=== PATIENT | female | born 2000 | race Hispanic/Latino ===

== ENCOUNTER 2022-04-18 08:33 | Emergency (ER) | payer SELFPAY ==
--- OUTSIDE RECORDS SUMMARY | 2022-04-18 08:35 | XMS REPORT | Continuity of Care Document ---
:2000 Author Organization [facility] t Address [address] [place] [address] Care Team Providers Name Role Phone Doctor Unassigned, Name Attending Clinician Unavailable Payers Payer Name Policy Type Policy Number Effective Date Expiration Date S ource Problems Condition Condition Condition Status Onset Resolution Last Treating Co mments Source Name Details Category Date Date Treatment Clinician Date Vaginal Vaginal Disease Active [facility] yeast yeast 2 [place] [facility] Contracept Contracept Disease Active U nivers mi[place] 2[place] [facility] Bradycardi Bradycardi Disease Active U nivers a a 7- ity of 00:00: [address] Depression Depression Disease Active U kerriers , , 06-11 ity [place]specif[place] depression depression Br anch type type Anxiety Anxiety Disease Active Univers 7 ity of 00:00: [place] 00 [facility] Allergies, Adverse Reactions, Alerts This patient has no known allergies or adverse reactions. Social History Social Habit Start Date Stop Date Quantity Comments Source Sex Assigned At [facility] Alcohol intake 2019-09-16 2019-09-16 [facility] 00:00:00 00:00:00 [facility] Alcohol Comment 2018-12-25 2018-12-25 occasional [facility] 00:00:00 00:00:00 [facility] Smoking Status Start Date Stop Date Source Never smoker [facility] Medications Ordered Filled Start Stop Current Ordering Indication Dosage Frequency Signature Comments Components Source Medication Medication Date Date Medication? Clinician (SIG) Name Name L-Norgest&E 2019- Yes [id number] 1{tbl} Take 1 Univers Estradiol-E 2-01 tablet by ity of Estrad 00:00: mouth [place] (SEASONIQUE 00 daily. Medica l ) 0.15 Branch mg-30 mcg (84)/10 mcg (7) per tablet FLUoxetine Yes [id number] 20mg Take 1 U nivers 20 mg 9-11 tablet by ity of tablet 00:00: mouth [place] 00 daily. [facility] Immunizations Ordered Immunization Filled Immunization Date Status Commen ts Source Name Name Tdap 2018-03-25 Completed University of 00:00:00 [facility] Meningococcal 2017-03-11 Completed University of Polysaccharide 00:00:00 [facility] sherin (groups A, C, Y and Branc h W-135) conjugate vaccine (MCV4P) HPV 2015-05-30 Completed University of 00:00:00 [facility] HPV 2013-11-30 Completed University of 00:00:00 [facility] HPV 2013-05-25 Completed University of 00:00:00 [facility] Meningococcal Vaccine 2011-06-10 Completed Uni versity of 00:00:00 [facility] Tdap 2011-06-10 Completed University of 00:00:00 [facility] Varicella 2011-06-10 Completed University of (varivax)(chicken 00:00:00 [place] M edical pox) [place] Meningococcal Vaccine 2010-12-11 Completed Uni versity of 00:00:00 [facility] Tdap 2010-12-11 Completed University of 00:00:00 [facility] Varicella 2010-12-11 Completed University of (varivax)(chicken 00:00:00 [place] M edical pox) [place] HEPATITIS A 2007-03-11 Completed University of 00:00:00 [facility] HEPATITIS A 2005-09-18 Completed University of 00:00:00 [facility] DTAP 2005-03-06 Completed University of 00:00:00 [facility] MMR 2005-03-06 Completed University of 00:00:00 [facility] Polio (IPV/OPV) 2005-03-06 Completed Universit y of 00:00:00 [facility] DTAP 2003-09-20 Completed University of 00:00:00 [facility] MMR 2003-09-20 Completed University of 00:00:00 [facility] Polio (IPV/OPV) 2003-09-20 Completed Universit y of 00:00:00 [facility] Pneumococcal 13 2001-06-11 Completed Universit y of Conjugate, PCV13 00:00:00 [facility] dical (Prevnar 13) Branch Varicella 2001-06-11 Completed University of (varivax)(chicken 00:00:00 [place] M edical pox) Branch DTAP 2001-02-06 Completed University of 00:00:00 [facility] HIB 4 Dose Schedule 2001-02-06 Completed Unive rsity of 00:00:00 [facility] MMR 2001-02-06 Completed University of 00:00:00 [facility] Polio (IPV/OPV) 2001-02-06 Completed Universit y of 00:00:00 [facility] DTAP 2000-07-16 Completed University of 00:00:00 [facility] HIB 4 Dose Schedule 2000-07-16 Completed Unive rsity of 00:00:00 [facility] DTAP 2000-03-18 Completed University of 00:00:00 [facility] Hep B, Adol or Pedi 2000-03-18 Completed Unive rsity of Dosage 00:00:00 [facility] HIB 4 Dose Schedule 2000-03-18 Completed Unive rsity of 00:00:00 [facility] Polio (IPV/OPV) 2000-03-18 Completed Universit y of 00:00:00 [facility] DTAP 1999 Completed University of 00:00:00 [facility] HIB 4 Dose Schedule 1999 Completed Unive rsity of 00:00:00 [facility] Hep B, Adol or Pedi 1999 Completed Unive rsity of Dosage 00:00:00 [facility] Polio (IPV/OPV) 1999 Completed Universit y of 00:00:00 [facility] Hep B, Adol or Pedi 1999 Completed Unive rsity of Dosage 00:00:00 [facility] Procedures Procedure Date / Time Performing Clinician Source Performed VACCINATIONS - 2020-03-23 05:01:00 Doctor Unassigned, No Univer [facility] [place] [place] CONSENTS, ELIGIBILITY, Name Medical [facility] HISTORY Encounters Start End Encounter Admission Attending Care Care Encounter Source Date/Time Date/Time Type Type Clinicians Facility Department ID 2020-03-23 2020-03-23 Orders Doctor WEBER [id number] Univers 00:00:00 00:00:00 Only Unassigned, XIAO [id number] ity of [place] [facility] [id number] [place] as [id number] [facility] 009 Branch Results This patient has no known results.
[2022-04-18] MEDS ORDERED: NA CHLORIDE 0.9% 1,000 ML ONE (09:10)
[2022-04-18] MEDS ORDERED: ONDANSETRON 4 MG/2 ML VIAL ONE (09:10)
[2022-04-18 09:14] LABS: Absolute Lymphocytes (CBC) 0.2 K/uL (0.7-4.9); Hematocrit 40.5 % (36.0-45.0); Lymphocytes % 4.1 % (15.3-44.8); MPV 7.6 fL (7.6-11.3); RBC Red Blood Cell Count 4.43 M/uL (3.86-4.86)
[2022-04-18 09:36] LABS: Albumin 3.8 g/dL (3.4-5.0); Bilirubin Total 0.8 mg/dL (0.2-1.0); Potassium 3.8 mmol/L (3.5-5.1)
[2022-04-18 10:02] LABS: Blood Morphology Comment NOT SEEN (NOT SEEN); Platelet Estimate ADEQ; White Blood Cell Scan OK (OK)
[2022-04-18] MEDS ORDERED: DIPHENHYDRAMINE 50 MG/ML VIAL ONE (10:32)
[2022-04-18] MEDS ORDERED: METOCLOPRAMIDE 10 MG/2mL INJ ONE (10:32)
[2022-04-18] MEDS ORDERED: NA CHLORIDE 0.9% 250 ML ONE (10:33)
--- NOTE | 2022-04-18 11:57 | ER ---
Nurse's Notes [facility] Name: Lanie Wood Age: 21 yrs Sex: Female : 2000 Arrival Date: 04/18/2022 Time: 08:35 Bed 19 Private MD: Diagnosis: Vomiting;Diarrhea, unspecified Presentation: 04/18 08:50 Chief complaint: Patient states: vomiting and diarrhea today, feels like when she had iw covid. Coronavirus screen: Client presents with at least one sign or symptom that may indicate coronavirus-19. Ebola Screen: Patient negative for fever greater than or equal to 101.5 degrees Fahrenheit, and additional compatible Ebola Virus Disease symptoms Patient denies exposure to infectious person. Patient denies travel to an Ebola-affected area in the 21 days before illness onset. No symptoms or risks identified at this time. Initial Sepsis Screen: Does the patient meet any 2 criteria? No. Patient's initial sepsis screen is negative. Does the patient have a suspected source of infection? No. Patient's initial sepsis screen is negative. Risk Assessment: Do you want to hurt yourself or someone else? Patient reports no desire to harm self or others. Onset of symptoms was April 18, 2022. 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 - Social history:: Smoking status: Patient denies any tobacco usage or history of. Screenin:53 Abuse screen: Denies threats or abuse. Nutritional screening: No deficits noted. ll1 Tuberculosis screening: No symptoms or risk factors identified. Fall Risk IV access (20 points). Total Rodriguez Fall Scale indicates No Risk (0-24 pts). Assessment: 08:58 General: Appears uncomfortable, ill, Behavior is calm, cooperative, appropriate for ll1 age. Pain: Complains of pain in abdomen Quality of pain is described as crampy. Neuro: No deficits noted. Cardiovascular: No deficits noted. Respiratory: No deficits noted. GI: Abdomen is flat, Reports cramping, diarrhea, nausea, vomiting. 09:14 Reassessment: No changes from previously documented assessment. Patient and/or family ll1 updated on plan of care and expected duration. Pain level reassessed. Patient is alert, oriented x 3, equal unlabored respirations, skin warm/dry/pink. 10:00 Reassessment: No changes from previously documented assessment. Patient and/or family ll1 updated on plan of care and expected duration. Pain level reassessed. Patient states feeling better. 10:45 Reassessment: No changes from previously documented assessment. Patient and/or family ll1 updated on plan of care and expected duration. Pain level reassessed. Patient is alert, oriented x 3, equal unlabored respirations, skin warm/dry/pink. 11:45 Reassessment: No changes from previously documented assessment. Patient and/or family ll1 updated on plan of care and expected duration. Pain level reassessed. Patient is alert, oriented x 3, equal unlabored respirations, skin warm/dry/pink. 12:03 Reassessment: No changes from previously documented assessment. Patient and/or family ll1 updated on plan of care and expected duration. Pain level reassessed. Patient is alert, oriented x 3, equal unlabored respirations, skin warm/dry/pink. Patient states feeling better. Patient states symptoms have improved. Vital Signs: 08:50 BP 104 / 63; Pulse 77; Resp 16; Temp 99.0; Pulse Ox 100% on R/A; Weight 72.57 kg; iw Height 5 ft. 7 in. (170.18 cm); 10:49 BP 101 / 63; Pulse 70; Resp 15; Pulse Ox 100% ; ll1 11:50 BP 143 / 71; Pulse 72; Resp 15; Pulse Ox 100% ; Pain 0/10; ll1 08:50 Body Mass Index 25.06 (72.57 kg, 170.18 cm) ED Course: 08:35 Patient arrived in ED. mr 08:41 Nithin Marvin PA is PHCP. jmm 08:41 José Miguel Richard MD is Attending Physician. jmm 08:51 Triage completed. iw 08:51 Arm band placed on. iw 08:53 Elie Hurtado, RN is Primary Nurse. ll1 08:53 Patient has correct armband on for positive identification. Bed in low position. Call ll1 light in reach. Side rails up X 1. Pulse ox on. NIBP on. 09:00 Inserted saline lock: 22 gauge in right antecubital area, using aseptic technique. ll1 Blood collected. 11:50 No provider procedures requiring assistance completed. IV discontinued, intact, ll1 bleeding controlled, No redness/swelling at site. Pressure dressing applied. Administered Medications: 09:13 Drug: NS 0.9% 1000 ml Route: IV; Rate: 1 bolus; Site: right antecubital; ll1 10:05 Follow up: Response: No adverse reaction; IV Status: Completed infusion; IV Intake: ll1 1000ml 09:13 Drug: Zofran (Ondansetron) 4 mg Route: IVP; Site: right antecubital; ll1 10:05 Follow up: Response: No adverse reaction; Nausea is decreased ll1 10:41 Drug: NS 0.9% 250 ml Route: IV; Rate: calculated rate; Site: right antecubital; ll1 11:43 Follow up: Response: No adverse reaction; IV Status: Completed infusion; IV Intake: ll1 250ml 10:41 Drug: Reglan (metoCLOPramide) 20 mg Route: IVP; Site: right antecubital; ll1 11:43 Follow up: Response: No adverse reaction ll1 10:42 Drug: diphenhydrAMINE 12.5 mg Route: IVP; Site: right antecubital; ll1 11:43 Follow up: Response: No adverse reaction ll1 Medication: 08:53 VIS not applicable for this client. ll1 Intake: 10:05 IV: 1000ml; Total: 1000ml. ll1 11:43 IV: 250ml; Total: 1250ml. ll1 Outcome: 11:50 Condition: stable ll1 11:57 Discharge ordered by . katia 12:02 Discharged to home ambulatory. ll1 12:02 Discharge instructions given to patient, Instructed on discharge instructions, follow up and referral plans. medication usage, Demonstrated understanding of instructions, follow-up care, medications, Prescriptions given X 2. 12:03 Patient left the ED. ll1 Signatures: Mickail, Nithin, PA PA jmm Chavez, Zamzam mr Hola, Clarisa, RN RN iw Bryant, Lynsay, RN RN ll1
--- NOTE | 2022-04-18 11:58 | EDPHYS ---
Physician Documentation [facility] Name: Lanie Wood Age: 21 yrs Sex: Female : 2000 Arrival Date: 04/18/2022 Time: 08:35 Bed 19 Private MD: ED Physician José Miguel Richard HPI: 04/18 08:46 This 21 yrs old Female presents to ER via Ambulatory with complaints of jmm Vomiting/Diarrhea. 08:46 The patient presents to the emergency department with nausea, vomiting, diarrhea. jmm Onset: The symptoms/episode began/occurred acutely, this morning. Possible causes: unknown. The symptoms are aggravated by food , The symptoms are alleviated by nothing. Associated signs and symptoms: Pertinent positives: abdominal pain. The patient has not experienced similar symptoms in the past. 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 - Social history:: Smoking status: Patient denies any tobacco usage or history of. ROS: 08:46 Cardiovascular: Negative for chest pain, palpitations, and edema, Respiratory: Negative jmm for shortness of breath, cough, wheezing, and pleuritic chest pain, Abdomen/GI: Negative for abdominal pain, nausea, vomiting, diarrhea, and constipation. 08:46 Constitutional: Positive for body aches, chills. 08:46 Abdomen/GI: Positive for abdominal pain, nausea and vomiting, diarrhea. 08:46 All other systems are negative. Exam: 08:46 Constitutional: This is a well developed, well nourished patient who is awake, alert, jmm and in no acute distress. Head/Face: atraumatic. Eyes: EOMI, no conjunctival erythema appreciated ENT: Moist Mucus Membranes Neck: Trachea midline, Supple Chest/axilla: Normal chest wall appearance and motion. Cardiovascular: Regular rate and rhythm. No edema appreciated Respiratory: Normal respirations, no respiratory distress appreciated Abdomen/GI: Non distended, soft Back: Normal ROM Skin: General appearance color normal MS/ Extremity: Moves all extremities, no obvious deformities appreciated, no edema noted to the lower extremities Neuro: Awake and alert Psych: Behavior is normal, Mood is normal, Patient is cooperative and pleasant 08:46 Abdomen/GI: Inspection: abdomen appears normal, Bowel sounds: normal, Palpation: abdomen is soft and non-tender, in all quadrants. Vital Signs: 08:50 BP 104 / 63; Pulse 77; Resp 16; Temp 99.0; Pulse Ox 100% on R/A; Weight 72.57 kg; iw Height 5 ft. 7 in. (170.18 cm); 10:49 BP 101 / 63; Pulse 70; Resp 15; Pulse Ox 100% ; ll1 11:50 BP 143 / 71; Pulse 72; Resp 15; Pulse Ox 100% ; Pain 0/10; ll1 08:50 Body Mass Index 25.06 (72.57 kg, 170.18 cm) iw MDM: 08:46 Patient medically screened. [facility] 11:56 Data reviewed: vital signs, nurses notes. [facility] 11:56 Counseling: I had a detailed discussion with the patient and/or guardian regarding: the [facility] historical points, exam findings, and any diagnostic results supporting the discharge/admit diagnosis, lab results, the need for outpatient follow up, to return to the emergency department if symptoms worsen or persist or if there are any questions or concerns that arise at home. ED course: States she feels much better. Abdomen is nontender to palpation. I do not suspect an acute intra-abdominal process. Most likely gastroenteritis. Patient vies follow with PCP and otherwise given strict return precautions. Patient understood and agrees plan of care.. 04/18 08:52 Order name: CBC with Diff; Complete Time: 10:05 [facility] 04/18 08:52 Order name: CMP; Complete Time: 10: [facility] 04/18 08:52 Order name: Lipase; Complete Time: 10: [facility] 04/18 09:17 Order name: CBC Smear Scan; Complete Time: 10: [facility] 04/18 11:47 Order name: Urine --Ancillary (enter results) dh3 04/18 12:02 Order name: Urine Dipstick-Ancillary; Complete Time: 12:03 [facility] 04/18 08:52 Order name: IV Saline Lock; Complete Time: 08:55 [facility] 04/18 08:52 Order name: Labs collected and sent; Complete Time: 08:55 [facility] 04/18 08:52 Order name: Urine Dipstick-Ancillary (obtain specimen); Complete Time: 11:43 [facility] Administered Medications: 09:13 Drug: NS 0.9% 1000 ml Route: IV; Rate: 1 bolus; Site: right antecubital; ll1 10:05 Follow up: Response: No adverse reaction; IV Status: Completed infusion; IV Intake: ll1 1000ml 09:13 Drug: Zofran (Ondansetron) 4 mg Route: IVP; Site: right antecubital; ll1 10:05 Follow up: Response: No adverse reaction; Nausea is decreased ll1 10:41 Drug: NS 0.9% 250 ml Route: IV; Rate: calculated rate; Site: right antecubital; ll1 11:43 Follow up: Response: No adverse reaction; IV Status: Completed infusion; IV Intake: ll1 250ml 10:41 Drug: Reglan (metoCLOPramide) 20 mg Route: IVP; Site: right antecubital; ll1 11:43 Follow up: Response: No adverse reaction ll1 10:42 Drug: diphenhydrAMINE 12.5 mg Route: IVP; Site: right antecubital; ll1 11:43 Follow up: Response: No adverse reaction ll1 Disposition Summary: 04/18/22 11:57 Discharge Ordered Location: Home [facility] Condition: Stable [facility] Diagnosis - Vomiting m - Diarrhea, unspecified [facility] Followup: [facility] - With: Private Physician - When: 2 - 3 days - Reason: Recheck today's complaints, Continuance of care, Re-evaluation by your physician Discharge Instructions: - Food Choices to Help Relieve Diarrhea, Adult jm - Diarrhea, Adult [facility] - Discharge Summary Sheet ll1 - Vomiting, Adult [facility] Forms: - Work release form ll1 - Medication Reconciliation Form [facility] - Thank You Letter [facility] - Antibiotic Education [facility] - Prescription Opioid Use [facility] Prescriptions: - ondansetron 4 mg Oral tablet,disintegrating - take 1 tablet by ORAL route every 4-6 hours; 30 tablet; Refills: 0, Product [facility] Selection Permitted - dicyclomine 20 mg Oral Tablet - take 1 tablet by ORAL route 4 times per day; 30 tablet; Refills: 0, Product [facility] Selection Permitted Signatures: Dispatcher [employer] EDAL Okil, Nithin, PA PA jmm Hola, Clarisa, RN RN iw Elie Hurtado RN RN ll1
[2022-04-18 12:01] LABS: Urine Blood Negative (Negative); Urine Glucose Negative (Negative); Urine Protein Negative (Negative); Urine pH 7.5 (5.0-7.0)
[2022-04-18 12:11] VITALS: TEMP 99; O2SAT 100
[2022-04-18 12:14] VITALS: BP 143/71
== END 2022-04-18 12:03 | disposition home or self-care (01) ==
LOC: ER 08:33
DX: R11.2 Nausea with vomiting, unspecified (principal); R19.7 Diarrhea, unspecified; F32.A Depression, unspecified
CPT/HCPCS: 36415; 80053; 81003; 81025; 83690; 85025; 96361; 96365; 96375; 99284; J1200; J2405; J2765; J7030; J7050

== ENCOUNTER 2023-05-22 22:58 | Emergency (ER) | payer OTHER ==
--- OUTSIDE RECORDS SUMMARY | 2023-05-22 23:01 | XMS REPORT | Continuity of Care Document ---
:2000 Author Organization [facility] t Address [address] [facility] [address] [place] [id number] Care Team Providers Name Role Phone Geronimo Lozano Primary Care Physician KYM DIAZ Attending Clinician Unavailable KYM DIAZ Attending Clinician Unavailable Ca Hays MD Attending Clinician CA HAYS Attending Clinician Unavailable Doctor Unassigned, [place] Attending Clinician Unavailable GERMAN ORR Attending Clinician Unavailable Payers Payer Name Policy Type Policy Number Effective Date Expiration Date S ource [place]ICAID [place] [id number] 2023 00:00:00 Problems Condition Condition Condition Status Onset Resolution Last Treating Co mments Source Name Details Category Date Date Treatment Clinician Date Vaginal Vaginal Disease Active 2018- Univers yeast yeast 2- [place] [facility] Contracept Contracept Disease Active 2019-0 U nivers miya miya 2- [place] [facility] Bradycardi Bradycardi Disease Active 2018-0 U nivers a a 7- ity of 00:00: [address] Depression Depression Disease Active 2017- U nivers , , 06-11 ity of unspecifie [place] depression Br anch type type Anxiety Anxiety Disease Active 2017- Univers 7- ity of 00:00: [place] 00 [facility] Allergies, Adverse Reactions, Alerts Allergy Allergy Status Severity Reaction(s) Onset Inactive Treating Comm ents Source Name Type Date Date Clinician NO KNOWN Drug Active Univers ALLERGIE Class ity of S [facility] Social History Social Habit Start Date Stop Date Quantity Comments Source ASSERTION 2023-03-18 University of 00:00:00 [facility] Alcohol intake 2023-05-06 2023-05-06 Current drinker Unive rsity of 00:00:00 00:00:00 of alcohol [facility] (finding) [place] Tobacco use and 2023-05-06 2023-05-06 Smokeless tobacco Un iversity of exposure 00:00:00 00:00:00 non-user [facility] Alcohol Comment 2018-12-25 2018-12-25 occasional Universit y of 00:00:00 00:00:00 [facility] Sex Assigned At [birth year] Universit y of 00:00:00 00:00:00 [facility] Smoking Status Start Date Stop Date Source Never smoked tobacco [facility] Medications Ordered Filled Start Stop Current Ordering Indication Dosage Frequency Signature Comments Components Source Medication Medication Date Date Medication? Clinician (SIG) Name Name Yes [id number] Take 1 Uni vers vit/iron 6-13 TAB-CAP/M2 ity o f fum/folic 20:58: by mouth. [place] as ac 06 Medical ( 1 Branch + 1 ORAL) Yes [id number] Take 1 Uni vers vit/iron 6-13 TAB-CAP/M2 ity o f fum/folic 20:58: by mouth. [place] as ac 06 Medical ( 1 Branch + 1 ORAL) escitalopra Yes [id number] 20mg Take 1 Univers m oxalate 6-13 tablet by ity o f 20 mg 20:57: mouth in [place] tablet 34 the Medical morning. Branch escitalopra Yes [id number] 20mg Take 1 Univers m oxalate 6-13 tablet by ity o f 20 mg 20:57: mouth in [place] tablet 34 the Medical morning. Branch proMETHazin Yes [id number] 25mg Take 1 Univers e 25 mg 6-13 tablet by ity of tablet 00:00: mouth [place] 00 every 4 Medical (four) Branch hours as needed for Nausea and Vomiting (N/V). proMETHazin Yes [id number] 25mg Take 1 Univers e 25 mg 6-13 tablet by ity of tablet 00:00: mouth [place] 00 every 4 Medical (four) Branch hours as needed for Nausea and Vomiting (N/V). L-Norgest&E Yes [id number] 1{tbl} Take 1 Univers Estradiol-E 2-01 tablet by ity of Estrad 00:00: mouth [place] (SEASONIQUE 00 daily. Medica l ) 0.15 Branch mg-30 mcg (84)/10 mcg (7) per tablet L-Norgest&E Yes [id number] 1{tbl} Take 1 Univers Estradiol-E 2-01 tablet by ity of Estrad 00:00: mouth [place] (SEASONIQUE 00 daily. Medica l ) 0.15 Branch mg-30 mcg (84)/10 mcg (7) per tablet L-Norgest&E Yes [id number] 1{tbl} Take 1 Univers Estradiol-E 2-01 tablet by ity of Estrad 00:00: mouth [place] (SEASONIQUE 00 daily. Medica l ) 0.15 Branch mg-30 mcg (84)/10 mcg (7) per tablet L-Norgest&E 2022- No [id number] 1{tbl} Take 1 Univers Estradiol-E 2-01 06-13 tablet by it y of Estrad 00:00: 00:00 mouth [place] (SEASONIQUE 00 :00 daily. Medica l ) 0.15 Branch mg-30 mcg (84)/10 mcg (7) per tablet FLUoxetine Yes [id number] 20mg Take 1 U nivers 20 mg 9-11 tablet by ity of tablet 00:00: mouth [place] 00 daily. Medical Branch FLUoxetine Yes [id number] 20mg Take 1 U nivers 20 mg 9-11 tablet by ity of tablet 00:00: mouth [place] 00 daily. Medical Branch FLUoxetine Yes [id number] 20mg Take 1 U nivers 20 mg 9-11 tablet by ity of tablet 00:00: mouth [place] 00 daily. Medical Branch FLUoxetine 2022- No [id number] 20mg Take 1 Univers 20 mg 9-11 06-13 tablet by ity of tablet 00:00: 00:00 mouth [place] 00 :00 daily. Medical Branch Immunizations Ordered Immunization Filled Immunization Date Status Commen ts Source Name Name TDAP 2018-03-25 Completed University of 00:00:00 [facility] Branch TDAP 2018-03-25 Completed University of 00:00:00 [facility] Branch TDAP 2018-03-25 Completed University of 00:00:00 [facility] Branch TDAP 2018-03-25 Completed University of 00:00:00 [facility] Branch Tdap 2018-03-25 Completed University of 00:00:00 [facility] Branch Meningococcal 2017-03-11 Completed University of Polysaccharide 00:00:00 [place] Medi sherin (groups A, C, Y and Branc h W-135) conjugate vaccine (MCV4P) Meningococcal 2017-03-11 Completed University of Polysaccharide 00:00:00 [place] Med[facility] sherin (groups A, C, Y and Branc h W-135) conjugate vaccine (MCV4P) Meningococcal 2017-03-11 Completed University of Polysaccharide 00:00:00 [place] Medi sherin (groups A, C, Y and Branc h W-135) conjugate vaccine (MCV4P) Meningococcal 2017-03-11 Completed University of Polysaccharide 00:00:00 [place] Medi sherin (groups A, C, Y and Branc h W-135) conjugate vaccine (MCV4P) Meningococcal 2017-03-11 Completed University of Polysaccharide 00:00:00 [place] Medi sherin (groups A, C, Y and Branc h W-135) conjugate vaccine (MCV4P) HPV 2015-05-30 Completed University of 00:00:00 [facility] Branch HPV 2015-05-30 Completed University of 00:00:00 [facility] Branch HPV 2015-05-30 Completed University of 00:00:00 [facility] Branch HPV 2015-05-30 Completed University of 00:00:00 [facility] Branch HPV 2015-05-30 Completed University of 00:00:00 [facility] Branch HPV 2013-11-30 Completed University of 00:00:00 [facility] Branch HPV 2013-11-30 Completed University of 00:00:00 [facility] Branch HPV 2013-11-30 Completed University of 00:00:00 [place] [facility] HPV 2013-11-30 Completed University of 00:00:00 [facility] Branch HPV 2013-11-30 Completed University of 00:00:00 [facility] Branch HPV 2013-05-25 Completed University of 00:00:00 [facility] Branch HPV 2013-05-25 Completed University of 00:00:00 [facility] HPV 2013-05-25 Completed University of 00:00:00 [facility] HPV 2013-05-25 Completed University of 00:00:00 [facility] HPV 2013-05-25 Completed University of 00:00:00 [facility] Meningococcal Vaccine 2011-06-10 Completed Uni versity of 00:00:00 [facility] TDAP 2011-06-10 Completed University of 00:00:00 [facility] Varicella 2011-06-10 Completed University of (varivax)(chicken 00:00:00 [place] M edical pox) Branch Meningococcal Vaccine 2011-06-10 Completed Uni versity of 00:00:00 [facility] TDAP 2011-06-10 Completed University of 00:00:00 [facility] Varicella 2011-06-10 Completed University of (varivax)(chicken 00:00:00 [place] M [facility]ical pox) Branch Meningococcal Vaccine 2011-06-10 Completed Uni versity of 00:00:00 [facility] TDAP 2011-06-10 Completed University of 00:00:00 [facility] Varicella 2011-06-10 Completed University of (varivax)(chicken 00:00:00 [place] M [facility]ical pox) Branch Meningococcal Vaccine 2011-06-10 Completed Uni versity of 00:00:00 [facility] Tdap 2011-06-10 Completed University of 00:00:00 [facility] Varicella 2011-06-10 Completed University of (varivax)(chicken 00:00:00 [place] M [facility]ical pox) Branch Meningococcal Vaccine 2011-06-10 Completed Uni versity of 00:00:00 [facility] TDAP 2011-06-10 Completed University of 00:00:00 [facility] Varicella 2011-06-10 Completed University of (varivax)(chicken 00:00:00 [place] M [facility]ical pox) Branch Meningococcal Vaccine 2010-12-11 Completed Uni versity of 00:00:00 [facility] TDAP 2010-12-11 Completed University of 00:00:00 [facility] Varicella 2010-12-11 Completed University of (varivax)(chicken 00:00:00 [place] M [facility]ical pox) Branch Meningococcal Vaccine 2010-12-11 Completed Uni versity of 00:00:00 [facility] TDAP 2010-12-11 Completed University of 00:00:00 [facility] Varicella 2010-12-11 Completed University of (varivax)(chicken 00:00:00 [place] M [facility]ical pox) Branch Meningococcal Vaccine 2010-12-11 Completed Uni versity of 00:00:00 [facility] TDAP 2010-12-11 Completed University of 00:00:00 [facility] Varicella 2010-12-11 Completed University of (varivax)(chicken 00:00:00 [place] M [facility]ical pox) Branch Meningococcal Vaccine 2010-12-11 Completed Uni versity of 00:00:00 [facility] Tdap 2010-12-11 Completed University of 00:00:00 [facility] Varicella 2010-12-11 Completed University of (varivax)(chicken 00:00:00 [facility] edical pox) Branch Meningococcal Vaccine 2010-12-11 Completed Uni versity of 00:00:00 [facility] TDAP 2010-12-11 Completed University of 00:00:00 [facility] Varicella 2010-12-11 Completed University of (varivax)(chicken 00:00:00 [facility] edical pox) [place] HEPATITIS A 2007-03-11 Completed University of 00:00:00 [facility] HEPATITIS A 2007-03-11 Completed University of 00:00:00 [facility] HEPATITIS A 2007-03-11 Completed University of 00:00:00 [facility] HEPATITIS A 2007-03-11 Completed University of 00:00:00 [facility] HEPATITIS A 2007-03-11 Completed University of 00:00:00 [facility] HEPATITIS A 2005-09-18 Completed University of 00:00:00 [facility] HEPATITIS A 2005-09-18 Completed University of 00:00:00 [facility] HEPATITIS A 2005-09-18 Completed University of 00:00:00 [facility] HEPATITIS A 2005-09-18 Completed University of 00:00:00 [facility] HEPATITIS A 2005-09-18 Completed University of 00:00:00 [facility] DTAP 2005-03-06 Completed University of 00:00:00 [facility] MMR 2005-03-06 Completed University of 00:00:00 [facility] Polio (IPV/OPV) 2005-03-06 Completed Universit y of 00:00:00 [facility] DTAP 2005-03-06 Completed University of 00:00:00 [facility] MMR 2005-03-06 Completed University of 00:00:00 [facility] DTAP 2005-03-06 Completed University of 00:00:00 [place] [facility] Polio (IPV/OPV) 2005-03-06 Completed Universit y of 00:00:00 [place] [facility] DTAP 2005-03-06 Completed University of 00:00:00 [place] [facility] MMR 2005-03-06 Completed University of 00:00:00 [place] [facility] Polio (IPV/OPV) 2005-03-06 Completed Universit y of 00:00:00 [facility] Branch MMR 2005-03-06 Completed University of 00:00:00 [place] [facility] Polio (IPV/OPV) 2005-03-06 Completed Universit y of 00:00:00 [facility] Branch DTAP 2005-03-06 Completed University of 00:00:00 [facility] Branch MMR 2005-03-06 Completed University of 00:00:00 [place] [facility] Polio (IPV/OPV) 2005-03-06 Completed Universit y of 00:00:00 [facility] Branch DTAP 2003-09-20 Completed University of 00:00:00 [facility] Branch MMR 2003-09-20 Completed University of 00:00:00 [place] [facility] Polio (IPV/OPV) 2003-09-20 Completed Universit y of 00:00:00 [facility] Branch DTAP 2003-09-20 Completed University of 00:00:00 [facility] Branch DTAP 2003-09-20 Completed University of 00:00:00 [facility] Branch MMR 2003-09-20 Completed University of 00:00:00 [place] [facility] Polio (IPV/OPV) 2003-09-20 Completed Universit y of 00:00:00 [place] [facility] DTAP 2003-09-20 Completed University of 00:00:00 [place] [facility] MMR 2003-09-20 Completed University of 00:00:00 [place] [facility] Polio (IPV/OPV) 2003-09-20 Completed Universit y of 00:00:00 [facility] MMR 2003-09-20 Completed University of 00:00:00 [place] [facility] Polio (IPV/OPV) 2003-09-20 Completed Universit y of 00:00:00 [facility] Branch DTAP 2003-09-20 Completed University of 00:00:00 [facility] MMR 2003-09-20 Completed University of 00:00:00 [place] [facility] Polio (IPV/OPV) 2003-09-20 Completed Universit y of 00:00:00 [facility] Pneumococcal 13 2001-06-11 Completed Universit y of Conjugate, PCV13 00:00:00 [place] [facility]ical (Prevnar 13) Branch Varicella 2001-06-11 Completed University of (varivax)(chicken 00:00:00 [place] [facility] pox) Branch Pneumococcal 13 2001-06-11 Completed Universit y of Conjugate, PCV13 00:00:00 [place] [facility] (Prevnar 13) Branch Varicella 2001-06-11 Completed University of (varivax)(chicken 00:00:00 [place] M [facility]ical pox) Branch Pneumococcal 13 2001-06-11 Completed Universit y of Conjugate, PCV13 00:00:00 [place] Me [facility]ical (Prevnar 13) Branch Varicella 2001-06-11 Completed University of (varivax)(chicken 00:00:00 [place] M [facility]ical pox) Branch Pneumococcal 13 2001-06-11 Completed Universit y of Conjugate, PCV13 00:00:00 [place] Me [facility]ical (Prevnar 13) Branch Varicella 2001-06-11 Completed University of (varivax)(chicken 00:00:00 [place] M [facility]ical pox) Branch Pneumococcal 13 2001-06-11 Completed Universit y of Conjugate, PCV13 00:00:00 [place] Me [facility]ical (Prevnar 13) Branch Varicella 2001-06-11 Completed University of (varivax)(chicken 00:00:00 [place] M [place]ical pox) Branch DTAP 2001-02-06 Completed University of 00:00:00 [facility] HIB 4 Dose Schedule 2001-02-06 Completed Unive rsity of 00:00:00 [facility] MMR 2001-02-06 Completed University of 00:00:00 [facility] Polio (IPV/OPV) 2001-02-06 Completed Universit y of 00:00:00 [facility] DTAP 2001-02-06 Completed University of 00:00:00 [facility] DTAP 2001-02-06 Completed University of 00:00:00 [facility] HIB 4 Dose Schedule 2001-02-06 Completed Unive rsity of 00:00:00 [facility] MMR 2001-02-06 Completed University of 00:00:00 [facility] Polio (IPV/OPV) 2001-02-06 Completed Universit y of 00:00:00 [facility] DTAP 2001-02-06 Completed University of 00:00:00 [facility] HIB 4 Dose Schedule 2001-02-06 Completed Unive rsity of 00:00:00 [facility] MMR 2001-02-06 Completed University of 00:00:00 [facility] Polio (IPV/OPV) 2001-02-06 Completed Universit y of 00:00:00 [facility] HIB 4 Dose Schedule 2001-02-06 Completed Unive rsity of 00:00:00 [facility] Branch MMR 2001-02-06 Completed University of 00:00:00 [facility] Polio (IPV/OPV) 2001-02-06 Completed Universit y of 00:00:00 [facility] Branch DTAP 2001-02-06 Completed University of 00:00:00 [facility] HIB 4 Dose Schedule 2001-02-06 Completed Unive rsity of 00:00:00 [facility] MMR 2001-02-06 Completed University of 00:00:00 [facility] Polio (IPV/OPV) 2001-02-06 Completed Universit y of 00:00:00 [facility] DTAP 2000-07-16 Completed University of 00:00:00 [facility] HIB 4 Dose Schedule 2000-07-16 Completed Unive rsity of 00:00:00 [facility] DTAP 2000-07-16 Completed University of 00:00:00 [facility] DTAP 2000-07-16 Completed University of 00:00:00 [facility] HIB 4 Dose Schedule 2000-07-16 Completed Unive rsity of 00:00:00 [facility] DTAP 2000-07-16 Completed University of 00:00:00 [facility] HIB 4 Dose Schedule 2000-07-16 Completed Unive rsity of 00:00:00 [facility] HIB 4 Dose Schedule 2000-07-16 Completed Unive rsity of 00:00:00 [facility] DTAP 2000-07-16 Completed University of 00:00:00 [facility] HIB 4 Dose Schedule 2000-07-16 Completed Unive rsity of 00:00:00 [facility] DTAP 2000-03-18 Completed University of 00:00:00 [facility] Hep B, Adol or Pedi 2000-03-18 Completed Unive rsity of Dosage 00:00:00 [facility] HIB 4 Dose Schedule 2000-03-18 Completed Unive rsity of 00:00:00 [facility] Polio (IPV/OPV) 2000-03-18 Completed Universit y of 00:00:00 [facility] DTAP 2000-03-18 Completed University of 00:00:00 [facility] DTAP 2000-03-18 Completed University of 00:00:00 [facility] Hep B, Adol or Pedi 2000-03-18 Completed Unive rsity of Dosage 00:00:00 [facility] HIB 4 Dose Schedule 2000-03-18 Completed Unive rsity of 00:00:00 [facility] Polio (IPV/OPV) 2000-03-18 Completed Universit y of 00:00:00 [facility] DTAP 2000-03-18 Completed University of 00:00:00 [facility] Branch Hep B, Adol or Pedi 2000-03-18 Completed Unive rsity of Dosage 00:00:00 [facility] HIB 4 Dose Schedule 2000-03-18 Completed Unive rsity of 00:00:00 [facility] Polio (IPV/OPV) 2000-03-18 Completed Universit y of 00:00:00 [facility] Branch Hep B, Adol or Pedi 2000-03-18 Completed Unive rsity of Dosage 00:00:00 [facility] HIB 4 Dose Schedule 2000-03-18 Completed Unive rsity of 00:00:00 [facility] Polio (IPV/OPV) 2000-03-18 Completed Universit y of 00:00:00 [facility] DTAP 2000-03-18 Completed University of 00:00:00 [facility] Hep B, Adol or Pedi 2000-03-18 Completed Unive rsity of Dosage 00:00:00 [facility] HIB 4 Dose Schedule 2000-03-18 Completed Unive rsity of 00:00:00 [facility] Branch Polio (IPV/OPV) 2000-03-18 Completed Universit y of 00:00:00 [facility] DTAP 1999 Completed University of 00:00:00 [facility] HIB 4 Dose Schedule 1999 Completed Unive rsity of 00:00:00 [facility] Hep B, Adol or Pedi 1999 Completed Unive rsity of Dosage 00:00:00 [facility] Polio (IPV/OPV) 1999 Completed Universit y of 00:00:00 [facility] DTAP 1999 Completed University of 00:00:00 [facility] Branch DTAP 1999 Completed University of 00:00:00 [facility] HIB 4 Dose Schedule 1999 Completed Unive rsity of 00:00:00 [facility] Branch Hep B, Adol or Pedi 1999 Completed Unive rsity of Dosage 00:00:00 [facility] Polio (IPV/OPV) 1999 Completed Universit y of 00:00:00 [facility] HIB 4 Dose Schedule 1999 Completed Unive rsity of 00:00:00 [facility] Branch DTAP 1999 Completed University of 00:00:00 [facility] HIB 4 Dose Schedule 1999 Completed Unive rsity of 00:00:00 [facility] Branch Hep B, Adol or Pedi 1999 Completed Unive rsity of Dosage 00:00:00 [facility] Branch Hep B, Adol or Pedi 1999 Completed Unive rsity of Dosage 00:00:00 [facility] Polio (IPV/OPV) 1999 Completed Universit y of 00:00:00 [facility] Polio (IPV/OPV) 1999 Completed Universit y of 00:00:00 [facility] DTAP 1999 Completed University of 00:00:00 [facility] HIB 4 Dose Schedule 1999 Completed Unive rsity of 00:00:00 [place] [facility] Hep B, Adol or Pedi 1999 Completed Unive rsity of Dosage 00:00:00 [facility] Polio (IPV/OPV) 1999 Completed Universit y of 00:00:00 [place] [facility] Hep B, Adol or Pedi 1999 Completed Unive rsity of Dosage 00:00:00 [place] [facility] Hep B, Adol or Pedi 1999 Completed Unive rsity of Dosage 00:00:00 [place] [facility] Hep B, Adol or Pedi 1999 Completed Unive rsity of Dosage 00:00:00 [place] [facility] Hep B, Adol or Pedi 1999 Completed Unive rsity of Dosage 00:00:00 [place] [facility] Hep B, Adol or Pedi 1999 Completed Unive rsity of Dosage 00:00:00 [facility] Vital Signs Vital Name Observation Time Observation Value Comments Source Systolic blood 2023-05-06 20:25:00 115 mm[Hg] Univer sity of pressure [facility] Diastolic blood 2023-05-06 20:25:00 70 mm[Hg] Unive rsity of [facility] Heart rate 2023-05-06 20:25:00 77 /min Universi ty [facility] Body temperature 2023-05-06 20:25:[address] [facility] [place] [facility] Respiratory rate 2023-05-06 20:25:00 18 /min Univ [facility] [place] [facility] Body height 2023-05-06 20:25:00 170.2 cm Universi ty [facility] Body weight 2023-05-06 20:25:00 [facility] 2023-05-06 20:25:00 25.65 kg/m2 [facility] Oxygen saturation in 2023-05-06 20:25:00 99 /min [facility] Arterial blood by [facility] Pulse oximetry Branch Body weight 2023-04-12 17:03:00 71.668 kg Universi ty [facility] BMI 2023-04-12 17:03:00 24.75 kg/m2 Universi ty [facility] Systolic blood 2023-04-12 17:03:00 122 mm[Hg] Univer sity of [facility] Diastolic blood 2023-04-12 17:03:00 88 mm[Hg] Unive rsity of pressure [facility] Body height 2023-04-12 17:03:00 170.2 [facility] Procedures Procedure Date / Time Performing Clinician Source Performed US OB TRANSVAGINAL 2023-05-07 02:00:02 Ca Hays [facility] URINE DRUG (IMMUNOASSAY) 2023-05-06 21:46:00 Ca Hays versity [facility] SCREEN ASSIGNMENT OF BENEFITS 2023-05-06 19:26:26 Doctor Unassigned, No [facility] POCT TEST 2023-05-06 00:00:00 Adum, Ca Arredondo [facility] POCT URINALYSIS W/O 2023-05-06 00:00:00 Adum, Ca Arredondo [facility] SPECIFIC GRAVITY [facility] CONSENT/REFUSAL FOR 2023-04-12 16:54:47 Doctor Unassigned, No Un [facility] DIAGNOSIS AND TREATMENT Name [facility] VACCINATIONS - CONSENTS, 2020-03-23 05:01:00 Doctor Unassigned, No [facility] ELIGIBILITY, HISTORY Name Medical [facility] Encounters Start End Encounter Admission Attending Care Care Encounter Source Date/Time Date/Time Type Type Clinicians Facility Department ID 2023-06-09 2023-06-09 Outpatient R KYM DIAZ [facility] [id number] Univers 13:15:00 13:15:00 KYM DIAZ ity [facility] 2023-05-09 2023-05-09 Telephone Adum, [facility] [id number] Univers 00:00:00 00:00:00 Ca CHAIREZ [id number] ity of [place] [id number] [place] [id number] [place] [address] [place] [address] 2023-05-06 2023-05-06 Outpatient R ADUM, [facility] [id number] Univers 14:30:00 16:22:09 [place] ity [facility] 2023-05-06 2023-05-06 Initial Adum, [facility] [id number] Univers 14:30:00 16:22:09 [place] CHAIREZ [id number] ity of [id number] [id number] [place] N[place] 134 [facility] 2023-05-06 2023-05-06 Orders Doctor WEBER [id number] Univers 00:00:00 00:00:00 Only Unassigned, XIAO [id number] ity of [place] [facility] [id number] [place] as [id number] [address] 2023-04-12 2023-04-12 Emergency X [facility] ERT [id number] Univers 12:07:00 12:19:00 ity of [facility] 2023-04-12 2023-04-12 Emergency [facility] [id number] Univers 12:07:00 12:19:00 ANGLEALIN [id number] i ty of [place] [id number] [facility] [id number] [address] 2023-01-15 2023-01-15 Outpatient R KIRBY [facility] 116 [id number] Univers 14:00:00 14:00:00 , [place] it y of [facility] 2020-03-23 2020-03-23 Orders Doctor TIA [id number] Univers 00:00:00 00:00:00 Only Unassigned, XIAO [id number] ity of [place] [facility] [id number] [facility] [id number] [address] Results Test Description Test Time Test Comments Results Result Comments Source POCT URINALYSIS W/O SPECIFIC GRAVITY 2023-05-06 20:32:00 Test Item Value Reference Range Interpretation Comme nts POCT PH U (test code = 3254) n/a 5-8 POCT U LEUK EST (test code = 3263) n/a Negative - Negative POCT U NIT (test code = 3262) n/a Negative - Negative POCT U PROT (test code = 3259) negative Negative - Negative POCT U GLU (test code = 3256) negative Negative - Negative POCT U KETONE (test code = 3258) n/a Negative - Negative POCT U BLD (test code = 3257) n/a Negative - Negative [id number]:31[facility] Test Item Value Reference Range Interpretation Comments POCT PREG (test code = 1605) Positive On board controls acceptable with C Yes Line (test code = 3574) POCT PREG LOT # (test code = 3575) POCT PREG TEST DATE (test code = 3576) [facility]
[2023-05-22 23:33] LABS: Absolute Lymphocytes (CBC) 1.6 K/uL (0.7-4.9); Hematocrit 41.9 % (36.0-45.0); Lymphocytes % 24.9 % (15.3-44.8); MCV 91.8 fL (80-100); MPV 7.1 fL (7.6-11.3); RBC Red Blood Cell Count 4.56 M/uL (3.86-4.86)
[2023-05-23 00:06] LABS: Bilirubin Total 0.3 mg/dL (0.2-1.0); Potassium 3.4 mEq/L (3.5-5.1); Protein, Total 7.9 g/dL (6.4-8.2)
[2023-05-23 00:49] LABS: Specific Gravity 1.015 (1.005-1.030); Urine Bacteria None Seen /HPF (<20); Urine Bilirubin NEGATIVE (Negative); Urine Blood 1+ (Negative); Urine Clarity Clear (Clear); Urine Color Light-Yellow (Yellow); Urine Glucose NEGATIVE (Negative); Urine Mucus Slight /HPF (None Seen); Urine Protein NEGATIVE (Negative); Urine RBC <5 /HPF (None Seen); Urine Urobilinogen Normal (Normal); Urine pH 6.5 (5.0-7.0)
--- NOTE | 2023-05-23 01:16 | EDPHYS ---
Physician Documentation [facility] Name: Lanie Wood Age: 22 yrs Sex: Female : 2000 Arrival Date: 05/22/2023 Time: 22:58 Bed 19 Private MD: ED Physician Ceasar Soto HPI: 05/22 23:07 This 22 yrs old Female presents to ER via Unassigned with complaints of sp4 , VAGINAL BLEEDING. 23:34 Very pleasant 22-year-old female -0-0-1 at estimated gestational age of 11 weeks 2 sp4 days by last menstrual period, estimated delivery date 12/09/2023, last menstrual period 03/04/2023., EGA estimated by sonogram, with history of care presents for cute onset of painless vaginal bleeding starting just about 30 minutes prior to arrival associated with passing blood clots. No history of prior miscarriage. . 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 - Social history:: Smoking status: Patient denies any tobacco usage or history of. Patient/guardian denies using alcohol, street drugs. - Family history:: not pertinent. ROS: 23:34 Constitutional: Negative for fever, chills, and weight loss, Eyes: Negative for injury, sp4 pain, redness, and discharge, ENT: Negative for injury, pain, and discharge, Neck: Negative for injury, pain, and swelling, Cardiovascular: Negative for chest pain, palpitations, and edema, Respiratory: Negative for shortness of breath, cough, wheezing, and pleuritic chest pain, Abdomen/GI: Negative for abdominal pain, nausea, vomiting, diarrhea, and constipation, Back: Negative for injury and pain, : Negative for injury, positive for vaginal bleeding , negative uterine cramps MS/Extremity: Negative for injury and deformity, Skin: Negative for injury, rash, and discoloration, Neuro: Negative for headache, weakness, numbness, tingling, and seizure, Psych: Negative for depression, anxiety, Allergy/Immunology: Negative for hives, rash, and allergies Endocrine: Negative for neck swelling, polydipsia, polyuria, polyphagia, and weight changes Hematologic/Lymphatic: Negative for swollen nodes, abnormal bleeding, and unusual bruising Exam: 23:34 Constitutional: This is a well developed, well nourished patient who is awake, alert, sp4 and in no acute distress. Head/Face: Normocephalic, atraumatic. Eyes: Pupils equal round and reactive to light, extra-ocular motions intact. Lids and lashes normal. Conjunctiva and sclera are not injected. Cornea within normal limits. Periorbital areas with no swelling, redness, or edema. ENT: Nares patent. No nasal discharge, no septal abnormalities noted. Tympanic membranes are normal and external auditory canals are clear. Oropharynx with no redness, swelling, or masses, exudates, or evidence of obstruction, uvula midline. Mucous membranes moist. Neck: Trachea midline, no thyromegaly or masses palpated, and no cervical lymphadenopathy. Supple, full range of motion without nuchal rigidity, or vertebral point tenderness. Chest/axilla: Normal chest wall appearance and motion. Nontender with no deformity. No lesions are appreciated. Cardiovascular: Regular rate and rhythm with a normal S1 and S2. No gallops, murmurs, or rubs. Normal PMI, no JVD. No pulse deficits. Respiratory: Lungs have equal breath sounds bilaterally, clear to auscultation and percussion. No rales, rhonchi or wheezes noted. No increased work of breathing, no retractions or nasal flaring. Abdomen/GI: Soft, non-tender, with normal bowel sounds. No distension or tympany. No guarding or rebound. No evidence of tenderness throughout. Back: No spinal tenderness. No costovertebral tenderness. Skin: Warm, dry with normal turgor. Normal color with no rashes, no lesions, and no evidence of cellulitis. MS/ Extremity: Pulses equal, no cyanosis. Neurovascular intact. Full, normal range of motion. Neuro: Awake and alert, GCS 15, oriented to person, place, time, and situation. Cranial nerves II-XII grossly intact. Motor strength 5/5 in all extremities. Sensory grossly intact. Psych: Awake, alert, with orientation to person, place and time. Behavior, mood, and affect are within normal limits Vital Signs: 23:13 BP 105 / 80; Pulse 88; Resp 17 S; Temp 98.7(O); Pulse Ox 100% on R/A; Weight 74.84 kg lg3 (R); Height 5 ft. 7 in. (R); 05/23 00:42 BP 112 / 90; Pulse 90; Resp 16 S; Pulse Ox 98% on R/A; lg3 05/22 23:13 Body Mass Index 25.84 (74.84 kg, 170.18 cm) lg3 MDM: 05/22 23:28 Patient medically screened. sp4 05/23 01:03 Differential Diagnosis Threatened miscarriage. Data reviewed: vital signs, nurses sp4 notes, lab test result(s), radiologic studies, ultrasound. 01:06 ED course: EXAM DESCRIPTION: OB Limited CLINICAL HISTORY: 22 years Female, vag bleed sp4 COMPARISON: None. TECHNIQUE: Transabdominal and transvaginal images of the pelvis obtained. FINDINGS: Uterus: Anteverted. No myometrial mass. Gestational sac/Yolk sac/ pole: Single live intrauterine with gestational sac containing a pole. [place]-rump length of 4.7 cm, compatible with estimated gestational age of 11 weeks and 2 days. There is a small subchorionic hemorrhage measuring 1.1 x 0.7 x 0.8 cm heart motion: 160 bpm Right ovary: Not visualized. Left ovary: Not visualized. Adnexa: No additional abnormality. Free fluid: None identified. IMPRESSION: Single live intrauterine with estimated gestational age of 11 weeks and 2 days. Small subchorionic hemorrhage. . 01:12 Consideration of Admission/Observation Escalation of care including sp4 admission/observation considered. ED course: hormone level is almost 47,000. Ultrasound revealed normal-appearing single intrauterine location and heart tones 160. Patient advised to see her OB doctor in 2 days for hormone level. Patient will be discharged home with recommendations of bedrest for 2 days and pelvic rest for the next 2-weeks . 05/22 23:07 Order name: CBC with Diff; Complete Time: 01:04 sp4 05/22 23:07 Order name: CMP; Complete Time: 01:04 sp4 05/22 23:07 Order name: HCG-Quantitative; Complete Time: 01:04 sp4 05/22 23:07 Order name: Urinalysis W/Microscopic; Complete Time: 01:04 sp4 05/22 23:20 Order name: US OB Limited sp4 05/22 23:07 Order name: IV Saline Lock; Complete Time: 23:38 sp4 05/22 23:07 Order name: Labs collected and sent; Complete Time: 23:38 sp4 Administered Medications: No medications were administered Disposition Summary: 05/23/23 01:15 Discharge Ordered Location: Home sp4 Problem: new sp4 Symptoms: have improved sp4 Condition: Stable sp4 Diagnosis - Threatened sp4 - Vaginal bleeding in , first trimester sp4 Followup: sp4 - With: Private Physician - When: 2 - 3 days - Reason: Recheck today's complaints Discharge Instructions: - Discharge Summary Sheet sp4 - Threatened Miscarriage sp4 Forms: - [email or web address] sp4 Signatures: Dispatcher [employer] Gloria Jules, RN RN lg3 Ceasar Soto MD MD sp4
--- NOTE | 2023-05-23 01:16 | ER ---
Nurse's Notes [facility] Name: Lanie Wood Age: 22 yrs Sex: Female : 2000 Arrival Date: 05/22/2023 Time: 22:58 Bed 19 Private MD: Diagnosis: Threatened ;Vaginal bleeding in , first trimester Presentation: 05/22 23:13 Chief complaint: Patient states: almost 12 weeks in a few day. LMP 03/04/23. lg3 due date 12/09/23. woke up this morning with pelvic heaviness and pressure. used restroom around 2230 and im bleeding heavily with clots. Coronavirus screen: Client denies travel out of the [place] in the last 14 days. At this time, the client does not indicate any symptoms associated with coronavirus-19. Ebola Screen: No symptoms or risks identified at this time. Initial Sepsis Screen: Does the patient meet any 2 criteria? No. Patient's initial sepsis screen is negative. Does the patient have a suspected source of infection? No. Patient's initial sepsis screen is negative. Risk Assessment: Do you want to hurt yourself or someone else? Patient reports no desire to harm self or others. Onset of symptoms was May 22, 2023. 23:13 Method Of Arrival: Ambulatory lg3 23:13 Acuity: KATIE 3 lg3 Triage Assessment: 23:16 General: Appears in no apparent distress. comfortable, Behavior is calm, cooperative. lg3 Pain: Complains of pain in pelvis Quality of pain is described as heavy, pressure. EENT: No deficits noted. No signs and/or symptoms were reported regarding the EENT system. Neuro: No deficits noted. [place] Agitation-Sedation Scale (RASS): 0 - Alert and Calm Level of Consciousness is awake, alert, obeys commands, Oriented to person, place, time, situation. Cardiovascular: No deficits noted. Respiratory: No deficits noted. Airway is patent Respiratory effort is even, unlabored, Respiratory pattern is regular, symmetrical. GI: No deficits noted. Abdomen is flat, non-distended, Reports lower abdominal pain, cramping. : Reports vaginal bleeding that is bright red, with clots, heavy flow. Derm: No deficits noted. No signs and/or symptoms reported regarding the dermatologic system. Musculoskeletal: No deficits noted. No signs and/or symptoms reported regarding the musculoskeletal system. 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 - Social history:: Smoking status: Patient denies any tobacco usage or history of. Patient/guardian denies using alcohol, street drugs. - Family history:: not pertinent. Screenin:39 [facility] ED Fall Risk Assessment (Adult) History of falling in the last 3 months, mb9 including since admission No falls in past 3 months (0 pts) Confusion or Disorientation No (0 pts) Intoxicated or Sedated No (0 pts) Impaired Gait No (0 pts) Mobility Assist Device Used No (0 pt) Altered Elimination No (0 pt) Score/Fall Risk Level 0 - 2 = Low Risk Oriented to surroundings, Maintained a safe environment, Educated pt \T\ family on fall prevention, incl call for assistance when getting out of bed. Abuse screen: Denies threats or abuse. Nutritional screening: No deficits noted. Tuberculosis screening: No symptoms or risk factors identified. Assessment: 23:38 Reassessment: No changes from previously documented assessment. Patient and/or family mb9 updated on plan of care and expected duration. Pain level reassessed. Patient is alert, oriented x 3, equal unlabored respirations, skin warm/dry/pink. 05/23 00:42 Reassessment: Patient appears in no apparent distress at this time. No changes from lg3 previously documented assessment. Patient and/or family updated on plan of care and expected duration. Pain level reassessed. Patient is alert, oriented x 3, equal unlabored respirations, skin warm/dry/pink. Vital Signs: 05/22 23:13 BP 105 / 80; Pulse 88; Resp 17 S; Temp 98.7(O); Pulse Ox 100% on R/A; Weight 74.84 kg lg3 (R); Height 5 ft. 7 in. (R); 05/23 00:42 BP 112 / 90; Pulse 90; Resp 16 S; Pulse Ox 98% on R/A; lg3 05/22 23:13 Body Mass Index 25.84 (74.84 kg, 170.18 cm) lg3 ED Course: 05/22 23:01 Patient arrived in ED. ag3 23:07 Ceasar Soto MD is Attending Physician. sp4 23:10 Zamzam Waller RN is Primary Nurse. mb9 23:10 Arm band placed on. mb9 23:15 Inserted saline lock: 20 gauge in right antecubital area, using aseptic technique. mb9 23:16 Triage completed. lg3 23:38 Placed in gown. Bed in low position. Call light in reach. Side rails up X 1. Client mb9 placed on continuous cardiac and pulse oximetry monitoring. NIBP monitoring applied. 23:38 CMP Sent. mb9 23:39 No provider procedures requiring assistance completed. mb9 05/23 00:00 US OB Limited In Process Unspecified. EDMS 00:42 Urinalysis W/Microscopic Sent. lg3 01:49 IV discontinued, intact, bleeding controlled, No redness/swelling at site. Pressure lg3 dressing applied. Administered Medications: No medications were administered Medication: 01:49 VIS not applicable for this client. lg3 Outcome: 01:15 Discharge ordered by . sp4 01:49 Discharged to home ambulatory. lg3 01:49 Condition: stable 01:49 Discharge instructions given to patient, Instructed on discharge instructions, follow up and referral plans. Demonstrated understanding of instructions, follow-up care. 01:49 Patient left the ED. lg3 Signatures: Dispatcher [employer] EDCO China Molina 3 Gloria Calles RN RN lg3 Zamzam Waller, RN RN Ceasar Alexandra MD MD sp4
[2023-05-23 02:10] VITALS: TEMP 98.7
[2023-05-23 02:12] VITALS: BP 112/90; O2SAT 98
--- NOTE | 2023-05-23 12:19 | RAD REPORT ---
EXAM DESCRIPTION: US - OB Limited - 05/22/2023 11:58 pm CLINICAL HISTORY: 22 years Female, vag bleed COMPARISON: None. TECHNIQUE: Transabdominal and transvaginal images of the pelvis obtained. FINDINGS: Uterus: Anteverted. No myometrial mass. Gestational sac/Yolk sac/ pole: Single live intrauterine with gestational sac containi ng a pole. [place]-rump length of 4.7 cm, compatible with estimated gestational age of 11 weeks a nd 2 days. There is a small subchorionic hemorrhage measuring 1.1 x 0.7 x 0.8 cm heart motion: 160 bpm Right ovary: Not visualized. Left ovary: Not visualized. Adnexa: No additional abnormality. Free fluid: None identified. IMPRESSION: Single live intrauterine with estimated gestational age of 11 weeks and 2 days . Small subchorionic hemorrhage. Electronically signed by: Serena Malone MD 05/23/2023 12:20 AM CDT Due to temporary technical issues with the PACS/Fluency reporting system, reports are being signed by the in house radiologist without review as a courtesy to ensure prompt reporting. The interpreting r adiologist is fully responsible for the content of the report.
== END 2023-05-23 01:49 | disposition home or self-care (01) ==
LOC: ER 22:58
DX: O20.0 Threatened abortion (principal); O99.341 Other mental disorders complicating pregnancy, first trimester; F32.A Depression, unspecified; Z3A.11 11 weeks gestation of pregnancy
CPT/HCPCS: 36415; 76815; 80053; 81001; 84702; 85025; 99284

== ENCOUNTER 2024-03-29 22:56 | Emergency (ER) | payer OTHER ==
--- OUTSIDE RECORDS SUMMARY | 2024-03-29 23:10 | XMS REPORT | Continuity of Care Document ---
Author Name Unknown Address [address] [facility] [place] [address] [facility] Address [address] [facility] [address] [place] [address] Care Team Providers Care Box Toe Flanger Stitchdowns Name Role Phone DAVIDE MAYFIELD Primary Care Physician Allison vailable YORDAN HERNANDEZ Attending Clinician Unavailable Yordan Hernandez MD Attending Clinician [phone] PobNida Main Attending Clinician Unavailabl e Doctor Unassigned, [place] Attending Clinician U Odessa Milton MD Attending Clinician [phone] ODESSA HAYS Attending Clinician Unavailable Julio HENSON, Nat Price Attending Clinician [phone] [email or web address] Attending Clinician UnavailKym Reid MD Attending Clinician [phone] Nayan Terry NP Attending Clinician [phone] VALERIE HEREDIA Attending Clinician Unavailable VALERIE HEREDIA Attending Clinician Unavailable Ultrasound, Ang-[facility] Attending Clinician UnavailValerie Daigle MD Attending Clinician [phone] NAYAN TERRY Attending Clinician UnavailKYM Reid Attending Clinician UnaGERMAN Pereyra Attending Clinician Allison vailable ODESSA HAYS Admitting Clinician Unavailable YORDAN HERNANDEZ Admitting Clinician Unavailable Yordan Hernandez MD Admitting Clinician [phone] Lis HENSON, [place] Maria Elena Admitting Clinician [phone] [email or web address] Admitting Clinician Unavaila ble Payers Payer Name Policy Type Policy Number Effective Date Expirati on Date Source [facility] BILL [id number] 2023 00:00:00 [employer] [place] - OUT [place] [id number] 2023 00:00:00 MANAGED MEDICAID GENERIC NON-CONTRACT [id number] 2022 00:00:00 2023 00:00:00 Problems Condition Name Condition Details Condition Category Status Onset Date Resolution Date Last Treatment Date Treating Clinician Comments Source Status post bilateral salpingect martin Status post bilateral salpingect martin Disease Active 02-09 00:00: 00 [facility] Liveborn infant, of goff , born in hospital by vaginal delivery Liveborn infant, of goff , born in hospital by vaginal delivery Disease Active 11-30 00:00: 00 [facility] Uterine contractio ns Uterine contractio ns Disease Active 11-30 00:00: 00 [facility] 38 weeks gestation of 38 weeks gestation of Disease Active 11-30 00:00: 00 [facility] Mental disorder affecting in third trimester Mental disorder affecting in third trimester Disease Active 11-30 00:00: 00 [facility] Morbid obesity with body mass index of 40.0-49.9 Morbid obesity with body mass index of 40.0-49.9 Disease Active 11-30 00:00: 00 [facility] High-risk in third trimester High-risk in third trimester Disease Active 05 00:00: 00 [facility] ANGELLA (generaliz ed anxiety disorder) ANGELLA (generaliz ed anxiety disorder) Disease Active -16 00:00: 00 Overview: Formattin g of this note might be different from the original. Last Assessmen t & Plan: Formattin g of this note might be different from the original. Chronic and improving . Patient would like to see psycholog ist. She has Medicaid. Referral to [facility] help with resources for Psycholog y, and to check on how she is doing off of all medicatio ns.. [facility] Moderate episode of recurrent major depressive disorder Moderate episode of recurrent major depressive disorder Disease Active 8-16 00:00: 00 Overview: Formattin g of this note might be different from the original. Last Assessmen t & Plan: Formattin g of this note might be different from the original. Chronic and improving . Patient would like to see psycholog ist. She has Medicaid. She does not know how to find a therapist and would like some help. Referral to [facility]. [facility] Vaginal yeast infection Vaginal yeast infection Disease Active 12-25 00:00: 00 [facility] Encounter for tubal ligation Encounter for tubal ligation Disease Active 12-25 00:00: 00 [facility] Bradycardi a Bradycardi a Disease Active 06-18 00:00: 00 [facility] Depression , unspecifie d depression type Depression , unspecifie d depression type Disease Active 06-11 00:00: 00 [facility] Anxiety Anxiety Disease Active 06-11 00:00: 00 [facility] Allergies, Adverse Reactions, Alerts Allergy Name Allergy Type Status Severity Reaction(s) Onset Date Inactive Date Treating Clinician Comments Source NO KNOWN ALLERGIE S Drug Class Active [facility] Social History Social Habit Start Date Stop Date Quantity Comments Source ASSERTION 2023-03-18 00:00:00 [facility] Gender identity [facility] Sexual orientation [facility] Alcohol intake 2024-03-05 00:00:00 2024-03-05 00:00:00 Current drinker of alcohol (finding) [facility] History of Social function 2024-02-10 00:00:00 2024-02-10 00:00:00 [facility] Tobacco use and exposure 2023-05-06 00:00:00 2023-05-06 00:00:00 Smokeless tobacco non-user [facility] Alcohol Comment 2018-12-25 00:00:00 2018-12-25 00:00:00 occasional [facility] Sex Assigned At 2000 00:00:00 2000 00:00:00 [facility] Smoking Status Start Date Stop Date Source Never smoked tobacco [facility] Medications Ordered Medication Name Filled Medication Name Start Date Stop Date Current Medication? Ordering Clinician Indication Dosage Frequency Signature (SIG) Comments Components Source multivit-mi nerals/foli c acid (MULTIVITAM IN GUMMIES ORAL) 03-05 11:04: 01 03-05 00:00 :00 No 1{dose} Take 1 Dose by mouth in the morning. [facility] escitalopra m oxalate 20 mg tablet 03-05 00:00: 00 Yes [id number] 20mg Take 1 tablet by mouth in the morning. [facility] bupivacaine (preserv free) (SENSORCAIN E MPF) 0.25 % (2.5 mg/mL) injection 02-09 14:58: 00 02-09 15:32 :01 No PRN, Starting on Fri02/10/24 at 0958, Until Fri02/10/24 at 1032, Routine, Intra-op [facility] water for irrigation irrigation solution 02-09 14:58: 00 02-09 15:32 :01 No PRN, Starting on Fri02/10/24 at 0958, Until Fri02/10/24 at 1032, Routine, Intra-op [facility] multivit-mi nerals/foli c acid (MULTIVITAM IN GUMMIES ORAL) 02-09 14:09: 48 Yes 1{dose} Take 1 Dose by mouth in the morning. [facility] lactated ringers IV infusion 1,000 mL 02-09 13:15: 00 02-09 13:21 :00 No 1000mL at 42 mL/hr, 1,000 mL, IV Infusion, ONCE, 1 dose, On Fri02/10/24 at 0815, Routine, DSU Pre-op [facility] simethicone 80 mg chewable tablet 02-09 00:00: 00 03-05 00:00 :00 No [id number] 80mg Take 1 tablet by mouth after meals and at bedtime. [facility] acetaminoph en (TYLENOL) 325 mg tablet 02-09 00:00: 00 03-05 00:00 :00 No [id number] 650mg Take 2 tablets by mouth every 6 (six) hours as needed for Pain (scale 1-3) or Pain (scale 4-6). [facility] ibuprofen 600 mg tablet 02-09 00:00: 00 03-05 00:00 :00 No [id number] 600mg Take 1 tablet by mouth every 6 (six) hours as needed for Pain (scale 1-3) or Pain (scale 4-6). [facility] HYDROcodone -acetaminop hen 5-325 mg tablet 02-09 00:00: 00 02-12 04:59 :00 Yes [id number] 1{tbl} Take 1 tablet by mouth every 6 (six) hours as needed for Pain (scale 7-10) for up to 2 days. Indication s: acute pain [facility] multivit-mi nerals/foli c acid (MULTIVITAM IN GUMMIES ORAL) 02-02 14:49: 21 Yes 1{dose} Take 1 Dose by mouth in the morning. [facility] escitalopra m oxalate 20 mg tablet 01-22 00:00: 00 03-05 00:00 :00 No [id number] 20mg Take 1 tablet by mouth in the morning. [facility] escitalopra m oxalate 20 mg tablet 12-31 00:00: 00 Yes [id number] 20mg Take 1 tablet by mouth in the morning. [facility] escitalopra m oxalate 20 mg tablet -09 07:56: 03 12-02 00:00 :00 No [id number] 20mg Take 1 tablet by mouth in the morning. [facility] escitalopra m oxalate 20 mg tablet 12-02 00:00: 00 12-31 00:00 :00 No [id number] 20mg Take 1 tablet by mouth in the morning. [facility] escitalopra m oxalate 20 mg tablet 12-01 11:57: 52 Yes [id number] 20mg Take 1 tablet by mouth in the morning. [facility] vit/iron fum/folic ac ( 1 + 1 ORAL) 12-01 06:39: 02 12-01 00:00 :00 No [id number] Take 1 TAB-CAP/M2 by mouth. [facility] vitamin w/FA tablet 12-01 00:00: 00 02-09 00:00 :00 No [id number] 102 1{tbl} Take 1 tablet by mouth in the morning. [facility] ferrous sulfate 325 mg (65 mg iron) tablet 12-01 00:00: 00 02-09 00:00 :00 No [id number] 102 325mg Take 1 tablet by mouth in the morning and 1 tablet in the evening. [facility] docusate 100 mg capsule 12-01 00:00: 00 02-05 00:00 :00 No [id number] 102 200mg Take 2 capsules by mouth once daily as needed for Constipati on. [facility] ibuprofen 600 mg tablet 12-01 00:00: 00 02-05 00:00 :00 No [id number] 102 600mg Take 1 tablet by mouth every 6 (six) hours as needed (Pain). Take with food or milk. [facility] HYDROcodone -acetaminop hen (NORCO 5) 5-325 mg tablet 1 tablet 11-30 11:38: 46 Yes 1{tbl} 1 tablet, Oral, Q6HPRN, Starting on 11/30/23 at 0538, Until Discontinu ed, Routine, Pain (scale 7-10) [facility] ibuprofen (IBU) tablet 600 mg 11-30 11:38: 46 Yes 600mg 600 mg, Oral, Q6HPRN, Starting on 11/30/23 at 0538, Until Discontinu ed, Routine, Pain (scale 4-6) [facility] acetaminoph en (TYLENOL) tablet 650 mg 11-30 11:38: 46 Yes 650mg 650 mg, Oral, Q6HPRN, Starting on 11/30/23 at 0538, Until Discontinu ed, Routine, Pain (scale 1-3) [facility] diphenhydrA MINE (BENADRYL) tablet 25 mg 11-30 11:38: 46 Yes 25mg 25 mg, Oral, Q6HPRN, Starting on 11/30/23 at 0538, Until Discontinu ed, Routine, Sleep, Itching [facility] ondansetron (ZOFRAN (PF)) injection 4 mg 11-30 11:38: 46 Yes 4mg 4 mg, Slow IV Push, Q8HPRN, Starting on 11/30/23 at 0538, Until Discontinu ed, Routine, Nausea and Vomiting (N/V) [facility] simethicone (GAS RELIEF (SIMETHICON E)) chewable tablet 160 mg 11-30 11:38: 46 Yes 160mg 160 mg, Oral, PC+HSPRN, Starting on 11/30/23 at 0538, Until Discontinu ed, Routine, Gas [facility] docusate (COLACE) capsule 200 mg 11-30 11:38: 46 Yes 200mg 200 mg, Oral, QDAILYPRN, Starting on 11/30/23 at 0538, Until Discontinu ed, Routine, Constipati on [facility] magnesium hydroxide (MILK OF MAGNESIA) 400 mg/5 mL suspension 30 mL 11-30 11:38: 46 Yes 30mL 30 mL, Oral, QDAILYPRN, Starting on 11/30/23 at 0538, Until Discontinu ed, Routine, Constipati on [facility] benzocaine- menthol (DERMOPLAST ) 20-0.5 % topical spray 11-30 11:38: 46 Yes Topical, PRN, Starting on 11/30/23 at 0538, Until Discontinu ed, Routine, Perineum discomfort [facility] FENTanyl PF (SUBLIMAZE (PF)) injection 100 mcg 11-30 08:23: 50 11-30 11:39 :32 No 100ug 100 mcg, Slow IV Push, Q1HPRN, Starting on 11/30/23 at 0223, Until 11/30/23 at 0539, Routine, Pain (scale 4-6), Pain (scale 7-10) [facility] D5W-LR IV infusion 1,000 mL 11-30 08:12: 09 11-30 11:39 :32 No 1000mL at 1-125 mL/hr, IV Infusion, TITRATE, Starting on 11/30/23 at 0212, Until 11/30/23 at 0539, Routine [facility] BABY ASPIRIN ORAL 11-30 03:12: 17 11-30 00:00 :00 No Take by mouth. [facility] escitalopra m oxalate 20 mg tablet 11-30 00:45: 19 Yes [id number] 20mg Take 1 tablet by mouth in the morning. [facility] vit/iron fum/folic ac ( 1 + 1 ORAL) 11-30 00:45: 19 Yes [id number] Take 1 TAB-CAP/M2 by mouth. [facility] escitalopra m oxalate 20 mg tablet 11-28 08:42: 04 Yes [id number] 20mg Take 1 tablet by mouth in the morning. [facility] vit/iron fum/folic ac ( 1 + 1 ORAL) 11-28 08:42: 04 Yes [id number] Take 1 TAB-CAP/M2 by mouth. [facility] escitalopra m oxalate 20 mg tablet 2022-11 18:49: 02 Yes [id number] 20mg Take 1 tablet by mouth in the morning. [facility] vit/iron fum/folic ac ( 1 + 1 ORAL) 2022-11 18:49: 02 Yes [id number] Take 1 TAB-CAP/M2 by mouth. [facility] escitalopra m oxalate 20 mg tablet 2022-11 10:16: 22 Yes [id number] 20mg Take 1 tablet by mouth in the morning. [facility] vit/iron fum/folic ac ( 1 + 1 ORAL) 2022-11 10:16: 22 Yes [id number] Take 1 TAB-CAP/M2 by mouth. [facility] metroNIDAZO LE (FLAGYL) tablet 500 mg 2022-11 18:00: 00 11-03 18:01 :00 No 500mg 500 mg, Oral, ONCE NOW, 1 dose, On Fri11/03/23 at 1200, Routine
Reason for Anti-Infec tive: Documented Infection< br>Documen nacho Infection Site: Skin / Soft Tissue
Duration of Therapy: Other (see Comments) [facility] escitalopra m oxalate 20 mg tablet 2022-11 12:54: 03 Yes [id number] 20mg Take 1 tablet by mouth in the morning. [facility] vit/iron fum/folic ac ( 1 + 1 ORAL) 2022-11 12:54: 03 Yes [id number] Take 1 TAB-CAP/M2 by mouth. [facility] metroNIDAZO LE (FLAGYL) 500 mg tablet 2022-11 00:00: 00 11-30 00:00 :00 No [id number] 500mg Take 1 tablet by mouth every 12 (twelve) hours. [facility] vit/iron fum/folic ac ( 1 + 1 ORAL) 2022-11 14:45: 54 Yes [id number] Take 1 TAB-CAP/M2 by mouth. [facility] escitalopra m oxalate 20 mg tablet 2022-11 14:45: 51 Yes [id number] 20mg Take 1 tablet by mouth in the morning. [facility] BABY ASPIRIN ORAL 2022-11 14:45: 50 Yes Take by mouth. [facility] hydrOXYzine 25 mg tablet 2022-11 00:00: 00 12-02 00:00 :00 No 25mg 1 tablet every 8 (eight) hours as needed for Anxiety. [facility] escitalopra m oxalate 20 mg tablet 2022-11 11:25: 55 Yes [id number] 20mg Take 1 tablet by mouth in the morning. [facility] BABY ASPIRIN ORAL 2022-11 024 08:32: 03 Yes Take by mouth. [facility] escitalopra m oxalate 20 mg tablet 07-08 11:17: 44 Yes [id number] 20mg Take 1 tablet by mouth in the morning. [facility] vit/iron fum/folic ac ( 1 + 1 ORAL) 07-08 11:17: 44 Yes [id number] Take 1 TAB-CAP/M2 by mouth. [facility] vit/iron fum/folic ac ( 1 + 1 ORAL) 05-06 20:58: 06 Yes [id number] Take 1 TAB-CAP/M2 by mouth. [facility] escitalopra m oxalate 20 mg tablet 05-06 20:57: 34 Yes [id number] 20mg Take 1 tablet by mouth in the morning. [facility] proMETHazin e 25 mg tablet 05-06 00:00: 00 11-30 00:00 :00 No [id number] 25mg Take 1 tablet by mouth every 4 (four) hours as needed for Nausea and Vomiting (N/V). [facility] L-Norgest&E Estradiol-E Estrad (SEASONIQUE ) 0.15 mg-30 mcg (84)/10 mcg (7) per tablet 12-25 00:00: 00 05-06 00:00 :00 No [id number] 1{tbl} Take 1 tablet by mouth daily. [facility] FLUoxetine 20 mg tablet 08-04 00:00: 00 Yes [id number] 20mg Take 1 tablet by mouth daily. [facility] FLUoxetine 20 mg tablet 08-04 00:00: 00 Yes [id number] 20mg Take 1 tablet by mouth daily. [facility] Immunizations Ordered Immunization Name Filled Immunization Name Date Status Comments Source TDAP 2018-03-25 00:00:00 Completed [facility] TDAP 2018-03-25 00:00:00 Completed [facility] TDAP 2018-03-25 00:00:00 Completed [facility] TDAP 2018-03-25 00:00:00 Completed [facility] TDAP 2018-03-25 00:00:00 Completed [facility] TDAP 2018-03-25 00:00:00 Completed [facility] TDAP 2018-03-25 00:00:00 Completed [facility] TDAP 2018-03-25 00:00:00 Completed [facility] Tdap 2018-03-25 00:00:00 Completed [facility] TDAP 2018-03-25 00:00:00 Completed [facility] TDAP 2018-03-25 00:00:00 Completed [facility] TDAP 2018-03-25 00:00:00 Completed [facility] TDAP 2018-03-25 00:00:00 Completed [facility] TDAP 2018-03-25 00:00:00 Completed [facility] TDAP 2018-03-25 00:00:00 Completed [facility] TDAP 2018-03-25 00:00:00 Completed [facility] TDAP 2018-03-25 00:00:00 Completed [facility] TDAP 2018-03-25 00:00:00 Completed [facility] TDAP 2018-03-25 00:00:00 Completed [facility] Meningococcal Polysaccharide (groups A, C, Y and W-135) conjugate vaccine (MCV4P) 2017-03-11 00:00:00 Completed [facility] Meningococcal Polysaccharide (groups A, C, Y and W-135) conjugate vaccine (MCV4P) 2017-03-11 00:00:00 Completed [facility] Meningococcal Polysaccharide (groups A, C, Y and W-135) conjugate vaccine (MCV4P) 2017-03-11 00:00:00 Completed [facility] Meningococcal Polysaccharide (groups A, C, Y and W-135) conjugate vaccine (MCV4P) 2017-03-11 00:00:00 Completed [facility] Meningococcal Polysaccharide (groups A, C, Y and W-135) conjugate vaccine (MCV4P) 2017-03-11 00:00:00 Completed [facility] Meningococcal Polysaccharide (groups A, C, Y and W-135) conjugate vaccine (MCV4P) 2017-03-11 00:00:00 Completed [facility] Meningococcal Polysaccharide (groups A, C, Y and W-135) conjugate vaccine (MCV4P) 2017-03-11 00:00:00 Completed [facility] Meningococcal Polysaccharide (groups A, C, Y and W-135) conjugate vaccine (MCV4P) 2017-03-11 00:00:00 Completed [facility] Meningococcal Polysaccharide (groups A, C, Y and W-135) conjugate vaccine (MCV4P) 2017-03-11 00:00:00 Completed [facility] Meningococcal Polysaccharide (groups A, C, Y and W-135) conjugate vaccine (MCV4P) 2017-03-11 00:00:00 Completed [facility] Meningococcal Polysaccharide (groups A, C, Y and W-135) conjugate vaccine (MCV4P) 2017-03-11 00:00:00 Completed [facility] Meningococcal Polysaccharide (groups A, C, Y and W-135) conjugate vaccine (MCV4P) 2017-03-11 00:00:00 Completed [facility] Meningococcal Polysaccharide (groups A, C, Y and W-135) conjugate vaccine (MCV4P) 2017-03-11 00:00:00 Completed [facility] Meningococcal Polysaccharide (groups A, C, Y and W-135) conjugate vaccine (MCV4P) 2017-03-11 00:00:00 Completed [facility] Meningococcal Polysaccharide (groups A, C, Y and W-135) conjugate vaccine (MCV4P) 2017-03-11 00:00:00 Completed [facility] Meningococcal Polysaccharide (groups A, C, Y and W-135) conjugate vaccine (MCV4P) 2017-03-11 00:00:00 Completed [facility] Meningococcal Polysaccharide (groups A, C, Y and W-135) conjugate vaccine (MCV4P) 2017-03-11 00:00:00 Completed [facility] Meningococcal Polysaccharide (groups A, C, Y and W-135) conjugate vaccine (MCV4P) 2017-03-11 00:00:00 Completed [facility] Meningococcal Polysaccharide (groups A, C, Y and W-135) conjugate vaccine (MCV4P) 2017-03-11 00:00:00 Completed [facility] HPV 2015-05-30 00:00:00 Completed [facility] HPV 2015-05-30 00:00:00 Completed [facility] HPV 2015-05-30 00:00:00 Completed [facility] HPV 2015-05-30 00:00:00 Completed [facility] HPV 2015-05-30 00:00:00 Completed [facility] HPV 2015-05-30 00:00:00 Completed [facility] HPV 2015-05-30 00:00:00 Completed [facility] HPV 2015-05-30 00:00:00 Completed [facility] HPV 2015-05-30 00:00:00 Completed [facility] HPV 2015-05-30 00:00:00 Completed [facility] HPV 2015-05-30 00:00:00 Completed [facility] HPV 2015-05-30 00:00:00 Completed [facility] HPV 2015-05-30 00:00:00 Completed [facility] HPV 2015-05-30 00:00:00 Completed [facility] HPV 2015-05-30 00:00:00 Completed [facility] HPV 2015-05-30 00:00:00 Completed [facility] HPV 2015-05-30 00:00:00 Completed [facility] HPV 2015-05-30 00:00:00 Completed [facility] HPV 2015-05-30 00:00:00 Completed [facility] HPV 2013-11-30 00:00:00 Completed [facility] HPV 2013-11-30 00:00:00 Completed [facility] HPV 2013-11-30 00:00:00 Completed [facility] HPV 2013-11-30 00:00:00 Completed [facility] HPV 2013-11-30 00:00:00 Completed [facility] HPV 2013-11-30 00:00:00 Completed [facility] HPV 2013-11-30 00:00:00 Completed [facility] HPV 2013-11-30 00:00:00 Completed [facility] HPV 2013-11-30 00:00:00 Completed [facility] HPV 2013-11-30 00:00:00 Completed [facility] HPV 2013-11-30 00:00:00 Completed [facility] HPV 2013-11-30 00:00:00 Completed [facility] HPV 2013-11-30 00:00:00 Completed [facility] HPV 2013-11-30 00:00:00 Completed [facility] HPV 2013-11-30 00:00:00 Completed [facility] HPV 2013-11-30 00:00:00 Completed [facility] HPV 2013-11-30 00:00:00 Completed [facility] HPV 2013-11-30 00:00:00 Completed [facility] HPV 2013-11-30 00:00:00 Completed [facility] HPV 2013-05-25 00:00:00 Completed [facility] HPV 2013-05-25 00:00:00 Completed [facility] HPV 2013-05-25 00:00:00 Completed [facility] HPV 2013-05-25 00:00:00 Completed [facility] HPV 2013-05-25 00:00:00 Completed [facility] HPV 2013-05-25 00:00:00 Completed [facility] HPV 2013-05-25 00:00:00 Completed [facility] HPV 2013-05-25 00:00:00 Completed [facility] HPV 2013-05-25 00:00:00 Completed [facility] HPV 2013-05-25 00:00:00 Completed [facility] HPV 2013-05-25 00:00:00 Completed [facility] HPV 2013-05-25 00:00:00 Completed [facility] HPV 2013-05-25 00:00:00 Completed [facility] HPV 2013-05-25 00:00:00 Completed [facility] HPV 2013-05-25 00:00:00 Completed [facility] HPV 2013-05-25 00:00:00 Completed [facility] HPV 2013-05-25 00:00:00 Completed [facility] HPV 2013-05-25 00:00:00 Completed [facility] HPV 2013-05-25 00:00:00 Completed [facility] Meningococcal Vaccine 2011-06-10 00:00:00 Completed [facility] TDAP 2011-06-10 00:00:00 Completed [facility] Varicella (varivax)(chicken pox) 2011-06-10 00:00:00 Completed [facility] Meningococcal Vaccine 2011-06-10 00:00:00 Completed [facility] TDAP 2011-06-10 00:00:00 Completed [facility] Varicella (varivax)(chicken pox) 2011-06-10 00:00:00 Completed [facility] Meningococcal Vaccine 2011-06-10 00:00:00 Completed [facility] TDAP 2011-06-10 00:00:00 Completed [facility] Varicella (varivax)(chicken pox) 2011-06-10 00:00:00 Completed [facility] Meningococcal Vaccine 2011-06-10 00:00:00 Completed [facility] TDAP 2011-06-10 00:00:00 Completed [facility] Varicella (varivax)(chicken pox) 2011-06-10 00:00:00 Completed [facility] Meningococcal Vaccine 2011-06-10 00:00:00 Completed [facility] Meningococcal Vaccine 2011-06-10 00:00:00 Completed [facility] TDAP 2011-06-10 00:00:00 Completed [facility] Varicella (varivax)(chicken pox) 2011-06-10 00:00:00 Completed [facility] Meningococcal Vaccine 2011-06-10 00:00:00 Completed [facility] TDAP 2011-06-10 00:00:00 Completed [facility] Varicella (varivax)(chicken pox) 2011-06-10 00:00:00 Completed [facility] Meningococcal Vaccine 2011-06-10 00:00:00 Completed [facility] Tdap 2011-06-10 00:00:00 Completed [facility] TDAP 2011-06-10 00:00:00 Completed [facility] Varicella (varivax)(chicken pox) 2011-06-10 00:00:00 Completed [facility] Varicella (varivax)(chicken pox) 2011-06-10 00:00:00 Completed [facility] Meningococcal Vaccine 2011-06-10 00:00:00 Completed [facility] TDAP 2011-06-10 00:00:00 Completed [facility] Varicella (varivax)(chicken pox) 2011-06-10 00:00:00 Completed [facility] Meningococcal Vaccine 2011-06-10 00:00:00 Completed [facility] TDAP 2011-06-10 00:00:00 Completed [facility] Varicella (varivax)(chicken pox) 2011-06-10 00:00:00 Completed [facility] Meningococcal Vaccine 2011-06-10 00:00:00 Completed [facility] TDAP 2011-06-10 00:00:00 Completed [facility] Varicella (varivax)(chicken pox) 2011-06-10 00:00:00 Completed [facility] Meningococcal Vaccine 2011-06-10 00:00:00 Completed [facility] TDAP 2011-06-10 00:00:00 Completed [facility] Varicella (varivax)(chicken pox) 2011-06-10 00:00:00 Completed [facility] Meningococcal Vaccine 2011-06-10 00:00:00 Completed [facility] TDAP 2011-06-10 00:00:00 Completed [facility] Varicella (varivax)(chicken pox) 2011-06-10 00:00:00 Completed [facility] Meningococcal Vaccine 2011-06-10 00:00:00 Completed [facility] TDAP 2011-06-10 00:00:00 Completed [facility] Varicella (varivax)(chicken pox) 2011-06-10 00:00:00 Completed [facility] Meningococcal Vaccine 2011-06-10 00:00:00 Completed [facility] TDAP 2011-06-10 00:00:00 Completed [facility] Varicella (varivax)(chicken pox) 2011-06-10 00:00:00 Completed [facility] Meningococcal Vaccine 2011-06-10 00:00:00 Completed [facility] TDAP 2011-06-10 00:00:00 Completed [facility] Varicella (varivax)(chicken pox) 2011-06-10 00:00:00 Completed [facility] Meningococcal Vaccine 2011-06-10 00:00:00 Completed [facility] Meningococcal Vaccine 2011-06-10 00:00:00 Completed [facility] TDAP 2011-06-10 00:00:00 Completed [facility] Varicella (varivax)(chicken pox) 2011-06-10 00:00:00 Completed [facility] Meningococcal Vaccine 2011-06-10 00:00:00 Completed [facility] TDAP 2011-06-10 00:00:00 Completed [facility] Varicella (varivax)(chicken pox) 2011-06-10 00:00:00 Completed [facility] TDAP 2011-06-10 00:00:00 Completed [facility] Varicella (varivax)(chicken pox) 2011-06-10 00:00:00 Completed [facility] Meningococcal Vaccine 2010-12-11 00:00:00 Completed [facility] TDAP 2010-12-11 00:00:00 Completed [facility] Varicella (varivax)(chicken pox) 2010-12-11 00:00:00 Completed [facility] Meningococcal Vaccine 2010-12-11 00:00:00 Completed [facility] TDAP 2010-12-11 00:00:00 Completed [facility] Varicella (varivax)(chicken pox) 2010-12-11 00:00:00 Completed [facility] Meningococcal Vaccine 2010-12-11 00:00:00 Completed [facility] TDAP 2010-12-11 00:00:00 Completed [facility] Varicella (varivax)(chicken pox) 2010-12-11 00:00:00 Completed [facility] Meningococcal Vaccine 2010-12-11 00:00:00 Completed [facility] TDAP 2010-12-11 00:00:00 Completed [facility] Varicella (varivax)(chicken pox) 2010-12-11 00:00:00 Completed [facility] Meningococcal Vaccine 2010-12-11 00:00:00 Completed [facility] Meningococcal Vaccine 2010-12-11 00:00:00 Completed [facility] TDAP 2010-12-11 00:00:00 Completed [facility] Varicella (varivax)(chicken pox) 2010-12-11 00:00:00 Completed [facility] Meningococcal Vaccine 2010-12-11 00:00:00 Completed [facility] TDAP 2010-12-11 00:00:00 Completed [facility] Varicella (varivax)(chicken pox) 2010-12-11 00:00:00 Completed [facility] Tdap 2010-12-11 00:00:00 Completed [facility] Meningococcal Vaccine 2010-12-11 00:00:00 Completed [facility] TDAP 2010-12-11 00:00:00 Completed [facility] Varicella (varivax)(chicken pox) 2010-12-11 00:00:00 Completed [facility] Varicella (varivax)(chicken pox) 2010-12-11 00:00:00 Completed [facility] Meningococcal Vaccine 2010-12-11 00:00:00 Completed [facility] TDAP 2010-12-11 00:00:00 Completed [facility] Varicella (varivax)(chicken pox) 2010-12-11 00:00:00 Completed [facility] Meningococcal Vaccine 2010-12-11 00:00:00 Completed [facility] TDAP 2010-12-11 00:00:00 Completed [facility] Varicella (varivax)(chicken pox) 2010-12-11 00:00:00 Completed [facility] Meningococcal Vaccine 2010-12-11 00:00:00 Completed [facility] TDAP 2010-12-11 00:00:00 Completed [facility] Varicella (varivax)(chicken pox) 2010-12-11 00:00:00 Completed [facility] Meningococcal Vaccine 2010-12-11 00:00:00 Completed [facility] TDAP 2010-12-11 00:00:00 Completed [facility] Varicella (varivax)(chicken pox) 2010-12-11 00:00:00 Completed [facility] Meningococcal Vaccine 2010-12-11 00:00:00 Completed [facility] TDAP 2010-12-11 00:00:00 Completed [facility] Varicella (varivax)(chicken pox) 2010-12-11 00:00:00 Completed [facility] Meningococcal Vaccine 2010-12-11 00:00:00 Completed [facility] TDAP 2010-12-11 00:00:00 Completed [facility] Varicella (varivax)(chicken pox) 2010-12-11 00:00:00 Completed [facility] Meningococcal Vaccine 2010-12-11 00:00:00 Completed [facility] TDAP 2010-12-11 00:00:00 Completed [facility] Varicella (varivax)(chicken pox) 2010-12-11 00:00:00 Completed [facility] Meningococcal Vaccine 2010-12-11 00:00:00 Completed [facility] TDAP 2010-12-11 00:00:00 Completed [facility] Meningococcal Vaccine 2010-12-11 00:00:00 Completed [facility] Varicella (varivax)(chicken pox) 2010-12-11 00:00:00 Completed [facility] Meningococcal Vaccine 2010-12-11 00:00:00 Completed [facility] TDAP 2010-12-11 00:00:00 Completed [facility] Varicella (varivax)(chicken pox) 2010-12-11 00:00:00 Completed [facility] Meningococcal Vaccine 2010-12-11 00:00:00 Completed [facility] TDAP 2010-12-11 00:00:00 Completed [facility] TDAP 2010-12-11 00:00:00 Completed [facility] Varicella (varivax)(chicken pox) 2010-12-11 00:00:00 Completed [facility] Varicella (varivax)(chicken pox) 2010-12-11 00:00:00 Completed [facility] HEPATITIS A 2007-03-11 00:00:00 Completed [facility] HEPATITIS A 2007-03-11 00:00:00 Completed [facility] HEPATITIS A 2007-03-11 00:00:00 Completed [facility] HEPATITIS A 2007-03-11 00:00:00 Completed [facility] HEPATITIS A 2007-03-11 00:00:00 Completed [facility] HEPATITIS A 2007-03-11 00:00:00 Completed [facility] HEPATITIS A 2007-03-11 00:00:00 Completed [facility] HEPATITIS A 2007-03-11 00:00:00 Completed [facility] HEPATITIS A 2007-03-11 00:00:00 Completed [facility] HEPATITIS A 2007-03-11 00:00:00 Completed [facility] HEPATITIS A 2007-03-11 00:00:00 Completed [facility] HEPATITIS A 2007-03-11 00:00:00 Completed [facility] HEPATITIS A 2007-03-11 00:00:00 Completed [facility] HEPATITIS A 2007-03-11 00:00:00 Completed [facility] HEPATITIS A 2007-03-11 00:00:00 Completed [facility] HEPATITIS A 2007-03-11 00:00:00 Completed [facility] HEPATITIS A 2007-03-11 00:00:00 Completed [facility] HEPATITIS A 2007-03-11 00:00:00 Completed [facility] HEPATITIS A 2007-03-11 00:00:00 Completed [facility] HEPATITIS A 2005-09-18 00:00:00 Completed [facility] HEPATITIS A 2005-09-18 00:00:00 Completed [facility] HEPATITIS A 2005-09-18 00:00:00 Completed [facility] HEPATITIS A 2005-09-18 00:00:00 Completed [facility] HEPATITIS A 2005-09-18 00:00:00 Completed [facility] HEPATITIS A 2005-09-18 00:00:00 Completed [facility] HEPATITIS A 2005-09-18 00:00:00 Completed [facility] HEPATITIS A 2005-09-18 00:00:00 Completed [facility] HEPATITIS A 2005-09-18 00:00:00 Completed [facility] HEPATITIS A 2005-09-18 00:00:00 Completed [facility] HEPATITIS A 2005-09-18 00:00:00 Completed [facility] HEPATITIS A 2005-09-18 00:00:00 Completed [facility] HEPATITIS A 2005-09-18 00:00:00 Completed [facility] HEPATITIS A 2005-09-18 00:00:00 Completed [facility] HEPATITIS A 2005-09-18 00:00:00 Completed [facility] HEPATITIS A 2005-09-18 00:00:00 Completed [facility] HEPATITIS A 2005-09-18 00:00:00 Completed [facility] HEPATITIS A 2005-09-18 00:00:00 Completed [facility] HEPATITIS A 2005-09-18 00:00:00 Completed [facility] DTAP 2005-03-06 00:00:00 Completed [facility] MMR 2005-03-06 00:00:00 Completed [facility] Polio (IPV/OPV) 2005-03-06 00:00:00 Completed [facility] DTAP 2005-03-06 00:00:00 Completed [facility] MMR 2005-03-06 00:00:00 Completed [facility] DTAP 2005-03-06 00:00:00 Completed [facility] Polio (IPV/OPV) 2005-03-06 00:00:00 Completed [facility] DTAP 2005-03-06 00:00:00 Completed [facility] MMR 2005-03-06 00:00:00 Completed [facility] Polio (IPV/OPV) 2005-03-06 00:00:00 Completed [facility] DTAP 2005-03-06 00:00:00 Completed [facility] MMR 2005-03-06 00:00:00 Completed [facility] Polio (IPV/OPV) 2005-03-06 00:00:00 Completed [facility] DTAP 2005-03-06 00:00:00 Completed [facility] MMR 2005-03-06 00:00:00 Completed [facility] Polio (IPV/OPV) 2005-03-06 00:00:00 Completed [facility] MMR 2005-03-06 00:00:00 Completed [facility] DTAP 2005-03-06 00:00:00 Completed [facility] MMR 2005-03-06 00:00:00 Completed [facility] Polio (IPV/OPV) 2005-03-06 00:00:00 Completed [facility] Polio (IPV/OPV) 2005-03-06 00:00:00 Completed [facility] DTAP 2005-03-06 00:00:00 Completed [facility] MMR 2005-03-06 00:00:00 Completed [facility] Polio (IPV/OPV) 2005-03-06 00:00:00 Completed [facility] DTAP 2005-03-06 00:00:00 Completed [facility] MMR 2005-03-06 00:00:00 Completed [facility] Polio (IPV/OPV) 2005-03-06 00:00:00 Completed [facility] DTAP 2005-03-06 00:00:00 Completed [facility] MMR 2005-03-06 00:00:00 Completed [facility] Polio (IPV/OPV) 2005-03-06 00:00:00 Completed [facility] DTAP 2005-03-06 00:00:00 Completed [facility] MMR 2005-03-06 00:00:00 Completed [facility] Polio (IPV/OPV) 2005-03-06 00:00:00 Completed [facility] DTAP 2005-03-06 00:00:00 Completed [facility] MMR 2005-03-06 00:00:00 Completed [facility] Polio (IPV/OPV) 2005-03-06 00:00:00 Completed [facility] DTAP 2005-03-06 00:00:00 Completed [facility] MMR 2005-03-06 00:00:00 Completed [facility] Polio (IPV/OPV) 2005-03-06 00:00:00 Completed [facility] DTAP 2005-03-06 00:00:00 Completed [facility] DTAP 2005-03-06 00:00:00 Completed [facility] MMR 2005-03-06 00:00:00 Completed [facility] Polio (IPV/OPV) 2005-03-06 00:00:00 Completed [facility] DTAP 2005-03-06 00:00:00 Completed [facility] MMR 2005-03-06 00:00:00 Completed [facility] Polio (IPV/OPV) 2005-03-06 00:00:00 Completed [facility] DTAP 2005-03-06 00:00:00 Completed [facility] MMR 2005-03-06 00:00:00 Completed [facility] Polio (IPV/OPV) 2005-03-06 00:00:00 Completed [facility] DTAP 2005-03-06 00:00:00 Completed [facility] MMR 2005-03-06 00:00:00 Completed [facility] MMR 2005-03-06 00:00:00 Completed [facility] Polio (IPV/OPV) 2005-03-06 00:00:00 Completed [facility] DTAP 2005-03-06 00:00:00 Completed [facility] Polio (IPV/OPV) 2005-03-06 00:00:00 Completed [facility] MMR 2005-03-06 00:00:00 Completed [facility] Polio (IPV/OPV) 2005-03-06 00:00:00 Completed [facility] DTAP 2003-09-20 00:00:00 Completed [facility] MMR 2003-09-20 00:00:00 Completed [facility] Polio (IPV/OPV) 2003-09-20 00:00:00 Completed [facility] DTAP 2003-09-20 00:00:00 Completed [facility] DTAP 2003-09-20 00:00:00 Completed [facility] MMR 2003-09-20 00:00:00 Completed [facility] Polio (IPV/OPV) 2003-09-20 00:00:00 Completed [facility] DTAP 2003-09-20 00:00:00 Completed [facility] MMR 2003-09-20 00:00:00 Completed [facility] Polio (IPV/OPV) 2003-09-20 00:00:00 Completed [facility] DTAP 2003-09-20 00:00:00 Completed [facility] MMR 2003-09-20 00:00:00 Completed [facility] Polio (IPV/OPV) 2003-09-20 00:00:00 Completed [facility] DTAP 2003-09-20 00:00:00 Completed [facility] MMR 2003-09-20 00:00:00 Completed [facility] Polio (IPV/OPV) 2003-09-20 00:00:00 Completed [facility] MMR 2003-09-20 00:00:00 Completed [facility] DTAP 2003-09-20 00:00:00 Completed [facility] MMR 2003-09-20 00:00:00 Completed [facility] Polio (IPV/OPV) 2003-09-20 00:00:00 Completed [facility] Polio (IPV/OPV) 2003-09-20 00:00:00 Completed [facility] DTAP 2003-09-20 00:00:00 Completed [facility] MMR 2003-09-20 00:00:00 Completed [facility] Polio (IPV/OPV) 2003-09-20 00:00:00 Completed [facility] DTAP 2003-09-20 00:00:00 Completed [facility] MMR 2003-09-20 00:00:00 Completed [facility] Polio (IPV/OPV) 2003-09-20 00:00:00 Completed [facility] DTAP 2003-09-20 00:00:00 Completed [facility] MMR 2003-09-20 00:00:00 Completed [facility] Polio (IPV/OPV) 2003-09-20 00:00:00 Completed [facility] DTAP 2003-09-20 00:00:00 Completed [facility] MMR 2003-09-20 00:00:00 Completed [facility] Polio (IPV/OPV) 2003-09-20 00:00:00 Completed [facility] DTAP 2003-09-20 00:00:00 Completed [facility] MMR 2003-09-20 00:00:00 Completed [facility] Polio (IPV/OPV) 2003-09-20 00:00:00 Completed [facility] DTAP 2003-09-20 00:00:00 Completed [facility] MMR 2003-09-20 00:00:00 Completed [facility] Polio (IPV/OPV) 2003-09-20 00:00:00 Completed [facility] DTAP 2003-09-20 00:00:00 Completed [facility] DTAP 2003-09-20 00:00:00 Completed [facility] MMR 2003-09-20 00:00:00 Completed [facility] Polio (IPV/OPV) 2003-09-20 00:00:00 Completed [facility] DTAP 2003-09-20 00:00:00 Completed [facility] MMR 2003-09-20 00:00:00 Completed [facility] Polio (IPV/OPV) 2003-09-20 00:00:00 Completed [facility] DTAP 2003-09-20 00:00:00 Completed [facility] MMR 2003-09-20 00:00:00 Completed [facility] Polio (IPV/OPV) 2003-09-20 00:00:00 Completed [facility] MMR 2003-09-20 00:00:00 Completed [facility] DTAP 2003-09-20 00:00:00 Completed [facility] MMR 2003-09-20 00:00:00 Completed [facility] Polio (IPV/OPV) 2003-09-20 00:00:00 Completed [facility] DTAP 2003-09-20 00:00:00 Completed [facility] Polio (IPV/OPV) 2003-09-20 00:00:00 Completed [facility] MMR 2003-09-20 00:00:00 Completed [facility] Polio (IPV/OPV) 2003-09-20 00:00:00 Completed [facility] Pneumococcal 13 Conjugate, PCV13 (Prevnar 13) 2001-06-11 00:00:00 Completed [facility] Varicella (varivax)(chicken pox) 2001-06-11 00:00:00 Completed [facility] Pneumococcal 13 Conjugate, PCV13 (Prevnar 13) 2001-06-11 00:00:00 Completed [facility] Varicella (varivax)(chicken pox) 2001-06-11 00:00:00 Completed [facility] Pneumococcal 13 Conjugate, PCV13 (Prevnar 13) 2001-06-11 00:00:00 Completed [facility] Varicella (varivax)(chicken pox) 2001-06-11 00:00:00 Completed [facility] Pneumococcal 13 Conjugate, PCV13 (Prevnar 13) 2001-06-11 00:00:00 Completed [facility] Varicella (varivax)(chicken pox) 2001-06-11 00:00:00 Completed [facility] Pneumococcal 13 Conjugate, PCV13 (Prevnar 13) 2001-06-11 00:00:00 Completed [facility] Varicella (varivax)(chicken pox) 2001-06-11 00:00:00 Completed [facility] Pneumococcal 13 Conjugate, PCV13 (Prevnar 13) 2001-06-11 00:00:00 Completed [facility] Pneumococcal 13 Conjugate, PCV13 (Prevnar 13) 2001-06-11 00:00:00 Completed [facility] Varicella (varivax)(chicken pox) 2001-06-11 00:00:00 Completed [facility] Pneumococcal 13 Conjugate, PCV13 (Prevnar 13) 2001-06-11 00:00:00 Completed [facility] Varicella (varivax)(chicken pox) 2001-06-11 00:00:00 Completed [facility] Varicella (varivax)(chicken pox) 2001-06-11 00:00:00 Completed [facility] Pneumococcal 13 Conjugate, PCV13 (Prevnar 13) 2001-06-11 00:00:00 Completed [facility] Varicella (varivax)(chicken pox) 2001-06-11 00:00:00 Completed [facility] Pneumococcal 13 Conjugate, PCV13 (Prevnar 13) 2001-06-11 00:00:00 Completed [facility] Varicella (varivax)(chicken pox) 2001-06-11 00:00:00 Completed [facility] Pneumococcal 13 Conjugate, PCV13 (Prevnar 13) 2001-06-11 00:00:00 Completed [facility] Varicella (varivax)(chicken pox) 2001-06-11 00:00:00 Completed [facility] Pneumococcal 13 Conjugate, PCV13 (Prevnar 13) 2001-06-11 00:00:00 Completed [facility] Varicella (varivax)(chicken pox) 2001-06-11 00:00:00 Completed [facility] Pneumococcal 13 Conjugate, PCV13 (Prevnar 13) 2001-06-11 00:00:00 Completed [facility] Varicella (varivax)(chicken pox) 2001-06-11 00:00:00 Completed [facility] Pneumococcal 13 Conjugate, PCV13 (Prevnar 13) 2001-06-11 00:00:00 Completed [facility] Varicella (varivax)(chicken pox) 2001-06-11 00:00:00 Completed [facility] Pneumococcal 13 Conjugate, PCV13 (Prevnar 13) 2001-06-11 00:00:00 Completed [facility] Varicella (varivax)(chicken pox) 2001-06-11 00:00:00 Completed [facility] Pneumococcal 13 Conjugate, PCV13 (Prevnar 13) 2001-06-11 00:00:00 Completed [facility] Varicella (varivax)(chicken pox) 2001-06-11 00:00:00 Completed [facility] Pneumococcal 13 Conjugate, PCV13 (Prevnar 13) 2001-06-11 00:00:00 Completed [facility] Pneumococcal 13 Conjugate, PCV13 (Prevnar 13) 2001-06-11 00:00:00 Completed [facility] Varicella (varivax)(chicken pox) 2001-06-11 00:00:00 Completed [facility] Pneumococcal 13 Conjugate, PCV13 (Prevnar 13) 2001-06-11 00:00:00 Completed [facility] Varicella (varivax)(chicken pox) 2001-06-11 00:00:00 Completed [facility] Varicella (varivax)(chicken pox) 2001-06-11 00:00:00 Completed [facility] DTAP 2001-02-06 00:00:00 Completed [facility] HIB 4 Dose Schedule 2001-02-06 00:00:00 Completed [facility] MMR 2001-02-06 00:00:00 Completed [facility] Polio (IPV/OPV) 2001-02-06 00:00:00 Completed [facility] DTAP 2001-02-06 00:00:00 Completed [facility] DTAP 2001-02-06 00:00:00 Completed [facility] HIB 4 Dose Schedule 2001-02-06 00:00:00 Completed [facility] MMR 2001-02-06 00:00:00 Completed [facility] Polio (IPV/OPV) 2001-02-06 00:00:00 Completed [facility] DTAP 2001-02-06 00:00:00 Completed [facility] HIB 4 Dose Schedule 2001-02-06 00:00:00 Completed [facility] MMR 2001-02-06 00:00:00 Completed [facility] Polio (IPV/OPV) 2001-02-06 00:00:00 Completed [facility] DTAP 2001-02-06 00:00:00 Completed [facility] HIB 4 Dose Schedule 2001-02-06 00:00:00 Completed [facility] HIB 4 Dose Schedule 2001-02-06 00:00:00 Completed [facility] MMR 2001-02-06 00:00:00 Completed [facility] Polio (IPV/OPV) 2001-02-06 00:00:00 Completed [facility] DTAP 2001-02-06 00:00:00 Completed [facility] HIB 4 Dose Schedule 2001-02-06 00:00:00 Completed [facility] MMR 2001-02-06 00:00:00 Completed [facility] MMR 2001-02-06 00:00:00 Completed [facility] Polio (IPV/OPV) 2001-02-06 00:00:00 Completed [facility] DTAP 2001-02-06 00:00:00 Completed [facility] HIB 4 Dose Schedule 2001-02-06 00:00:00 Completed [facility] MMR 2001-02-06 00:00:00 Completed [facility] Polio (IPV/OPV) 2001-02-06 00:00:00 Completed [facility] Polio (IPV/OPV) 2001-02-06 00:00:00 Completed [facility] DTAP 2001-02-06 00:00:00 Completed [facility] HIB 4 Dose Schedule 2001-02-06 00:00:00 Completed [facility] MMR 2001-02-06 00:00:00 Completed [facility] Polio (IPV/OPV) 2001-02-06 00:00:00 Completed [facility] DTAP 2001-02-06 00:00:00 Completed [facility] HIB 4 Dose Schedule 2001-02-06 00:00:00 Completed [facility] MMR 2001-02-06 00:00:00 Completed [facility] Polio (IPV/OPV) 2001-02-06 00:00:00 Completed [facility] DTAP 2001-02-06 00:00:00 Completed [facility] HIB 4 Dose Schedule 2001-02-06 00:00:00 Completed [facility] MMR 2001-02-06 00:00:00 Completed [facility] Polio (IPV/OPV) 2001-02-06 00:00:00 Completed [facility] DTAP 2001-02-06 00:00:00 Completed [facility] HIB 4 Dose Schedule 2001-02-06 00:00:00 Completed [facility] MMR 2001-02-06 00:00:00 Completed [facility] Polio (IPV/OPV) 2001-02-06 00:00:00 Completed [facility] DTAP 2001-02-06 00:00:00 Completed [facility] HIB 4 Dose Schedule 2001-02-06 00:00:00 Completed [facility] MMR 2001-02-06 00:00:00 Completed [facility] Polio (IPV/OPV) 2001-02-06 00:00:00 Completed [facility] DTAP 2001-02-06 00:00:00 Completed [facility] HIB 4 Dose Schedule 2001-02-06 00:00:00 Completed [facility] MMR 2001-02-06 00:00:00 Completed [facility] Polio (IPV/OPV) 2001-02-06 00:00:00 Completed [facility] DTAP 2001-02-06 00:00:00 Completed [facility] DTAP 2001-02-06 00:00:00 Completed [facility] HIB 4 Dose Schedule 2001-02-06 00:00:00 Completed [facility] MMR 2001-02-06 00:00:00 Completed [facility] Polio (IPV/OPV) 2001-02-06 00:00:00 Completed [facility] DTAP 2001-02-06 00:00:00 Completed [facility] HIB 4 Dose Schedule 2001-02-06 00:00:00 Completed [facility] MMR 2001-02-06 00:00:00 Completed [facility] Polio (IPV/OPV) 2001-02-06 00:00:00 Completed [facility] HIB 4 Dose Schedule 2001-02-06 00:00:00 Completed [facility] DTAP 2001-02-06 00:00:00 Completed [facility] HIB 4 Dose Schedule 2001-02-06 00:00:00 Completed [facility] MMR 2001-02-06 00:00:00 Completed [facility] Polio (IPV/OPV) 2001-02-06 00:00:00 Completed [facility] MMR 2001-02-06 00:00:00 Completed [facility] DTAP 2001-02-06 00:00:00 Completed [facility] HIB 4 Dose Schedule 2001-02-06 00:00:00 Completed [facility] MMR 2001-02-06 00:00:00 Completed [facility] Polio (IPV/OPV) 2001-02-06 00:00:00 Completed [facility] Polio (IPV/OPV) 2001-02-06 00:00:00 Completed [facility] DTAP 2001-02-06 00:00:00 Completed [facility] HIB 4 Dose Schedule 2001-02-06 00:00:00 Completed [facility] MMR 2001-02-06 00:00:00 Completed [facility] Polio (IPV/OPV) 2001-02-06 00:00:00 Completed [facility] DTAP 2000-07-16 00:00:00 Completed [facility] HIB 4 Dose Schedule 2000-07-16 00:00:00 Completed [facility] DTAP 2000-07-16 00:00:00 Completed [facility] DTAP 2000-07-16 00:00:00 Completed [facility] HIB 4 Dose Schedule 2000-07-16 00:00:00 Completed [facility] DTAP 2000-07-16 00:00:00 Completed [facility] HIB 4 Dose Schedule 2000-07-16 00:00:00 Completed [facility] DTAP 2000-07-16 00:00:00 Completed [facility] HIB 4 Dose Schedule 2000-07-16 00:00:00 Completed [facility] HIB 4 Dose Schedule 2000-07-16 00:00:00 Completed [facility] DTAP 2000-07-16 00:00:00 Completed [facility] HIB 4 Dose Schedule 2000-07-16 00:00:00 Completed [facility] DTAP 2000-07-16 00:00:00 Completed [facility] HIB 4 Dose Schedule 2000-07-16 00:00:00 Completed [facility] DTAP 2000-07-16 00:00:00 Completed [facility] HIB 4 Dose Schedule 2000-07-16 00:00:00 Completed [facility] DTAP 2000-07-16 00:00:00 Completed [facility] HIB 4 Dose Schedule 2000-07-16 00:00:00 Completed [facility] DTAP 2000-07-16 00:00:00 Completed [facility] HIB 4 Dose Schedule 2000-07-16 00:00:00 Completed [facility] DTAP 2000-07-16 00:00:00 Completed [facility] HIB 4 Dose Schedule 2000-07-16 00:00:00 Completed [facility] DTAP 2000-07-16 00:00:00 Completed [facility] HIB 4 Dose Schedule 2000-07-16 00:00:00 Completed [facility] DTAP 2000-07-16 00:00:00 Completed [facility] HIB 4 Dose Schedule 2000-07-16 00:00:00 Completed [facility] DTAP 2000-07-16 00:00:00 Completed [facility] DTAP 2000-07-16 00:00:00 Completed [facility] HIB 4 Dose Schedule 2000-07-16 00:00:00 Completed [facility] DTAP 2000-07-16 00:00:00 Completed [facility] HIB 4 Dose Schedule 2000-07-16 00:00:00 Completed [facility] HIB 4 Dose Schedule 2000-07-16 00:00:00 Completed [facility] DTAP 2000-07-16 00:00:00 Completed [facility] HIB 4 Dose Schedule 2000-07-16 00:00:00 Completed [facility] DTAP 2000-07-16 00:00:00 Completed [facility] HIB 4 Dose Schedule 2000-07-16 00:00:00 Completed [facility] DTAP 2000-07-16 00:00:00 Completed [facility] HIB 4 Dose Schedule 2000-07-16 00:00:00 Completed [facility] DTAP 2000-03-18 00:00:00 Completed [facility] Hep B, Adol or Pedi Dosage 2000-03-18 00:00:00 Completed [facility] HIB 4 Dose Schedule 2000-03-18 00:00:00 Completed [facility] Polio (IPV/OPV) 2000-03-18 00:00:00 Completed [facility] DTAP 2000-03-18 00:00:00 Completed [facility] DTAP 2000-03-18 00:00:00 Completed [facility] Hep B, Adol or Pedi Dosage 2000-03-18 00:00:00 Completed [facility] HIB 4 Dose Schedule 2000-03-18 00:00:00 Completed [facility] Polio (IPV/OPV) 2000-03-18 00:00:00 Completed [facility] DTAP 2000-03-18 00:00:00 Completed [facility] Hep B, Adol or Pedi Dosage 2000-03-18 00:00:00 Completed [facility] HIB 4 Dose Schedule 2000-03-18 00:00:00 Completed [facility] Polio (IPV/OPV) 2000-03-18 00:00:00 Completed [facility] Hep B, Adol or Pedi Dosage 2000-03-18 00:00:00 Completed [facility] HIB 4 Dose Schedule 2000-03-18 00:00:00 Completed [facility] DTAP 2000-03-18 00:00:00 Completed [facility] Hep B, Adol or Pedi Dosage 2000-03-18 00:00:00 Completed [facility] HIB 4 Dose Schedule 2000-03-18 00:00:00 Completed [facility] Polio (IPV/OPV) 2000-03-18 00:00:00 Completed [facility] DTAP 2000-03-18 00:00:00 Completed [facility] Hep B, Adol or Pedi Dosage 2000-03-18 00:00:00 Completed [facility] HIB 4 Dose Schedule 2000-03-18 00:00:00 Completed [facility] Polio (IPV/OPV) 2000-03-18 00:00:00 Completed [facility] DTAP 2000-03-18 00:00:00 Completed [facility] Hep B, Adol or Pedi Dosage 2000-03-18 00:00:00 Completed [facility] HIB 4 Dose Schedule 2000-03-18 00:00:00 Completed [facility] Polio (IPV/OPV) 2000-03-18 00:00:00 Completed [facility] Polio (IPV/OPV) 2000-03-18 00:00:00 Completed [facility] DTAP 2000-03-18 00:00:00 Completed [facility] Hep B, Adol or Pedi Dosage 2000-03-18 00:00:00 Completed [facility] HIB 4 Dose Schedule 2000-03-18 00:00:00 Completed [facility] Polio (IPV/OPV) 2000-03-18 00:00:00 Completed [facility] DTAP 2000-03-18 00:00:00 Completed [facility] Hep B, Adol or Pedi Dosage 2000-03-18 00:00:00 Completed [facility] HIB 4 Dose Schedule 2000-03-18 00:00:00 Completed [facility] Polio (IPV/OPV) 2000-03-18 00:00:00 Completed [facility] DTAP 2000-03-18 00:00:00 Completed [facility] Hep B, Adol or Pedi Dosage 2000-03-18 00:00:00 Completed [facility] HIB 4 Dose Schedule 2000-03-18 00:00:00 Completed [facility] Polio (IPV/OPV) 2000-03-18 00:00:00 Completed [facility] DTAP 2000-03-18 00:00:00 Completed [facility] Hep B, Adol or Pedi Dosage 2000-03-18 00:00:00 Completed [facility] HIB 4 Dose Schedule 2000-03-18 00:00:00 Completed [facility] Polio (IPV/OPV) 2000-03-18 00:00:00 Completed [facility] DTAP 2000-03-18 00:00:00 Completed [facility] Hep B, Adol or Pedi Dosage 2000-03-18 00:00:00 Completed [facility] HIB 4 Dose Schedule 2000-03-18 00:00:00 Completed [facility] Polio (IPV/OPV) 2000-03-18 00:00:00 Completed [facility] DTAP 2000-03-18 00:00:00 Completed [facility] Hep B, Adol or Pedi Dosage 2000-03-18 00:00:00 Completed [facility] HIB 4 Dose Schedule 2000-03-18 00:00:00 Completed [facility] Polio (IPV/OPV) 2000-03-18 00:00:00 Completed [facility] DTAP 2000-03-18 00:00:00 Completed [facility] DTAP 2000-03-18 00:00:00 Completed [facility] Hep B, Adol or Pedi Dosage 2000-03-18 00:00:00 Completed [facility] HIB 4 Dose Schedule 2000-03-18 00:00:00 Completed [facility] Polio (IPV/OPV) 2000-03-18 00:00:00 Completed [facility] DTAP 2000-03-18 00:00:00 Completed [facility] Hep B, Adol or Pedi Dosage 2000-03-18 00:00:00 Completed [facility] Hep B, Adol or Pedi Dosage 2000-03-18 00:00:00 Completed [facility] HIB 4 Dose Schedule 2000-03-18 00:00:00 Completed [facility] HIB 4 Dose Schedule 2000-03-18 00:00:00 Completed [facility] Polio (IPV/OPV) 2000-03-18 00:00:00 Completed [facility] DTAP 2000-03-18 00:00:00 Completed [facility] Hep B, Adol or Pedi Dosage 2000-03-18 00:00:00 Completed [facility] HIB 4 Dose Schedule 2000-03-18 00:00:00 Completed [facility] Polio (IPV/OPV) 2000-03-18 00:00:00 Completed [facility] DTAP 2000-03-18 00:00:00 Completed [facility] Hep B, Adol or Pedi Dosage 2000-03-18 00:00:00 Completed [facility] HIB 4 Dose Schedule 2000-03-18 00:00:00 Completed [facility] Polio (IPV/OPV) 2000-03-18 00:00:00 Completed [facility] Polio (IPV/OPV) 2000-03-18 00:00:00 Completed [facility] DTAP 2000-03-18 00:00:00 Completed [facility] Hep B, Adol or Pedi Dosage 2000-03-18 00:00:00 Completed [facility] HIB 4 Dose Schedule 2000-03-18 00:00:00 Completed [facility] Polio (IPV/OPV) 2000-03-18 00:00:00 Completed [facility] DTAP 1999 00:00:00 Completed [facility] HIB 4 Dose Schedule 1999 00:00:00 Completed [facility] Hep B, Adol or Pedi Dosage 1999 00:00:00 Completed [facility] Polio (IPV/OPV) 1999 00:00:00 Completed [facility] DTAP 1999 00:00:00 Completed [facility] DTAP 1999 00:00:00 Completed [facility] HIB 4 Dose Schedule 1999 00:00:00 Completed [facility] Hep B, Adol or Pedi Dosage 1999 00:00:00 Completed [facility] Polio (IPV/OPV) 1999 00:00:00 Completed [facility] HIB 4 Dose Schedule 1999 00:00:00 Completed [facility] DTAP 1999 00:00:00 Completed [facility] HIB 4 Dose Schedule 1999 00:00:00 Completed [facility] Hep B, Adol or Pedi Dosage 1999 00:00:00 Completed [facility] Hep B, Adol or Pedi Dosage 1999 00:00:00 Completed [facility] Polio (IPV/OPV) 1999 00:00:00 Completed [facility] DTAP 1999 00:00:00 Completed [facility] HIB 4 Dose Schedule 1999 00:00:00 Completed [facility] Hep B, Adol or Pedi Dosage 1999 00:00:00 Completed [facility] Polio (IPV/OPV) 1999 00:00:00 Completed [facility] DTAP 1999 00:00:00 Completed [facility] HIB 4 Dose Schedule 1999 00:00:00 Completed [facility] Hep B, Adol or Pedi Dosage 1999 00:00:00 Completed [facility] Polio (IPV/OPV) 1999 00:00:00 Completed [facility] DTAP 1999 00:00:00 Completed [facility] HIB 4 Dose Schedule 1999 00:00:00 Completed [facility] Hep B, Adol or Pedi Dosage 1999 00:00:00 Completed [facility] Polio (IPV/OPV) 1999 00:00:00 Completed [facility] Polio (IPV/OPV) 1999 00:00:00 Completed [facility] DTAP 1999 00:00:00 Completed [facility] HIB 4 Dose Schedule 1999 00:00:00 Completed [facility] Hep B, Adol or Pedi Dosage 1999 00:00:00 Completed [facility] Polio (IPV/OPV) 1999 00:00:00 Completed [facility] DTAP 1999 00:00:00 Completed [facility] HIB 4 Dose Schedule 1999 00:00:00 Completed [facility] Hep B, Adol or Pedi Dosage 1999 00:00:00 Completed [facility] Polio (IPV/OPV) 1999 00:00:00 Completed [facility] DTAP 1999 00:00:00 Completed [facility] HIB 4 Dose Schedule 1999 00:00:00 Completed [facility] Hep B, Adol or Pedi Dosage 1999 00:00:00 Completed [facility] Polio (IPV/OPV) 1999 00:00:00 Completed [facility] DTAP 1999 00:00:00 Completed [facility] HIB 4 Dose Schedule 1999 00:00:00 Completed [facility] Hep B, Adol or Pedi Dosage 1999 00:00:00 Completed [facility] Polio (IPV/OPV) 1999 00:00:00 Completed [facility] DTAP 1999 00:00:00 Completed [facility] HIB 4 Dose Schedule 1999 00:00:00 Completed [facility] Hep B, Adol or Pedi Dosage 1999 00:00:00 Completed [facility] Polio (IPV/OPV) 1999 00:00:00 Completed [facility] DTAP 1999 00:00:00 Completed [facility] HIB 4 Dose Schedule 1999 00:00:00 Completed [facility] Hep B, Adol or Pedi Dosage 1999 00:00:00 Completed [facility] DTAP 1999 00:00:00 Completed [facility] Polio (IPV/OPV) 1999 00:00:00 Completed [facility] DTAP 1999 00:00:00 Completed [facility] HIB 4 Dose Schedule 1999 00:00:00 Completed [facility] Hep B, Adol or Pedi Dosage 1999 00:00:00 Completed [facility] HIB 4 Dose Schedule 1999 00:00:00 Completed [facility] Polio (IPV/OPV) 1999 00:00:00 Completed [facility] DTAP 1999 00:00:00 Completed [facility] Hep B, Adol or Pedi Dosage 1999 00:00:00 Completed [facility] HIB 4 Dose Schedule 1999 00:00:00 Completed [facility] Hep B, Adol or Pedi Dosage 1999 00:00:00 Completed [facility] Polio (IPV/OPV) 1999 00:00:00 Completed [facility] DTAP 1999 00:00:00 Completed [facility] HIB 4 Dose Schedule 1999 00:00:00 Completed [facility] Hep B, Adol or Pedi Dosage 1999 00:00:00 Completed [facility] Polio (IPV/OPV) 1999 00:00:00 Completed [facility] DTAP 1999 00:00:00 Completed [facility] HIB 4 Dose Schedule 1999 00:00:00 Completed [facility] Hep B, Adol or Pedi Dosage 1999 00:00:00 Completed [facility] Polio (IPV/OPV) 1999 00:00:00 Completed [facility] Polio (IPV/OPV) 1999 00:00:00 Completed [facility] DTAP 1999 00:00:00 Completed [facility] HIB 4 Dose Schedule 1999 00:00:00 Completed [facility] Hep B, Adol or Pedi Dosage 1999 00:00:00 Completed [facility] Polio (IPV/OPV) 1999 00:00:00 Completed [facility] Hep B, Adol or Pedi Dosage 1999 00:00:00 Completed [facility] Hep B, Adol or Pedi Dosage 1999 00:00:00 Completed [facility] Hep B, Adol or Pedi Dosage 1999 00:00:00 Completed [facility] Hep B, Adol or Pedi Dosage 1999 00:00:00 Completed [facility] Hep B, Adol or Pedi Dosage 1999 00:00:00 Completed [facility] Hep B, Adol or Pedi Dosage 1999 00:00:00 Completed [facility] Hep B, Adol or Pedi Dosage 1999 00:00:00 Completed [facility] Hep B, Adol or Pedi Dosage 1999 00:00:00 Completed [facility] Hep B, Adol or Pedi Dosage 1999 00:00:00 Completed [facility] Hep B, Adol or Pedi Dosage 1999 00:00:00 Completed [facility] Hep B, Adol or Pedi Dosage 1999 00:00:00 Completed [facility] Hep B, Adol or Pedi Dosage 1999 00:00:00 Completed [facility] Hep B, Adol or Pedi Dosage 1999 00:00:00 Completed [facility] Hep B, Adol or Pedi Dosage 1999 00:00:00 Completed [facility] Hep B, Adol or Pedi Dosage 1999 00:00:00 Completed [facility] Hep B, Adol or Pedi Dosage 1999 00:00:00 Completed [facility] Hep B, Adol or Pedi Dosage 1999 00:00:00 Completed [facility] Hep B, Adol or Pedi Dosage 1999 00:00:00 Completed [facility] Hep B, Adol or Pedi Dosage 1999 00:00:00 Completed [facility] HPV Unknown Completed [facility] Meningococcal Polysaccharide (groups A, C, Y and W-135) conjugate vaccine (MCV4P) Unknown Completed [facility] DTAP Unknown Completed [facility] DTAP Unknown Completed [facility] DTAP Unknown Completed [facility] DTAP Unknown Completed [facility] DTAP Unknown Completed [facility] DTAP Unknown Completed [facility] HIB 4 Dose Schedule Unknown Completed [facility] HEPATITIS A Unknown [facility]pleted [facility]ITIS A [facility] Hep B, Adol or Pedi Dosage Unknown Completed [facility] Hep B, Adol or Pedi Dosage Unknown Completed [facility] Hep B, Adol or Pedi Dosage Unknown Completed [facility] HIB 4 Dose Schedule Unknown Completed [facility] HIB 4 Dose Schedule Unknown Completed [facility] HIB 4 Dose Schedule Unknown Completed [facility] HPV Unknown Completed [facility] HPV Unknown Completed [facility] Meningococcal Vaccine Unknown Completed [facility] Meningococcal Vaccine Unknown Completed [facility] MMR Unknown Completed [facility] MMR Unknown Completed [facility] MMR Unknown Completed [facility] Pneumococcal 13 Conjugate, PCV13 (Prevnar 13) Unknown Completed [facility] Polio (IPV/OPV) Unknown Completed [facility] Polio (IPV/OPV) Unknown Completed [facility] Polio (IPV/OPV) Unknown Completed [facility] Polio (IPV/OPV) Unknown Completed [facility] Polio (IPV/OPV) Unknown Completed [facility] TDAP Unknown Completed [facility] TDAP Unknown Completed [facility] Varicella (varivax)(chicken pox) Unknown Completed [facility] Varicella (varivax)(chicken pox) Unknown Completed [facility] Varicella (varivax)(chicken pox) Unknown Completed [facility] TDAP Unknown Completed [facility] HPV Unknown Completed [facility] Meningococcal Polysaccharide (groups A, C, Y and W-135) conjugate vaccine (MCV4P) Unknown Completed [facility] DTAP Unknown Completed [facility] DTAP Unknown Completed [facility] DTAP Unknown Completed [facility] DTAP Unknown Completed [facility] DTAP Unknown Completed [facility] DTAP Unknown Completed [facility] HIB 4 Dose Schedule Unknown Completed [facility] HEPATITIS A Unknown Completed [facility] HEPATITIS A Unknown Com[facility] Hep B, Adol or Pedi Dosage Unknown Completed [facility] Hep B, Adol or Pedi Dosage Unknown Completed [facility] Hep B, Adol or Pedi Dosage Unknown Completed [facility] HIB 4 Dose Schedule Unknown Completed [facility] HIB 4 Dose Schedule Unknown Completed [facility] HIB 4 Dose Schedule Unknown Completed [facility] HPV Unknown Completed [facility] HPV Unknown Completed [facility] Meningococcal Vaccine Unknown Completed [facility] Meningococcal Vaccine Unknown Completed [facility] MMR Unknown Completed [facility] MMR Unknown Completed [facility] MMR Unknown Completed [facility] Pneumococcal 13 Conjugate, PCV13 (Prevnar 13) Unknown Completed [facility] Polio (IPV/OPV) Unknown Completed [facility] Polio (IPV/OPV) Unknown Completed [facility] Polio (IPV/OPV) Unknown Completed [facility] Polio (IPV/OPV) Unknown Completed [facility] Polio (IPV/OPV) Unknown Completed [facility] TDAP Unknown Completed [facility] TDAP Unknown Completed [facility] Varicella (varivax)(chicken pox) Unknown Completed [facility] Varicella (varivax)(chicken pox) Unknown Completed [facility] Varicella (varivax)(chicken pox) Unknown Completed [facility] TDAP Unknown Completed [facility] HPV Unknown Completed [facility] Meningococcal Polysaccharide (groups A, C, Y and W-135) conjugate vaccine (MCV4P) Unknown Completed [facility] DTAP Unknown Completed [facility] DTAP Unknown Completed [facility] DTAP Unknown Completed [facility] DTAP Unknown Completed [facility] DTAP Unknown Completed [facility] DTAP Unknown Completed [facility] HIB 4 Dose Schedule Unknown Completed [facility] HEPATITIS A Unknown [facility] HEPATITIS A Unknown [facility] Hep B, Adol or Pedi Dosage Unknown Completed [facility] Hep B, Adol or Pedi Dosage Unknown Completed [facility] Hep B, Adol or Pedi Dosage Unknown Completed [facility] HIB 4 Dose Schedule Unknown Completed [facility] HIB 4 Dose Schedule Unknown Completed [facility] HIB 4 Dose Schedule Unknown Completed [facility] HPV Unknown Completed [facility] HPV Unknown Completed [facility] Meningococcal Vaccine Unknown Completed [facility] Meningococcal Vaccine Unknown Completed [facility] MMR Unknown Completed [facility] MMR Unknown Completed [facility] MMR Unknown Completed [facility] Pneumococcal 13 Conjugate, PCV13 (Prevnar 13) Unknown Completed [facility] Polio (IPV/OPV) Unknown Completed [facility] Polio (IPV/OPV) Unknown Completed [facility] Polio (IPV/OPV) Unknown Completed [facility] Polio (IPV/OPV) Unknown Completed [facility] Polio (IPV/OPV) Unknown Completed [facility] TDAP Unknown Completed [facility] TDAP Unknown Completed [facility] Varicella (varivax)(chicken pox) Unknown Completed [facility] Varicella (varivax)(chicken pox) Unknown Completed [facility] Varicella (varivax)(chicken pox) Unknown Completed [facility] TDAP Unknown Completed [facility] HPV Unknown Completed [facility] Meningococcal Polysaccharide (groups A, C, Y and W-135) conjugate vaccine (MCV4P) Unknown Completed [facility] DTAP Unknown Completed [facility] DTAP Unknown Completed [facility] DTAP Unknown Completed [facility] DTAP Unknown Completed [facility] DTAP Unknown Completed [facility] DTAP Unknown Completed [facility] HIB 4 Dose Schedule Unknown Completed [facility] HEPATITIS A [facility] Hep B, Adol or Pedi Dosage Unknown Completed [facility] Hep B, Adol or Pedi Dosage Unknown Completed [facility] Hep B, Adol or Pedi Dosage Unknown Completed [facility] HIB 4 Dose Schedule Unknown Completed [facility] HIB 4 Dose Schedule Unknown Completed [facility] HIB 4 Dose Schedule Unknown Completed [facility] HPV Unknown Completed [facility] HPV Unknown Completed [facility] Meningococcal Vaccine Unknown Completed [facility] Meningococcal Vaccine Unknown Completed [facility] MMR Unknown Completed [facility] MMR Unknown Completed [facility] MMR Unknown Completed [facility] Pneumococcal 13 Conjugate, PCV13 (Prevnar 13) Unknown Completed [facility] Polio (IPV/OPV) Unknown Completed [facility] Polio (IPV/OPV) Unknown Completed [facility] Polio (IPV/OPV) Unknown Completed [facility] Polio (IPV/OPV) Unknown Completed [facility] Polio (IPV/OPV) Unknown Completed [facility] TDAP Unknown Completed [facility] TDAP Unknown Completed [facility] Varicella (varivax)(chicken pox) Unknown Completed [facility] Varicella (varivax)(chicken pox) Unknown Completed [facility] Varicella (varivax)(chicken pox) Unknown Completed [facility] TDAP Unknown Completed [facility] HPV Unknown Completed [facility] Meningococcal Polysaccharide (groups A, C, Y and W-135) conjugate vaccine (MCV4P) Unknown Completed [facility] DTAP Unknown Completed [facility] DTAP Unknown Completed [facility] DTAP Unknown Completed [facility] DTAP Unknown Completed [facility] DTAP Unknown Completed [facility] DTAP Unknown Completed [facility] HIB 4 Dose Schedule Unknown Completed [facility] HEPATITIS A Unknown [facility] HE[facility]ITIS A [facility] Hep B, Adol or Pedi Dosage Unknown Completed [facility] Hep B, Adol or Pedi Dosage Unknown Completed [facility] Hep B, Adol or Pedi Dosage Unknown Completed [facility] HIB 4 Dose Schedule Unknown Completed [facility] HIB 4 Dose Schedule Unknown Completed [facility] HIB 4 Dose Schedule Unknown Completed [facility] HPV Unknown Completed [facility] HPV Unknown Completed [facility] Meningococcal Vaccine Unknown Completed [facility] Meningococcal Vaccine Unknown Completed [facility] MMR Unknown Completed [facility] MMR Unknown Completed [facility] MMR Unknown Completed [facility] Pneumococcal 13 Conjugate, PCV13 (Prevnar 13) Unknown Completed [facility] Polio (IPV/OPV) Unknown Completed [facility] Polio (IPV/OPV) Unknown Completed [facility] Polio (IPV/OPV) Unknown Completed [facility] Polio (IPV/OPV) Unknown Completed [facility] Polio (IPV/OPV) Unknown Completed [facility] TDAP Unknown Completed [facility] TDAP Unknown Completed [facility] Varicella (varivax)(chicken pox) Unknown Completed [facility] Varicella (varivax)(chicken pox) Unknown Completed [facility] Varicella (varivax)(chicken pox) Unknown Completed [facility] TDAP Unknown Completed [facility] HPV Unknown Completed [facility] Meningococcal Polysaccharide (groups A, C, Y and W-135) conjugate vaccine (MCV4P) Unknown Completed [facility] DTAP Unknown Completed [facility] DTAP Unknown Completed [facility] DTAP Unknown Completed [facility] DTAP Unknown Completed [facility] DTAP Unknown Completed [facility] DTAP Unknown Completed [facility] HIB 4 Dose Schedule Unknown Completed [facility] HEPATITIS A Unknown [facility] HE[facility]ITIS [facility] Hep B, Adol or Pedi Dosage Unknown Completed [facility] Hep B, Adol or Pedi Dosage Unknown Completed [facility] Hep B, Adol or Pedi Dosage Unknown Completed [facility] HIB 4 Dose Schedule Unknown Completed [facility] HIB 4 Dose Schedule Unknown Completed [facility] HIB 4 Dose Schedule Unknown Completed [facility] HPV Unknown Completed [facility] HPV Unknown Completed [facility] Meningococcal Vaccine Unknown Completed [facility] Meningococcal Vaccine Unknown Completed [facility] MMR Unknown Completed [facility] MMR Unknown Completed [facility] MMR Unknown Completed [facility] Pneumococcal 13 Conjugate, PCV13 (Prevnar 13) Unknown Completed [facility] Polio (IPV/OPV) Unknown Completed [facility] Polio (IPV/OPV) Unknown Completed [facility] Polio (IPV/OPV) Unknown Completed [facility] Polio (IPV/OPV) Unknown Completed [facility] Polio (IPV/OPV) Unknown Completed [facility] TDAP Unknown Completed [facility] TDAP Unknown Completed [facility] Varicella (varivax)(chicken pox) Unknown Completed [facility] Varicella (varivax)(chicken pox) Unknown Completed [facility] Varicella (varivax)(chicken pox) Unknown Completed [facility] TDAP Unknown Completed [facility] HPV Unknown Completed [facility] Meningococcal Polysaccharide (groups A, C, Y and W-135) conjugate vaccine (MCV4P) Unknown Completed [facility] DTAP Unknown Completed [facility] DTAP Unknown Completed [facility] DTAP Unknown Completed [facility] DTAP Unknown Completed [facility] DTAP Unknown Completed [facility] DTAP Unknown Completed [facility] HIB 4 Dose Schedule Unknown Completed [facility] HEPATITIS A Unknown Completed [facility] HEPATITIS A Unknown Com[facility] Hep B, Adol or Pedi Dosage Unknown Completed [facility] Hep B, Adol or Pedi Dosage Unknown Completed [facility] Hep B, Adol or Pedi Dosage Unknown Completed [facility] HIB 4 Dose Schedule Unknown Completed [facility] HIB 4 Dose Schedule Unknown Completed [facility] HIB 4 Dose Schedule Unknown Completed [facility] HPV Unknown Completed [facility] HPV Unknown Completed [facility] Meningococcal Vaccine Unknown Completed [facility] Meningococcal Vaccine Unknown Completed [facility] MMR Unknown Completed [facility] MMR Unknown Completed [facility] MMR Unknown Completed [facility] Pneumococcal 13 Conjugate, PCV13 (Prevnar 13) Unknown Completed [facility] Polio (IPV/OPV) Unknown Completed [facility] Polio (IPV/OPV) Unknown Completed [facility] Polio (IPV/OPV) Unknown Completed [facility] Polio (IPV/OPV) Unknown Completed [facility] Polio (IPV/OPV) Unknown Completed [facility] TDAP Unknown Completed [facility] TDAP Unknown Completed [facility] Varicella (varivax)(chicken pox) Unknown Completed [facility] Varicella (varivax)(chicken pox) Unknown Completed [facility] Varicella (varivax)(chicken pox) Unknown Completed [facility] TDAP Unknown Completed [facility] HPV Unknown Completed [facility] Meningococcal Polysaccharide (groups A, C, Y and W-135) conjugate vaccine (MCV4P) Unknown Completed [facility] DTAP Unknown Completed [facility] DTAP Unknown Completed [facility] DTAP Unknown Completed [facility] DTAP Unknown Completed [facility] DTAP Unknown Completed [facility] DTAP Unknown Completed [facility] HIB 4 Dose Schedule Unknown Completed [facility] HEPATITIS A Unknown Completed [facility] HEPATITIS A Unknown Com[facility] Hep B, Adol or Pedi Dosage Unknown Completed [facility] Hep B, Adol or Pedi Dosage Unknown Completed [facility] Hep B, Adol or Pedi Dosage Unknown Completed [facility] HIB 4 Dose Schedule Unknown Completed [facility] HIB 4 Dose Schedule Unknown Completed [facility] HIB 4 Dose Schedule Unknown Completed [facility] HPV Unknown Completed [facility] HPV Unknown Completed [facility] Meningococcal Vaccine Unknown Completed [facility] Meningococcal Vaccine Unknown Completed [facility] MMR Unknown Completed [facility] MMR Unknown Completed [facility] MMR Unknown Completed [facility] Pneumococcal 13 Conjugate, PCV13 (Prevnar 13) Unknown Completed [facility] Polio (IPV/OPV) Unknown Completed [facility] Polio (IPV/OPV) Unknown Completed [facility] Polio (IPV/OPV) Unknown Completed [facility] Polio (IPV/OPV) Unknown Completed [facility] Polio (IPV/OPV) Unknown Completed [facility] TDAP Unknown Completed [facility] TDAP Unknown Completed [facility] Varicella (varivax)(chicken pox) Unknown Completed [facility] Varicella (varivax)(chicken pox) Unknown Completed [facility] Varicella (varivax)(chicken pox) Unknown Completed [facility] TDAP Unknown Completed [facility] HPV Unknown Completed [facility] Meningococcal Polysaccharide (groups A, C, Y and W-135) conjugate vaccine (MCV4P) Unknown Completed [facility] DTAP Unknown Completed [facility] DTAP Unknown Completed [facility] DTAP Unknown Completed [facility] DTAP Unknown Completed [facility] DTAP Unknown Completed [facility] DTAP Unknown Completed [facility] HIB 4 Dose Schedule Unknown Completed [facility] HEPATITIS A Unknown Completed [facility]PATITIS A [facility] Hep B, Adol or Pedi Dosage Unknown Completed [facility] Hep B, Adol or Pedi Dosage Unknown Completed [facility] Hep B, Adol or Pedi Dosage Unknown Completed [facility] HIB 4 Dose Schedule Unknown Completed [facility] HIB 4 Dose Schedule Unknown Completed [facility] HIB 4 Dose Schedule Unknown Completed [facility] HPV Unknown Completed [facility] HPV Unknown Completed [facility] Meningococcal Vaccine Unknown Completed [facility] Meningococcal Vaccine Unknown Completed [facility] MMR Unknown Completed [facility] MMR Unknown Completed [facility] MMR Unknown Completed [facility] Pneumococcal 13 Conjugate, PCV13 (Prevnar 13) Unknown Completed [facility] Polio (IPV/OPV) Unknown Completed [facility] Polio (IPV/OPV) Unknown Completed [facility] Polio (IPV/OPV) Unknown Completed [facility] Polio (IPV/OPV) Unknown Completed [facility] Polio (IPV/OPV) Unknown Completed [facility] TDAP Unknown Completed [facility] TDAP Unknown Completed [facility] Varicella (varivax)(chicken pox) Unknown Completed [facility] Varicella (varivax)(chicken pox) Unknown Completed [facility] Varicella (varivax)(chicken pox) Unknown Completed [facility] TDAP Unknown Completed [facility] HPV Unknown Completed [facility] Meningococcal Polysaccharide (groups A, C, Y and W-135) conjugate vaccine (MCV4P) Unknown Completed [facility] DTAP Unknown Completed [facility] DTAP Unknown Completed [facility] DTAP Unknown Completed [facility] DTAP Unknown Completed [facility] DTAP Unknown Completed [facility] DTAP Unknown Completed [facility] HIB 4 Dose Schedule Unknown Completed [facility] HEPATITIS A Unknown Completed [facility] HEPATITIS A Unknown [facility] Hep B, Adol or Pedi Dosage Unknown Completed [facility] Hep B, Adol or Pedi Dosage Unknown Completed [facility] Hep B, Adol or Pedi Dosage Unknown Completed [facility] HIB 4 Dose Schedule Unknown Completed [facility] HIB 4 Dose Schedule Unknown Completed [facility] HIB 4 Dose Schedule Unknown Completed [facility] HPV Unknown Completed [facility] HPV Unknown Completed [facility] Meningococcal Vaccine Unknown Completed [facility] Meningococcal Vaccine Unknown Completed [facility] MMR Unknown Completed [facility] MMR Unknown Completed [facility] MMR Unknown Completed [facility] Pneumococcal 13 Conjugate, PCV13 (Prevnar 13) Unknown Completed [facility] Polio (IPV/OPV) Unknown Completed [facility] Polio (IPV/OPV) Unknown Completed [facility] Polio (IPV/OPV) Unknown Completed [facility] Polio (IPV/OPV) Unknown Completed [facility] Polio (IPV/OPV) Unknown Completed [facility] TDAP Unknown Completed [facility] TDAP Unknown Completed [facility] Varicella (varivax)(chicken pox) Unknown Completed [facility] Varicella (varivax)(chicken pox) Unknown Completed [facility] Varicella (varivax)(chicken pox) Unknown Completed [facility] TDAP Unknown Completed [facility] HPV Unknown Completed [facility] Meningococcal Polysaccharide (groups A, C, Y and W-135) conjugate vaccine (MCV4P) Unknown Completed [facility] DTAP Unknown Completed [facility] DTAP Unknown Completed [facility] DTAP Unknown Completed [facility] DTAP Unknown Completed [facility] DTAP Unknown Completed [facility] DTAP Unknown Completed [facility] HIB 4 Dose Schedule Unknown Completed [facility] HEPATITIS A Unknown Completed [facility] HEPATITIS A Unknown Com[facility] Hep B, Adol or Pedi Dosage Unknown Completed [facility] Hep B, Adol or Pedi Dosage Unknown Completed [facility] Hep B, Adol or Pedi Dosage Unknown Completed [facility] HIB 4 Dose Schedule Unknown Completed [facility] HIB 4 Dose Schedule Unknown Completed [facility] HIB 4 Dose Schedule Unknown Completed [facility] HPV Unknown Completed [facility] HPV Unknown Completed [facility] Meningococcal Vaccine Unknown Completed [facility] Meningococcal Vaccine Unknown Completed [facility] MMR Unknown Completed [facility] MMR Unknown Completed [facility] MMR Unknown Completed [facility] Pneumococcal 13 Conjugate, PCV13 (Prevnar 13) Unknown Completed [facility] Polio (IPV/OPV) Unknown Completed [facility] Polio (IPV/OPV) Unknown Completed [facility] Polio (IPV/OPV) Unknown Completed [facility] Polio (IPV/OPV) Unknown Completed [facility] Polio (IPV/OPV) Unknown Completed [facility] TDAP Unknown Completed [facility] TDAP Unknown Completed [facility] Varicella (varivax)(chicken pox) Unknown Completed [facility] Varicella (varivax)(chicken pox) Unknown Completed [facility] Varicella (varivax)(chicken pox) Unknown Completed [facility] TDAP Unknown Completed [facility] HPV Unknown Completed [facility] Meningococcal Polysaccharide (groups A, C, Y and W-135) conjugate vaccine (MCV4P) Unknown Completed [facility] DTAP Unknown Completed [facility] DTAP Unknown Completed [facility] DTAP Unknown Completed [facility] DTAP Unknown Completed [facility] DTAP Unknown Completed [facility] DTAP Unknown [facility]pleted [facility] HIB 4 Dose Schedule Unknown Completed [facility] HEPATITIS A Unknown Completed [facility] HEPATITIS A Unknown [facility] Hep B, Adol or Pedi Dosage Unknown Completed [facility] Hep B, Adol or Pedi Dosage Unknown Completed [facility] Hep B, Adol or Pedi Dosage Unknown Completed [facility] HIB 4 Dose Schedule Unknown Completed [facility] HIB 4 Dose Schedule Unknown Completed [facility] HIB 4 Dose Schedule Unknown Completed [facility] HPV Unknown Completed [facility] HPV Unknown Completed [facility] Meningococcal Vaccine Unknown Completed [facility] Meningococcal Vaccine Unknown Completed [facility] MMR Unknown Completed [facility] MMR Unknown Completed [facility] MMR Unknown Completed [facility] Pneumococcal 13 Conjugate, PCV13 (Prevnar 13) Unknown Completed [facility] Polio (IPV/OPV) Unknown Completed [facility] Polio (IPV/OPV) Unknown Completed [facility] Polio (IPV/OPV) Unknown Completed [facility] Polio (IPV/OPV) Unknown Completed [facility] Polio (IPV/OPV) Unknown Completed [facility] TDAP Unknown Completed [facility] TDAP Unknown Completed [facility] Varicella (varivax)(chicken pox) Unknown Completed [facility] Varicella (varivax)(chicken pox) Unknown Completed [facility] Varicella (varivax)(chicken pox) Unknown Completed [facility] TDAP Unknown Completed [facility] HPV Unknown Completed [facility] Meningococcal Polysaccharide (groups A, C, Y and W-135) conjugate vaccine (MCV4P) Unknown Completed [facility] DTAP Unknown Completed [facility] DTAP Unknown Completed [facility] DTAP Unknown Completed [facility] DTAP Unknown Completed [facility] DTAP Unknown Completed [facility] DTAP Unknown Completed [facility] HIB 4 Dose Schedule Unknown Completed [facility] HEPATITIS A Unknown Completed [facility] HEPATITIS A Unknown Com[facility] Hep B, Adol or Pedi Dosage Unknown Completed [facility] Hep B, Adol or Pedi Dosage Unknown Completed [facility] Hep B, Adol or Pedi Dosage Unknown Completed [facility] HIB 4 Dose Schedule Unknown Completed [facility] HIB 4 Dose Schedule Unknown Completed [facility] HIB 4 Dose Schedule Unknown Completed [facility] HPV Unknown Completed [facility] HPV Unknown Completed [facility] Meningococcal Vaccine Unknown Completed [facility] Meningococcal Vaccine Unknown Completed [facility] MMR Unknown Completed [facility] MMR Unknown Completed [facility] MMR Unknown Completed [facility] Pneumococcal 13 Conjugate, PCV13 (Prevnar 13) Unknown Completed [facility] Polio (IPV/OPV) Unknown Completed [facility] Polio (IPV/OPV) Unknown Completed [facility] Polio (IPV/OPV) Unknown Completed [facility] Polio (IPV/OPV) Unknown Completed [facility] Polio (IPV/OPV) Unknown Completed [facility] TDAP Unknown Completed [facility] TDAP Unknown Completed [facility] Varicella (varivax)(chicken pox) Unknown Completed [facility] Varicella (varivax)(chicken pox) Unknown Completed [facility] Varicella (varivax)(chicken pox) Unknown Completed [facility] TDAP Unknown Completed [facility] HPV Unknown Completed [facility] Meningococcal Polysaccharide (groups A, C, Y and W-135) conjugate vaccine (MCV4P) Unknown Completed [facility] DTAP Unknown Completed [facility] DTAP Unknown Completed [facility] DTAP Unknown Completed [facility] DTAP Unknown Completed [facility] DTAP Unknown Completed [facility] DTAP Unknown Completed [facility] HIB 4 Dose Schedule Unknown Completed [facility] HEPATITIS A Unknown Completed [facility] HEPATITIS A Unknown Com[facility] Hep B, Adol or Pedi Dosage Unknown Completed [facility] Hep B, Adol or Pedi Dosage Unknown Completed [facility] Hep B, Adol or Pedi Dosage Unknown Completed [facility] HIB 4 Dose Schedule Unknown Completed [facility] HIB 4 Dose Schedule Unknown Completed [facility] HIB 4 Dose Schedule Unknown Completed [facility] HPV Unknown Completed [facility] HPV Unknown Completed [facility] Meningococcal Vaccine Unknown Completed [facility] Meningococcal Vaccine Unknown Completed [facility] MMR Unknown Completed [facility] MMR Unknown Completed [facility] MMR Unknown Completed [facility] Pneumococcal 13 Conjugate, PCV13 (Prevnar 13) Unknown Completed [facility] Polio (IPV/OPV) Unknown Completed [facility] Polio (IPV/OPV) Unknown Completed [facility] Polio (IPV/OPV) Unknown Completed [facility] Polio (IPV/OPV) Unknown [facility]pleted [facility] Pol[facility] (IPV/OPV[facility] Unknown Completed [facility] TDAP Unknown Completed [facility] TDAP Unknown Completed [facility] Varicella (varivax)(chicken pox) Unknown Completed [facility] Varicella (varivax)(chicken pox) Unknown Completed [facility] Varicella (varivax)(chicken pox) Unknown Completed [facility] TDAP Unknown Completed [facility] HPV Unknown Completed [facility] Meningococcal Polysaccharide (groups A, C, Y and W-135) conjugate vaccine (MCV4P) Unknown Completed [facility] DTAP Unknown Completed [facility] DTAP Unknown Completed [facility] DTAP Unknown Completed [facility] DTAP Unknown Completed [facility] DTAP Unknown Completed [facility] DTAP Unknown [facility]pleted [facility] HIB 4 Dose Schedule Unknown Completed [facility] HEPATITIS A [facility] Hep B, Adol or Pedi Dosage Unknown Completed [facility] Hep B, Adol or Pedi Dosage Unknown Completed [facility] Hep B, Adol or Pedi Dosage Unknown Completed [facility] HIB 4 Dose Schedule Unknown Completed [facility] HIB 4 Dose Schedule Unknown Completed [facility] HIB 4 Dose Schedule Unknown Completed [facility] HPV Unknown Completed [facility] HPV Unknown Completed [facility] Meningococcal Vaccine Unknown Completed [facility] Meningococcal Vaccine Unknown Completed [facility] MMR Unknown Completed [facility] MMR Unknown Completed [facility] MMR Unknown Completed [facility] Pneumococcal 13 Conjugate, PCV13 (Prevnar 13) Unknown Completed [facility] Polio (IPV/OPV) Unknown [facility] Polio (IPV/OPV[facility] Unknown Completed [facility] Polio (IPV/OPV) Unknown Completed [facility] Polio (IPV/OPV) Unknown Completed [facility] Polio (IPV/OPV) Unknown Completed [facility] TDAP Unknown Completed [facility] TDAP Unknown Completed [facility] Varicella (varivax)(chicken pox) Unknown Completed [facility] Varicella (varivax)(chicken pox) Unknown Completed [facility] Varicella (varivax)(chicken pox) Unknown Completed [facility] TDAP Unknown Completed [facility] HPV Unknown Completed [facility] Meningococcal Polysaccharide (groups A, C, Y and W-135) conjugate vaccine (MCV4P) Unknown Completed [facility] DTAP Unknown Completed [facility] DTAP Unknown Completed [facility] DTAP Unknown Completed [facility] DTAP Unknown Completed [facility] DTAP Unknown Completed [facility] DTAP Unknown Completed [facility] HIB 4 Dose Schedule Unknown Completed [facility] HEPATITIS A Unknown [facility] Hep B, Adol or Pedi Dosage Unknown Completed [facility] Hep B, Adol or Pedi Dosage Unknown Completed [facility] Hep B, Adol or Pedi Dosage Unknown Completed [facility] HIB 4 Dose Schedule Unknown Completed [facility] HIB 4 Dose Schedule Unknown Completed [facility] HIB 4 Dose Schedule Unknown Completed [facility] HPV Unknown Completed [facility] HPV Unknown Completed [facility] Meningococcal Vaccine Unknown Completed [facility] Meningococcal Vaccine Unknown Completed [facility] MMR Unknown Completed [facility] MMR Unknown Completed [facility] MMR Unknown Completed [facility] Pneumococcal 13 Conjugate, PCV13 (Prevnar 13) Unknown Completed [facility] Polio (IPV/OPV) Unknown Completed [facility] Polio (IPV/OPV) Unknown Completed [facility] Polio (IPV/OPV) Unknown Completed [facility] Polio (IPV/OPV) Unknown Completed [facility] Polio (IPV/OPV) Unknown Completed [facility] TDAP Unknown Completed [facility] TDAP Unknown Completed [facility] Varicella (varivax)(chicken pox) Unknown Completed [facility] Varicella (varivax)(chicken pox) Unknown Completed [facility] Varicella (varivax)(chicken pox) Unknown Completed [facility] TDAP Unknown Completed [facility] HPV Unknown Completed [facility] Meningococcal Polysaccharide (groups A, C, Y and W-135) conjugate vaccine (MCV4P) Unknown Completed [facility] DTAP Unknown Completed [facility] DTAP Unknown Completed [facility] DTAP Unknown Completed [facility] DTAP Unknown Completed [facility] DTAP Unknown Completed [facility] DTAP Unknown Completed [facility] HIB 4 Dose Schedule Unknown Completed [facility] HEPATITIS A Unknown [facility]IS [facility] Hep B, Adol or Pedi Dosage Unknown Completed [facility] Hep B, Adol or Pedi Dosage Unknown Completed [facility] Hep B, Adol or Pedi Dosage Unknown Completed [facility] HIB 4 Dose Schedule Unknown Completed [facility] HIB 4 Dose Schedule Unknown Completed [facility] HIB 4 Dose Schedule Unknown Completed [facility] HPV Unknown Completed [facility] HPV Unknown Completed [facility] Meningococcal Vaccine Unknown Completed [facility] Meningococcal Vaccine Unknown Completed [facility] MMR Unknown Completed [facility] MMR Unknown Completed [facility] MMR Unknown Completed [facility] Pneumococcal 13 Conjugate, PCV13 (Prevnar 13) Unknown Completed [facility] Polio (IPV/OPV) Unknown Completed [facility] Polio (IPV/OPV) Unknown Completed [facility] Polio (IPV/OPV) Unknown Completed [facility] Polio (IPV/OPV) Unknown Completed [facility] Polio (IPV/OPV) Unknown Completed [facility] TDAP Unknown Completed [facility] TDAP Unknown Completed [facility] Varicella (varivax)(chicken pox) Unknown Completed [facility] Varicella (varivax)(chicken pox) Unknown Completed [facility] Varicella (varivax)(chicken pox) Unknown Completed [facility] TDAP Unknown Completed [facility] HPV Unknown Completed [facility] Meningococcal Polysaccharide (groups A, C, Y and W-135) conjugate vaccine (MCV4P) Unknown Completed [facility] DTAP Unknown Completed [facility] DTAP Unknown Completed [facility] DTAP Unknown Completed [facility] DTAP Unknown Completed [facility] DTAP Unknown Completed [facility] DTAP Unknown Completed [facility] HIB 4 Dose Schedule Unknown Completed [facility] HEPATITIS A Unknown Com[facility] HEPATITIS A Unknown Completed [facility] Hep B, Adol or Pedi Dosage Unknown Completed [facility] Hep B, Adol or Pedi Dosage Unknown Completed [facility] Hep B, Adol or Pedi Dosage Unknown Completed [facility] HIB 4 Dose Schedule Unknown Completed [facility] HIB 4 Dose Schedule Unknown Completed [facility] HIB 4 Dose Schedule Unknown Completed [facility] HPV Unknown Completed [facility] HPV Unknown Completed [facility] Meningococcal Vaccine Unknown Completed [facility] Meningococcal Vaccine Unknown Completed [facility] MMR Unknown Completed [facility] MMR Unknown Completed [facility] MMR Unknown Completed [facility] Pneumococcal 13 Conjugate, PCV13 (Prevnar 13) Unknown Completed [facility] Polio (IPV/OPV) Unknown Completed [facility] Polio (IPV/OPV) Unknown Completed [facility] Polio (IPV/OPV) Unknown Completed [facility] Polio (IPV/OPV) Unknown Completed [facility] Polio (IPV/OPV) Unknown Completed [facility] TDAP Unknown Completed [facility] TDAP Unknown Completed [facility] Varicella (varivax)(chicken pox) Unknown Completed [facility] Varicella (varivax)(chicken pox) Unknown Completed [facility] Varicella (varivax)(chicken pox) Unknown Completed [facility] TDAP Unknown Completed [facility] HPV Unknown Completed [facility] Meningococcal Polysaccharide (groups A, C, Y and W-135) conjugate vaccine (MCV4P) Unknown Completed [facility] DTAP Unknown Completed [facility] DTAP Unknown Completed [facility] DTAP Unknown Completed [facility] DTAP Unknown Completed [facility] DTAP Unknown Completed [facility] DTAP Unknown Completed [facility] HIB 4 Dose Schedule Unknown Completed [facility] HEPATITIS A Unknown Completed [facility] HEPATITIS A [facility] Hep B, Adol or Pedi Dosage Unknown Completed [facility] Hep B, Adol or Pedi Dosage Unknown Completed [facility] Hep B, Adol or Pedi Dosage Unknown Completed [facility] HIB 4 Dose Schedule Unknown Completed [facility] HIB 4 Dose Schedule Unknown Completed [facility] HIB 4 Dose Schedule Unknown Completed [facility] HPV Unknown Completed [facility] HPV Unknown Completed [facility] Meningococcal Vaccine Unknown Completed [facility] Meningococcal Vaccine Unknown Completed [facility] MMR Unknown Completed [facility] MMR Unknown Completed [facility] MMR Unknown Completed [facility] Pneumococcal 13 Conjugate, PCV13 (Prevnar 13) Unknown Completed [facility] Polio (IPV/OPV) Unknown Completed [facility] Polio (IPV/OPV) Unknown Completed [facility] Polio (IPV/OPV) Unknown Completed [facility] Polio (IPV/OPV) Unknown Completed [facility] Polio (IPV/OPV) Unknown Completed [facility] TDAP Unknown Completed [facility] TDAP Unknown Completed [facility] Varicella (varivax)(chicken pox) Unknown Completed [facility] Varicella (varivax)(chicken pox) Unknown Completed [facility] Varicella (varivax)(chicken pox) Unknown Completed [facility] TDAP Unknown Completed [facility] HPV Unknown Completed [facility] Meningococcal Polysaccharide (groups A, C, Y and W-135) conjugate vaccine (MCV4P) Unknown Completed [facility] DTAP Unknown Completed [facility] DTAP Unknown Completed [facility] DTAP Unknown Completed [facility] DTAP Unknown Completed [facility] DTAP Unknown Completed [facility] DTAP Unknown Completed [facility] HIB 4 Dose Schedule Unknown Completed [facility] HEPATITIS A Unknown Completed [facility] HEPATITIS A Unknown Completed [facility] Hep B, Adol or Pedi Dosage Unknown Completed [facility] Hep B, Adol or Pedi Dosage Unknown Completed [facility] Hep B, Adol or Pedi Dosage Unknown Completed [facility] HIB 4 Dose Schedule Unknown Completed [facility] HIB 4 Dose Schedule Unknown Completed [facility] HIB 4 Dose Schedule Unknown Completed [facility] HPV Unknown Completed [facility] HPV Unknown Completed [facility] Meningococcal Vaccine Unknown Completed [facility] Meningococcal Vaccine Unknown Completed [facility] MMR Unknown Completed [facility] MMR Unknown Completed [facility] MMR Unknown Completed [facility] Pneumococcal 13 Conjugate, PCV13 (Prevnar 13) Unknown Completed [facility] Polio (IPV/OPV) Unknown Completed [facility] Polio (IPV/OPV) Unknown Completed [facility] Polio (IPV/OPV) Unknown Completed [facility] Polio (IPV/OPV) Unknown Completed [facility] Polio (IPV/OPV) Unknown Completed [facility] TDAP Unknown Completed [facility] TDAP Unknown Completed [facility] Varicella (varivax)(chicken pox) Unknown Completed [facility] Varicella (varivax)(chicken pox) Unknown Completed [facility] Varicella (varivax)(chicken pox) Unknown Completed [facility] TDAP Unknown Completed [facility] HPV Unknown Completed [facility] Meningococcal Polysaccharide (groups A, C, Y and W-135) conjugate vaccine (MCV4P) Unknown Completed [facility] DTAP Unknown Completed [facility] DTAP Unknown Completed [facility] DTAP Unknown Completed [facility] DTAP Unknown Completed [facility] DTAP Unknown Completed [facility] DTAP Unknown Completed [facility] HIB 4 Dose Schedule Unknown Completed [facility] HEPATITIS A Unknown [facility]ITIS [facility] Hep B, Adol or Pedi Dosage Unknown Completed [facility] Hep B, Adol or Pedi Dosage Unknown Completed [facility] Hep B, Adol or Pedi Dosage Unknown Completed [facility] HIB 4 Dose Schedule Unknown Completed [facility] HIB 4 Dose Schedule Unknown Completed [facility] HIB 4 Dose Schedule Unknown Completed [facility] HPV Unknown Completed [facility] HPV Unknown Completed [facility] Meningococcal Vaccine Unknown Completed [facility] Meningococcal Vaccine Unknown Completed [facility] MMR Unknown Completed [facility] MMR Unknown Completed [facility] MMR Unknown Completed [facility] Pneumococcal 13 Conjugate, PCV13 (Prevnar 13) Unknown Completed [facility] Polio (IPV/OPV) Unknown Completed [facility] Polio (IPV/OPV) Unknown Completed [facility] Polio (IPV/OPV) Unknown Completed [facility] Polio (IPV/OPV) Unknown Completed [facility] Polio (IPV/OPV) Unknown Completed [facility] TDAP Unknown Completed [facility] TDAP Unknown Completed [facility] Varicella (varivax)(chicken pox) Unknown Completed [facility] Varicella (varivax)(chicken pox) Unknown Completed [facility] Varicella (varivax)(chicken pox) Unknown Completed [facility] TDAP Unknown Completed [facility] HPV Unknown Completed [facility] Meningococcal Polysaccharide (groups A, C, Y and W-135) conjugate vaccine (MCV4P) Unknown Completed [facility] DTAP Unknown Completed [facility] DTAP Unknown Completed [facility] DTAP Unknown Completed [facility] DTAP Unknown Completed [facility] DTAP Unknown Completed [facility] DTAP Unknown Completed [facility] HIB 4 Dose Schedule Unknown Completed [facility] HEPATITIS A Unknown Completed [facility] HEPATITIS A Unknown [facility] Hep B, Adol or Pedi Dosage Unknown Completed [facility] Hep B, Adol or Pedi Dosage Unknown Completed [facility] Hep B, Adol or Pedi Dosage Unknown Completed [facility] HIB 4 Dose Schedule Unknown Completed [facility] HIB 4 Dose Schedule Unknown Completed [facility] HIB 4 Dose Schedule Unknown Completed [facility] HPV Unknown Completed [facility] HPV Unknown Completed [facility] Meningococcal Vaccine Unknown Completed [facility] Meningococcal Vacc[facility] Unknown Completed [facility] MMR Unknown Completed [facility] MMR Unknown Completed [facility] MMR Unknown Completed [facility] Pneumococcal 13 Conjugate, PCV13 (Prevnar 13) Unknown Completed [facility] Polio (IPV/OPV) Unknown Completed [facility] Polio (IPV/OPV) Unknown Completed [facility] Polio (IPV/OPV) Unknown Completed [facility] Polio (IPV/OPV) Unknown Completed [facility] Polio (IPV/OPV) Unknown Completed [facility] TDAP Unknown Completed [facility] TDAP Unknown Completed [facility] Varicella (varivax)(chicken pox) Unknown Completed [facility] Varicella (varivax)(chicken pox) Unknown Completed [facility] Varicella (varivax)(chicken pox) Unknown Completed [facility] TDAP Unknown Completed [facility] HPV Unknown Completed [facility] Meningococcal Polysaccharide (groups A, C, Y and W-135) conjugate vaccine (MCV4P) Unknown Completed [facility] DTAP Unknown Completed [facility] DTAP Unknown Completed [facility] DTAP Unknown Completed [facility] DTAP Unknown Completed [facility] DTAP Unknown Completed [facility] DTAP Unknown Completed [facility] HIB 4 Dose Schedule Unknown Completed [facility] HEPATITIS A Unknown Com[facility] HEPATITIS A Unknown [facility] Hep B, Adol or Pedi Dosage Unknown Completed [facility] Hep B, Adol or Pedi Dosage Unknown Completed [facility] Hep B, Adol or Pedi Dosage Unknown Completed [facility] HIB 4 Dose Schedule Unknown Completed [facility] HIB 4 Dose Schedule Unknown Completed [facility] HIB 4 Dose Schedule Unknown Completed [facility] HPV Unknown Completed [facility] HPV Unknown Completed [facility] Meningococcal Vaccine Unknown Completed [facility] Meningococcal Vaccine Unknown Completed [facility] MMR Unknown Completed [facility] MMR Unknown Completed [facility] MMR Unknown Completed [facility] Pneumococcal 13 Conjugate, PCV13 (Prevnar 13) Unknown Completed [facility] Polio (IPV/OPV) Unknown Completed [facility] Polio (IPV/OPV) Unknown Completed [facility] Polio (IPV/OPV) Unknown Completed [facility] Polio (IPV/OPV) Unknown Completed [facility] Polio (IPV/OPV) Unknown Completed [facility] TDAP Unknown Completed [facility] TDAP Unknown Completed [facility] Varicella (varivax)(chicken pox) Unknown Completed [facility] Varicella (varivax)(chicken pox) Unknown Completed [facility] Varicella (varivax)(chicken pox) Unknown Completed [facility] TDAP Unknown Completed [facility] HPV Unknown Completed [facility] Meningococcal Polysaccharide (groups A, C, Y and W-135) conjugate vaccine (MCV4P) Unknown Completed [facility] DTAP Unknown Completed [facility] DTAP Unknown Completed [facility] DTAP Unknown Completed [facility] DTAP Unknown Completed [facility] DTAP Unknown Completed [facility] DTAP Unknown Completed [facility] HIB 4 Dose Schedule Unknown Completed [facility] HEPATITIS A Unknown Completed [facility] HEPATITIS A Unknown Com[facility] Hep B, Adol or Pedi Dosage Unknown Completed [facility] Hep B, Adol or Pedi Dosage Unknown Completed [facility] Hep B, Adol or Pedi Dosage Unknown Completed [facility] HIB 4 Dose Schedule Unknown Completed [facility] HIB 4 Dose Schedule Unknown Completed [facility] HIB 4 Dose Schedule Unknown Completed [facility] HPV Unknown Completed [facility] HPV Unknown Completed [facility] Meningococcal Vaccine Unknown Completed [facility] Meningococcal Vaccine Unknown Completed [facility] MMR Unknown Completed [facility] MMR Unknown Completed [facility] MMR Unknown Completed [facility] Pneumococcal 13 Conjugate, PCV13 (Prevnar 13) Unknown Completed [facility] Polio (IPV/OPV) Unknown Completed [facility] Polio (IPV/OPV) Unknown Completed [facility] Polio (IPV/OPV) Unknown Completed [facility] Polio (IPV/OPV) Unknown Completed [facility] Polio (IPV/OPV) Unknown Completed [facility] TDAP Unknown Completed [facility] TDAP Unknown Completed [facility] Varicella (varivax)(chicken pox) Unknown Completed [facility] Varicella (varivax)(chicken pox) Unknown Completed [facility] Varicella (varivax)(chicken pox) Unknown Completed [facility] TDAP Unknown Completed [facility] HPV Unknown Completed [facility] Meningococcal Polysaccharide (groups A, C, Y and W-135) conjugate vaccine (MCV4P) Unknown Completed [facility] DTAP Unknown Completed [facility] DTAP Unknown Completed [facility] DTAP Unknown Completed [facility] DTAP Unknown Completed [facility] DTAP Unknown Completed [facility] DTAP Unknown Completed [facility] HIB 4 Dose Schedule Unknown Completed [facility] HEPATITIS A Unknown Completed [facility] HEPATITIS A Unknown [facility] Hep B, Adol or Pedi Dosage Unknown Completed [facility] Hep B, Adol or Pedi Dosage Unknown Completed [facility] Hep B, Adol or Pedi Dosage Unknown Completed [facility] HIB 4 Dose Schedule Unknown Completed [facility] HIB 4 Dose Schedule Unknown Completed [facility] HIB 4 Dose Schedule Unknown Completed [facility] HPV Unknown Completed [facility] HPV Unknown Completed [facility] Meningococcal Vaccine Unknown Completed [facility] Meningococcal Vaccine Unknown Completed [facility] MMR Unknown Completed [facility] MMR Unknown Completed [facility] MMR Unknown Completed [facility] Pneumococcal 13 Conjugate, PCV13 (Prevnar 13) Unknown Completed [facility] Polio (IPV/OPV) Unknown Completed [facility] Polio (IPV/OPV) Unknown Completed [facility] Polio (IPV/OPV) Unknown Completed [facility] Polio (IPV/OPV) Unknown Completed [facility] Polio (IPV/OPV) Unknown Completed [facility] TDAP Unknown Completed [facility] TDAP Unknown Completed [facility] Varicella (varivax)(chicken pox) Unknown Completed [facility] Varicella (varivax)(chicken pox) Unknown Completed [facility] Varicella (varivax)(chicken pox) Unknown Completed [facility] TDAP Unknown Completed [facility] HPV Unknown Completed [facility] Meningococcal Polysaccharide (groups A, C, Y and W-135) conjugate vaccine (MCV4P) Unknown Completed [facility] DTAP Unknown Completed [facility] DTAP Unknown Completed [facility] DTAP Unknown Completed [facility] DTAP Unknown Completed [facility] DTAP Unknown Completed [facility] DTAP Unknown [facility]pleted [facility] HIB 4 Dose Schedule Unknown Completed [facility] HEPATITIS A [facility] Hep B, Adol or Pedi Dosage Unknown Completed [facility] Hep B, Adol or Pedi Dosage Unknown Completed [facility] Hep B, Adol or Pedi Dosage Unknown Completed [facility] HIB 4 Dose Schedule Unknown Completed [facility] HIB 4 Dose Schedule Unknown Completed [facility] HIB 4 Dose Schedule Unknown Completed [facility] HPV Unknown Completed [facility] HPV Unknown Completed [facility] Meningococcal Vaccine Unknown Completed [facility] Meningococcal Vaccine Unknown Completed [facility] MMR Unknown Completed [facility] MMR Unknown Completed [facility] MMR Unknown Completed [facility] Pneumococcal 13 Conjugate, PCV13 (Prevnar 13) Unknown Completed [facility] Polio (IPV/OPV) Unknown Completed [facility] Polio (IPV/OPV) Unknown Completed [facility] Polio (IPV/OPV) Unknown Completed [facility] Polio (IPV/OPV) Unknown Completed [facility] Polio (IPV/OPV) Unknown Completed [facility] TDAP Unknown Completed [facility] TDAP Unknown Completed [facility] Varicella (varivax)(chicken pox) Unknown Completed [facility] Varicella (varivax)(chicken pox) Unknown Completed [facility] Varicella (varivax)(chicken pox) Unknown Completed [facility] TDAP Unknown Completed [facility] HPV Unknown Completed [facility] Meningococcal Polysaccharide (groups A, C, Y and W-135) conjugate vaccine (MCV4P) Unknown Completed [facility] DTAP Unknown Completed [facility] DTAP Unknown Completed [facility] DTAP Unknown Completed [facility] DTAP Unknown Completed [facility] DTAP Unknown Completed [facility] DTAP Unknown Completed [facility] HIB 4 Dose Schedule Unknown Completed [facility] HEPATITIS A Unknown [facility] HE[facility]ITIS [facility] Hep B, Adol or Pedi Dosage Unknown Completed [facility] Hep B, Adol or Pedi Dosage Unknown Completed [facility] Hep B, Adol or Pedi Dosage Unknown Completed [facility] HIB 4 Dose Schedule Unknown Completed [facility] HIB 4 Dose Schedule Unknown Completed [facility] HIB 4 Dose Schedule Unknown Completed [facility] HPV Unknown Completed [facility] HPV Unknown Completed [facility] Meningococcal Vaccine Unknown Completed [facility] Meningococcal Vaccine Unknown Completed [facility] MMR Unknown Completed [facility] MMR Unknown Completed [facility] MMR Unknown Completed [facility] Pneumococcal 13 Conjugate, PCV13 (Prevnar 13) Unknown Completed [facility] Polio (IPV/OPV) Unknown Completed [facility] Polio (IPV/OPV) Unknown Completed [facility] Polio (IPV/OPV) Unknown Completed [facility] Polio (IPV/OPV) Unknown Completed [facility] Polio (IPV/OPV) Unknown Completed [facility] TDAP Unknown Completed [facility] TDAP Unknown Completed [facility] Varicella (varivax)(chicken pox) Unknown Completed [facility] Varicella (varivax)(chicken pox) Unknown Completed [facility] Varicella (varivax)(chicken pox) Unknown Completed [facility] TDAP Unknown Completed [facility] HPV Unknown Completed [facility] Meningococcal Polysaccharide (groups A, C, Y and W-135) conjugate vaccine (MCV4P) Unknown Completed [facility] DTAP Unknown Completed [facility] DTAP Unknown Completed [facility] DTAP Unknown Completed [facility] DTAP Unknown Completed [facility] DTAP Unknown Completed [facility] DTAP Unknown Completed [facility] HIB 4 Dose Schedule Unknown Completed [facility] HEPATITIS A Unknown [facility]pleted [facility] HEPATITIS A Unknown Completed [facility] Hep B, Adol or Pedi Dosage Unknown Completed [facility] Hep B, Adol or Pedi Dosage Unknown Completed [facility] Hep B, Adol or Pedi Dosage Unknown Completed [facility] HIB 4 Dose Schedule Unknown Completed [facility] HIB 4 Dose Schedule Unknown Completed [facility] HIB 4 Dose Schedule Unknown Completed [facility] HPV Unknown Completed [facility] HPV Unknown Completed [facility] Meningococcal Vaccine Unknown Completed [facility] Meningococcal Vaccine Unknown Completed [facility] MMR Unknown Completed [facility] MMR Unknown Completed [facility] MMR Unknown Completed [facility] Pneumococcal 13 Conjugate, PCV13 (Prevnar 13) Unknown Completed [facility] Polio (IPV/OPV) Unknown Completed [facility] Polio (IPV/OPV) Unknown Completed [facility] Polio (IPV/OPV) Unknown Completed [facility] Polio (IPV/OPV) Unknown Completed [facility] Polio (IPV/OPV) Unknown Completed [facility] TDAP Unknown Completed [facility] TDAP Unknown Completed [facility] Varicella (varivax)(chicken pox) Unknown Completed [facility] Varicella (varivax)(chicken pox) Unknown Completed [facility] Varicella (varivax)(chicken pox) Unknown Completed [facility] TDAP Unknown Completed [facility] HPV Unknown Completed [facility] Meningococcal Polysaccharide (groups A, C, Y and W-135) conjugate vaccine (MCV4P) Unknown Completed [facility] DTAP Unknown Completed [facility] DTAP Unknown Completed [facility] DTAP Unknown Completed [facility] DTAP Unknown Completed [facility] DTAP Unknown Completed [facility] DTAP Unknown Completed [facility] HIB 4 Dose Schedule Unknown Completed [facility] HEPATITIS A Unknown Completed [facility] HEPATITIS A Unknown Completed [facility] Hep B, Adol or Pedi Dosage Unknown Completed [facility] Hep B, Adol or Pedi Dosage Unknown Completed [facility] Hep B, Adol or Pedi Dosage Unknown Completed [facility] HIB 4 Dose Schedule Unknown Completed [facility] HIB 4 Dose Schedule Unknown Completed [facility] HIB 4 Dose Schedule Unknown Completed [facility] HPV Unknown Completed [facility] HPV Unknown Completed [facility] Meningococcal Vaccine Unknown Completed [facility] Meningococcal Vaccine Unknown Completed [facility] MMR Unknown Completed [facility] MMR Unknown Completed [facility] MMR Unknown Completed [facility] Pneumococcal 13 Conjugate, PCV13 (Prevnar 13) Unknown Completed [facility] Polio (IPV/OPV) Unknown Completed [facility] Polio (IPV/OPV) Unknown Completed [facility] Polio (IPV/OPV) Unknown Completed [facility] Polio (IPV/OPV) Unknown Completed [facility] Polio (IPV/OPV) Unknown Completed [facility] TDAP Unknown Completed [facility] TDAP Unknown Completed [facility] Varicella (varivax)(chicken pox) Unknown Completed [facility] Varicella (varivax)(chicken pox) Unknown Completed [facility] Varicella (varivax)(chicken pox) Unknown Completed [facility] TDAP Unknown Completed [facility] HPV Unknown Completed [facility] Meningococcal Polysaccharide (groups A, C, Y and W-135) conjugate vaccine (MCV4P) Unknown Completed [facility] DTAP Unknown Completed [facility] DTAP Unknown Completed [facility] DTAP Unknown Completed [facility] DTAP Unknown [facility]pleted [facility] DTAP Unknown Completed [facility] DTAP Unknown Completed [facility] HIB 4 Dose Schedule Unknown Completed [facility] HEPATITIS A [facility] Hep B, Adol or Pedi Dosage Unknown Completed [facility] Hep B, Adol or Pedi Dosage Unknown Completed [facility] Hep B, Adol or Pedi Dosage Unknown Completed [facility] HIB 4 Dose Schedule Unknown Completed [facility] HIB 4 Dose Schedule Unknown Completed [facility] HIB 4 Dose Schedule Unknown Completed [facility] HPV Unknown Completed [facility] HPV Unknown Completed [facility] Meningococcal Vaccine Unknown Completed [facility] Meningococcal Vaccine Unknown Completed [facility] MMR Unknown Completed [facility] MMR Unknown Completed [facility] MMR Unknown Completed [facility] Pneumococcal 13 Conjugate, PCV13 (Prevnar 13) Unknown Completed [facility] Polio (IPV/OPV) Unknown Completed [facility] Polio (IPV/OPV) Unknown Completed [facility] Polio (IPV/OPV) Unknown Completed [facility] Polio (IPV/OPV) Unknown Completed [facility] Polio (IPV/OPV) Unknown Completed [facility] TDAP Unknown Completed [facility] TDAP Unknown Completed [facility] Varicella (varivax)(chicken pox) Unknown Completed [facility] Varicella (varivax)(chicken pox) Unknown Completed [facility] Varicella (varivax)(chicken pox) Unknown Completed [facility] TDAP Unknown Completed [facility] HPV Unknown Completed [facility] Meningococcal Polysaccharide (groups A, C, Y and W-135) conjugate vaccine (MCV4P) Unknown Completed [facility] DTAP Unknown Completed [facility] DTAP Unknown Completed [facility] DTAP Unknown Completed [facility] DTAP Unknown Completed [facility] DTAP Unknown Completed [facility] DTAP Unknown Completed [facility] HIB 4 Dose Schedule Unknown Completed [facility] HEPATITIS A Unknown [facility]pleted [facility] Hep B, Adol or Pedi Dosage Unknown Completed [facility] Hep B, Adol or Pedi Dosage Unknown Completed [facility] Hep B, Adol or Pedi Dosage Unknown Completed [facility] HIB 4 Dose Schedule Unknown Completed [facility] HIB 4 Dose Schedule Unknown Completed [facility] HIB 4 Dose Schedule Unknown Completed [facility] HPV Unknown Completed [facility] HPV Unknown Completed [facility] Meningococcal Vaccine Unknown Completed [facility] Meningococcal Vaccine Unknown Completed [facility] MMR Unknown Completed [facility] MMR Unknown Completed [facility] MMR Unknown Completed [facility] Pneumococcal 13 Conjugate, PCV13 (Prevnar 13) Unknown Completed [facility] Polio (IPV/OPV) Unknown Completed [facility] Polio (IPV/OPV) Unknown Completed [facility] Polio (IPV/OPV) Unknown Completed [facility] Polio (IPV/OPV) Unknown Completed [facility] Polio (IPV/OPV) Unknown Completed [facility] TDAP Unknown Completed [facility] TDAP Unknown Completed [facility] Varicella (varivax)(chicken pox) Unknown Completed [facility] Varicella (varivax)(chicken pox) Unknown Completed [facility] Varicella (varivax)(chicken pox) Unknown Completed [facility] TDAP Unknown Completed [facility] HPV Unknown Completed [facility] Meningococcal Polysaccharide (groups A, C, Y and W-135) conjugate vaccine (MCV4P) Unknown Completed [facility] DTAP Unknown Completed [facility] DTAP Unknown Completed [facility] DTAP Unknown Completed [facility] DTAP Unknown Completed [facility] DTAP Unknown Completed [facility] DTAP Unknown Completed [facility] HIB 4 Dose Schedule Unknown Completed [facility] HEPATITIS A Unknown [facility] HE[facility]ITIS A [facility] Hep B, Adol or Pedi Dosage Unknown Completed [facility] Hep B, Adol or Pedi Dosage Unknown Completed [facility] Hep B, Adol or Pedi Dosage Unknown Completed [facility] HIB 4 Dose Schedule Unknown Completed [facility] HIB 4 Dose Schedule Unknown Completed [facility] HIB 4 Dose Schedule Unknown Completed [facility] HPV Unknown Completed [facility] HPV Unknown Completed [facility] Meningococcal Vaccine Unknown Completed [facility] Meningococcal Vaccine Unknown Completed [facility] MMR Unknown Completed [facility] MMR Unknown Completed [facility] MMR Unknown Completed [facility] Pneumococcal 13 Conjugate, PCV13 (Prevnar 13) Unknown Completed [facility] Polio (IPV/OPV) Unknown Completed [facility] Polio (IPV/OPV) Unknown Completed [facility] Polio (IPV/OPV) Unknown Completed [facility] Polio (IPV/OPV) Unknown Completed [facility] Polio (IPV/OPV) Unknown Completed [facility] TDAP Unknown Completed [facility] TDAP Unknown Completed [facility] Varicella (varivax)(chicken pox) Unknown Completed [facility] Varicella (varivax)(chicken pox) Unknown Completed [facility] Varicella (varivax)(chicken pox) Unknown Completed [facility] TDAP Unknown Completed [facility] HPV Unknown Completed [facility] Meningococcal Polysaccharide (groups A, C, Y and W-135) conjugate vaccine (MCV4P) Unknown Completed [facility] DTAP Unknown Completed [facility] DTAP Unknown Completed [facility] DTAP Unknown Completed [facility] DTAP Unknown Completed [facility] DTAP Unknown Completed [facility] DTAP Unknown Completed [facility] HIB 4 Dose Schedule Unknown Completed [facility] HEPATITIS A Unknown Completed [facility] HEPATITIS A Unknown Com[facility] Hep B, Adol or Pedi Dosage Unknown Completed [facility] Hep B, Adol or Pedi Dosage Unknown Completed [facility] Hep B, Adol or Pedi Dosage Unknown Completed [facility] HIB 4 Dose Schedule Unknown Completed [facility] HIB 4 Dose Schedule Unknown Completed [facility] HIB 4 Dose Schedule Unknown Completed [facility] HPV Unknown Completed [facility] HPV Unknown Completed [facility] Meningococcal Vaccine Unknown Completed [facility] Meningococcal Vaccine Unknown Completed [facility] MMR Unknown Completed [facility] MMR Unknown Completed [facility] MMR Unknown Completed [facility] Pneumococcal 13 Conjugate, PCV13 (Prevnar 13) Unknown Completed [facility] Polio (IPV/OPV) Unknown Completed [facility] Polio (IPV/OPV) Unknown Completed [facility] Polio (IPV/OPV) Unknown Completed [facility] Polio (IPV/OPV) Unknown Completed [facility] Polio (IPV/OPV) Unknown Completed [facility] TDAP Unknown Completed [facility] TDAP Unknown Completed [facility] Varicella (varivax)(chicken pox) Unknown Completed [facility] Varicella (varivax)(chicken pox) Unknown Completed [facility] Varicella (varivax)(chicken pox) Unknown Completed [facility] TDAP Unknown Completed [facility] HPV Unknown Completed [facility] Meningococcal Polysaccharide (groups A, C, Y and W-135) conjugate vaccine (MCV4P) Unknown Completed [facility] DTAP Unknown Completed [facility] DTAP Unknown Completed [facility] DTAP Unknown Completed [facility] DTAP Unknown Completed [facility] DTAP Unknown Completed [facility] DTAP Unknown Completed [facility] HIB 4 Dose Schedule Unknown Completed [facility] HEPATITIS A Unknown Completed [facility] HEPATITIS A Unknown Com[facility] Hep B, Adol or Pedi Dosage Unknown Completed [facility] Hep B, Adol or Pedi Dosage Unknown Completed [facility] Hep B, Adol or Pedi Dosage Unknown Completed [facility] HIB 4 Dose Schedule Unknown Completed [facility] HIB 4 Dose Schedule Unknown Completed [facility] HIB 4 Dose Schedule Unknown Completed [facility] HPV Unknown Completed [facility] HPV Unknown Completed [facility] Meningococcal Vaccine Unknown Completed [facility] Meningococcal Vaccine Unknown Completed [facility] MMR Unknown Completed [facility] MMR Unknown Completed [facility] MMR Unknown Completed [facility] Pneumococcal 13 Conjugate, PCV13 (Prevnar 13) Unknown Completed [facility] Polio (IPV/OPV) Unknown Completed [facility] Polio (IPV/OPV) Unknown [facility] Polio (IPV/OPV[facility] Unknown Completed [facility] Polio (IPV/OPV) Unknown Com[facility] Polio (IPV/OPV) Unknown Completed [facility] TDAP Unknown Completed [facility] TDAP Unknown Completed [facility] Varicella (varivax)(chicken pox) Unknown Completed [facility] Varicella (varivax)(chicken pox) Unknown Completed [facility] Varicella (varivax)(chicken pox) Unknown Completed [facility] TDAP Unknown Completed [facility] HPV Unknown Completed [facility] Meningococcal Polysaccharide (groups A, C, Y and W-135) conjugate vaccine (MCV4P) Unknown Completed [facility] DTAP Unknown Completed [facility] DTAP Unknown Completed [facility] DTAP Unknown Completed [facility] DTAP Unknown Completed [facility] DTAP Unknown Completed [facility] DTAP Unknown Completed [facility] HIB 4 Dose Schedule Unknown Completed [facility] HEPATITIS A Unknown Completed [facility] HEPATITIS A Unknown [facility] Hep B, Adol or Pedi Dosage Unknown Completed [facility] Hep B, Adol or Pedi Dosage Unknown Completed [facility] Hep B, Adol or Pedi Dosage Unknown Completed [facility] HIB 4 Dose Schedule Unknown Completed [facility] HIB 4 Dose Schedule Unknown Completed [facility] HIB 4 Dose Schedule Unknown Completed [facility] HPV Unknown Completed [facility] HPV Unknown Completed [facility] Meningococcal Vaccine Unknown Completed [facility] Meningococcal Vaccine Unknown Completed [facility] MMR Unknown Completed [facility] MMR Unknown Completed [facility] MMR Unknown Completed [facility] Pneumococcal 13 Conjugate, PCV13 (Prevnar 13) Unknown Completed [facility] Polio (IPV/OPV) Unknown Completed [facility] Polio (IPV/OPV) Unknown Completed [facility] Polio (IPV/OPV) Unknown Completed [facility] Polio (IPV/OPV) Unknown Completed [facility] Polio (IPV/OPV) Unknown Completed [facility] TDAP Unknown Completed [facility] TDAP Unknown Completed [facility] Varicella (varivax)(chicken pox) Unknown Completed [facility] Varicella (varivax)(chicken pox) Unknown Completed [facility] Varicella (varivax)(chicken pox) Unknown Completed [facility] TDAP Unknown Completed [facility] HPV Unknown Completed [facility] Meningococcal Polysaccharide (groups A, C, Y and W-135) conjugate vaccine (MCV4P) Unknown Completed [facility] DTAP Unknown Completed [facility] DTAP Unknown Completed [facility] DTAP Unknown Completed [facility] DTAP Unknown Completed [facility] DTAP Unknown Completed [facility] DTAP Unknown Completed [facility] HIB 4 Dose Schedule Unknown Completed [facility] HEPATITIS A Unknown [facility] Hep B, Adol or Pedi Dosage Unknown Completed [facility] Hep B, Adol or Pedi Dosage Unknown Completed [facility] Hep B, Adol or Pedi Dosage Unknown Completed [facility] HIB 4 Dose Schedule Unknown Completed [facility] HIB 4 Dose Schedule Unknown Completed [facility] HIB 4 Dose Schedule Unknown Completed [facility] HPV Unknown Completed [facility] HPV Unknown Completed [facility] Meningococcal Vaccine Unknown Completed [facility] Meningococcal Vaccine Unknown Completed [facility] MMR Unknown Completed [facility] MMR Unknown Completed [facility] MMR Unknown Completed [facility] Pneumococcal 13 Conjugate, PCV13 (Prevnar 13) Unknown Completed [facility] Polio (IPV/OPV) Unknown Completed [facility] Polio (IPV/OPV) Unknown Completed [facility] Polio (IPV/OPV) Unknown Completed [facility] Polio (IPV/OPV) Unknown Completed [facility] Polio (IPV/OPV) Unknown Completed [facility] TDAP Unknown Completed [facility] TDAP Unknown Completed [facility] Varicella (varivax)(chicken pox) Unknown Completed [facility] Varicella (varivax)(chicken pox) Unknown Completed [facility] Varicella (varivax)(chicken pox) Unknown Completed [facility] TDAP Unknown Completed [facility] HPV Unknown Completed [facility] Meningococcal Polysaccharide (groups A, C, Y and W-135) conjugate vaccine (MCV4P) Unknown Completed [facility] DTAP Unknown Completed [facility] DTAP Unknown Completed [facility] DTAP Unknown Completed [facility] DTAP Unknown Completed [facility] DTAP Unknown Completed [facility] DTAP Unknown Completed [facility] HIB 4 Dose Schedule Unknown Completed [facility] HEPATITIS A Unknown [facility]pleted [facility]PATIT[facility] A Unknown Completed [facility] Hep B, Adol or Pedi Dosage Unknown Completed [facility] Hep B, Adol or Pedi Dosage Unknown Completed [facility] Hep B, Adol or Pedi Dosage Unknown Completed [facility] HIB 4 Dose Schedule Unknown Completed [facility] HIB 4 Dose Schedule Unknown Completed [facility] HIB 4 Dose Schedule Unknown Completed [facility] HPV Unknown Completed [facility] HPV Unknown Completed [facility] Meningococcal Vaccine Unknown Completed [facility] Meningococcal Vaccine Unknown Completed [facility] MMR Unknown Completed [facility] MMR Unknown Completed [facility] MMR Unknown Completed [facility] Pneumococcal 13 Conjugate, PCV13 (Prevnar 13) Unknown Completed [facility] Polio (IPV/OPV) Unknown Completed [facility] Polio (IPV/OPV) Unknown Completed [facility] Polio (IPV/OPV) Unknown Completed [facility] Polio (IPV/OPV) Unknown Completed [facility] Polio (IPV/OPV) Unknown Completed [facility] TDAP Unknown Completed [facility] TDAP Unknown Completed [facility] Varicella (varivax)(chicken pox) Unknown Completed [facility] Varicella (varivax)(chicken pox) Unknown Completed [facility] Varicella (varivax)(chicken pox) Unknown Completed [facility] TDAP Unknown Completed [facility] HPV Unknown Completed [facility] Meningococcal Polysaccharide (groups A, C, Y and W-135) conjugate vaccine (MCV4P) Unknown Completed [facility] DTAP Unknown Completed [facility] DTAP Unknown Completed [facility] DTAP Unknown Completed [facility] DTAP Unknown Completed [facility] DTAP Unknown Completed [facility] DTAP Unknown Completed [facility] HIB 4 Dose Schedule Unknown Completed [facility] HEPATITIS A Unknown Completed [facility] HEPATITIS A Unknown Completed [facility] Hep B, Adol or Pedi Dosage Unknown Completed [facility] Hep B, Adol or Pedi Dosage Unknown Completed [facility] Hep B, Adol or Pedi Dosage Unknown Completed [facility] HIB 4 Dose Schedule Unknown Completed [facility] HIB 4 Dose Schedule Unknown Completed [facility] HIB 4 Dose Schedule Unknown Completed [facility] HPV Unknown Completed [facility] HPV Unknown Completed [facility] Meningococcal Vaccine Unknown Completed [facility] Meningococcal Vaccine Unknown Completed [facility] MMR Unknown Completed [facility] MMR Unknown Completed [facility] MMR Unknown Completed [facility] Pneumococcal 13 Conjugate, PCV13 (Prevnar 13) Unknown Completed [facility] Polio (IPV/OPV) Unknown Completed [facility] Polio (IPV/OPV) Unknown Completed [facility] Polio (IPV/OPV) Unknown Completed [facility] Polio (IPV/OPV) Unknown Completed [facility] Polio (IPV/OPV) Unknown Completed [facility] TDAP Unknown Completed [facility] TDAP Unknown Completed [facility] Varicella (varivax)(chicken pox) Unknown Completed [facility] Varicella (varivax)(chicken pox) Unknown Completed [facility] Varicella (varivax)(chicken pox) Unknown Completed [facility] TDAP Unknown Completed [facility] HPV Unknown Completed [facility] Meningococcal Polysaccharide (groups A, C, Y and W-135) conjugate vaccine (MCV4P) Unknown Completed [facility] DTAP Unknown Completed [facility] DTAP Unknown Completed [facility] DTAP Unknown Completed [facility] DTAP Unknown Completed [facility] DTAP Unknown Completed [facility] DTAP Unknown Completed [facility] HIB 4 Dose Schedule Unknown Completed [facility] HEPATITIS A Unknown [facility]pleted [facility] HE[facility]ITIS A [facility] Hep B, Adol or Pedi Dosage Unknown Completed [facility] Hep B, Adol or Pedi Dosage Unknown Completed [facility] Hep B, Adol or Pedi Dosage Unknown Completed [facility] HIB 4 Dose Schedule Unknown Completed [facility] HIB 4 Dose Schedule Unknown Completed [facility] HIB 4 Dose Schedule Unknown Completed [facility] HPV Unknown Completed [facility] HPV Unknown Completed [facility] Meningococcal Vaccine Unknown Completed [facility] Meningococcal Vaccine Unknown Completed [facility] MMR Unknown Completed [facility] MMR Unknown Completed [facility] MMR Unknown Completed [facility] Pneumococcal 13 Conjugate, PCV13 (Prevnar 13) Unknown Completed [facility] Polio (IPV/OPV) Unknown Completed [facility] Polio (IPV/OPV) Unknown Completed [facility] Polio (IPV/OPV) Unknown Completed [facility] Polio (IPV/OPV) Unknown Completed [facility] Polio (IPV/OPV) Unknown Completed [facility] TDAP Unknown Completed [facility] TDAP Unknown Completed [facility] Varicella (varivax)(chicken pox) Unknown Completed [facility] Varicella (varivax)(chicken pox) Unknown Completed [facility] Varicella (varivax)(chicken pox) Unknown Completed [facility] TDAP Unknown Completed [facility] HPV Unknown Completed [facility] Meningococcal Polysaccharide (groups A, C, Y and W-135) conjugate vaccine (MCV4P) Unknown Completed [facility] DTAP Unknown Completed [facility] DTAP Unknown Completed [facility] DTAP Unknown Completed [facility] DTAP Unknown Completed [facility] DTAP Unknown Completed [facility] DTAP Unknown Completed [facility] HIB 4 Dose Schedule Unknown Completed [facility] HEPATITIS A Unknown Completed [facility] HEPATITIS A Unknown Com[facility] Hep B, Adol or Pedi Dosage Unknown Completed [facility] Hep B, Adol or Pedi Dosage Unknown Completed [facility] Hep B, Adol or Pedi Dosage Unknown Completed [facility] HIB 4 Dose Schedule Unknown Completed [facility] HIB 4 Dose Schedule Unknown Completed [facility] HIB 4 Dose Schedule Unknown Completed [facility] HPV Unknown Completed [facility] HPV Unknown Completed [facility] Meningococcal Vaccine Unknown Completed [facility] Meningococcal Vaccine Unknown Completed [facility] MMR Unknown Completed [facility] MMR Unknown Completed [facility] MMR Unknown Completed [facility] Pneumococcal 13 Conjugate, PCV13 (Prevnar 13) Unknown Completed [facility] Polio (IPV/OPV) Unknown Completed [facility] Polio (IPV/OPV) Unknown Completed [facility] Polio (IPV/OPV) Unknown Completed [facility] Polio (IPV/OPV) Unknown Completed [facility] Polio (IPV/OPV) Unknown Completed [facility] TDAP Unknown Completed [facility] TDAP Unknown Completed [facility] Varicella (varivax)(chicken pox) Unknown Completed [facility] Varicella (varivax)(chicken pox) Unknown Completed [facility] Varicella (varivax)(chicken pox) Unknown Completed [facility] TDAP Unknown Completed [facility] Vital Signs Vital Name Observation Time Observation Value Comments S ource Systolic blood pressure 2024-03-05 15:54:00 115 mm[Hg] [facility] Diastolic blood pressure 2024-03-05 15:54:00 79 mm[Hg] [facility] Heart rate 2024-03-05 15:54:00 93 /min [facility] Respiratory rate 2024-03-05 15:54:00 18 /min [facility] Body height 2024-03-05 15:54:00 170.2 cm [facility] Body weight 2024-03-05 15:54:00 82.555 kg [facility] BMI 2024-03-05 15:54:00 28.51 kg/m2 [facility] Systolic blood pressure 2024-02-20 13:08:00 116 mm[Hg] [facility] Diastolic blood pressure 2024-02-20 13:08:00 73 mm[Hg] [facility] Heart rate 2024-02-20 13:08:00 50 /min [facility] Body temperature 2024-02-20 13:08:00 36.61 Mable [facility] Respiratory rate 2024-02-20 13:08:00 16 /min [facility] Body height 2024-02-20 13:08:00 170.2 cm [facility] Body weight 2024-02-20 13:08:00 84.188 kg [facility] BMI 2024-02-20 13:08:00 29.07 kg/m2 [facility] Oxygen saturation in Arterial blood by Pulse oximetry 2024-02-20 13:08:00 96 /min [facility] Systolic blood pressure 2024-02-10 16:00:00 126 mm[Hg] [facility] Diastolic blood pressure 2024-02-10 16:00:00 84 mm[Hg] [facility] Heart rate 2024-02-10 16:00:00 82 /min [facility] Oxygen saturation in Arterial blood by Pulse oximetry 2024-02-10 16:00:00 98 /min [facility] Respiratory rate 2024-02-10 15:55:00 12 /min [facility] Body temperature 2024-02-10 13:18:00 37.28 Mable [facility] Body height 2024-02-03 19:00:00 170.2 cm [facility] Body weight 2024-02-03 19:00:00 81.194 kg [facility] BMI 2024-02-03 19:00:00 28.04 kg/m2 [facility] Systolic blood pressure 2024-02-10 15:35:00 126 mm[Hg] [facility] Diastolic blood pressure 2024-02-10 15:35:00 86 mm[Hg] [facility] Heart rate 2024-02-10 15:35:00 82 /min [facility] Respiratory rate 2024-02-10 15:35:00 19 /min [facility] Oxygen saturation in Arterial blood by Pulse oximetry 2024-02-10 15:35:00 100 /min [facility] Body temperature 2024-02-10 13:18:00 37.28 Mable [facility] Body height 2024-02-03 19:00:00 170.2 cm [facility] Body weight 2024-02-03 19:00:00 81.194 kg [facility] BMI 2024-02-03 19:00:00 28.04 kg/m2 [facility] Systolic blood pressure 2024-02-06 14:29:00 138 mm[Hg] [facility] Diastolic blood pressure 2024-02-06 14:29:00 84 mm[Hg] [facility] Heart rate 2024-02-06 14:29:00 99 /min [facility] Body height 2024-02-06 14:29:00 170.2 cm [facility] Body weight 2024-02-06 14:29:00 84.732 kg [facility] BMI 2024-02-06 14:29:00 29.26 kg/m2 [facility] Systolic blood pressure 2024-01-23 15:53:00 110 mm[Hg] [facility] Diastolic blood pressure 2024-01-23 15:53:00 75 mm[Hg] [facility] Heart rate 2024-01-23 15:53:00 109 /min [facility] Respiratory rate 2024-01-23 15:53:00 18 /min [facility] Body height 2024-01-23 15:53:00 170.2 cm [facility] Body weight 2024-01-23 15:53:00 86.637 kg [facility] BMI 2024-01-23 15:53:00 29.91 kg/m2 [facility] Systolic blood pressure 2023-12-01 13:30:00 105 mm[Hg] [facility] Diastolic blood pressure 2023-12-01 13:30:00 71 mm[Hg] [facility] Heart rate 2023-12-01 13:30:00 74 [facility] Body temperature 2023-12-01 13:30:00 36.39 Mable [facility] Respiratory rate 2023-12-01 13:30:00 18 /min [facility] Oxygen saturation in Arterial blood by Pulse oximetry 2023-12-01 13:30:00 99 /min [facility] Body height 2023-11-30 08:51:00 170.2 cm [facility] Body weight 2023-11-30 08:51:00 117.935 kg [facility] BMI 2023-11-30 08:51:00 40.72 kg/m2 [facility] Systolic blood pressure 2023-11-28 14:41:00 109 mm[Hg] [facility] Diastolic blood pressure 2023-11-28 14:41:00 71 mm[Hg] [facility] Heart rate 2023-11-28 14:41:00 82 /min [facility] Respiratory rate 2023-11-28 14:41:00 18 /min [facility] Body height 2023-11-28 14:41:00 170.2 cm [facility] Body weight 2023-11-28 14:41:00 97.977 kg [facility] BMI 2023-11-28 14:41:00 33.83 kg/m2 [facility] Systolic blood pressure 2023-11-19 22:43:00 115 mm[Hg] [facility] Diastolic blood pressure 2023-11-19 22:43:00 69 mm[Hg] [facility] Heart rate 2023-11-19 22:43:00 82 /min [facility] Respiratory rate 2023-11-19 22:43:00 18 /min [facility] Oxygen saturation in Arterial blood by Pulse oximetry 2023-11-19 22:43:00 98 /min [facility] Systolic blood pressure 2023-11-19 21:04:00 126 mm[Hg] [facility] Diastolic blood pressure 2023-11-19 21:04:00 80 mm[Hg] [facility] Heart rate 2023-11-19 21:04:00 91 /min [facility] Body temperature 2023-11-19 21:04:00 36.72 Mable [facility] Respiratory rate 2023-11-19 21:04:00 18 /min [facility] Body height 2023-11-19 21:04:00 170.2 cm [facility] Body weight 2023-11-19 21:04:00 97.796 kg [facility] BMI 2023-11-19 21:04:00 33.77 kg/m2 [facility] Systolic blood pressure 2023-11-11 16:16:00 117 mm[Hg] [facility] Diastolic blood pressure 2023-11-11 16:16:00 74 mm[Hg] [facility] Heart rate 2023-11-11 16:16:00 87 /min [facility] Body temperature 2023-11-11 16:16:00 36.94 Mable [facility] Respiratory rate 2023-11-11 16:16:00 18 /min [facility] Body height 2023-11-11 16:16:00 170.2 cm [facility] Body weight 2023-11-11 16:16:00 95.165 kg [facility] BMI 2023-11-11 16:16:00 32.86 kg/m2 [facility] Oxygen saturation in Arterial blood by Pulse oximetry 2023-11-11 16:16:00 99 /min [facility] Heart rate 2023-11-03 17:50:00 93 /min [facility] Oxygen saturation in Arterial blood by Pulse oximetry 2023-11-03 17:50:00 99 /min [facility] Systolic blood pressure 2023-11-03 17:30:00 116 mm[Hg] [facility] Diastolic blood pressure 2023-11-03 17:30:00 57 mm[Hg] [facility] Body temperature 2023-11-03 15:56:00 36.72 Mable [facility] Respiratory rate 2023-11-03 15:56:00 18 /min [facility] Body height 2023-11-03 15:56:00 170.2 cm [facility] Body weight 2023-11-03 15:56:00 97.07 kg [facility] BMI 2023-11-03 15:56:00 33.52 kg/m2 [facility] Systolic blood pressure 2023-10-30 19:10:00 110 mm[Hg] [facility] Diastolic blood pressure 2023-10-30 19:10:00 63 mm[Hg] [facility] Heart rate 2023-10-30 19:10:00 82 /min [facility] Body temperature 2023-10-30 19:10:00 37 Mable [facility] Respiratory rate 2023-10-30 19:10:00 18 /min [facility] Body height 2023-10-30 19:10:00 170.2 cm [facility] Body weight 2023-10-30 19:10:00 94.348 kg [facility] BMI 2023-10-30 19:10:00 32.58 kg/m2 [facility] Systolic blood pressure 2023-10-14 19:08:00 114 mm[Hg] [facility] Diastolic blood pressure 2023-10-14 19:08:00 72 mm[Hg] [facility] Heart rate 2023-10-14 19:08:00 79 /min [facility] Body temperature 2023-10-14 19:08:00 36.11 Mable [facility] Respiratory rate 2023-10-14 19:08:00 18 /min [facility] Body height 2023-10-14 19:08:00 170.2 cm [facility] Body weight 2023-10-14 19:08:00 92.897 kg [facility] BMI 2023-10-14 19:08:00 32.08 kg/m2 [facility] Oxygen saturation in Arterial blood by Pulse oximetry 2023-10-14 19:08:00 99 /min [facility] Systolic blood pressure 2023-09-30 17:25:00 113 mm[Hg] [facility] Diastolic blood pressure 2023-09-30 17:25:00 71 mm[Hg] [facility] Heart rate 2023-09-30 17:25:00 82 /min [facility] Body temperature 2023-09-30 17:25:00 36.72 Mable [facility] Body height 2023-09-30 17:25:00 170.2 cm [facility] Body weight 2023-09-30 17:25:00 90.992 kg [facility] BMI 2023-09-30 17:25:00 31.42 kg/m2 [facility] Systolic blood pressure 2023-09-16 13:26:00 111 mm[Hg] [facility] Diastolic blood pressure 2023-09-16 13:26:00 70 mm[Hg] [facility] Heart rate 2023-09-16 13:26:00 85 /min [facility] Body temperature 2023-09-16 13:26:00 36.33 Mable [facility] Respiratory rate 2023-09-16 13:26:00 17 /min [facility] Body height 2023-09-16 13:26:00 170.2 cm [facility] Body weight 2023-09-16 13:26:00 87.091 kg [facility] BMI 2023-09-16 13:26:00 30.07 kg/m2 [facility] Systolic blood pressure 2023-09-02 15:50:00 106 mm[Hg] [facility] Diastolic blood pressure 2023-09-02 15:50:00 72 mm[Hg] [facility] Heart rate 2023-09-02 15:50:00 86 /min [facility] Body temperature 2023-09-02 15:50:00 36.72 Mable [facility] Respiratory rate 2023-09-02 15:50:00 17 /min [facility] Body height 2023-09-02 15:50:00 170.2 cm [facility] Body weight 2023-09-02 15:50:00 86.728 kg [facility] BMI 2023-09-02 15:50:00 29.95 kg/m2 [facility] Systolic blood pressure 2023-08-05 16:19:00 105 mm[Hg] [facility] Diastolic blood pressure 2023-08-05 16:19:00 66 mm[Hg] [facility] Heart rate 2023-08-05 16:19:00 88 /min [facility] Respiratory rate 2023-08-05 16:19:00 18 /min [facility] Body height 2023-08-05 16:19:00 170.2 cm [facility] Body weight 2023-08-05 16:19:00 81.829 kg [facility] BMI 2023-08-05 16:19:00 28.25 kg/m2 [facility] Oxygen saturation in Arterial blood by Pulse oximetry 2023-08-05 16:19:00 99 /min [facility] Systolic blood pressure 2023-07-08 16:14:00 100 mm[Hg] [facility] Diastolic blood pressure 2023-07-08 16:14:00 69 mm[Hg] [facility] Heart rate 2023-07-08 16:14:00 82 /min [facility] Body temperature 2023-07-08 16:14:00 37.17 Mable [facility] Respiratory rate 2023-07-08 16:14:00 18 /min [facility] Body height 2023-07-08 16:14:00 170.2 cm [facility] Body weight 2023-07-08 16:14:00 77.021 kg [facility] BMI 2023-07-08 16:14:00 26.59 kg/m2 [facility] Oxygen saturation in Arterial blood by Pulse oximetry 2023-07-08 16:14:00 99 /min [facility] Systolic blood pressure 2023-06-09 21:02:00 107 mm[Hg] [facility] Diastolic blood pressure 2023-06-09 21:02:00 76 mm[Hg] [facility] Heart rate 2023-06-09 21:02:00 78 /min [facility] Body temperature 2023-06-09 21:02:00 36.83 Mable [facility] Respiratory rate 2023-06-09 21:02:00 16 /min [facility] Body height 2023-06-09 21:02:00 170.2 cm [facility] Body weight 2023-06-09 21:02:00 75.705 kg [facility] BMI 2023-06-09 21:02:00 26.14 kg/m2 [facility] Oxygen saturation in Arterial blood by Pulse oximetry 2023-06-09 21:02:00 97 /min [facility] Systolic blood pressure 2023-05-06 20:25:00 115 mm[Hg] [facility] Diastolic blood pressure 2023-05-06 20:25:00 70 mm[Hg] [facility] Heart rate 2023-05-06 20:25:00 77 [facility] Body temperature 2023-05-06 20:25:00 36.5 Mable [facility] Respiratory rate 2023-05-06 20:25:00 18 /min [facility] Body height 2023-05-06 20:25:00 170.2 cm [facility] Body weight 2023-05-06 20:25:00 74.299 kg [facility] BMI 2023-05-06 20:25:00 25.65 kg/m2 [facility] Oxygen saturation in Arterial blood by Pulse oximetry 2023-05-06 20:25:00 99 /min [facility] Systolic blood pressure 2023-04-12 17:03:00 122 mm[Hg] [facility] Diastolic blood pressure 2023-04-12 17:03:00 88 mm[Hg] [facility] Body height 2023-04-12 17:03:00 170.2 cm [facility] Body weight 2023-04-12 17:03:00 71.668 kg [facility] BMI 2023-04-12 17:03:00 24.75 kg/m2 [facility] Procedures Procedure Date / Time Performed Performing Clinician Source LAPAROSCOPIC SALPINGECTOMY 2024-02-10 14:21:00 Yordan Hernandez [facility] DSU PRE-OP 2024-02-06 05:01:00 Doctor Unass igned, [place] [facility] DISABILITY/FMLA 2023-12-25 06:01:00 Doctor Unass igned, [place] [facility] CBC WITH DIFF 2023-12-01 09:46:00 Adum, Odessa Goins [facility] CBC WITH DIFF 2023-11-30 08:32:00 Adum, Odessa Goins [facility] HEPATITIS B SURFACE ANTIGEN 2023-11-30 08:32:00 Adum, Odessa Arredondo [facility] HB ABO GROUPING 2023-11-30 08:32:00 Adum, Odessa [facility]ondo [facility] HIV 1/2 AG-AB WITH REFLEX 2023-11-30 08:32:00 Adum, Odessa Arredondo [facility] NOTICE OF PRIVACY PRACTICES 2023-11-30 06:30:14 Doctor Unassigned, [place] [facility] ASSIGNMENT OF BENEFITS 2023-11-30 06:28:14 Docto r Unassigned, [place] [facility] POCT URINALYSIS W/O SPECIFIC GRAVITY 2023-11-28 00:00:00 Yordan Hernandez [facility] US BIOPHYSICAL PROFILE 2023-11-19 23:40:00 Yordan Hernandez [facility] CONSENT/REFUSAL FOR DIAGNOSIS AND TREATMENT 2023-11-19 22:21:44 Doctor Unassigned, [place] [facility] ASSIGNMENT OF BENEFITS 2023-11-19 22:21:09 Docto r Unassigned, [place] [facility] POCT URINALYSIS W/O SPECIFIC GRAVITY 2023-11-19 21:09:00 Yordan Hernandez [facility] >14 WEEKS US LIMITED 2023-11-11 16:54:06 Adum, Odessa Arredondo [facility] DSU PRE-OP 2023-11-11 06:01:00 Doctor Unass igned, [place] [facility] POCT URINALYSIS W/O SPECIFIC GRAVITY 2023-11-11 00:00:00 Adum, Odessa Arredondo [facility] URINALYSIS 2023-11-03 16:17:00 Yordan Hernandez [facility] ADC CLC OR LCC ONLY - WET PREP 2023-11-03 16:17:00 Yordan Hernandez [facility] CONSENT/REFUSAL FOR DIAGNOSIS AND TREATMENT 2023-11-03 15:36:34 Doctor Unassigned, [place] [facility] ASSIGNMENT OF BENEFITS 2023-11-03 15:32:10 Docto r Unassigned, [place] [facility] POCT URINALYSIS W/O SPECIFIC GRAVITY 2023-10-30 00:00:00 Yordan Hernandez [facility] POCT URINALYSIS W/O SPECIFIC GRAVITY 2023-10-14 00:00:00 Adum, Odessa Arredondo [facility] POCT URINALYSIS W/O SPECIFIC GRAVITY 2023-09-30 00:00:00 Adum, Odessa Arredondo [facility] STERILIZATION CONSENT FORM 2023-09-16 05:01:00 Doctor Unassigned, [place] [facility] POCT URINALYSIS W/O SPECIFIC GRAVITY 2023-09-16 00:00:00 Adum, Odessa Arredondo [facility] POCT URINALYSIS W/O SPECIFIC GRAVITY 2023-09-02 00:00:00 Adum, Odessa Arredondo [facility] POCT URINALYSIS W/O SPECIFIC GRAVITY 2023-08-05 00:00:00 Yordan Hernandez [facility] SECOND AND THIRD TRIMESTER ULTRASOUND 2023-07-25 15:02:00 Saúl Wilson Health[facility] POCT URINALYSIS W/O SPECIFIC GRAVITY 2023-07-08 00:00:00 Adum, Odessa Arredondo [facility] ASSIGNMENT OF BENEFITS 2023-06-09 16:56:14 Ingrid r Unassigned, [place] [facility] POCT URINALYSIS W/O SPECIFIC GRAVITY 2023-06-09 00:00:00 Nayan Terry [facility] CBC WITH DIFF 2023-05-28 17:39:00 [facility]um, [facility] SCANN[facility] LAB RESULTS 2023-05-28 05:01:00 Doctor Gonzales [email or web address], [place] [facility] US OB TRANSVAGINAL 2023-05-07 02:00:02 Adum, Odessa Arredondo [facility] URINE DRUG (IMMUNOASSAY) - COMPREHENSIVE DRUG SCREEN 2023-05-06 21:46:00 Adum, Odessa Arredondo [facility] ASSIGNMENT OF BENEFITS 2023-05-06 19:26:26 Docto r Unassigned, [place] [facility] POCT TEST 2023-05-06 00:00:00 Adum, Odessa Arredondo [facility] POCT URINALYSIS W/O SPECIFIC GRAVITY 2023-05-06 00:00:00 Adum, Odessa Arredondo [facility] CONSENT/REFUSAL FOR DIAGNOSIS AND TREATMENT 2023-04-12 16:54:47 Doctor Unassigned, [place] [facility] VACCINATIONS - CONSENTS, ELIGIBILITY, HISTORY 2020-03-23 05:01:00 Doctor Unassigned, [place] [facility] Encounters Start Date/Time End Date/Time Encounter Type Admission Type Attending [facility] Care Facility Care Department Encounter ID Source 2023-11-03 12:54:04 Outpatient P [facility] [id number] [facility] 2024-03-05 11:00:00 2024-03-05 11:05:15 Outpatient R YORDAN HERNANDEZ [facility] [id number] [facility] 2024-03-05 11:00:00 2024-03-05 11:05:15 Office Visit Yordan Hernandez [facility] PRIMARY AND SPECIALTY CARE 1..840.114 350.1.13.10 4.2.7.2.686 [id number] 134 [id number] [facility] 2024-02-20 08:00:00 2024-02-20 08:40:46 Outpatient R YORDAN HERNANDEZ [facility] [id number] [facility] 2024-02-20 08:00:00 2024-02-20 08:40:46 Office Visit Yordan Hernandez [facility] PRIMARY AND SPECIALTY CARE 1..840.114 350.1.13.10 4.2.7.2.686 [id number] 134 [id number] [facility] 2024-02-10 08:01:00 2024-02-10 11:13:00 Outpatient R YORDAN HERNANDEZ [facility] [id number] [facility] 2024-02-10 08:01:00 2024-02-10 11:13:00 Hospital Encounter Yordan Hernandez [facility] SURGICAL READING 1.2840.114 350.1.13.10 4.2.7.2.686 [id number] [facility] 2024-02-10 09:14:00 2024-02-10 10:38:00 Surgery Yordan Hernandez [facility] SURGICAL READING 1.20.114 350.1.13.10 4.2.7.2.686 [id number] [facility] 2024-02-09 08:30:00 2024-02-09 08:45:00 Design Architect Visit Pob, Adc Lab Main [facility] PROFESSIO NAL BUILDING 1.0.114 350.1.13.10 4.2.7.2.686 [id number] [facility] 2024-02-09 08:30:00 2024-02-09 08:30:00 Outpatient R YORDAN HERNANDEZ [facility] [id number] [facility] 2024-02-06 09:00:00 2024-02-06 09:45:22 Outpatient R YORDAN HERNANDEZ [facility] [id number] [facility] 2024-02-06 09:00:00 2024-02-06 09:45:22 Office Visit Yordan Hernandez [facility] PROFESSIO NAL BUILDING 1.0.114 350.1.13.10 4.2.7.2.686 [id number] 134 [id number] [facility] 2024-02-06 00:00:00 2024-02-06 00:00:00 Orders Only Doctor Unassigned, [place] [facility] 1.2840.114 350.1.13.10 4.2.7.2.686 [id number] [facility] 2024-01-23 09:45:00 2024-01-23 10:08:56 Outpatient R HERNANDEZ YORDAN [facility] [id number] [facility] 2024-01-23 09:45:00 2024-01-23 10:08:56 Routine Visit Yordan Hernandez [facility] PRIMARY AND SPECIALTY CARE 1.840.114 350.1.13.10 4.2.7.2.686 [id number] 134 [id number] [facility] 2024-01-16 12:15:00 2024-01-16 12:15:00 Outpatient R AMRY YORDAN [facility] [id number] [facility] 2023-12-31 00:00:00 2023-12-31 00:00:00 Telephone Mary Yordan [facility] BUILDING 1.0.114 350.1.13.10 4.2.7.2.686 [id number] 134 [id number] [facility] 2023-12-25 00:00:00 2023-12-25 00:00:00 Orders Only Doctor Unassigned, [place] [facility] 1.2840.114 350.1.13.10 4.2.7.2.686 [id number] [id number] [facility] 2023-12-02 00:00:00 2023-12-02 00:00:00 Telephone Odessa Hays [facility] BUILDING 1.2840.114 350.1.13.10 4.2.7.2.686 [id number] 134 [id number] [facility] 2023-12-02 00:00:00 2023-12-02 00:00:00 Case Management MaryYennilily Howell [facility] BUILDING 1.2840.114 350.1.13.10 4.2.7.2.686 [id number] 134 [id number] [facility] 2023-11-30 00:41:00 2023-12-01 11:00:00 Inpatient X ADUM, ODESSA [facility] [id number] [facility] 2023-11-30 00:41:00 2023-12-01 11:00:00 Hospital Encounter Adian, Odessa Arredondo [facility] 1.840.114 350.1.13.10 4.2.7.2.686 [id number] [id number] [facility] 2023-11-30 04:07:42 2023-11-30 04:07:42 Anesthesia Event Nat Kim [facility] 1.0.114 350.1.13.10 4.2.7.2.686 [id number] 083 [id number] [facility] 2023-11-30 00:00:00 2023-11-30 00:00:00 Orders Only Doctor Unassigned, [place] [facility] 1.0.114 350.1.13.10 4.2.7.2.686 [id number] [id number] [facility] 2023-11-28 08:45:00 2023-11-28 08:52:18 Outpatient R YORDAN HERNANDEZ [facility] [id number] [facility] 2023-11-28 08:45:00 2023-11-28 08:52:18 Routine Visit Yordan Hernandez [facility] 1.0.114 350.1.13.10 4.2.7.2.686 [id number] 134 [id number] [facility] 2023-11-27 00:00:00 2023-11-27 00:00:00 Telephone Yordan Hernandez [facility] PROFESSIO [facility] 1.0.114 350.1.13.10 4.2.7.2.686 [id number] 134 [id number] [facility] 2023-11-19 16:21:00 2023-11-19 18:22:00 Outpatient P YORDAN HERNANDEZ [facility] [id number] [facility] 2023-11-19 16:21:00 2023-11-19 18:22:00 Hospital Encounter Yordan Hernandez [facility] 1.2840.114 350.1.13.10 4.2.7.2.686 [id number] [id number] [facility] 2023-11-19 14:45:00 2023-11-19 16:07:43 Outpatient R YORDAN HERNANDEZ [facility] [id number] [facility] 2023-11-19 14:45:00 2023-11-19 16:07:43 Routine Visit Yordan [facility] 1.2840.114 350.1.13.10 4.2.7.2.686 [id number] 134 [id number] [facility] 2023-11-13 00:00:00 2023-11-13 00:00:00 Patient Secure Msg Doctor Unassigned, [place] [facility] 1..114 350.1.13.10 4.2.7.2.686 [id number] 044 [id number] [facility] 2023-11-11 09:45:00 2023-11-11 10:52:07 Outpatient R ODESSA HAYS [facility] [id number] [facility] 2023-11-11 09:45:00 2023-11-11 10:52:07 Routine Visit Odessa Hays [facility] BUILDING 1.20.114 350.1.13.10 4.2.7.2.686 [id number] 134 [id number] [facility] 2023-11-11 00:00:00 2023-11-11 00:00:00 Orders Only Doctor Unassigned, [place] [facility] 1.20.114 350.1.13.10 4.2.7.2.686 [id number] [id number] [facility] 2023-11-03 09:31:00 2023-11-03 12:50:00 Outpatient YORDAN DAVIS [facility] [id number] [facility] 2023-11-03 09:31:00 2023-11-03 12:50:00 Hospital Encounter Adum, Yordan [facility] 1.2.840.114 350.1.13.10 4.2.7.2.686 [id number] [facility] 2023-11-03 00:00:00 2023-11-03 00:00:00 Telephone Adum, Odessa [facility] 1.2.840.114 350.1.13.10 4.2.7.2.686 [id number] 134 [id number] [facility] 2023-10-30 13:00:00 2023-10-30 13:57:55 Outpatient R ADUM, [facility] [id number] [facility] 2023-10-30 13:00:00 2023-10-30 13:57:55 Routine Visit Adum, Odessa [facility] 1.2.840.114 350.1.13.10 4.2.7.2.686 [id number] 134 [id number] [facility] 2023-10-27 10:22:18 2023-10-27 10:22:18 Outpatient SFA [facility] [id number] Teodoro Rucker 2023-10-14 13:00:00 2023-10-14 13:16:49 Outpatient R ADUM, [facility] [id number] [facility] 2023-10-14 13:00:00 2023-10-14 13:16:49 Routine Visit Adum, Odessa [facility] 1.2.840.114 350.1.13.10 4.2.7.2.686 [id number] 134 [id number] [facility] 2023-09-30 11:00:00 2023-09-30 11:48:46 Outpatient R ADUM, [facility] [id number] [facility] 2023-09-30 11:00:00 2023-09-30 11:48:46 Routine Visit Adian [facility] 1.2840.114 350.1.13.10 4.2.7.2.686 [id number] 134 [id number] [facility] 2023-09-20 00:00:00 2023-09-20 00:00:00 Outpatient GC_GCBZW_Ka diyala_S [facility] [id number] [facility] 2023-09-16 08:15:00 2023-09-16 09:07:09 Outpatient R ADUM, [facility] [id number] [facility] 2023-09-16 08:15:00 2023-09-16 09:07:09 Routine Visit Kym Roberts Adian, [facility] 1.284.114 350.1.13.10 4.2.7.2.686 [id number] 134 [id number] [facility] 2023-09-16 00:00:00 2023-09-16 00:00:00 Orders Only Doctor Unassigned, [place] [facility] 1.20.114 350.1.13.10 4.2.7.2.686 [id number] [id number] [facility] 2023-09-03 00:00:00 2023-09-03 00:00:00 Telephone Adum, [facility] 1.284.114 350.1.13.10 4.2.7.2.686 [id number] 134 [id number] [facility] 2023-09-03 00:00:00 2023-09-03 00:00:00 Patient Secure Msg Doctor Unassigned, [place] [facility] 1.2.840.114 350.1.13.10 4.2.7.2.686 [id number] 134 [id number] [facility] 2023-09-02 11:00:00 2023-09-02 11:17:33 Outpatient R ADUM, ODESSA [facility] [id number] [facility] 2023-09-02 11:00:00 2023-09-02 11:17:33 Routine Visit Adum, Od[place] [facility] 1.284.114 350.1.13.10 4.2.7.2.686 [id number] 134 [id number] [facility] 2023-09-02 09:30:00 2023-09-02 09:45:00 Design Architect Visit Pob, Adc Lab Main Adum, Odessa [facility] 1.2.840.114 350.1.13.10 4.2.7.2.686 [id number] [facility] 2023-08-13 00:00:00 2023-08-13 00:00:00 Patient Secure Msg Doctor Unassigned, [place] [facility] 1.284.114 350.1.13.10 4.2.7.2.686 [id number] [id number] [facility] 2023-08-05 11:00:00 2023-08-05 11:36:06 Outpatient R ADUM, ODESSA [facility] [id number] [facility] 2023-08-05 11:00:00 2023-08-05 11:36:06 Routine Visit Adum, Odessa [facility] 1.2.840.114 350.1.13.10 4.2.7.2.686 [id number] 134 [id number] [facility] 2023-07-26 00:00:00 2023-07-26 00:00:00 Case Management TammyNayan hughes [facility] 1.0.114 350.1.13.10 4.2.7.2.686 [id number] 134 [id number] [facility] 2023-07-25 09:00:00 2023-07-25 09:55:52 Outpatient P VALERIE HEREDIA SHANNON [facility] [id number] [facility] 2023-07-25 09:00:00 2023-07-25 09:55:52 Design Architect Visit Ultrasound, Valerie Renner [facility] FIXED [facility] MATERNAL & CHILD [facility] 1.0.114 350.1.13.10 4.2.7.2.686 [id number] [facility] 2023-07-08 11:00:00 2023-07-08 11:15:00 Routine Visit Odessa Hays [facility] 1..114 350.1.13.10 4.2.7.2.686 [id number] 134 [id number] [facility] 2023-07-08 11:00:00 2023-07-08 11:00:00 Outpatient R ODESSA HAYS [facility] [id number] [facility] 2023-06-09 16:00:00 2023-06-09 16:28:22 Outpatient R TAMMYNAYAN HUGHES [facility] [id number] [facility] 2023-06-09 16:00:00 2023-06-09 16:28:22 Routine Visit TammyNayan hughes [facility] 1..114 350.1.13.10 4.2.7.2.686 [id number] 134 [id number] [facility] 2023-06-09 13:15:00 2023-06-09 13:15:00 Outpatient R MARTI-ELLEN S, KYM KAIA-ELLEN S, KYM [facility] [id number] [facility] 2023-06-09 13:00:00 2023-06-09 13:15:00 Design Architect Visit Pob, Adc Lab Main Adum Odessa Maria Elena [facility] BUILDING 1.2840.114 350.1.13.10 4.2.7.2.686 [id number] 353 [id number] [facility] 2023-06-09 00:00:00 2023-06-09 00:00:00 Orders Only Doctor Unassigned, [place] [facility] 1.2.840.114 350.1.13.10 4.2.7.2.686 [id number] [id number] [facility] 2023-06-04 00:00:00 2023-06-04 00:00:00 Telephone Adum, Odessa Arredondo [facility] 1.2840.114 350.1.13.10 4.2.7.2.686 [id number] 134 [id number] [facility] 2023-06-03 00:00:00 2023-06-03 00:00:00 Patient Secure Msg Doctor Unassigned, [place] [facility] 1.2840.114 350.1.13.10 4.2.7.2.686 [id number] [facility] 2023-05-28 13:15:00 2023-05-28 13:30:00 Design Architect Visit Pob, Adc Lab Main Ad Odessa Arredondo [facility] BUILDING 1.2840.114 350.1.13.10 4.2.7.2.686 [id number] [facility] 2023-05-28 13:15:00 2023-05-28 13:15:00 Outpatient R ADUM, ODESSA [facility] [id number] [facility] 2023-05-28 00:00:00 2023-05-28 00:00:00 Telephone Adum, Odessa Arredondo [facility] 1.2.840.114 350.1.13.10 4.2.7.2.686 [id number] 134 [id number] [facility] 2023-05-28 00:00:00 2023-05-28 00:00:00 Orders Only Doctor Unassigned, [place] [facility] 1.2.840.114 350.1.13.10 4.2.7.2.686 [id number] [facility] 2023-05-23 00:00:00 2023-05-23 00:00:00 Telephone Adum, Odessa Arredondo [facility] 1.2.840.114 350.1.13.10 4.2.7.2.686 [id number] 134 [id number] [facility] 2023-05-09 00:00:00 2023-05-09 00:00:00 Telephone Adum, Odessa Arredondo [facility] 1.2.840.114 350.1.13.10 4.2.7.2.686 [id number] 134 [id number] [facility] 2023-05-06 14:30:00 2023-05-06 16:22:09 Outpatient R ADUM, ODESSA [facility] [id number] [facility] 2023-05-06 14:30:00 2023-05-06 16:22:09 Initial Visit Adum, Odessa Arredondo [facility] 1.2.840.114 350.1.13.10 4.2.7.2.686 [id number] 134 [id number] [facility] 2023-05-06 00:00:00 2023-05-06 00:00:00 Orders Only Doctor Unassigned, [place] [facility] 1.2.840.114 350.1.13.10 4.2.7.2.686 [id number] [facility] 2023-04-12 12:07:00 2023-04-12 12:19:00 Emergency X [facility] ERT [id number] [facility] 2023-04-12 12:07:00 2023-04-12 12:19:[address] [facility] 1.2840.114 350.1.13.10 4.2.7.2.686 [id number] [facility] 2023-01-15 14:00:00 2023-01-15 14:00:00 Outpatient R GERMAN ORR [facility] [id number] [facility] 2020-03-23 00:00:00 2020-03-23 00:00:00 Orders Only Doctor Unassigned, [place] [facility] 1.2.840.114 350.1.13.10 4.2.7.2.686 [id number] [facility] Results Test Description Test Time Test Comments Results Result Co mments [facility] [id number] 19:49:49 * Test Item Value Reference Range Interpretation Comme nts HBsAg Semi-Quantitative (linda t code = 5195-3) 0.09 Negative [facility] Ag-Ab with [id number] 10:37:04* Test Item Value Reference Range Interpretation Comme nts HIV Semi-quantitative (test code = 34498-9) 0.11 Negative RICH (test code = RICH) Non-reactive for HIV-1 antigen and HIV-1/HIV-2 antibodies. ?No laboratory evidence of HIV infection. ?Repeat in 2-4 weeks if acute HIV infection is suspected. [facility] with [id number] 09:55:05* Test Item Value Reference Range Interpretation Comme nts WBC (test code = 6690-2) 8.66 See_Comment [Automated messa ge] The system which generated this result transmitted reference range: 4.30 - 11.10 10*3/?L. The reference range was not used to interpret this result as normal/abnormal. RBC (test code = 789-8) 4.10 See_Comment [Automated 5 O'Clock Recordsa ge] The system which generated this result transmitted reference range: 3.93 - 5.25 10*6/?L. The reference range was not used to interpret this result as normal/abnormal. HGB (test code = 718-7) 12.5 g/dL 11.6-15.0 HCT (test code = 4544-3) 36.7 % 35.7-45.2 MCV (test code = 787-2) 89.5 fL 80.6-95.5 MCH (test code = 785-6) 30.5 pg 25.9-32.8 MCHC (test code = 786-4) 34.1 g/dL 31.6-35.1 RDW-SD (test code = 65371-8) 41.1 fL 39.0-49.9 RDW-CV (test code = 788-0) 12.7 % 12.0-15.5 PLT (test code = 777-3) 183 See_Comment [Automated 5 O'Clock Recordsa ge] The system which generated this result transmitted reference range: 166 - 358 10*3/?L. The reference range was not used to interpret this result as normal/abnormal. MPV (test code = 74833-5) 9.9 fL 9.5-12.9 NRBC/100 WBC (test code = 2773305195) 0.0 See_Comment [Automated [employer] ssage] The system which generated this result transmitted reference range: 0.0 - 10.0 /100 WBCs. The reference range was not used to interpret this result as normal/abnormal. NRBC x10^3 (test code = 9195347329) See_Comment [Automated 5 O'Clock Recordsa ge] The system which generated this result transmitted reference range: 10*3/?L. The reference range was not used to interpret this result as normal/abnormal. GRAN MAT (NEUT) % (test code = 770-8) 71.6 % IMM GRAN % (test code = 1873071111) 2.30 % LYMPH % (test code = 736-9) 17.6 % MONO % (test code = 5905-5) 7.6 % EOS % (test code = 713-8) 0.7 % BASO % (test code = 706-2) 0.2 % GRAN MAT x10^3(ANC) (test code = 7623363532) 6.20 10*3/uL 1.88-7.09 IMM GRAN x10^3 (test code = 8825369982) 0.20 10*3/uL 0.00-0.06 H LYMPH x10^3 (test code = 731-0) 1.52 10*3/uL 1.32-3.29 MONO x10^3 (test code = 742-7) 0.66 10*3/uL 0.33-0.92 EOS x10^3 (test code = 711-2) 0.06 10*3/uL 0.03-0.39 BASO x10^3 (test code = 704-7) 0.01-0.07 Lab Interpretation (test code = 92550-1) [facility] [id number] 09:28:00 * Test Item Value Reference Range Interpretation Comme nts ABO & RH (test code = 20) O Positive IAT (test code = 1185) Negative [facility] w/o Specific [id number] 14:45:00* Test Item Value Reference Range Interpretation Comme nts POCT PH U (test code = 3254) N/A 5-8 POCT U LEUK EST (test code = 3263) N/A Negative - Negative POCT U NIT (test code = 3262) N/A Negative - Negati ve POCT U PROT (test code = 3259) Negative Negative - Negat miya POCT U GLU (test code = 3256) Negative Negative - Negati ve POCT U KETONE (test code = 3258) N/A Negative - Neg ative POCT U BLD (test code = 3257) N/A Negative - Negati ve [facility] [id number] 00:43:02EXAM: US BIOPHYSICAL PROFILE DATE: 11/19/2023 HISTORY: Evaluate biophysical profile ORDERING PHYSICIAN: YORDAN HERNANDEZ COMPARISON: None available TECHNIQUE: Limited 2-D and Doppler transabdominalobstetric pelvicultrasound for biophysical profile FINDINGS:There is a single live IUP with heart rate of 161 bpm. Biophysical profilemeasures 07/01. AMAYA measures 18.2 cm. Presentation is cephalic.General acute hospital Urinalysis w/o Specific [place] 2023-11-19 21:09:00* Test Item Value Reference Range Interpretation Comme nts POCT PH U (test code = 3254) na 5-8 POCT U LEUK EST (test code = 3263) na Negative - Negative POCT U NIT (test code = 3262) na Negative - Negative POCT U PROT (test code = 3259) negative Negative - Negative POCT U GLU (test code = 3256) negative Negative - Negative POCT U KETONE (test code = 3258) na Negative - Negative POCT U BLD (test code = 3257) na Negative - Negative RICH (test code = RICH) accurate developme nt and interpretation of all internal controls Lab Interpretation (test code = 82591-1) Normal General acute hospital Urinalysis w/o Specific [id number] 16:18:00* Test Item Value Reference Range Interpretation Comme nts POCT PH U (test code = 3254) n/a 5-8 POCT U LEUK EST (test code = 3263) n/a Negative - Negative POCT U NIT (test code = 3262) n/a Negative - Negati ve POCT U PROT (test code = 3259) negative Negative - Negat miya POCT U GLU (test code = 3256) negative Negative - Negati ve POCT U KETONE (test code = 3258) n/a Negative - Neg ative POCT U BLD (test code = 3257) n/a Negative - Negati ve General acute hospital URINALYSIS W/O SPECIFIC [id number] 19:34:00* Test Item Value Reference Range Interpretation Comme nts POCT PH U (test code = 3254) n/a 5-8 POCT U LEUK EST (test code = 3263) n/a Negative - N egative POCT U NIT (test code = 3262) n/a Negative - Negati ve POCT U PROT (test code = 3259) neg Negative - Negat miya POCT U GLU (test code = 3256) neg Negative - Negati ve POCT U KETONE (test code = 3258) n/a Negative - Neg ative POCT U BLD (test code = 3257) n/a Negative - Negati ve General acute hospital URINALYSIS W/O SPECIFIC [id number] 19:04:00* Test Item Value Reference Range Interpretation Comme nts POCT PH U (test code = 3254) n/a 5-8 POCT U LEUK EST (test code = 3263) n/a Negative - Negative POCT U NIT (test code = 3262) n/a Negative - Negati ve POCT U PROT (test code = 3259) negative Negative - Negat miya POCT U GLU (test code = 3256) negative Negative - Negati ve POCT U KETONE (test code = 3258) n/a Negative - Neg ative POCT U BLD (test code = 3257) n/a Negative - Negati ve General acute hospital URINALYSIS W/O SPECIFIC [id number] 17:23:00* Test Item Value Reference Range Interpretation Comme nts POCT PH U (test code = 3254) 8 mg/dl 5-8 POCT U LEUK EST (test code = 3263) Negative Negative - Negative POCT U NIT (test code = 3262) Negative Negative - Negati ve POCT U PROT (test code = 3259) Negative Negative - Negat miya POCT U GLU (test code = 3256) Negative Negative - Negati ve POCT U KETONE (test code = 3258) Negative Negative - Neg ative POCT U BLD (test code = 3257) Negative Negative - Negati ve General acute hospital URINALYSIS W/O SPECIFIC [id number] 13:19:00* Test Item Value Reference Range Interpretation Comme nts POCT PH U (test code = 3254) n/a 5-8 POCT U LEUK EST (test code = 3263) n/a Negative - Negative POCT U NIT (test code = 3262) n/a Negative - Negati ve POCT U PROT (test code = 3259) negative Negative - Negat miya POCT U GLU (test code = 3256) normal Negative - Negati ve POCT U KETONE (test code = 3258) n/a Negative - Neg ative POCT U BLD (test code = 3257) n/a Negative - Negati ve General acute hospital URINALYSIS W/O SPECIFIC [id number] 15:48:00* Test Item Value Reference Range Interpretation Comme nts POCT PH U (test code = 3254) n/a 5-8 POCT U LEUK EST (test code = 3263) n/a Negative - Negative POCT U NIT (test code = 3262) n/a Negative - Negati ve POCT U PROT (test code = 3259) negative Negative - Negat miya POCT U GLU (test code = 3256) normal Negative - Negati ve POCT U KETONE (test code = 3258) n/a Negative - Neg ative POCT U BLD (test code = 3257) n/a Negative - Negati ve General acute hospital URINALYSIS W/O SPECIFIC [id number] 16:17:00* Test Item Value Reference Range Interpretation Comme nts POCT PH U (test code = 3254) n/a 5-8 POCT U LEUK EST (test code = 3263) n/a Negative - Negative POCT U NIT (test code = 3262) n/a Negative - Negati ve POCT U PROT (test code = 3259) negative Negative - Negat miya POCT U GLU (test code = 3256) negative Negative - Negati ve POCT U KETONE (test code = 3258) n/a Negative - Neg ative POCT U BLD (test code = 3257) n/a Negative - Negati ve General acute hospital URINALYSIS W/O SPECIFIC [id number] 16:11:00* Test Item Value Reference Range Interpretation Comme nts POCT PH U (test code = 3254) 8 mg/dl 5-8 POCT U LEUK EST (test code = 3263) negative Negative - Negative POCT U NIT (test code = 3262) negative Negative - Negati ve POCT U PROT (test code = 3259) TRACE Negative - Negat miya POCT U GLU (test code = 3256) negative Negative - Negati ve POCT U KETONE (test code = 3258) 1+ Negative - Neg ative POCT U BLD (test code = 3257) negative Negative - Negati ve [facility] SPECIFIC [id number] 21:25:00* Test Item Value Reference Range Interpretation Comme nts POCT PH U (test code = 3254) n/a 5-8 POCT U LEUK EST (test code = 3263) n/a Negative - Negative POCT U NIT (test code = 3262) n/a Negative - Negati ve POCT U PROT (test code = 3259) negative Negative - Negat miya POCT U GLU (test code = 3256) negative Negative - Negati ve POCT U KETONE (test code = 3258) n/a Negative - Neg ative POCT U BLD (test code = 3257) n/a Negative - Negati ve [facility]andCB WITH [id number] 17:55:31* Test Item Value Reference Range Interpretation Comme nts WBC (test code = 6690-2) 6.47 See_Comment [Automated [employer]] The system which generated this result transmitted reference range: 4.30 - 11.10 10*3/?L. The reference range was not used to interpret this result as normal/abnormal. RBC (test code = 789-8) 4.22 See_Comment [Automated [employer]] The system which generated this result transmitted reference range: 3.93 - 5.25 10*6/?L. The reference range was not used to interpret this result as normal/abnormal. HGB (test code = 718-7) 13.1 g/dL 11.6-15.0 HCT (test code = 4544-3) 38.4 % 35.7-45.2 MCV (test code = 787-2) 91.0 fL 80.6-95.5 MCH (test code = 785-6) 31.0 pg 25.9-32.8 MCHC (test code = 786-4) 34.1 g/dL 31.6-35.1 RDW-SD (test code = 89736-1) 41.0 fL 39.0-49.9 RDW-CV (test code = 788-0) 12.3 % 12.0-15.5 PLT (test code = 777-3) 184 See_Comment [Automated messa ge] The system which generated this result transmitted reference range: 166 - 358 10*3/?L. The reference range was not used to interpret this result as normal/abnormal. MPV (test code = 35980-6) 8.8 fL 9.5-12.9 L NRBC/100 WBC (test code = 8314126878) 0.0 See_Comment [Automated [employer] ssage] The system which generated this result transmitted reference range: 0.0 - 10.0 /100 WBCs. The reference range was not used to interpret this result as normal/abnormal. NRBC x10^3 (test code = 9336148913) See_Comment [Automated messa ge] The system which generated this result transmitted reference range: 10*3/?L. The reference range was not used to interpret this result as normal/abnormal. GRAN MAT (NEUT) % (test code = 770-8) 73.7 % IMM GRAN % (test code = 1595690771) 0.80 % LYMPH % (test code = 736-9) 16.8 % MONO % (test code = 5905-5) 7.6 % EOS % (test code = 713-8) 0.8 % BASO % (test code = 706-2) 0.3 % GRAN MAT x10^3(ANC) (test code = 6813817310) 4.77 10*3/uL 1.88-7.09 IMM GRAN x10^3 (test code = 6464646146) 0.05 10*3/uL 0.00-0.06 LYMPH x10^3 (test code = 731-0) 1.09 10*3/uL 1.32-3.29 L MONO x10^3 (test code = 742-7) 0.49 10*3/uL 0.33-0.92 EOS x10^3 (test code = 711-2) 0.05 10*3/uL 0.03-0.39 BASO x10^3 (test code = 704-7) 0.01-0.07 Lab Interpretation (test code = 95196-5) Abnormal General acute hospital URINALYSIS W/O SPECIFIC [id number] 20:32:00* Test Item Value Reference Range Interpretation Comme nts POCT PH U (test code = 3254) n/a 5-8 POCT U LEUK EST (test code = 3263) n/a Negative - Negative POCT U NIT (test code = 3262) n/a Negative - Negati ve POCT U PROT (test code = 3259) negative Negative - Negat miya POCT U GLU (test code = 3256) negative Negative - Negati ve POCT U KETONE (test code = 3258) n/a Negative - Neg ative POCT U BLD (test code = 3257) n/a Negative - Negati ve [facility] [id number] 20:31:00* Test Item Value Reference Range Interpretation Comme nts POCT PREG (test code = 1605) Positive On board controls acceptable with C Line (test code = 3574) Yes POCT PREG LOT # (test code = 3575) POCT PREG TEST DATE ( test code = 3576) [facility] History and Physical Notes Date/Time Note Provider Source 2024-02-10 09:15:03 [id number] MxJtvxnbc1Zsg8+Ot8hRsN Xq+zgUgqOtPNNQlVEaL1Nb8856-52-03B65:15:03F ormatting of this note is different from the original.I have seen and examined patient. Denies interval changes. Denies unprotected intercourse.Patient Vitals for the past 24 hrs:BP Temp Temp src Pulse Resp EeV41002/10/24 0818 111/74 37.3 ?C (99.1 ?F) TEMPORAL ART 78 18 100 %NADRRRBreathing unlaboredSoft, NTTP, no rashNo edemaA/P: Will proceed with laparoscopic bilateral salpingectomy. All questions answered.Yordan Hernandez MD 02/10/2024 9:16 AM ource Note - Yordan Hernandez MD - 02/06/2024 9:00 AM CDT Chief ComplaintPatient presents withPost-OpHPI: Niraj Boles is a 23 year old female here for pre-op removal salpingectomy. Denies unprotected intercourse. No concerns today.Past Medical History:Diagnosis DateAnemiaongoing, not currently taking medications.Anxietyongoing, currently taking medication.Depressionresolved at this time.-induced hypertension in third trimester 06/18/2018resolvedSTD (sexually transmitted disease)chlamydia/treatedVaginal yeast infection 12/25/2018Past Surgical History:Procedure Laterality DateTONSILLECTOMYOB HistoryGravida Para Term AB Living2 2 2 0 0 2SAB IAB Ectopic Multiple Live Births0 0 0 0 2# Outcome Date GA Lbr Jonah/2nd Weight Sex Delivery Anes PTL Lv2 Term 11/30/23 38w5d 7 lb 11.5 oz (3.5 kg) M NORMAL SPONT None N LIV1 Term 06/17/18 39w6d 7 lb 15 oz (3.6 kg) F VAGINAL EPI LIVNo Known AllergiesPatient's MedicationsSTART taking these medicationsNo medications on fileCONTINUE taking these medications which have NOT CHANGEDESCITALOPRAM OXALATE 20 MG TABLET Take 1 tablet by mouth in the morning.FERROUS SULFATE 325 MG (65 MG IRON) TABLET Take 1 tablet by mouth in the morning and 1 tablet in the evening.MULTIVIT-MINERALS/FOLIC ACID (MULTIVITAMIN GUMMIES ORAL) Take 1 Dose by mouth in the morning. VITAMIN W/FA TABLET Take 1 tablet by mouth in the morning.START taking Modified Medications as PrescribedNo medications on fileSTOP taking these medicationsDOCUSATE 100 MG CAPSULE Take 2 capsules by mouth once daily as needed for Constipation.IBUPROFEN 600 MG TABLET Take 1 tablet by mouth every 6 (six) hours as needed (Pain). Take with food or milk.Family HistoryProblem Relation Age of OnsetHeart MotherHeart BrotherNo Significant Medical Problems FatherNo Significant Medical Problems SisterNo Significant Medical Problems Maternal AuntNo Significant Medical Problems Maternal UncleNo Significant Medical Problems Paternal AuntNo Significant Medical Problems Paternal UncleNo Significant Medical Problems Maternal GrandmotherNo Significant Medical Problems Maternal GrandfatherNo Significant Medical Problems Paternal GrandmotherNo Significant Medical Problems Paternal GrandfatherArthritis NoFHxAsthma NoFHxBirth defects NoFHxBreast Cancer NoFHxColon Cancer NoFHxOvarian Cancer NoFHxUterine Cancer NoFHxCancer NoFHxDepression NoFHxDiabetes NoFHxGenetic NoFHxHigh cholesterol NoFHxHypertension NoFHxMental retardation NoFHxNeurological NoFHxOsteoporosis NoFHxPsychiatry NoFHxSocial HistorySocioeconomic HistoryMarital status: SingleTobacco UseSmoking status: NeverSmokeless tobacco: NeverSubstance and Sexual ActivityAlcohol use: YesComment: occasionalDrug use: NoSexual activity: YesPartners: MaleBirth control/protection: NoneComment: last sexual intercourse 12/22/2018Social History NarrativeNo domestic abuse or violence.No cats. 1 dogReligion: NonePatient lives with boyfriend and child.Review of SystemsConstitutional: Negative for chills, fatigue and fever.HENT: Negative for congestion, rhinorrhea, sneezing and sore throat.Respiratory: Negative for cough, chest tightness, shortness of breath and wheezing.Cardiovascular: Negative for chest pain and palpitations.Gastrointestinal: Negative for abdominal distention, abdominal pain, anal bleeding, blood in stool, constipation, diarrhea, nausea and vomiting.Genitourinary: Negative for dysuria, urgency, frequency, vaginal bleeding and vaginal discharge.Musculoskeletal: Negative for gait problem.Skin: Negative for rash.Neurological: Negative for syncope, light-headedness and headaches.Psychiatric/Behavioral: Negative for dysphoric mood, self-injury and suicidal ideas.Hematological: Does not bruise/bleed easily.@IPVITALS@Physical ExamVitals reviewed.Constitutional: She is oriented to person, place, and time. Her body habitus is overweight.Cardiovascular: Regular rate and rhythm.Pulmonary/Chest: Breath sounds clear to auscultation. Normal inspiratory effort.Abdominal: Abdomen is soft. No tenderness present. No hernia palpated or inspected.Neuro/Psychiatric: She has a normal mood and affect. She is oriented to person, place, and time.A/P:Preoperative evaluation for tubal ligation (primary encounter diagnosis)- Tubal consent signed on 09/16/2023"I counseled the patient regarding risks, benefits and alternatives of laparoscopic Bilateral Tubal Ligation including: risk of infection, bleeding, need for transfusion of blood/blood products, injury to ureter, bladder, bowel with possible further surgery, stint, catheterization or colostomy to repair, conversion to open. The permanence of this procedure and risk of regret in 1 in 3 women were discussed. tubal ligation failure rate is 0.75% and higher in women younger than 30 years old. There is an increased risk for ectopic and the need to seek medical attention should failure of tubal ligation occur. Alternatives discussed include: Oral Contraceptive Agents, Intrauterine Device, Nexplanon, Depo Provera, Ring, Patch, Condoms/foam, vasectomy of partner, or bilateral salpingectomy. Salpingectomy has been shown to decrease risk of ovarian cancer, similar to tubal ligation; however, no tubal reversal will be able to be done in the future and might be able to achieve with in vitro fertilization only. All questions answered, and patient expressed her desire to proceed with bilateral salpingectomy."-Tentatively scheduled for laparoscopic bilateral salpingectomy on 02/10/2024- RTC in 2 wks for [place] [address]-9Jcalinfpo History and physical pdecWO8386-10-55D10:16:29Attending History and physical [id number].2.74233 9|[id number] for patient sftx84198-7Vdcawhf and physical noteLNNARRATIVEFormatted C-CDA narrative text[address] Ne[id number] VHJWHACRCXBZIIYB2197-84-79K70:16:291.2.840 .829691.1.72.3.15|1.2.840.647129.1.13.104. [id number] [facility] 2023-11-30 02:48:30 COel1+ewArxAIwOM9fjx 14N6YvicYr4iu3zFJPnrMJ Bt/S3twQjnAERgGAv99PJy0304-17-61H96:48:30F ormatting of this note is different from the original.TRIAGE HISTORY & PHYSICALIDENTIFYING DATANiraj Boles is 23 year old, /White, 38w5d, female with CECILIA 12/09/2023, by Last Menstrual Period.: 1999MRN: [id number] Care Physician: Davide Freeman COMPLAINTContractionsHISTORY OF PRESENT ILLNESSNiraj Boles is a 23 year old female,+FM. No VB, LOF, or CTX. No pre-eclampsia sx or other complaints. CARE:OB: Dr Vazquez [facility] detailsPAST OBSTETRIC HISTORYOB HistoryGravida Para Term AB Living2 1 1 0 0 1SAB IAB Ectopic Multiple Live Births0 0 0 0 1# Outcome Date GA Lbr Jonah/2nd Weight Sex Delivery Anes PTL Lv2 Current1 Term 06/17/18 39w6d 3600 g F VAGINAL EPI LIVPAST MEDICAL HISTORYProblem list:Patient Active Problem ListDiagnosis Date NotedUterine contractions 8 weeks gestation of 11/30/2023Mental disorder affecting in third trimester 11/30/2023High-risk in third trimester 11/28/2023GAD (generalized anxiety disorder) 07/09/2022Moderate episode of recurrent major depressive disorder 2Depression, unspecified depression type 06/11/2017Anxiety 06/11/2017Operations:Past Surgical History:Procedure Laterality DateTONSILLECTOMYPast Medical History:Diagnosis DateAnemiaongoing, not currently taking medications.Anxietyongoing, currently taking medication.Depressionresolved at this time.-induced hypertension in third trimester 06/18/2018resolvedSTD (sexually transmitted disease)chlamydia/treatedVaginal yeast infection 12/25/2018CURRENT HEALTH STATUSMedications:Current Facility-Administered MedicationsMedication Dose Route Frequency Last Rate Last Admincarboprost (HEMABATE) injection 250 mcg 250 mcg Intramuscular B4UISDF6U-AK IV infusion 1,000 mL 1,000 mL IV Infusion TITRATE 125 mL/hr at 11/30/23 0242 1,000 mL at 11/30/23 0242FENTanyl PF (SUBLIMAZE (PF)) injection 100 mcg 100 mcg Slow IV Push R7BGWWohtyzmfw ringers IV infusion 500 mL 500 mL IV Infusion PRN - SEE INSTRUCTIONSlidocaine 1% (PF) (XYLOCAINE) injection 0.3 mL 0.3 mL Infiltration PRN - SEE INSTRUCTIONSlidocaine 1% (XYLOCAINE) 10 mg/mL (1 %) injection 50 mL 50 mL Infiltration PRN - SEE INSTRUCTIONSmethylergonovine (METHERGINE) injection 0.2 mg 0.2 mg Intramuscular W7PCXLjwTGOSZZogR (CYTOTEC) tablet 200 mcg 200 mcg Rectal PRNondansetron (ZOFRAN (PF)) injection 4 mg 4 mg Slow IV Push K1NJTBteuenhdb (PITOCIN) 30 units in NS 500 mL IV infusion 600 mL/hr IV Infusion PRNoxytocin (PITOCIN) 30 units in NS 500 mL IV infusion 2-40 jenae-units/min IV Infusion TITRATEsodium citrate-citric acid (BICITRA) 500-334 mg/5 mL solution 30 mL 30 mL Oral PRE-PROCEDURE ONCEtranexamic acid (CYKLOKAPRON) 1,000 mg in NaCl 0.9% (NS) 250 mL piggyback 1,000 mg IV Piggyback PRNAllergies and drug reactions: Patient has no known allergies.HOME MEDICATIONSMedications Prior to AdmissionMedication Sig Dispense Refill Last Dose[DISCONTINUED] metroNIDAZOLE (FLAGYL) 500 mg tablet Take 1 tablet by mouth every 12 (twelve) hours. 13 tablet 0 Not TakinghydrOXYzine 25 mg tablet 1 tablet every 8 (eight) hours as needed for Anxiety. Taking[DISCONTINUED] BABY ASPIRIN ORAL Take by mouth. Not Takingescitalopram oxalate 20 mg tablet Take 1 tablet by mouth in the morning. Takingprenatal vit/iron fum/folic ac ( 1 + 1 ORAL) Take 1 TAB-CAP/M2 by mouth. Not Taking[DISCONTINUED] proMETHazine 25 mg tablet Take 1 tablet by mouth every 4 (four) hours as needed for Nausea and Vomiting (N/V). 30 tablet 1 Not TakingSOCIAL HISTORYTobacco History:Social HistoryTobacco UseSmoking Status NeverSmokeless Tobacco NeverDrug History:Social HistorySubstance and Sexual ActivityDrug Use NoAlcohol History:Social HistorySubstance and Sexual ActivityAlcohol Use YesComment: occasionalFAMILY HISTORYFamily HistoryProblem Relation Age of OnsetHeart MotherHeart BrotherNo Significant Medical Problems FatherNo Significant Medical Problems SisterNo Significant Medical Problems Maternal AuntNo Significant Medical Problems Maternal UncleNo Significant Medical Problems Paternal AuntNo Significant Medical Problems Paternal UncleNo Significant Medical Problems Maternal GrandmotherNo Significant Medical Problems Maternal GrandfatherNo Significant Medical Problems Paternal GrandmotherNo Significant Medical Problems Paternal GrandfatherArthritis NoFHxAsthma NoFHxBirth defects NoFHxBreast Cancer NoFHxColon Cancer NoFHxOvarian Cancer NoFHxUterine Cancer NoFHxCancer NoFHxDepression NoFHxDiabetes NoFHxGenetic NoFHxHigh cholesterol NoFHxHypertension NoFHxMental retardation NoFHxNeurological NoFHxOsteoporosis NoFHxPsychiatry NoFHxREVIEW OF SYSTEMSGeneral: negativeConstitutional: negativeEyes: negativeENT/Mouth: negativeCardiovascular: negativeRespiratory: negativeGastrointestinal:negativeGenitouri nary: negativeMusculoskeletal: negativeSkin/breast: negativeNeurological: negativePsychiatric: negativeEndocrine: negativeHemat/Lymph: negativeAllergic/Immuno:noneVITAL SIGNSBP: (110-120)/(75-94)Temp: [36.5 ?C (97.7 ?F)]Temp source: Oral (11/30 0039)Pulse: [78-83]Resp: [20]SpO2: [98 %-100 %]Height: [170.2 cm (5' 7")]Weight: [117.9 kg (260 lb)]BMI (calculated): [0-40.72]PHYSICAL EXAMINATIONSGen: alert and oriented, well appearing, no distressCV: RRRResp: normal work of breathingAbd: gravid, soft, NTTP. Cephalic. EFW less than 4500gExt: no calf tenderness or edema- SVE: Dilation: 5 / Effacement (%): 70 % / Station: -1, AROM - clearREVIEW OF LABORATORY, PATHOLOGY, AND RADIOLOGY DATALab results:Type & Screen HIV Hep B Syphilis ChlamydiaABO & RHDate Value Ref Range Phiers3709/02/2023 O Positive FinalHIV Ag-Ab MultiplexDate Value Ref Range Icqoff0812/25/2018 Non-reactive Non-reactive FinalNo components found for: "HBSHBSAG" No results found for: "SYPIGG" C. trachomatis Nucleic AcidDate Value Ref Range Zqabhl4111/03/2023 Negative Negative FinalIATDate Value Ref Range Gjaydx5509/02/2023 Negative FinalVaricella Rubella Glucose Group B Strep CBCVZV IgG antibodyDate Value Ref Range Nohblx7205/28/2023 Positive Negative FinalRubella screen IgGDate Value Ref Range Sjwigd1305/28/2023 Negative Negative FinalGLUC 1 HRDate Value Ref Range Hlckda7509/02/2023 88 (L) 120 - 170 mg/dL FinalNo results found for: "CGBS" HGBDate Value Ref Range Fxrxcr6309/02/2023 12.1 11.6 - 15.0 g/dL FinalHCTDate Value Ref Range Vthqeu7509/02/2023 35.6 (L) 35.7 - 45.2 % FinalPLTDate Value Ref Range Zezdfa5309/02/2023 180 166 - 358 10*3/?L FinalPlacenta Accreta ScreeningScreening outcome:A positive screening outcome indicates a history of prior delivery or prior uterine surgery, AND the presence of either a placenta low lying/previa or ultrasound suspicion of PASD in the current .Negative screening.Active Hospital ProblemsDiagnosis Date NotedUterine contractions 438 weeks gestation of 11/30/2023Mental disorder affecting in third trimester 4Resolved Hospital ProblemsNo resolved problems to display.Present on Admission:Uterine scyomuqyrgun84 weeks gestation of pregnancyMental disorder affecting in third trimesterASSESSMENT AND PLANArianna Emery Boles is a 23 year old at 38w5d who presents in active laborLabor- CAT 2 strip with intermittent variable decels down to 90's- GBS negative- AROM- clear fluidAntic[place] [address]-7Dxtcpcz and physical gyrvEN4163-42-08I15:24:19History and physical noteTXT1.2.840.711545.1.13.104.2.7.2.50399 9|[id number] for patient ywcz84971-8Zswxaag and physical noteLNNARRATIVEFormatted C-CDA narrative textUT[address] Shoe[id number] IXENIMCMJJAYNAAA1175-02-99V02:24:191.2.840 .763553.1.72.3.15|1.2.840.867599.1.13.104. [id number] [facility] Procedure Notes Date/Time Note Provider Source 2024-02-10 10:31:51 GN2MHJfbieQZW2wNQnoI Flb+XW2UnAfAAKtHcuc50q pFPYk8sz1SXx75cWNRfnad2159-78-09X55:31:51P rocedure(s): LAPAROSCOPIC SALPINGECTOMYPre-Procedure Diagnose(s): Encounter for tubal ligationPost-Procedure Diagnose(s): Encounter for tubal ligation; Status post bilateral salpingectomy LAPAROSCOPIC TUBAL SALPINGECTOMYDate of Service: 02/10/2024Faculty Surgeon: Yordan Kong Type: GeneralIV Fluids: 600 cc Lactated RingersColloid Fluids: NoneSpecimens Sent to Pathology: bilateral fallopian tubesUrine Output: 400 cc of clear urineComplications: noneEstimated Blood Loss: < 10 mLPatient Status: Patient in stable condition and taken to recovery roomNarrative: Niraj Boles is a 23 year old female desires permanent sterilization with laparoscopic bilateral salpingectomy.Description of Findings: Normal liver edge, normal uterus, fallopian tubes and ovaries. Bowel adhered to the right mid side wall of the abdomen. The trocar sites were inspected and no injury or bleeding identified.Summary of Procedure:After informed written consent was given by patient to proceed with above procedure for above indications, the patient was taken to the operating room and general endotracheal anesthesia induced. Patient was placed in dorsal lithotomy position, and prepped and draped. Acosta catheter placed. Sponge stick placed in the vagina. A half inch incision was made in the umbilicus . The 5 mm laparoscopic trocar and laparoscopic camera were then introduced under direct visualization confirming placement in the peritoneal cavity and CO2 was then allowed to insufflate the peritoneal cavity with attention to adequate pressures. Under direct laparoscopic guidance, 2 skin incisions were made in the left quadrant and 8 mm and 5 mm laparoscopic trocars introduced. The inspection of the pelvis then ensued with findings as above. Each fallopian tube was grasped and removed with ligasure. Hemostasis noted. CO2 was allowed to egress through the trocars until abdominal pressure at 5 mmHg and hemostasis noted. 30 cc of 0.25% Marcaine placed intraperitoneally. Trocars were then removed under laparoscopic guidance. The skin incision sites were closed with 4-0 monycryl suture and dermabond and covered with dressing. All instruments removed. Patient's sponge and needle counts were correct times 2. Patient tolerated the procedure well and was awakened and taken to the PAC-U in stable condition.Yordan Hernandez MD 02/10/2024 10:28 AM 02105-6Cefurzwmm qwxtUU6967-29-84R29:32:36Procedure noteTXT1.2.840.774294.1.13.104.2.7.2.35840 9|[id number] for patient ojkb63620-1Yhpjedilw noteLNNARRATIVEFormatted C-CDA narrative text[address] Gv[id number] MXCXHHXPZOTNIPLY7363-91-65I19:32:361.2.840 .218348.1.72.3.15|1.2.840.256766.1.13.104. 2.7.2.727879_[id number] [facility] Notes Date/Time Note Provider Source 2024-02-09 08:30:00 uMcnN0Ns784+0i+4pnRzUHMAWuy0OpWFQHq A9h5uvZcvLlbfkg79fu5P9pHWcE/e0226-8 02-08T08:30:00 Images from the original note were not included.Venipuncture collection performed by clean technique on the left anticubitus. Total of 1 attempts were made. Slight pressure and a bandage/dressing were applied to the site(s). The patient experienced no complications. The following specimens were processed according to instructions and sent to [facility] laboratories per lab order on 02/09/2024:LT BLUESST 1REDLAV 3PPTDK GREEN (LiHep)DK GREEN (SodH)GRAYDK BLUE (K2)DK BLUE (S)ACDBlood CultureNIPT/NTD 59222-4Eiftx GrspHC3953-00-25B24:25:23Nurse NoteTXT1.2.840.106040.1.13.104.2.7. 2.862000|[id number] for patient coeh31466-0Pnfuh NoteLNNARRATIVEFormatted C-CDA narrative text[address] Xd[id number] 9IRXKSPPKWGRALEERZNXNGB7330-77-46Q3 1:25:231.2.840.599337.1.72.3.15|1.2 .840.341762.1.13.104.2.7.2.727879_2 [id number] [facility] 2024-02-03 14:54:57 ralRAx8+xxBqX//P9dZNmhH20tY9XY1HrQG KvcrGnNMfxAk7jhk9fEd0yb5heLwC8089-0 02-02T14:54:57 Images from the original note were not included.Your procedure is at [facility] on 02/10/24. The address is [address] [place] [address], [id number]. [facility] nursing staff will call you the workday before your procedure to let you know what time to arrive.On the day of your procedure, please go inside that door and check in at the desk.Please note: You may not travel home alone and that includes in a taxi or by bus. We must speak to your Responsible Adult (who will be picking you up) the morning of your procedure, before the start of your procedure. This person must be an adult over the age of 18 years of age.Do not eat any solid food after midnight the night before surgery. You may have sips of clear liquids such as water, gatorade, and sprite up until two hours before your scheduled procedure.You may take your medications with a sip of water as directed by physician.Anticoagulants will be per physician guidance. Medication Note(s)/Instructions:n/aPending screening, we may test for COVID. If a patient tests positive, their cases are cancelled and/or rescheduled. COVID SCREENING NOTE: Denies COVID symptoms, no testing required.Additional requests, questions, concerns:CB number provided.Patient verbalized understanding of pre-op instructions and voiced no further questions at this time. 40786-7Qytra ZpveYA2437-00-35M47:56:25Nurse NoteTXT1.2.840.274600.1.13.104.2.7. 2.863021|[id number] for patient egzk39047-2Aysin NoteLNNARRATIVEFormatted C-CDA narrative [id number] L Land RNUT[address] At[id number] 6VCNGMKUEAIIFGPWZASNFDW2267-28-39X3 4:56:251.2.840.743366.1.72.3.15|1.2 .840.871601.1.13.104.2.7.2.727879_2 [id number] Izzy Herman RN [facility] 2023-12-31 14:12:04 mLPRs36y/xDplSX/c7f05bGsdp/kzWKaT+r Kojmw4wQ/51bD6zuX3QA2OHhlteH89512-8 4:12:04 Received refill request for:Escitalopram 28kh1ja pp visit on 01/16/24. Med sent with 0 refills.DELANEY AGUIAR RN 12/31/2023 2:12 PM 98135-7Vlbecslhw encounter FccdXS2981-81-06C44:14:01Telephone encounter NoteTXT1.2.840.139261.1.13.104.2.7. 2.478457|[id number] for patient irmc65648-4CbpdIEPEKLVFPCYSdprqsewz C-CDA narrative textUT[address] Ozs[id number] 8VZTKUZETOUAZLWNSLNRQCT5664-45-72G7 4:14:011.2.840.099500.1.72.3.15|1.2 .840.179596.1.13.104.2.7.2.727879_2 [id number] [facility] 2023-12-02 08:13:01 96EANWW6GUI97g7jkjPPNTE/k1w+pj4i980 ER4oqT5y8hGVQx4j6fgumvbxh5Kks8907-4 08:13:[address] Hernandez- she is taking escitalopram and atarax together right now. Recommend taking escitalopram only as taking it together increase risk of prolonged qt syndrome (heart problem). If she needs something for anxiety in addition, we can switch her to another medication instead of atarax. Can discuss at pp visit or give her a sooner apptName and verified. Pt verbalized understanding and does not need anything added right now. Explained to pt that is anything changes, to let us know and not wait for PP visit. Verbalized understanding.DELANEY AGUIAR RN 12/02/2023 8:15 AM 84616-9Luyobnzgu encounter UpnePZ6399-09-76B02:16:13Telephone encounter NoteTXT1.2.840.941179.1.13.104.2.7. 2.658413|[id number] for patient jlbg81230-7MozeLDQPQEJQFWMJbjhgmvkh C-CDA narrative kzyc329750169Irihqqpbd G Cervantes [id number] 5MOETVMWFYKGZGUNNQENECC7351-54-81E1 8:16:131.2.840.649879.1.72.3.15|1.2 .840.478438.1.13.104.2.7.2.727879_1 [id number] Delaney Aguiar [facility] 2023-11-30 18:56:01 rUookhIUCEl1yil43DmoEtqw02E8gkFD9mL f5W774sFaa+ddAkmKV1BkTVTiN78u8160-6 8:56:01 Problem: Infection RiskGoal: Absence of infectionOutcome: Progressing as expectedProblem: Falls, Risk ofGoal: Absence of fallsOutcome: Progressing as expectedProblem: Discharge Planning - PostpartumGoal: Adequate for dischargeOutcome: Progressing as expectedGoal: Mood stableOutcome: Progressing as expected 02332-4Stcq of care wakaZZ3093-54-34E03:56:11Plan of care noteTXT1.2.840.887733.1.13.104.2.7. 2.786519|[id number] for patient rujy76227-5BhfrSKKNTTKSSWFSeupesref C-CDA narrative toab505003433Nnece Iddrisu [id number] 6ARFDBYBJBKUVTUCVBQPUWP3146-79-20G7 8:56:111.2.840.695409.1.72.3.15|1.2 .840.051340.1.13.104.2.7.2.727879_1 [id number] Chekora Orlando DOTSON [facility] 2023-11-30 08:17:41 4mDsia+OvHk03nEBTo250kSgga12SnEcx3Z BN5TELFWB9yzOe/eDHEN7VHxGgB/G4552-1 08:17:41 Problem: Infection RiskGoal: Absence of infectionOutcome: Progressing as expectedProblem: Falls, Risk ofGoal: Absence of fallsOutcome: Progressing as expectedProblem: Discharge Planning - PostpartumGoal: Adequate for dischargeOutcome: Progressing as expectedGoal: Mood stableOutcome: Progressing as expected 08695-0Vcqi of care zrrwXX7928-60-68U15:17:46Plan of care noteTXT1.2.840.915080.1.13.104.2.7. 2.193500|[id number] for patient rzhj51267-4AqirIEBMNBKBYOPCadrmidsf C-CDA narrative qppy363983745Bxymlbd Sylvester RN[id number] 2UKCGPTWZAZQGSNNMIZGJVZ0670-67-32D4 8:17:461.2.840.758538.1.72.3.15|1.2 .840.230154.1.13.104.2.7.2.727879_1 [id number] Cris Hutchins RN [facility] 2023-11-30 05:53:49 GSn6HTrM9ijQHf57WiCT8lLWfN01MZ5UDY1 OCcFpdNStwA3tUB/Sj35cXVIZJ9BU1867-2 05:53:49 Problem: Infection RiskGoal: Absence of infectionOutcome: Progressing as expectedProblem: Falls, Risk ofGoal: Absence of fallsOutcome: Progressing as expectedProblem: Discharge Planning - PostpartumGoal: Adequate for dischargeOutcome: Progressing as expectedGoal: Mood stableOutcome: Progressing as expected 98773-3Bnoc of care lxqjXI6712-60-64L87:53:55Plan of care noteTXT1.2.840.021561.1.13.104.2.7. 2.203511|[id number] for patient jrdm69398-8BkfsAJQYESTSRLVWetooftqo C-CDA narrative text[address] StreetJu[id number] 2ACUYZUQYPJHQKCOJFZOPZS1250-78-25V5 5:53:551.2.840.317310.1.72.3.15|1.2 .840.489667.1.13.104.2.7.2.727879_1 [id number] [facility] 2023-11-30 05:39:42 /WBqb4DGAw1d6wBcPzy+F2okUIdz7BQAF9h uhaFzsPP6mXqFejiNfK4dwiKmm2S80332-1 05:39:42 DELIVERY BY SPONTANEOUS VAGINAL DELIVERYDelivery Date: 11/30/2023 Delivery Time: 4:38 AMDelivery SummaryThe patient was admitted to the Labor & Delivery unit for labor at 38 weeks 5 daysDelivery Physician: MENDEZ Meyer Faculty: Odessa Hays MDIntrapartum Anesthesia/Analgesia: NoneMode of Delivery: Delivery of goff fetus with cephalic presentationFetusSpontaneous vaginal delivery of head with cephalic position, occipital anterior. As the head crowned and distended the perineum, no episiotomy was performed. A blue towel was used to protect the perineum as the head crowned and delivered. The other hand was used to exert pressure on the occiput to control the delivery of the head. The perineum was pushed with a towel-draped hand as the head and mouth was delivered over the perineum. The head was allowed to rotate externally to achieve natural body posture. Examination of neck revealed nuchal cord, which was Loose umbilical cord - reduced. The shoulder was delivered by gentle downward traction applied to head and downward traction for the delivery of anterior shoulder. This was followed by upward traction with delivery of posterior shoulder and body. After the delivery of , bulb suction was performed from ororpharynx and nostril with removal of clear amniotic fluid.A normal, male was delivered.The umbilical cord was double clamped, cut and the was handed off the field to the circulating nursePlacentaPlacenta was delivered spontaneously while the abdominal hand lifted the uterus cephalad and other hand keeping the umbilical cord slightly taut.LacerationLaceration Repair: No laceration repair needed.Fourth StageFourth stage of labor was managed by uterine massage with abdominal hand and infusion 30 units of pitocin mixed with intravenous fluid.EBL: 50Complications: noneWeight: 3500 g1 Minute 5 Minute 10 MinuteApgar Totals: 8 [place] [address]-0Pkyam and delivery summary mgsqXB8681-29-68I54:40:40Labor and delivery summary noteTXT1.2.840.118858.1.13.104.2.7. 2.747146|[id number] for patient zbsk51643-9ZvseIRTAYSHUUQIKuucwekcg C-CDA narrative textUTMBUT - [address] As[id number] 7XPOTICILLWFFXHLITONPZY3769-61-61E2 5:40:401.2.840.262139.1.72.3.15|1.2 .840.955379.1.13.104.2.7.2.727879_1 [id number] [facility] 2023-11-30 04:00:20 YHahIrFDpvEP2mm2x7tkygMEsEyWj6pFJ0N xdcs1JMAKkSWhuCnNVpME+QsYyrcn8632-5 04:00:20 Name/ MRN / Age / Gender:Niraj Boles, [id number] year old femaleBMI:Estimated body mass index is 40.72 kg/m? as calculated from the following:Height as of this encounter: 1.702 m (5' 7").Weight as of this encounter: 117.9 kg (260 lb).Allergies:Patient has no known allergies.Last Vitals:BP Readings from Last 1 Encounters:11/30/23 91/53Pulse Readings from Last 1 Encounters:11/30/23 81SpO2 Readings from Last 1 Encounters:11/30/23 100%Date of Surgery:Surgeon: * Surgery not found *Procedure: CENTRAL NEURAXIAL BLOCKOR Location: * No surgery found *Anesthesia Preop Eval (physical exam)Anesthesia Preop: Zntj-kb-JlupTXLV Risk Factors: femaleAnesthesia HistoryAnesthesia History NegativePrevious Anesthetics/AirwaysCardiovascularNe gative Cardiac ROSMETS: 5-6PulmonaryNegative Pulmonary ROSNeuro/Musculoskeletal(+) Anxiety(+) ObesityGI/HepaticNegative GI/Hepatic ROSHematologyNegative Hematology ROSRenalNegative Renal ROSSkinEndo/OtherNegative Endo/Other ROSOtherOB/GYNP: 1Gestational Age: 37.5PediatricNeonatalPreoperative Medication InstructionsContinue taking all prescribed medications except:CAESAR inhibitors, ARBs, diuretics, all oral diabetes medicationsAnticoagulant Therapy: Defer to surgeonsInsulin: Take 1/2 dose the night prior to surgery. Hold on DOS.Phentermine: [facility] anesthesiologistSGLT2 Inhibitors: "gliflozins" to be held for 3 days prior to elective surgeriesGLP1 Agonosit: stop 7 days prior to surgeryMAC Cases: Continue taking CASEAR inhibitors and ARBsASA ClassificationASA: 3Current Medications:No outpatient medications have been marked as taking for the 11/30/23 encounter (Hospital Encounter).Previous Surgeries:Past Surgical History:Procedure Laterality Date TONSILLECTOMYAnesthesia Physical ExamGeneralalert and oriented x 3Neuro/Psychneurological NonfocalDentalno notable dental hxAbdominal(+) obesity and gravidAirwayMallampati score:IITM distance:> 5 cmNeck ROM: fullMouth opening:normal(+) Normal faciesExtremityNormal extremityPulmonarypulmonary exam normal and bilateral clear to auscultation OtherCardiovascularcardiovascular exam normalRhythm:RegularRate: NormalAnesthesia PlanASA Status: 3Plan discussed during pre-op evaluation: General, Epidural and SpinalAnesthetic plan on DOS: EpiduralAnesthesia plan discussed with: patient or representativePost-Operative Analgesia: routine analgesia & antiemeticsRecovery Plan: LDRAdditional comments: 87903-5Nbgvhgxpzbspmy Preoperative evaluation and management ktsfDZ3911-85-10P92:02:41Anesthesio logy Preoperative evaluation and management noteTXT1.2.840.968433.1.13.104.2.7. 2.838103|[id number] for patient xzau18076-2Kwqhwdiy operation noteLNNARRATIVEFormatted C-CDA narrative textAN-ANESTHESIOLOGY ANESTHESIOLOGISTAN-ANESTHESIOLOGY ANESTHESIOLOGIST[address] Yp[id number] 6QGGSOFGZMJZKWOITMVUAEN4950-40-41V9 4:02:411.2.840.064215.1.72.3.15|1.2 .840.791310.1.13.104.2.7.2.727879_1 [id number] AN-ANESTHESIOLOGY ANESTHESIOLOGIST [facility] 2023-11-30 02:33:34 oaqDxxW1nNT1uWkTgnLoC3BpTb1Ibq9h/SC evdJHhzEUQUVJ1GeLMGBDHkrQ9Fit2339-8 1-07T02:33:34 Problem: Intrapartum process (including labor pain)Goal: Absence of or reduction of complications of laborOutcome: Progressing as expectedGoal: Able to cope with painOutcome: Progressing as expectedGoal: Adequate to move to next level of careOutcome: Progressing as expectedGoal: Reduction in pain sensationOutcome: Progressing as expectedProblem: Infection RiskGoal: Absence of infectionOutcome: Progressing as expectedProblem: Falls, Risk ofGoal: Absence of fallsOutcome: Progressing as expectedProblem: Discharge Planning - PostpartumGoal: Adequate for dischargeOutcome: Progressing as expectedGoal: Mood stableOutcome: Progressing as expected 63503-0Gsta of care ehogEB0828-55-25C27:33:43Plan of care noteTXT1.2.840.187671.1.13.104.2.7. 2.726288|[id number] for patient qzxa07402-7TohtVLVQLLEZDJLOyietmlan C-CDA narrative textUT[address] Fh[id number] 9BDEYFNJNEYWTUUJMGVXGVC4696-81-09Z7 2:33:431.2.840.502510.1.72.3.15|1.2 .840.781131.1.13.104.2.7.2.727879_1 [id number] [facility] 2023-11-30 00:36:20 XkqCZX7H/27ym2nry3rgIkWkLYEpaukhV76 Vw5OhIsBTha1eagUCYfKO6qPeB+Ef3558-000:36:20 Pt arrives ambulatory to ED reporting contractions 5 min apart that have become increasingly stronger throughout the day. She says that she lost her mucous plug this morning.D0U6Tehgvj called to L&D charge phone Pat RN took report. 55311-8Uvxaeednf department Triage fosbZD5354-74-16B30:39:26Emeshriners [facility] department Triage noteTXT1.2.840.085256.1.13.104.2.7. 2.659655|[id number] for patient oibk24283-4Ennmaimjq department NoteLNNARRATIVEFormatted C-CDA narrative [id number] L Williams RNUT[address] VbvwKdtughzutOkaqlrpmtITKB521871896 7GRGEDVDVOVJVEKMSZXIPQO8616-57-73L0 0:39:261.2.840.725679.1.72.3.15|1.2 .840.164993.1.13.104.2.7.2.727879_1 [id number] Trice Simental RN [facility] 2023-11-28 08:45:00 0wkYQ6Bdnu/B+/vl0K3b+mgf1ChXK0aAtid 9mrwOE9j/ZsvI+n8ITjsoV8bC7Jdy3045-8 08:45:00 Age: 23 year oldGA: 05g7lMqtkenfpc contractions-SVE /high-Labor precautions givenInduction scheduled for 12/02/2023 if clinically indicated otherwiseAnxiety/depression-States that she is feeling more depressed as she is uncomfortable with her body currently. She does not want to go to work looking overweight.-EPDS 16. Denies SI/HI. ANGELLA-7 score 8.-Patient currently on Atarax 25 mg nightly and eSCitalopram 20 mg daily-Patient currently followed by psych at [facility]. Was seen last month. Has a follow-up appointment scheduled for 12/10/2023-Encourage patient to keep appointments with psych-ER precautions and crisis hotline givenDaily kick counts and labor precautions givenFollow-up in 4-6 wks for PP visit 84036-3Huzbrwxt emqeGL1592-57-70Q58:19:15Progress noteTXT1.2.840.899722.1.13.104.2.7. 2.805997|[id number] for patient uhmm86080-1McvrZSYACHUJYVGZqamgdqla C-CDA narrative text[id number] 3CSAVKRAATHLNVAYZVQDVVR0954-41-25V3 9:19:151.2.840.860875.1.72.3.15|1.2 .840.647160.1.13.104.2.7.2.727879_1 [id number] [facility] 2023-11-27 09:56:00 wuSiuHQ9Pl8wP1AaCKTFipKWoN8+gUreUo4 0/4u+ctWiQLPfwa1rZXqqa4mAdCVx3170-0 09:56:00 [place] form completed and faxed.Matthew You RN 11/27/2023 9:56 AM 46325-5Xzmudfncm encounter EchgPX5942-49-88P10:56:33Telephone encounter NoteTXT1.2.840.753833.1.13.104.2.7. 2.212917|[id number] for patient ralz51454-9JeroZAHYUNZSLSTPzndmbmnd C-CDA narrative aewk740435659Jlcsxne Collins RNUT[address] [id number] 0VLGXQMAZUVOHPUAVMADYFO3376-13-09V4 9:56:331.2.840.710337.1.72.3.15|1.2 .840.496691.1.13.104.2.7.2.727879_1 [id number] Matthew You RN [facility] 2023-11-19 14:45:00 vmKNrAeZkLuBqo7ywP4ghcVZyv9zEZolB6R oiKISHHErNXCQjsKfQ+W87mwbdTqb0675-8 01-20T14:45:00 Age: 23 year oldGA: 31q8lEkbkhre a private of Dr. Hays. Patient desires to switch care back to me as I delivered her last baby and wants me to deliver her again.Decreased movement-Reports decreased movement since 11/15/2023-NST reactive and reassuring-To labor and delivery for BPPAnxiety/depression-States that she is feeling more depressed as she is uncomfortable with her body currently. She does not want to go to work looking overweight.-EPDS 20. Denies SI/HI. ANGELLA-7 score 9.-Patient currently on Atarax 25 mg nightly and eSCitalopram 20 mg daily-Patient currently followed by psych at [facility]. Was seen last month. Has a follow-up appointment scheduled for 12/10/2023-Encourage patient to keep appointments with psych-ER precautions and crisis hotline givenPatient wants a note to stop working since she is scheduled to be induced on 12/02/2023. I think is reasonable. A letter given.Reports hips and back pain with walking. discomforts discussed.Daily kick counts and labor precautions givenFollow-up in 1 week if discharged from labor and delivery 69205-4Xmxeippa nibrND9084-21-92T17:19:39Progress noteTXT1.2.840.402293.1.13.104.2.7. 2.166031|[id number] for patient raoi61620-2HhxoKHSEYLEKHUCKiutxzebk C-CDA narrative textUTGALLUP INDIAN MEDICAL [facility] - [address] Jg[id number] 3FPTIGIMYUUQEIFDNTOPIUC7219-47-05E9 0:19:391.2.840.606663.1.72.3.15|1.2 .840.593242.1.13.104.2.7.2.727879_1 [id number] [facility] 2023-08-05 11:00:00 7QzEdXM04YyUkAGeEjJ7D8eQQQcsLbujGb2 ky8SP39I7fxvwzThKr/LfkvOudOM20896-9 08-05T11:00:00 Age: 23 year oldGA: 22w0d 1. High-risk in second trimester2. 22 weeks gestation of - No concerns today-2nd trimester teaching reviewed- 28 weeks labs next visit- POCT URINALYSIS W/O SPECIFIC GRAVITY- CBC WITH DIFF; Future- WORKUP, BLOOD BANK; Future- ADC OR CLARICE ONLY - RPR; Future- HIV 1/2 AG-AB WITH REFLEX; Future- GLUCOSE 1 HOUR POST PRANDIAL; Future3. Prior complicated by PIH, antepartum, second trimester- BP WNL- continue with low dose aspirin4. Depression complicating , antepartum, second trimesterRestarted her meds. Mood improved significantlyEDPS 4 and ANGELLA 7 of 1ROB in 4 weeks [place] [address]-5Xvcdqhhj moxqMV0095-22-92K86:36:33Progress noteTXT1.2.840.143360.1.13.104.2.7. 2.847448|[id number] for patient ykbl14044-7YewtZJQYCCSPLE[address] Eq[id number] 1FNLOFRIJUSSANCKCBFUKBK9413-86-92P1 1:36:331.2.840.705403.1.72.3.15|1.2 .840.255684.1.13.104.2.7.2.727879_1 [id number] [facility] 2023-07-25 09:00:00 n6m29GYTIaxll/bov6Fw3pJq3BlQWCHkE61 XNFVMIEu+8R9p5yIx5coDhcvqFpHP2208-6 07-25T09:00:00 Anatomy ultrasound reviewed. Anterior placenta; no previa. Breech. 31% efw. 3.7cm cervical length (normal).Nayan Terry NP 07/26/2023 11:53 AM 12393-5Wbndzyjp gymxHA3552-62-95G11:53:34Progress noteTXT1.2.840.760559.1.13.104.2.7. 2.058163|[id number] for patient swpr90734-2PuxuSCMWEZAKUB[address][id number] 1BNHTIZDAXQDSNXRBMDAQUM9884-21-26O9 1:53:341.2.840.732248.1.72.3.15|1.2 .840.803967.1.13.104.2.7.2.727879_1 [id number] [facility] 2023-07-08 11:00:00 gGvRx52Ro5z9/ANInDlQCVpPXZ8nhVvJE5m +WVLE7WNOZIteUC0U1wD3XSmuJkwQ1839-0 07-08T11:00:00 Age: 22 year oldGA: 18w0d 1. High-risk in second trimester2. 18 weeks gestation of - Anatomy scan scheduled in Jul- POCT URINALYSIS W/O SPECIFIC GRAVITY- ALPHA FETOPROTEIN-MATERNAL SER; Future- URINE CULTURE; Future- URINE CULTURE3. Prior complicated by PIH, antepartum, second trimester- BP WNL- Continue with LDA4. Depression complicating , antepartum, second trimesterPatient stopped her Escitalopram 3 weeks ago because her BF thinks the medication will be harmful to the baby but she has been struggling with her mood and feels that it will get worstEPDS is 10 and ANGELLA 2 today- We discussed restarting the medication. I advised that her partner comes in with her for a visit, so that I can educate him on the issue and also answer any questions he might have.but she reports that he is currently out of town and asked for written information to share with himACOG information on depression was provided- I will continue to monitor her symptoms and she can call if there is any concerns.JUANITO in 4 [place] [address]-1Gfdsgiup lrhxAU9117-46-24G23:57:30Progress noteTXT1.2.840.650413.1.13.104.2.7. 2.024420|[id number] for patient txys15621-6JctgLKVOWWBUZO[address] Qn[id number] 9FONRLFNEYDTCUNBQZOTQSG5649-84-05T8 3:57:301.2.840.355266.1.72.3.15|1.2 .840.565386.1.13.104.2.7.2.727879_1 [id number] [facility]
[2024-03-29] MEDS ORDERED: NA CHLORIDE 0.9% 1,000 ML ONE (23:41)
[2024-03-29] MEDS ORDERED: FAMOTIDINE 20 MG/2 ML VIAL IV ONE (23:41)
[2024-03-29] MEDS ORDERED: KETOROLAC 30 MG/ML INJ ONE (23:41)
[2024-03-29] MEDS ORDERED: ONDANSETRON 4 MG/2 ML VIAL ONE (23:41)
[2024-03-29 23:54] LABS: Absolute Lymphocytes (CBC) 0.1 K/uL (0.7-4.9); Absolute Monocytes 0.4 K/uL (0.1-1.3); Absolute Neutrophil 4.1 K/uL (1.8-8.0); Basophils % 0.2 % (0-1.3); Eosinophils % 0.4 % (0-4.4); Hematocrit 40.6 % (36.0-45.0); Hemoglobin 13.9 g/dL (12.0-15.0); Lymphocytes % 3.2 % (15.3-44.8); MCH 31.1 pg (27.0-35.0); MCHC 34.2 g/dL (32.0-36.0); MPV 7.1 fL (7.6-11.3); Neutrophils % 88.2 % (41.7-73.7); Nucleated Red Blood Cells % 0.1 % (0-0); Platelets 227 thou/uL (152-406); RBC Red Blood Cell Count 4.46 M/uL (3.86-4.86); Red Cell Distribution Width 12.9 % (12.1-15.2)
[2024-03-30 00:07] LABS: Albumin 3.9 g/dL (3.4-5.0); Albumin/Globulin Ratio 1.1 (1.1-1.8); Anion Gap 6.5 mEq/L (5.0-15.0); Bilirubin Total 0.5 mg/dL (0.2-1.0); Globulin 3.6 g/dL (2.3-3.5); Potassium 3.5 mEq/L (3.5-5.1); Protein, Total 7.5 g/dL (6.4-8.2)
[2024-03-30 01:06] LABS: Specific Gravity 1.011 (1.005-1.030); Urine Bilirubin NEGATIVE (Negative); Urine Blood Negative (Negative); Urine Clarity Clear (Clear); Urine Color Light-Yellow (Yellow); Urine Glucose NEGATIVE (Negative); Urine Ketones TRACE (Negative); Urine Microscopic Reflex YN NO UMIC; Urine Nitrite NEGATIVE (Negative); Urine Protein NEGATIVE (Negative); Urine Urobilinogen Normal (Normal); Urine pH 6.5 (5.0-7.0)
[2024-03-30 01:07] LABS: Specific Gravity 1.011 (1.005-1.030)
[2024-03-30 01:22] LABS: Band Neutrophils 15 % (0-1); Differential Total Cells Count 100; Lymphocytes 4 % (15-42); Monocytes 6 % (0-10); Segmented Neutrophils 75 % (40-80)
[2024-03-30 01:23] LABS: Blood Morphology Comment NOT SEEN (NOT SEEN); Platelet Estimate ADEQ
--- NOTE | 2024-03-30 01:50 | ER ---
Nurse's Notes [facility] Name: Lanie Wood Age: 23 yrs Sex: Female : 2000 Arrival Date: 03/29/2024 Time: 22:56 Bed 6 Private MD: Diagnosis: Nausea with vomiting, unspecified;Diarrhea, unspecified Presentation: 03/29 23:19 Chief complaint: Patient states: vomiting and diarrhea for 24 hours. vc1 23:20 Coronavirus screen: Client denies travel out of the [place] in the last 14 days. diarrhea, vc1 fatigue, fever, nausea, vomiting. Ebola Screen: Patient negative for fever greater than or equal to 101.5 degrees Fahrenheit, and additional compatible Ebola Virus Disease symptoms Patient denies exposure to infectious person. Patient denies travel to an Ebola-affected area in the 21 days before illness onset. No symptoms or risks identified at this time. Initial Sepsis Screen: Does the patient meet any 2 criteria? No. Patient's initial sepsis screen is negative. Does the patient have a suspected source of infection? No. Patient's initial sepsis screen is negative. Risk Assessment: Do you want to hurt yourself or someone else? Patient reports no desire to harm self or others. Onset of symptoms was March 28, 2024. 23:20 Method Of Arrival: Wheelchair vc1 23:20 Acuity: KATIE 3 vc1 Triage Assessment: 23:21 General: Appears uncomfortable, ill, Behavior is cooperative. Pain: Complains of pain vc1 in abdomen Pain does not radiate. Pain currently is 9 out of 10 on a pain scale. EENT: No deficits noted. No signs and/or symptoms were reported regarding the EENT system. Neuro: Level of Consciousness is awake, alert, obeys commands, Oriented to person, place, time, situation, Appropriate for age. Cardiovascular: No deficits noted. Respiratory: Airway is patent Respiratory effort is even, unlabored, Respiratory pattern is regular, symmetrical. GI: Bowel sounds hyperactive in right upper quadrant, left upper quadrant, right lower quadrant and left lower quadrant Reports lower abdominal pain, upper abdominal pain, cramping, diarrhea, intolerance of fluids, intolerance of food, nausea, Pain is 9 out of 10 on a pain scale. vomiting. 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 Flu vaccine is not up to date. - Infectious Disease History:: Denies. - Social history:: Smoking status: Reported history of juuling and/or vaping. Screenin:23 [facility] ED Fall Risk Assessment (Adult) History of falling in the last 3 months, vc1 including since admission No falls in past 3 months (0 pts) Confusion or Disorientation No (0 pts) Intoxicated or Sedated No (0 pts) Impaired Gait No (0 pts) Mobility Assist Device Used No (0 pt) Altered Elimination No (0 pt) Score/Fall Risk Level 0 - 2 = Low Risk Oriented to surroundings, Maintained a safe environment, Educated pt \T\ family on fall prevention, incl call for assistance when getting out of bed. Abuse screen: Denies threats or abuse. Nutritional screening: No deficits noted. Tuberculosis screening: No symptoms or risk factors identified. Assessment: 03/30 00:12 Reassessment: Patient appears in no apparent distress at this time. Patient and/or bm8 family updated on plan of care and expected duration. Pain level reassessed. Patient is alert, oriented x 3, equal unlabored respirations, skin warm/dry/pink. Patient states feeling better. Patient states symptoms have improved. General: Appears in no apparent distress. comfortable, Behavior is calm, cooperative. Pain: Complains of pain in abdomen Pain does not radiate. Pain currently is 4 out of 10 on a pain scale. Neuro: Level of Consciousness is awake, alert, obeys commands, Oriented to person, place, time, situation. Cardiovascular: Denies chest pain, Capillary refill < 3 seconds Patient's skin is warm and dry. Respiratory: No deficits noted. Airway is patent Trachea midline Respiratory effort is even, unlabored, Respiratory pattern is regular, symmetrical. GI: Abdomen is flat, non-distended, Bowel sounds present X 4 quads. hyperactive in right upper quadrant and abdomen diffusely Reports nausea. 01:17 Reassessment: Patient appears in no apparent distress at this time. No changes from km8 previously documented assessment. Patient and/or family updated on plan of care and expected duration. Pain level reassessed. Patient is alert, oriented x 3, equal unlabored respirations, skin warm/dry/pink. 01:58 Reassessment: Patient appears in no apparent distress at this time. Patient and/or bm8 family updated on plan of care and expected duration. Pain level reassessed. Patient is alert, oriented x 3, equal unlabored respirations, skin warm/dry/pink. Patient denies pain at this time. Patient states feeling better. Patient states symptoms have improved. Vital Signs: 03/29 23:20 BP 108 / 69; Pulse 99; Resp 14; Temp 98.1; Pulse Ox 96% ; vc1 03/30 00:11 BP 130 / 77; Pulse 87; Resp 16; Pulse Ox 99% on R/A; km8 01:17 BP 121 / 75; Pulse 79; Resp 16; Pulse Ox 100% on R/A; km8 01:58 BP 102 / 59; Pulse 78; Resp 17; Temp 98.1; Pulse Ox 100% ; Pain 0/10; bm8 01:58 Pain Scale: Adult bm8 ED Course: 03/29 22:58 Patient arrived in ED. mr 23:01 Kristie Velasquez FNP-C is [facility]. kb 23:01 Ceasar Soto MD is Attending Physician. kb 23:21 Triage completed. vc1 23:23 Arm band placed on right wrist. vc1 23:24 Patient has correct armband on for positive identification. Bed in low position. Call vc1 light in reach. Pulse ox on. NIBP on. 23:31 Avni Cardoza, RN is Primary Nurse. bm8 03/30 00:13 Door closed. Noise minimized. Visitors limited. Warm blanket given. Verbal reassurance bm8 given. 00:13 No provider procedures requiring assistance completed. Inserted saline lock: 20 gauge bm8 in right antecubital area, using aseptic technique. Blood collected. 00:55 Urinalysis w/ reflexes Sent. 00:55 Test, Urine Sent. 00:56 Urine collected: clean catch specimen. km8 01:[address] via stretcher. km8 01:10 CT Abd/Pelvis - IV Contrast Only In Process Unspecified. EDMS 01:17 Patient moved back from [address]. km8 01:58 Provided Education on: post er care. bm8 01:58 IV discontinued, intact, bleeding controlled, No redness/swelling at site. Pressure bm8 dressing applied. Administered Medications: 03/29 23:46 Drug: NS 0.9% IV 1000 ml IV at 1 bolus Per protocol; 1000 mL bolus Route: IV; Rate: 1 bm8 bolus; Site: right antecubital; 03/30 00:06 Follow up: Response: No adverse reaction; IV Status: Completed infusion; IV Intake: bm8 1000ml 03/29 23:46 Drug: Famotidine IVP 20 mg IVP once; dilute with 10 mL 0.9% NaCl; give over 2 minutes bm8 Route: IVP; Site: right antecubital; 03/30 00:05 Follow up: Response: No adverse reaction bm8 03/29 23:46 Drug: Ondansetron IVP 4 mg IVP once; over 2 minutes Route: IVP; Site: right antecubital;bm8 03/30 00:06 Follow up: Response: No adverse reaction bm8 03/29 23:47 Drug: TORadol - Ketorolac IVP 15 mg IVP once Route: IVP; Site: right antecubital; bm8 03/30 00:06 Follow up: Response: No adverse reaction bm8 Medication: 03/29 23:24 VIS not applicable for this client. vc1 Intake: 03/30 00:06 IV: 1000ml; Total: 1000ml. bm8 Outcome: 01:49 Discharge ordered by . kb 01:58 Discharged to home ambulatory, with family, bm8 01:58 Condition: stable 01:58 Discharge instructions given to patient, Instructed on discharge instructions, follow up and referral plans. medication usage, safety practices, Demonstrated understanding of instructions, follow-up care, medications, Prescriptions given X 1, 02:01 Patient left the ED. bm8 Signatures: Dispatcher [employer] EDMS Kristie Velasquez, MASSOTHERAPIST-C MASSOTHERAPIST-Zamzam Esparza, Luciano Reg mr Janis Robertson, RN RN vc1 Sharon Schaeffer, NILA RN km8 Avni Cardoza RN RN bm8
--- NOTE | 2024-03-30 01:50 | EDPHYS ---
Physician Documentation [facility] Name: Lanie Wood Age: 23 yrs Sex: Female : 2000 Arrival Date: 03/29/2024 Time: 22:56 Bed 6 Private MD: ED Physician Ceasar Soto HPI: 03/30 00:03 This 23 yrs old Female presents to ER via Wheelchair with complaints of kb Vomiting/Diarrhea, Dehydrated. 00:03 Pt is a 23 year old female who presents for diffuse abd pain, n/v/d that started 24 kb hours ago. States she has weakness from dehydration and has passed out twice. Denies fever. 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 Flu vaccine is not up to date. - Infectious Disease History:: Denies. - Social history:: Smoking status: Reported history of juuling and/or vaping. ROS: 03/30 00:03 Constitutional: As per HPI kb Exam: 00:03 Constitutional: This is a well developed, well nourished patient who is awake, alert, kb and in no acute distress. Head/Face: Normocephalic, atraumatic. ENT: Moist Mucous membranes Cardiovascular: Regular rate Respiratory: Respirations even and unlabored. No increased work of breathing. Talking in full sentences Abdomen/GI: Soft, non-tender. No distention Skin: Warm, dry with normal turgor. Normal color. MS/ Extremity: Pulses equal, no cyanosis. Neurovascular intact. Full, normal range of motion. Neuro: Awake and alert, GCS 15, oriented to person, place, time, and situation. Moves all extremities. Normal gait. Vital Signs: 03/29 23:20 BP 108 / 69; Pulse 99; Resp 14; Temp 98.1; Pulse Ox 96% ; vc1 03/30 00:11 BP 130 / 77; Pulse 87; Resp 16; Pulse Ox 99% on R/A; km8 01:17 BP 121 / 75; Pulse 79; Resp 16; Pulse Ox 100% on R/A; km8 01:58 BP 102 / 59; Pulse 78; Resp 17; Temp 98.1; Pulse Ox 100% ; Pain 0/10; bm8 01:58 Pain Scale: Adult bm8 MDM: 03/29 23:01 Patient medically screened. kb 03/30 01:49 Data reviewed: vital signs, nurses notes. kb 01:49 Differential diagnosis: Nonspecific abd pain, gastritis, diverticulitis, viral kb gastroenteritis. Counseling: I had a detailed discussion with the patient and/or guardian regarding the historical points, exam findings, and any diagnostic results supporting the discharge/admit diagnosis, lab results, radiology results, the need for outpatient follow up, a family practitioner, to return to the emergency department if symptoms worsen or persist or if there are any questions or concerns that arise at home. 03/29 23:17 Order name: CBC with Diff; Complete Time: 01:23 kb 03/29 23:17 Order name: CMP; Complete Time: 00:09 kb 03/29 23:17 Order name: Lipase; Complete Time: 00:09 kb 03/29 23:17 Order name: Test, Urine; Complete Time: 01:18 kb 03/29 23:17 Order name: Urinalysis w/ reflexes; Complete Time: 01:08 kb 03/30 00:06 Order name: Manual Differential; Complete Time: 01:23 EDMS 03/29 23:17 Order name: CT Abd/Pelvis - IV Contrast Only kb 03/29 23:17 Order name: IV Saline Lock; Complete Time: 23:47 kb 03/29 23:17 Order name: Labs collected and sent; Complete Time: 23:47 kb Administered Medications: 03/29 23:46 Drug: NS 0.9% IV 1000 ml IV at 1 bolus Per protocol; 1000 mL bolus Route: IV; Rate: 1 bm8 bolus; Site: right antecubital; 03/30 00:06 Follow up: Response: No adverse reaction; IV Status: Completed infusion; IV Intake: bm8 1000ml 03/29 23:46 Drug: Famotidine IVP 20 mg IVP once; dilute with 10 mL 0.9% NaCl; give over 2 minutes bm8 Route: IVP; Site: right antecubital; 03/30 00:05 Follow up: Response: No adverse reaction bm8 03/29 23:46 Drug: Ondansetron IVP 4 mg IVP once; over 2 minutes Route: IVP; Site: right antecubital;bm8 03/30 00:06 Follow up: Response: No adverse reaction 8 03/29 23:47 Drug: TORadol - Ketorolac IVP 15 mg IVP once Route: IVP; Site: right antecubital; bm8 03/30 00:06 Follow up: Response: No adverse reaction 8 Disposition: 04:07 Co-signature as Attending Physician, Ceasar Soto MD I agree with the assessment sp4 and plan of care. I reviewed the patient's care provided by Advanced Practice Provider \T\ agree w/ the diagnosis \T\ care plan. I personally saw the pt \T\ performed a substantive portion of the visit, incldng all aspects of the (History/Exam/Medical Decision Making). Disposition Summary: 03/30/24 01:49 Discharge Ordered Notes: Location: Home kb Condition: Stable kb Diagnosis - Nausea with vomiting, unspecified kb - Diarrhea, unspecified kb Followup: kb - With: Emergency Department - When: As needed - Reason: Worsening of condition Followup: kb - With: Private Physician - When: 2 - 3 days - Reason: Recheck today's complaints, Continuance of care, Re-evaluation by your physician Discharge Instructions: - Discharge Summary Sheet kb - Viral Gastroenteritis, Adult, [id number] kb Forms: - Work release form kb - Medication Reconciliation Form kb - Antibiotic Education kb - Prescription Opioid Use kb - Patient Portal Instructions kb - Leadership Thank You Letter kb Prescriptions: - ondansetron 4 mg Oral Tablet,disintegrating - take 1 tablet ORAL route every 6 hours As needed; 12 tablet; Refills: 0, kb Product Selection Permitted Signatures: Dispatcher [employer] EDMS Kristie Velasquez, IVANNA-Maria L SARGENTP-Janis Vasquez RN RN vc1 Ceasar Soto MD MD sp4 Avni Cardoza, RN RN bm8 Corrections: (The following items were deleted from the chart) 03/29 23:18 23:18 CBC+H.LAB.BRZ ordered. EDMS EDMS 23:18 23:18 COMPREHENSIVE METABOLIC PANEL+C.LAB.BRZ ordered. EDMS EDMS 23:18 23:18 LIPASE+C.LAB.BRZ ordered. EDMS EDMS 23:18 Test, Urine+UC.LAB.BRZ ordered. EDMS EDMS 23:18 Urinalysis+U.LAB.BRZ ordered. EDMS EDMS
[2024-03-30 02:22] VITALS: BP 102/59; TEMP 98.1; O2SAT 100
--- NOTE | 2024-03-30 10:38 | RAD REPORT ---
EXAM DESCRIPTION: Abdomen Pelvis W Contrast 03/30/2024 1:38 AM CDT CLINICAL HISTORY: 23 years, Female, ABD PAIN COMPARISON: None TECHNIQUE: Contrast-enhanced images of the abdomen and pelvis were performed utilizing 5 mm slice th ickness at 5 mm interval reconstruction from the lung bases to the ischial tuberosities after the adm inistration of IV contrast. In addition multiplanar reformats in the coronal and sagittal plane were obtained and reviewed. An individualized dose optimization technique, Automated Exposure Control, was utilized for the perfo rmed procedure. FINDINGS: Lung bases: The lung bases demonstrate to be clear. Liver: The liver demonstrated presence of decreased attenuation corresponding to mild fatty infiltrat ion. Gallbladder: The gallbladder demonstrate to be normal. Adrenal glands: The adrenal glands demonstrate to be normal. Pancreas: The pancreas demonstrate to be normal. Spleen: The spleen demonstrate to be within normal limits. Kidneys: The kidneys demonstrate normal uptake of contrast media. There is no evidence for nephroli thiasis and/or hydronephrosis. There are no significant cystic lesions. GI: Grossly the unopacified stomach, small bowel and large bowel demonstrate to be within normal limi ts. No evidence for bowel dilatation and/or free air. The appendix is normal. The left-sided colon de monstrate to be decompressed with no gross abnormalities. : The urinary bladder demonstrate to be partially distended with no gross abnormalities. Genitalia: The uterus demonstrate to be within normal limits. There are normal adnexal structures. Abdominal aorta: The aorta demonstrate to be within normal limits. Retroperitoneum: There is no retroperitoneal lymphadenopathy. There is no evidence for ascites and/or abnormal fluid collections. Bones: The bony structures demonstrate to be within normal limits. Soft tissues: The rest of the soft tissue and bony structures are within normal limits. IMPRESSION: Mild fatty infiltration of the liver. No evidence for nephrolithiasis and/or hydronephrosis. No evidence for acute intra-abdominal process. Electronically signed by: Ryan Rothman MD 03/30/2024 01:40 AM CDT Due to temporary technical issues with the PACS/Fluency reporting system, reports are being signed by the in house radiologists without review as a courtesy to insure prompt reporting. The interpreting radiologist is fully responsible for the content of the report.
== END 2024-03-30 02:01 | disposition home or self-care (01) ==
LOC: ER 22:56
DX: R11.2 Nausea with vomiting, unspecified (principal); R19.7 Diarrhea, unspecified; Z28.310 Unvaccinated for COVID-19
CPT/HCPCS: 85025; 36415; 81025; 81003; 83690; 80053; 74177; Q9967; J2405; J7030

== ENCOUNTER 2024-11-02 19:46 | Emergency (ER) | payer OTHER ==
--- OUTSIDE RECORDS SUMMARY | 2024-11-02 19:52 | XMS REPORT | Continuity of Care Document ---
Author Name Unknown Address [address] [facility] [place] [address] [facility] Address [address] [facility] [address] [place] [address] Care Team Providers Care [employer] Name Role Phone Geronimo Lozano Primary Care Physician + [phone] Yordan Hernandez MD Attending Clinician [phone] EbAshtyn Allen Attending Clinician [phone] ASHTYN LOVELL Attending Clinician Unavailable Unknown, Attending Attending Clinician Unavailab YORDAN Peña Attending Clinician Unavailable Mary HENSON, Yordan Herrera Attending Clinician [phone] Pob, [facility] Main Attending Clinician Unavailabl e Doctor Unassigned, [place] Attending Clinician U Odessa Milton MD Attending Clinician [phone] ODESSA HAYS Attending Clinician Unavailable Julio HENSON, Nat Price Attending Clinician [phone] [email or web address] Attending Clinician Unavaila nathalie Muro MD, Kym Attending Clinician + [phone] Nayan Terry NP Attending Clinician + [phone] VALERIE HEREDIA Attending Clinician Unavailable VALERIE HEREDIA Attending Clinician Unavailable Ultrasound, Ang-Mfm Attending Clinician Unavaila Valerie Moreno MD Attending Clinician [phone] NAYAN TERRY Attending Clinician KYM Blankenship Attending Clinician GERMAN Knox Attending Clinician ODESSA Khan Admitting Clinician Unavailable MARY, YORDAN HERRERA Admitting Clinician Unavailable Mary HENSON, Yordan Herrera Admitting Clinician [phone] Odessa Hays MD Admitting Clinician [phone] [email or web address] Admitting Clinician Unavaila nathalie Payers Payer Name Policy Type Policy Number Effective Date Expirati on Date Source [facility] STAR [id number] 2023 00:00:00 MANAGED MEDICAID GENERIC NON-CONTRACT [id number] 2022 00:00:00 2023 00:00:00 Problems Condition Name Condition Details Condition Category Status Onset Date Resolution Date Last Treatment Date Treating Clinician Comments Source Status post bilateral salpingect martin Status post bilateral salpingect martin Disease Active 3-19 00:00: 00 [facility] Moderate episode of recurrent major [...] and would like some help. Referral to [facility]. [facility] Depression , unspecifie d depression type Depression , unspecifie d depression type Disease Active 06-11 00:00: 00 [facility] Anxiety Anxiety Disease Active 06-11 00:00: 00 [facility] Encounter for tubal ligation Encounter for tubal ligation Disease Resolve d 2 00:00: 00 2024-03-05 00:00:00 2024-03-05 10:59:15 [facility] Liveborn infant, of goff , born in hospital by vaginal delivery Liveborn , of goff , born in hospital by vaginal delivery Disease Resolve d 1-07 00:00: 00 2024-01-23 00:00:00 2024-01-23 09:57:09 [facility] Uterine contractio ns Uterine contractio ns Disease Resolve d 1-07 00:00: 00 2024-01-23 00:00:00 2024-01-23 09:57:04 [facility] 38 weeks gestation of 38 weeks gestation of Disease Resolve d 1-07 00:00: 00 2024-01-23 00:00:00 2024-01-23 09:57:18 [facility] Mental disorder affecting in third trimester Mental disorder affecting in third trimester Disease Resolve d 1- 00:00: 00 2024-01-23 00:00:00 2024-01-23 09:57:20 [facility] Morbid obesity with body mass index of 40.0-49.9 Morbid obesity with body mass index of 40.0-49.9 Disease Resolve d 1- 00:00: 00 2024-01-23 00:00:00 2024-01-23 09:57:22 [facility] High-risk in third trimester High-risk in third trimester Disease Resolve d 1-05 00:00: 00 2024-01-23 00:00:00 2024-01-23 09:57:18 [facility] Moderate episode of recurrent major depressive disorder Moderate episode of recurrent major depressive disorder Disease Resolve d 8-16 00:00: 00 2024-01-23 00:00:00 2024-01-23 09:57:17 [facility] ANGELLA (generaliz ed anxiety disorder) ANGELLA (generaliz ed anxiety disorder) Disease Resolve d 8-16 00:00: 00 2024-01-23 00:00:00 2024-01-23 09:57:15 Overview: Formattin g of this note might be different from the original. Last Assessmen t & Plan: Formattin g of this note might be different from the original. Chronic and improving . Patient would like to see psycholog ist. She has Medicaid. Referral to [facility] care help with resources for Psycholog y, and to check on how she is doing off of all medicatio ns.. [facility] Vaginal yeast infection Vaginal yeast infection Disease Resolve d 2- 00:00: 00 2023-05-06 00:00:00 2023-05-06 20:56:02 [facility] Bradycardi a Bradycardi a Disease Resolve d 06-18 00:00: 00 2023-05-06 00:00:00 2023-05-06 20:56:04 [facility] Obesity (BMI 30-39.9) Obesity (BMI 30-39.9) Disease Resolve d 06-16 00:00: 00 2018-12-25 00:00:00 2018-12-25 11:23:37 [facility] - induced hypertensi on in third trimester - induced hypertensi on in third trimester Disease Resolve d 06-18 00:00: 00 2018-07-22 00:00:00 2018-07-22 10:35:49 [facility] 39 weeks gestation of 39 weeks gestation of Disease Resolve d 06-16 00:00: 00 2018-07-22 00:00:00 2018-07-22 10:35:49 [facility] Elevated BP without diagnosis of hypertensi on Elevated BP without diagnosis of hypertensi on Disease Resolve d 06-16 00:00: 2018-06-18 00:00:00 2018-06-18 07:16:09 [facility] Allergies, Adverse Reactions, Alerts Allergy Name Allergy Type Status Severity Reaction(s) Onset Date Inactive Date Treating Clinician Comments Source NO KNOWN ALLERGIE S Drug Class Active [facility] Social History Social Habit Start Date Stop Date Quantity Comments Source ASSERTION 2023-03-18 00:00:00 [facility] Alcohol intake 2024-03-05 00:00:00 2024-03-05 00:00:00 Current drinker of alcohol (finding) [facility] Alcoholic beverage intake 2024-03-05 00:00:00 2024-03-05 00:00:00 Current drinker of alcohol (finding) [facility] History of Social function 2024-02-10 00:00:00 2024-02-10 00:00:00 [facility] Tobacco use and exposure 2023-05-06 00:00:00 2023-05-06 00:00:00 Smokeless tobacco non-user [facility] Alcohol Comment 2018-12-25 00:00:00 2018-12-25 00:00:00 occasional [facility] Sex assigned at 1999 00:00:00 2000 00:00:00 [facility] Smoking Status Start Date Stop Date Source Never smoked tobacco [facility] Medications Ordered Medication Name Filled Medication Name Start Date Stop Date Current Medication? Ordering Clinician Indication Dosage Frequency Signature (SIG) Comments Components Source multivit-mi nerals/foli c acid (MULTIVITAM IN GUMMIES ORAL) 03-05 11:04: 01 03-05 00:00 :00 No 1{dose} Take 1 Dose by mouth in the morning. [facility] escitalopra m oxalate 20 mg tablet 03-05 00:00: 00 Yes [id number] 20mg Take 1 tablet by mouth in the morning. [facility] bupivacaine (preserv free) (SENSORCAIN E MPF) 0.25 % (2.5 mg/mL) injection 02-09 14:58: 00 02-09 15:32 :01 No PRN, Starting on Fri02/10/24 at 0958, Until Fri02/10/24 at 1032, Routine, Intra-op [facility] water for irrigation irrigation solution 02-09 14:58: 00 02-09 15:32 :01 No PRN, Starting on Fri02/10/24 at 0958, Until Fri02/10/24 at 1032, Routine, Intra-op [facility] multivit-mi nerals/foli c acid (MULTIVITAM IN GUMMIES ORAL) 02-09 14:09: 48 Yes 1{dose} Take 1 Dose by mouth in the morning. [facility] lactated ringers IV infusion 1,000 mL 02-09 13:15: 00 02-09 13:21 :00 No 1000mL at 42 mL/hr, 1,000 mL, IV Infusion, ONCE, 1 dose, On Fri02/10/24 at 0815, Routine, DSU Pre-op [facility] simethicone 80 mg chewable tablet 02-09 00:00: 00 03-05 00:00 :00 No [id number] 80mg Take 1 tablet by mouth after meals and at bedtime. [facility] acetaminoph en (TYLENOL) 325 mg tablet 02-09 00:00: 00 03-05 00:00 :00 No [id number] 650mg Take 2 tablets by mouth every 6 (six) hours as needed for Pain (scale 1-3) or Pain (scale 4-6). [facility] ibuprofen 600 mg tablet 02-09 00:00: 00 03-05 00:00 :00 No [id number] 600mg Take 1 tablet by mouth every 6 (six) hours as needed for Pain (scale 1-3) or Pain (scale 4-6). [facility] HYDROcodone -acetaminop hen 5-325 mg tablet 02-09 00:00: 00 02-12 04:59 :00 No [id number] 1{tbl} Take 1 tablet by mouth every 6 (six) hours as needed for Pain (scale 7-10) for up to 2 days. Indication s: acute pain [facility] multivit-mi nerals/foli c acid (MULTIVITAM IN GUMMIES ORAL) 02-02 14:49: 21 Yes 1{dose} Take 1 Dose by mouth in the morning. [facility] escitalopra m oxalate 20 mg tablet 01-22 00:00: 00 03-05 00:00 :00 No [id number] 20mg Take 1 tablet by mouth in the morning. [facility] escitalopra m oxalate 20 mg tablet 12-31 00:00: 00 Yes [id number] 20mg Take 1 tablet by mouth in the morning. [facility] escitalopra m oxalate 20 mg tablet 12-02 07:56: 03 12-02 00:00 :00 No [id number] 20mg Take 1 tablet by mouth in the morning. [facility] escitalopra m oxalate 20 mg tablet 12-02 00:00: 00 12-31 00:00 :00 No [id number] 20mg Take 1 tablet by mouth in the morning. [facility] escitalopra m oxalate 20 mg tablet 12-01 11:57: 52 Yes [id number] 20mg Take 1 tablet by mouth in the morning. [facility] vit/iron fum/folic ac ( 1 + 1 ORAL) 12-01 06:39: 02 12-01 00:00 :00 No [id number] Take 1 TAB-CAP/M2 by mouth. [facility] vitamin w/FA tablet 12-01 00:00: 00 02-09 00:00 :00 No [id number] 102 1{tbl} Take 1 tablet by mouth in the morning. [facility] ferrous sulfate 325 mg (65 mg iron) tablet 12-01 00:00: 00 02-09 00:00 :00 No [id number] 102 325mg Take 1 tablet by mouth in the morning and 1 tablet in the evening. [facility] docusate 100 mg capsule 12-01 00:00: 00 02-05 00:00 :00 No [id number] 102 200mg Take 2 capsules by mouth once daily as needed for Constipati on. [facility] ibuprofen 600 mg tablet 12-01 00:00: 00 02-05 00:00 :00 No [id number] 102 600mg Take 1 tablet by mouth every 6 (six) hours as needed (Pain). Take with food or milk. [facility] HYDROcodone -acetaminop hen (NORCO 5) 5-325 mg tablet 1 tablet 11-30 11:38: 46 Yes 1{tbl} 1 tablet, Oral, Q6HPRN, Starting on 11/30/23 at 0538, Until Discontinu ed, Routine, Pain (scale 7-10) [facility] ibuprofen (IBU) tablet 600 mg 11-30 11:38: 46 Yes 600mg 600 mg, Oral, Q6HPRN, Starting on 11/30/23 at 0538, Until Discontinu ed, Routine, Pain (scale 4-6) [facility] acetaminoph en (TYLENOL) tablet 650 mg 11-30 11:38: 46 Yes 650mg 650 mg, Oral, Q6HPRN, Starting on 11/30/23 at 0538, Until Discontinu ed, Routine, Pain (scale 1-3) [facility] diphenhydrA MINE (BENADRYL) tablet 25 mg 11-30 11:38: 46 Yes 25mg 25 mg, Oral, Q6HPRN, Starting on 11/30/23 at 0538, Until Discontinu ed, Routine, Sleep, Itching [facility] ondansetron (ZOFRAN (PF)) injection 4 mg 11-30 11:38: 46 Yes 4mg 4 mg, Slow IV Push, Q8HPRN, Starting on 11/30/23 at 0538, Until Discontinu ed, Routine, Nausea and Vomiting (N/V) [facility] simethicone (GAS RELIEF (SIMETHICON E)) chewable tablet 160 mg 11-30 11:38: 46 Yes 160mg 160 mg, Oral, PC+HSPRN, Starting on 11/30/23 at 0538, Until Discontinu ed, Routine, Gas [facility] docusate (COLACE) capsule 200 mg 11-30 11:38: 46 Yes 200mg 200 mg, Oral, QDAILYPRN, Starting on 11/30/23 at 0538, Until Discontinu ed, Routine, Constipati on [facility] magnesium hydroxide (MILK OF MAGNESIA) 400 mg/5 mL suspension 30 mL 11-30 11:38: 46 Yes 30mL 30 mL, Oral, QDAILYPRN, Starting on 11/30/23 at 0538, Until Discontinu ed, Routine, Constipati on [facility] benzocaine- menthol (DERMOPLAST ) 20-0.5 % topical spray 11-30 11:38: 46 Yes Topical, PRN, Starting on 11/30/23 at 0538, Until Discontinu ed, Routine, Perineum discomfort [facility] FENTanyl PF (SUBLIMAZE (PF)) injection 100 mcg 11-30 08:23: 50 11-30 11:39 :32 No 100ug 100 mcg, Slow IV Push, Q1HPRN, Starting on 11/30/23 at 0223, Until 11/30/23 at 0539, Routine, Pain (scale 4-6), Pain (scale 7-10) [facility] D5W-LR IV infusion 1,000 mL 11-30 08:12: 09 11-30 11:39 :32 No 1000mL at 1-125 mL/hr, IV Infusion, TITRATE, Starting on Fri11/30/23 at 0212, Until 11/30/23 at 0539, Routine [facility] BABY ASPIRIN ORAL 11-30 03:12: 17 11-30 00:00 :00 No Take by mouth. [facility] escitalopra m oxalate 20 mg tablet 11-30 00:45: 19 Yes [id number] 20mg Take 1 tablet by mouth in the morning. [facility] vit/iron fum/folic ac ( 1 + 1 ORAL) 11-30 00:45: 19 Yes [id number] Take 1 TAB-CAP/M2 by mouth. [facility] escitalopra m oxalate 20 mg tablet 11-28 08:42: 04 Yes [id number] 20mg Take 1 tablet by mouth in the morning. [facility] vit/iron fum/folic ac ( 1 + 1 ORAL) 11-28 08:42: 04 Yes [id number] Take 1 TAB-CAP/M2 by mouth. [facility] escitalopra m oxalate 20 mg tablet 2022-11 18:49: 02 Yes [id number] 20mg Take 1 tablet by mouth in the morning. [facility] vit/iron fum/folic ac ( 1 + 1 ORAL) 2022-11 18:49: 02 Yes [id number] Take 1 TAB-CAP/M2 by mouth. [facility] escitalopra m oxalate 20 mg tablet 2022-11 10:16: 22 Yes [id number] 20mg Take 1 tablet by mouth in the morning. [facility] vit/iron fum/folic ac ( 1 + 1 ORAL) 2022-11 10:16: 22 Yes [id number] Take 1 TAB-CAP/M2 by mouth. [facility] metroNIDAZO LE (FLAGYL) tablet 500 mg 2022-11 18:00: 00 11-03 18:01 :00 No 500mg 500 mg, Oral, ONCE NOW, 1 dose, On Fri11/03/23 at 1200, Routine
Reason for Anti-Infec tive: Documented Infection< br>Documen nacho Infection Site: Skin / Soft Tissue
Duration of Therapy: Other (see Comments) [facility] escitalopra m oxalate 20 mg tablet 2022-11 12:54: 03 Yes [id number] 20mg Take 1 tablet by mouth in the morning. [facility] vit/iron fum/folic ac ( 1 + 1 ORAL) 2022-11 12:54: 03 Yes [id number] Take 1 TAB-CAP/M2 by mouth. [facility] metroNIDAZO LE (FLAGYL) 500 mg tablet 2022-11 00:00: 00 11-30 00:00 :00 No [id number] 500mg Take 1 tablet by mouth every 12 (twelve) hours. [facility] vit/iron fum/folic ac ( 1 + 1 ORAL) 2022-11 14:45: 54 Yes [id number] Take 1 TAB-CAP/M2 by mouth. [facility] escitalopra m oxalate 20 mg tablet 2022-11 14:45: 51 Yes [id number] 20mg Take 1 tablet by mouth in the morning. [facility] BABY ASPIRIN ORAL 2022-11 14:45: 50 Yes Take by mouth. [facility] hydrOXYzine 25 mg tablet 2022-11 00:00: 00 12-02 00:00 :00 No 25mg 1 tablet every 8 (eight) hours as needed for Anxiety. [facility] escitalopra m oxalate 20 mg tablet 2022-11 11:25: 55 Yes [id number] 20mg Take 1 tablet by mouth in the morning. [facility] BABY ASPIRIN ORAL 2022-11 024 08:32: 03 Yes Take by mouth. [facility] escitalopra m oxalate 20 mg tablet 07-08 11:17: 44 Yes [id number] 20mg Take 1 tablet by mouth in the morning. [facility] vit/iron fum/folic ac ( 1 + 1 ORAL) 815 11:17: 44 Yes [id number] Take 1 TAB-CAP/M2 by mouth. [facility] vit/iron fum/folic ac ( 1 + 1 ORAL) 05-06 20:58: 06 Yes [id number] Take 1 TAB-CAP/M2 by mouth. [facility] escitalopra m oxalate 20 mg tablet 05-06 20:57: 34 Yes [id number] 20mg Take 1 tablet by mouth in the morning. [facility] proMETHazin e 25 mg tablet 05-06 00:00: 00 11-30 00:00 :00 No [id number] 25mg Take 1 tablet by mouth every 4 (four) hours as needed for Nausea and Vomiting (N/V). [facility] L-Norgest&E Estradiol-E Estrad (SEASONIQUE ) 0.15 mg-30 mcg (84)/10 mcg (7) per tablet 12-25 00:00: 00 13 00:00 :00 No [id number] 1{tbl} Take 1 tablet by mouth daily. [facility] FLUoxetine 20 mg tablet 08-04 00:00: 00 Yes [id number] 20mg Take 1 tablet by mouth daily. [facility] FLUoxetine 20 mg tablet 08-04 00:00: 00 Yes [id number] 20mg Take 1 tablet by mouth daily. [facility] Immunizations Ordered Immunization Name Filled Immunization Name Date Status Comments Source TDAP 2018-03-25 00:00:00 Completed [facility] TDAP 2018-03-25 00:00:00 Completed [facility] TDAP 2018-03-25 00:00:00 Completed [facility] TDAP 2018-03-25 00:00:00 Completed [facility] TDAP 2018-03-25 00:00:00 Completed [facility] TDAP 2018-03-25 00:00:00 Completed [facility] TDAP 2018-03-25 00:00:00 Completed [facility] TDAP 2018-03-25 00:00:00 Completed [facility] TDAP 2018-03-25 00:00:00 Completed [facility] Tdap 2018-03-25 00:00:00 Completed [facility] TDAP 2018-03-25 00:00:00 Completed [facility] TDAP 2018-03-25 00:00:00 Completed [facility] TDAP 2018-03-25 00:00:00 Completed [facility] TDAP 2018-03-25 00:00:00 Completed [facility] TDAP 2018-03-25 00:00:00 Completed [facility] TDAP 2018-03-25 00:00:00 Completed [facility] TDAP 2018-03-25 00:00:00 Completed [facility] TDAP 2018-03-25 00:00:00 Completed [facility] Meningococcal Polysaccharide (groups A, C, Y and W-135) conjugate vaccine (MCV4P) 2017-03-11 00:00:00 Completed [facility] Meningococcal Polysaccharide (groups A, C, Y and W-135) conjugate vaccine (MCV4P) 2017-03-11 00:00:00 Completed [facility] Meningococcal Polysaccharide (groups A, C, Y and W-135) conjugate vaccine (MCV4P) 2017-03-11 00:00:00 Completed [facility] Meningococcal Polysaccharide (groups A, C, Y and W-135) conjugate vaccine (MCV4P) 2017-03-11 00:00:00 Completed [facility] Meningococcal Polysaccharide (groups A, C, Y and W-135) conjugate vaccine (MCV4P) 2017-03-11 00:00:00 Completed [facility] Meningococcal Polysaccharide (groups A, C, Y and W-135) conjugate vaccine (MCV4P) 2017-03-11 00:00:00 Completed [facility] Meningococcal Polysaccharide (groups A, C, Y and W-135) conjugate vaccine (MCV4P) 2017-03-11 00:00:00 Completed [facility] Meningococcal Polysaccharide (groups A, C, Y and W-135) conjugate vaccine (MCV4P) 2017-03-11 00:00:00 Completed [facility] Meningococcal Polysaccharide (groups A, C, Y and W-135) conjugate vaccine (MCV4P) 2017-03-11 00:00:00 Completed [facility] Meningococcal Polysaccharide (groups A, C, Y and W-135) conjugate vaccine (MCV4P) 2017-03-11 00:00:00 Completed [facility] Meningococcal Polysaccharide (groups A, C, Y and W-135) conjugate vaccine (MCV4P) 2017-03-11 00:00:00 Completed [facility] Meningococcal Polysaccharide (groups A, C, Y and W-135) conjugate vaccine (MCV4P) 2017-03-11 00:00:00 Completed [facility] Meningococcal Polysaccharide (groups A, C, Y and W-135) conjugate vaccine (MCV4P) 2017-03-11 00:00:00 Completed [facility] Meningococcal Polysaccharide (groups A, C, Y and W-135) conjugate vaccine (MCV4P) 2017-03-11 00:00:00 Completed [facility] Meningococcal Polysaccharide (groups A, C, Y and W-135) conjugate vaccine (MCV4P) 2017-03-11 00:00:00 Completed [facility] Meningococcal Polysaccharide (groups A, C, Y and W-135) conjugate vaccine (MCV4P) 2017-03-11 00:00:00 Completed [facility] Meningococcal Polysaccharide (groups A, C, Y and W-135) conjugate vaccine (MCV4P) 2017-03-11 00:00:00 Completed [facility] Meningococcal Polysaccharide (groups A, C, Y and W-135) conjugate vaccine (MCV4P) 2017-03-11 00:00:00 Completed [facility] HPV 2015-05-30 00:00:00 Completed [facility] HPV 2015-05-30 00:00:00 Completed [facility] HPV 2015-05-30 00:00:00 Completed [facility] HPV 2015-05-30 00:00:00 Completed [facility] HPV 2015-05-30 00:00:00 Completed [facility] HPV 2015-05-30 00:00:00 Completed [facility] HPV 2015-05-30 00:00:00 Completed [facility] HPV 2015-05-30 00:00:00 Completed [facility] HPV 2015-05-30 00:00:00 Completed [facility] HPV 2015-05-30 00:00:00 Completed [facility] HPV 2015-05-30 00:00:00 Completed [facility] HPV 2015-05-30 00:00:00 Completed [facility] HPV 2015-05-30 00:00:00 Completed [facility] HPV 2015-05-30 00:00:00 Completed [facility] HPV 2015-05-30 00:00:00 Completed [facility] HPV 2015-05-30 00:00:00 Completed [facility] HPV 2015-05-30 00:00:00 Completed [facility] HPV 2015-05-30 00:00:00 Completed [facility] HPV 2013-11-30 00:00:00 Completed [facility] HPV 2013-11-30 00:00:00 Completed [facility] HPV 2013-11-30 00:00:00 Completed [facility] HPV 2013-11-30 00:00:00 Completed [facility] HPV 2013-11-30 00:00:00 Completed [facility] HPV 2013-11-30 00:00:00 Completed HPV 2013-11-30 00:00:00 Completed [facility] HPV 2013-11-30 00:00:00 Completed [facility] HPV 2013-11-30 00:00:00 Completed [facility] HPV 2013-11-30 00:00:00 Completed [facility] HPV 2013-11-30 00:00:00 Completed [facility] HPV 2013-11-30 00:00:00 Completed [facility] HPV 2013-11-30 00:00:00 Completed [facility] HPV 2013-11-30 00:00:00 Completed [facility] HPV 2013-11-30 00:00:00 Completed [facility] HPV 2013-11-30 00:00:00 Completed [facility] HPV 2013-11-30 00:00:00 Completed [facility] [facility] HPV 2013-11-30 00[facility]00:00 Completed [facility] HPV 2013-05-25 00:00:00 Completed [facility] HPV 2013-05-25 00:00:00 Completed [facility] HPV 2013-05-25 00:00:00 Completed [facility] HPV 2013-05-25 00:00:00 Completed [facility] HPV 2013-05-25 00:00:00 Completed [facility] HPV 2013-05-25 00:00:00 Completed [facility] HPV 2013-05-25 00:00:00 Completed [facility] HPV 2013-05-25 00:00:00 Completed [facility] HPV 2013-05-25 00:00:00 Completed [facility] HPV 2013-05-25 00:00:00 Completed [facility] HPV 2013-05-25 00:00:00 Completed [facility] HPV 2013-05-25 00:00:00 Completed [facility] HPV 2013-05-25 00:00:00 Completed [facility] HPV 2013-05-25 00:00:00 Completed [facility] HPV 2013-05-25 00:00:00 Completed [facility] HPV 2013-05-25 00:00:00 Completed [facility] HPV 2013-05-25 00:00:00 Completed [facility] HPV 2013-05-25 00:00:00 Completed [facility] Meningococcal Vaccine 2011-06-10 00:00:00 Completed [facility] TDAP 2011-06-10 00:00:00 Completed [facility] Varicella (varivax)(chicken pox) 2011-06-10 00:00:00 Completed [facility] Meningococcal Vaccine 2011-06-10 00:00:00 Completed [facility] TDAP 2011-06-10 00:00:00 Completed [facility] Varicella (varivax)(chicken pox) 2011-06-10 00:00:00 Completed [facility] Meningococcal Vaccine 2011-06-10 00:00:00 Completed [facility] TDAP 2011-06-10 00:00:00 Completed [facility] Varicella (varivax)(chicken pox) 2011-06-10 00:00:00 Completed [facility] Meningococcal Vaccine 2011-06-10 00:00:00 Completed [facility] TDAP 2011-06-10 00:00:00 Completed [facility] Varicella (varivax)(chicken pox) 2011-06-10 00:00:00 Completed [facility] Meningococcal Vaccine 2011-06-10 00:00:00 Completed TDAP 2011-06-10 00:00:00 Completed Varicella (varivax)(chicken pox) 2011-06-10 00:00:00 Completed Meningococcal Vaccine 2011-06-10 00:00:00 Completed [facility] Meningococcal Vaccine 2011-06-10 00:00:00 Completed [facility] TDAP 2011-06-10 00:00:00 Completed [facility] Varicella (varivax)(chicken pox) 2011-06-10 00:00:00 Completed [facility] Meningococcal Vaccine 2011-06-10 00:00:00 Completed [facility] TDAP 2011-06-10 00:00:00 Completed [facility] Varicella (varivax)(chicken pox) 2011-06-10 00:00:00 Completed [facility] Meningococcal Vaccine 2011-06-10 00:00:00 Completed [facility] Tdap 2011-06-10 00:00:00 Completed [facility] TDAP 2011-06-10 00:00:00 Completed [facility] Varicella (varivax)(chicken pox) 2011-06-10 00:00:00 Completed [facility] Varicella (varivax)(chicken pox) 2011-06-10 00:00:00 Completed [facility] Meningococcal Vaccine 2011-06-10 00:00:00 Completed [facility] TDAP 2011-06-10 00:00:00 Completed [facility] Varicella (varivax)(chicken pox) 2011-06-10 00:00:00 Completed [facility] Meningococcal Vaccine 2011-06-10 00:00:00 Completed [facility] TDAP 2011-06-10 00:00:00 Completed [facility] Varicella (varivax)(chicken pox) 2011-06-10 00:00:00 Completed [facility] Meningococcal Vaccine 2011-06-10 00:00:00 Completed [facility] TDAP 2011-06-10 00:00:00 Completed [facility] Varicella (varivax)(chicken pox) 2011-06-10 00:00:00 Completed [facility] Meningococcal Vaccine 2011-06-10 00:00:00 Completed [facility] TDAP 2011-06-10 00:00:00 Completed [facility] Varicella (varivax)(chicken pox) 2011-06-10 00:00:00 Completed [facility] Meningococcal Vaccine 2011-06-10 00:00:00 Completed [facility] TDAP 2011-06-10 00:00:00 Completed [facility] Varicella (varivax)(chicken pox) 2011-06-10 00:00:00 Completed [facility] Meningococcal Vaccine 2011-06-10 00:00:00 Completed [facility] TDAP 2011-06-10 00:00:00 Completed [facility] Varicella (varivax)(chicken pox) 2011-06-10 00:00:00 Completed [facility] Meningococcal Vaccine 2011-06-10 00:00:00 Completed [facility] TDAP 2011-06-10 00:00:00 Completed [facility] Varicella (varivax)(chicken pox) 2011-06-10 00:00:00 Completed [facility] Meningococcal Vaccine 2011-06-10 00:00:00 Completed [facility] Meningococcal Vaccine 2011-06-10 00:00:00 Completed [facility] TDAP 2011-06-10 00:00:00 Completed [facility] Varicella (varivax)(chicken pox) 2011-06-10 00:00:00 Completed [facility] TDAP 2011-06-10 00:00:00 Completed [facility] Varicella (varivax)(chicken pox) 2011-06-10 00:00:00 Completed [facility] Meningococcal Vaccine 2010-12-11 00:00:00 Completed [facility] TDAP 2010-12-11 00:00:00 Completed [facility] Varicella (varivax)(chicken pox) 2010-12-11 00:00:00 Completed [facility] Meningococcal Vaccine 2010-12-11 00:00:00 Completed [facility] TDAP 2010-12-11 00:00:00 Completed [facility] Varicella (varivax)(chicken pox) 2010-12-11 00:00:00 Completed [facility] Meningococcal Vaccine 2010-12-11 00:00:00 Completed [facility] TDAP 2010-12-11 00:00:00 Completed [facility] Varicella (varivax)(chicken pox) 2010-12-11 00:00:00 Completed [facility] Meningococcal Vaccine 2010-12-11 00:00:00 Completed [facility] TDAP 2010-12-11 00:00:00 Completed [facility] Varicella (varivax)(chicken pox) 2010-12-11 00:00:00 Completed [facility] Meningococcal Vaccine 2010-12-11 00:00:00 Completed TDAP 2010-12-11 00:00:00 Completed Varicella (varivax)(chicken pox) 2010-12-11 00:00:00 Completed Meningococcal Vaccine 2010-12-11 00:00:00 Completed [facility] Meningococcal Vaccine 2010-12-11 00:00:00 Completed [facility] TDAP 2010-12-11 00:00:00 Completed [facility] Varicella (varivax)(chicken pox) 2010-12-11 00:00:00 Completed [facility] Meningococcal Vaccine 2010-12-11 00:00:00 Completed [facility] TDAP 2010-12-11 00:00:00 Completed [facility] Varicella (varivax)(chicken pox) 2010-12-11 00:00:00 Completed [facility] Tdap 2010-12-11 00:00:00 Completed [facility] Meningococcal Vaccine 2010-12-11 00:00:00 Completed [facility] TDAP 2010-12-11 00:00:00 Completed [facility] Varicella (varivax)(chicken pox) 2010-12-11 00:00:00 Completed [facility] Varicella (varivax)(chicken pox) 2010-12-11 00:00:00 Completed [facility] Meningococcal Vaccine 2010-12-11 00:00:00 Completed [facility] TDAP 2010-12-11 00:00:00 Completed [facility] Varicella (varivax)(chicken pox) 2010-12-11 00:00:00 Completed [facility] Meningococcal Vaccine 2010-12-11 00:00:00 Completed [facility] TDAP 2010-12-11 00:00:00 Completed [facility] Varicella (varivax)(chicken pox) 2010-12-11 00:00:00 Completed [facility] Meningococcal Vaccine 2010-12-11 00:00:00 Completed [facility] TDAP 2010-12-11 00:00:00 Completed [facility] Varicella (varivax)(chicken pox) 2010-12-11 00:00:00 Completed [facility] Meningococcal Vaccine 2010-12-11 00:00:00 Completed [facility] TDAP 2010-12-11 00:00:00 Completed [facility] Varicella (varivax)(chicken pox) 2010-12-11 00:00:00 Completed [facility] Meningococcal Vaccine 2010-12-11 00:00:00 Completed [facility] TDAP 2010-12-11 00:00:00 Completed [facility] Varicella (varivax)(chicken pox) 2010-12-11 00:00:00 Completed [facility] Meningococcal Vaccine 2010-12-11 00:00:00 Completed [facility] TDAP 2010-12-11 00:00:00 Completed [facility] Varicella (varivax)(chicken pox) 2010-12-11 00:00:00 Completed [facility] Meningococcal Vaccine 2010-12-11 00:00:00 Completed [facility] TDAP 2010-12-11 00:00:00 Completed [facility] Meningococcal Vaccine 2010-12-11 00:00:00 Completed [facility] Varicella (varivax)(chicken pox) 2010-12-11 00:00:00 Completed [facility] Meningococcal Vaccine 2010-12-11 00:00:00 Completed [facility] TDAP 2010-12-11 00:00:00 Completed [facility] Varicella (varivax)(chicken pox) 2010-12-11 00:00:00 Completed [facility] TDAP 2010-12-11 00:00:00 Completed [facility] Varicella (varivax)(chicken pox) 2010-12-11 00:00:00 Completed [facility] HEPATITIS A 2007-03-11 00:00:00 Completed [facility] HEPATITIS A 2007-03-11 00:00:00 Completed [facility] HEPATITIS A 2007-03-11 00:00:00 Completed [facility] HEPATITIS A 2007-03-11 00:00:00 Completed [facility] HEPATITIS A 2007-03-11 00:00:00 Completed [facility] HEPATITIS A 2007-03-11 00:00:00 Completed [facility] HEPATITIS A 2007-03-11 00:00:00 Completed [facility] HEPATITIS A 2007-03-11 00:00:00 Completed [facility] HEPATITIS A 2007-03-11 00:00:00 Completed [facility] HEPATITIS A 2007-03-11 00:00:00 Completed [facility] HEPATITIS A 2007-03-11 00:00:00 Completed [facility] HEPATITIS A 2007-03-11 00:00:00 Completed [facility] HEPATITIS A 2007-03-11 00:00:00 Completed [facility] HEPATITIS A 2007-03-11 00:00:00 Completed [facility] HEPATITIS A 2007-03-11 00:00:00 Completed [facility] HEPATITIS A 2007-03-11 00:00:00 Completed [facility] HEPATITIS A 2007-03-11 00:00:00 Completed HEPATITIS A 2007-03-11 00:00:00 Completed [facility] HEPATITIS A 2005-09-18 00:00:00 Completed [facility] HEPATITIS A 2005-09-18 00:00:00 Completed [facility] HEPATITIS A 2005-09-18 00:00:00 Completed [facility] HEPATITIS A 2005-09-18 00:00:00 Completed [facility] HEPATITIS A 2005-09-18 00:00:00 Completed [facility] HEPATITIS A 2005-09-18 00:00:00 Completed HEPATITIS A 2005-09-18 00:00:00 Completed [facility] HEPATITIS A 2005-09-18 00:00:00 Completed [facility] HEPATITIS A 2005-09-18 00:00:00 Completed [facility] HEPATITIS A 2005-09-18 00:00:00 Completed [facility] HEPATITIS A 2005-09-18 00:00:00 Completed [facility] HEPATITIS A 2005-09-18 00:00:00 Completed [facility] HEPATITIS A 2005-09-18 00:00:00 Completed [facility] HEPATITIS A 2005-09-18 00:00:00 Completed [facility] HEPATITIS A 2005-09-18 00:00:00 Completed [facility] HEPATITIS A 2005-09-18 00:00:00 Completed [facility] HEPATITIS A 2005-09-18 00:00:00 Completed [facility] HEPATITIS A 2005-09-18 00:00:00 Completed [facility] DTAP 2005-03-06 00:00:00 Completed [facility] MMR 2005-03-06 00:00:00 Completed [facility] Polio (IPV/OPV) 2005-03-06 00:00:00 Completed [facility] DTAP 2005-03-06 00:00:00 Completed [facility] MMR 2005-03-06 00:00:00 Completed [facility] DTAP 2005-03-06 00:00:00 Completed [facility] Polio (IPV/OPV) 2005-03-06 00:00:00 Completed [facility] DTAP 2005-03-06 00:00:00 Completed [facility] MMR 2005-03-06 00:00:00 Completed [facility] Polio (IPV/OPV) 2005-03-06 00:00:00 Completed [facility] DTAP 2005-03-06 00:00:00 Completed [facility] MMR 2005-03-06 00:00:00 Completed [facility] Polio (IPV/OPV) 2005-03-06 00:00:00 Completed [facility] DTAP 2005-03-06 00:00:00 Completed MMR 2005-03-06 00:00:00 Completed Polio (IPV/OPV) 2005-03-06 00:00:00 Completed DTAP 2005-03-06 00:00:00 Completed [facility] MMR 2005-03-06 00:00:00 Completed [facility] Polio (IPV/OPV) 2005-03-06 00:00:00 Completed [facility] MMR 2005-03-06 00:00:00 Completed [facility] DTAP 2005-03-06 00:00:00 Completed [facility] MMR 2005-03-06 00:00:00 Completed [facility] Polio (IPV/OPV) 2005-03-06 00:00:00 Completed [facility] Polio (IPV/OPV) 2005-03-06 00:00:00 Completed [facility] DTAP 2005-03-06 00:00:00 Completed [facility] MMR 2005-03-06 00:00:00 Completed [facility] Polio (IPV/OPV) 2005-03-06 00:00:00 Completed [facility] DTAP 2005-03-06 00:00:00 Completed [facility] MMR 2005-03-06 00:00:00 Completed [facility] Polio (IPV/OPV) 2005-03-06 00:00:00 Completed [facility] DTAP 2005-03-06 00:00:00 Completed [facility] MMR 2005-03-06 00:00:00 Completed [facility] Polio (IPV/OPV) 2005-03-06 00:00:00 Completed [facility] DTAP 2005-03-06 00:00:00 Completed [facility] MMR 2005-03-06 00:00:00 Completed [facility] Polio (IPV/OPV) 2005-03-06 00:00:00 Completed [facility] DTAP 2005-03-06 00:00:00 Completed [facility] MMR 2005-03-06 00:00:00 Completed [facility] Polio (IPV/OPV) 2005-03-06 00:00:00 Completed [facility] DTAP 2005-03-06 00:00:00 Completed [facility] DTAP 2005-03-06 00:00:00 Completed [facility] MMR 2005-03-06 00:00:00 Completed [facility] Polio (IPV/OPV) 2005-03-06 00:00:00 Completed [facility] DTAP 2005-03-06 00:00:00 Completed [facility] MMR 2005-03-06 00:00:00 Completed [facility] Polio (IPV/OPV) 2005-03-06 00:00:00 Completed [facility] DTAP 2005-03-06 00:00:00 Completed [facility] MMR 2005-03-06 00:00:00 Completed [facility] Polio (IPV/OPV) 2005-03-06 00:00:00 Completed [facility] DTAP 2005-03-06 00:00:00 Completed [facility] MMR 2005-03-06 00:00:00 Completed [facility] MMR 2005-03-06 00:00:00 Completed [facility] Polio (IPV/OPV) 2005-03-06 00:00:00 Completed [facility] Polio (IPV/OPV) 2005-03-06 00:00:00 Completed [facility] DTAP 2003-09-20 00:00:00 Completed [facility] MMR 2003-09-20 00:00:00 Completed [facility] Polio (IPV/OPV) 2003-09-20 00:00:00 Completed [facility] DTAP 2003-09-20 00:00:00 Completed [facility] DTAP 2003-09-20 00:00:00 Completed [facility] MMR 2003-09-20 00:00:00 Completed [facility] Polio (IPV/OPV) 2003-09-20 00:00:00 Completed [facility] DTAP 2003-09-20 00:00:00 Completed [facility] MMR 2003-09-20 00:00:00 Completed [facility] Polio (IPV/OPV) 2003-09-20 00:00:00 Completed [facility] DTAP 2003-09-20 00:00:00 Completed [facility] MMR 2003-09-20 00:00:00 Completed [facility] Polio (IPV/OPV) 2003-09-20 00:00:00 Completed [facility] DTAP 2003-09-20 00:00:00 Completed MMR 2003-09-20 00:00:00 Completed Polio (IPV/OPV) 2003-09-20 00:00:00 Completed DTAP 2003-09-20 00:00:00 Completed [facility] MMR 2003-09-20 00:00:00 Completed [facility] Polio (IPV/OPV) 2003-09-20 00:00:00 Completed [facility] MMR 2003-09-20 00:00:00 Completed [facility] DTAP 2003-09-20 00:00:00 Completed [facility] MMR 2003-09-20 00:00:00 Completed [facility] Polio (IPV/OPV) 2003-09-20 00:00:00 Completed [facility] Polio (IPV/OPV) 2003-09-20 00:00:00 Completed [facility] DTAP 2003-09-20 00:00:00 Completed [facility] MMR 2003-09-20 00:00:00 Completed [facility] Polio (IPV/OPV) 2003-09-20 00:00:00 Completed [facility] DTAP 2003-09-20 00:00:00 Completed [facility] MMR 2003-09-20 00:00:00 Completed [facility] Polio (IPV/OPV) 2003-09-20 00:00:00 Completed [facility] DTAP 2003-09-20 00:00:00 Completed [facility] MMR 2003-09-20 00:00:00 Completed [facility] Polio (IPV/OPV) 2003-09-20 00:00:00 Completed [facility] DTAP 2003-09-20 00:00:00 Completed [facility] MMR 2003-09-20 00:00:00 Completed [facility] Polio (IPV/OPV) 2003-09-20 00:00:00 Completed [facility] DTAP 2003-09-20 00:00:00 Completed [facility] MMR 2003-09-20 00:00:00 Completed [facility] Polio (IPV/OPV) 2003-09-20 00:00:00 Completed [facility] DTAP 2003-09-20 00:00:00 Completed [facility] DTAP 2003-09-20 00:00:00 Completed [facility] MMR 2003-09-20 00:00:00 Completed [facility] Polio (IPV/OPV) 2003-09-20 00:00:00 Completed [facility] DTAP 2003-09-20 00:00:00 Completed [facility] MMR 2003-09-20 00:00:00 [facility] [facility] Polio (IPV/OPV) 2003-09-20 00:00:00 Completed [facility] DTAP 2003-09-20 00:00:00 Completed [facility] MMR 2003-09-20 00:00:00 Completed [facility] Polio (IPV/OPV) 2003-09-20 00:00:00 Completed [facility] MMR 2003-09-20 00:00:00 Completed [facility] DTAP 2003-09-20 00:00:00 Completed [facility] MMR 2003-09-20 00:00:00 Completed [facility] Polio (IPV/OPV) 2003-09-20 00:00:00 Completed [facility] Polio (IPV/OPV) 2003-09-20 00:00:00 Completed [facility] Pneumococcal 13 Conjugate, PCV13 (Prevnar 13) 2001-06-11 00:00:00 Completed [facility] Varicella (varivax)(chicken pox) 2001-06-11 00:00:00 Completed [facility] Pneumococcal 13 Conjugate, PCV13 (Prevnar 13) 2001-06-11 00:00:00 Completed [facility] Varicella (varivax)(chicken pox) 2001-06-11 00:00:00 Completed [facility] Pneumococcal 13 Conjugate, PCV13 (Prevnar 13) 2001-06-11 00:00:00 Completed [facility] Varicella (varivax)(chicken pox) 2001-06-11 00:00:00 Completed [facility] Pneumococcal 13 Conjugate, PCV13 (Prevnar 13) 2001-06-11 00:00:00 Completed [facility] Varicella (varivax)(chicken pox) 2001-06-11 00:00:00 Completed [facility] Pneumococcal 13 Conjugate, PCV13 (Prevnar 13) 2001-06-11 00:00:00 Completed Varicella (varivax)(chicken pox) 2001-06-11 00:00:00 Completed Pneumococcal 13 Conjugate, PCV13 (Prevnar 13) 2001-06-11 00:00:00 Completed [facility] Varicella (varivax)(chicken pox) 2001-06-11 00:00:00 Completed [facility] Pneumococcal 13 Conjugate, PCV13 (Prevnar 13) 2001-06-11 00:00:00 Completed [facility] Pneumococcal 13 Conjugate, PCV13 (Prevnar 13) 2001-06-11 00:00:00 Completed [facility] Varicella (varivax)(chicken pox) 2001-06-11 00:00:00 Completed [facility] Pneumococcal 13 Conjugate, PCV13 (Prevnar 13) 2001-06-11 00:00:00 Completed [facility] Varicella (varivax)(chicken pox) 2001-06-11 00:00:00 Completed [facility] Varicella (varivax)(chicken pox) 2001-06-11 00:00:00 Completed [facility] Pneumococcal 13 Conjugate, PCV13 (Prevnar 13) 2001-06-11 00:00:00 Completed [facility] Varicella (varivax)(chicken pox) 2001-06-11 00:00:00 Completed [facility] Pneumococcal 13 Conjugate, PCV13 (Prevnar 13) 2001-06-11 00:00:00 Completed [facility] Varicella (varivax)(chicken pox) 2001-06-11 00:00:00 Completed [facility] Pneumococcal 13 Conjugate, PCV13 (Prevnar 13) 2001-06-11 00:00:00 Completed [facility] Varicella (varivax)(chicken pox) 2001-06-11 00:00:00 Completed [facility] Pneumococcal 13 Conjugate, PCV13 (Prevnar 13) 2001-06-11 00:00:00 Completed [facility] Varicella (varivax)(chicken pox) 2001-06-11 00:00:00 Completed [facility] Pneumococcal 13 Conjugate, PCV13 (Prevnar 13) 2001-06-11 00:00:00 Completed [facility] Varicella (varivax)(chicken pox) 2001-06-11 00:00:00 Completed [facility] Pneumococcal 13 Conjugate, PCV13 (Prevnar 13) 2001-06-11 00:00:00 Completed [facility] Varicella (varivax)(chicken pox) 2001-06-11 00:00:00 Completed [facility] Pneumococcal 13 Conjugate, PCV13 (Prevnar 13) 2001-06-11 00:00:00 Completed [facility] Varicella (varivax)(chicken pox) 2001-06-11 00:00:00 Completed [facility] Pneumococcal 13 Conjugate, PCV13 (Prevnar 13) 2001-06-11 00:00:00 Completed [facility] Pneumococcal 13 Conjugate, PCV13 (Prevnar 13) 2001-06-11 00:00:00 Completed [facility] Varicella (varivax)(chicken pox) 2001-06-11 00:00:00 Completed [facility] Varicella (varivax)(chicken pox) 2001-06-11 00:00:00 Completed [facility] DTAP 2001-02-06 00:00:00 Completed [facility] HIB 4 Dose Schedule 2001-02-06 00:00:00 Completed [facility] MMR 2001-02-06 00:00:00 Completed [facility] Polio (IPV/OPV) 2001-02-06 00:00:00 Completed [facility] DTAP 2001-02-06 00:00:00 Completed [facility] DTAP 2001-02-06 00:00:00 Completed [facility] HIB 4 Dose Schedule 2001-02-06 00:00:00 Completed [facility] MMR 2001-02-06 00:00:00 Completed [facility] Polio (IPV/OPV) 2001-02-06 00:00:00 Completed [facility] DTAP 2001-02-06 00:00:00 Completed [facility] HIB 4 Dose Schedule 2001-02-06 00:00:00 Completed [facility] MMR 2001-02-06 00:00:00 Completed [facility] Polio (IPV/OPV) 2001-02-06 00:00:00 Completed [facility] DTAP 2001-02-06 00:00:00 Completed [facility] HIB 4 Dose Schedule 2001-02-06 00:00:00 Completed [facility] HIB 4 Dose Schedule 2001-02-06 00:00:00 Completed [facility] MMR 2001-02-06 00:00:00 Completed [facility] Polio (IPV/OPV) 2001-02-06 00:00:00 Completed [facility] DTAP 2001-02-06 00:00:00 Completed HIB 4 Dose Schedule 2001-02-06 00:00:00 Completed MMR 2001-02-06 00:00:00 Completed Polio (IPV/OPV) 2001-02-06 00:00:00 Completed DTAP 2001-02-06 00:00:00 Completed [facility] HIB 4 Dose Schedule 2001-02-06 00:00:00 Completed [facility] MMR 2001-02-06 00:00:00 Completed [facility] MMR 2001-02-06 00:00:00 Completed [facility] Polio (IPV/OPV) 2001-02-06 00:00:00 Completed [facility] DTAP 2001-02-06 00:00:00 Completed [facility] HIB 4 Dose Schedule 2001-02-06 00:00:00 Completed [facility] MMR 2001-02-06 00:00:00 Completed [facility] Polio (IPV/OPV) 2001-02-06 00:00:00 Completed [facility] Polio (IPV/OPV) 2001-02-06 00:00:00 Completed [facility] DTAP 2001-02-06 00:00:00 Completed [facility] HIB 4 Dose Schedule 2001-02-06 00:00:00 Completed [facility] MMR 2001-02-06 00:00:00 Completed [facility] Polio (IPV/OPV) 2001-02-06 00:00:00 Completed [facility] DTAP 2001-02-06 00:00:00 Completed [facility] HIB 4 Dose Schedule 2001-02-06 00:00:00 Completed [facility] MMR 2001-02-06 00:00:00 Completed [facility] Polio (IPV/OPV) 2001-02-06 00:00:00 Completed [facility] DTAP 2001-02-06 00:00:00 Completed [facility] HIB 4 Dose Schedule 2001-02-06 00:00:00 Completed [facility] MMR 2001-02-06 00:00:00 Completed [facility] Polio (IPV/OPV) 2001-02-06 00:00:00 Completed [facility] DTAP 2001-02-06 00:00:00 Completed [facility] HIB 4 Dose Schedule 2001-02-06 00:00:00 Completed [facility] MMR 2001-02-06 00:00:00 Completed [facility] Polio (IPV/OPV) 2001-02-06 00:00:00 Completed [facility] DTAP 2001-02-06 00:00:00 Completed [facility] HIB 4 Dose Schedule 2001-02-06 00:00:00 Completed [facility] MMR 2001-02-06 00:00:00 Completed [facility] Polio (IPV/OPV) 2001-02-06 00:00:00 Completed [facility] DTAP 2001-02-06 00:00:00 Completed [facility] DTAP 2001-02-06 00:00:00 Completed [facility] HIB 4 Dose Schedule 2001-02-06 00:00:00 Completed [facility] MMR 2001-02-06 00:00:00 Completed [facility] Polio (IPV/OPV) 2001-02-06 00:00:00 Completed [facility] DTAP 2001-02-06 00:00:00 Completed [facility] HIB 4 Dose Schedule 2001-02-06 00:00:00 Completed [facility] MMR 2001-02-06 00:00:00 Completed [facility] Polio (IPV/OPV) 2001-02-06 00:00:00 Completed [facility] HIB 4 Dose Schedule 2001-02-06 00:00:00 Completed [facility] DTAP 2001-02-06 00:00:00 Completed [facility] HIB 4 Dose Schedule 2001-02-06 00:00:00 Completed [facility] MMR 2001-02-06 00:00:00 Completed [facility] Polio (IPV/OPV) 2001-02-06 00:00:00 Completed [facility] MMR 2001-02-06 00:00:00 Completed [facility] DTAP 2001-02-06 00:00:00 Completed [facility] HIB 4 Dose Schedule 2001-02-06 00:00:00 Completed [facility] MMR 2001-02-06 00:00:00 Completed [facility] Polio (IPV/OPV) 2001-02-06 00:00:00 Completed [facility] Polio (IPV/OPV) 2001-02-06 00:00:00 Completed [facility] DTAP 2000-07-16 00:00:00 Completed [facility] HIB 4 Dose Schedule 2000-07-16 00:00:00 Completed [facility] DTAP 2000-07-16 00:00:00 Completed [facility] DTAP 2000-07-16 00:00:00 Completed [facility] HIB 4 Dose Schedule 2000-07-16 00:00:00 Completed [facility] DTAP 2000-07-16 00:00:00 Completed [facility] HIB 4 Dose Schedule 2000-07-16 00:00:00 Completed [facility] DTAP 2000-07-16 00:00:00 Completed [facility] HIB 4 Dose Schedule 2000-07-16 00:00:00 Completed [facility] HIB 4 Dose Schedule 2000-07-16 00:00:00 Completed [facility] DTAP 2000-07-16 00:00:00 Completed HIB 4 Dose Schedule 2000-07-16 00:00:00 Completed DTAP 2000-07-16 00:00:00 Completed [facility] HIB 4 Dose Schedule 2000-07-16 00:00:00 Completed [facility] DTAP 2000-07-16 00:00:00 Completed [facility] HIB 4 Dose Schedule 2000-07-16 00:00:00 Completed [facility] DTAP 2000-07-16 00:00:00 Completed [facility] HIB 4 Dose Schedule 2000-07-16 00:00:00 Completed [facility] DTAP 2000-07-16 00:00:00 Completed [facility] HIB 4 Dose Schedule 2000-07-16 00:00:00 Completed [facility] DTAP 2000-07-16 00:00:00 Completed [facility] HIB 4 Dose Schedule 2000-07-16 00:00:00 Completed [facility] DTAP 2000-07-16 00:00:00 Completed [facility] HIB 4 Dose Schedule 2000-07-16 00:00:00 Completed [facility] DTAP 2000-07-16 00:00:00 Completed [facility] HIB 4 Dose Schedule 2000-07-16 00:00:00 Completed [facility] DTAP 2000-07-16 00:00:00 Completed [facility] DTAP 2000-07-16 00:00:00 Completed [facility] HIB 4 Dose Schedule 2000-07-16 00:00:00 Completed [facility] DTAP 2000-07-16 00:00:00 Completed [facility] HIB 4 Dose Schedule 2000-07-16 00:00:00 Completed [facility] HIB 4 Dose Schedule 2000-07-16 00:00:00 Completed [facility] DTAP 2000-07-16 00:00:00 Completed [facility] HIB 4 Dose Schedule 2000-07-16 00:00:00 Completed [facility] DTAP 2000-07-16 00:00:00 Completed [facility] HIB 4 Dose Schedule 2000-07-16 00:00:00 Completed [facility] DTAP 2000-03-18 00:00:00 Completed [facility] Hep B, Adol or Pedi Dosage 2000-03-18 00:00:00 Completed [facility] HIB 4 Dose Schedule 2000-03-18 00:00:00 Completed [facility] Polio (IPV/OPV) 2000-03-18 00:00:00 Completed [facility] DTAP 2000-03-18 00:00:00 Completed [facility] DTAP 2000-03-18 00:00:00 Completed [facility] Hep B, Adol or Pedi Dosage 2000-03-18 00:00:00 Completed [facility] HIB 4 Dose Schedule 2000-03-18 00:00:00 Completed [facility] Polio (IPV/OPV) 2000-03-18 00:00:00 Completed [facility] DTAP 2000-03-18 00:00:00 Completed [facility] Hep B, Adol or Pedi Dosage 2000-03-18 00:00:00 Completed [facility] HIB 4 Dose Schedule 2000-03-18 00:00:00 Completed [facility] Polio (IPV/OPV) 2000-03-18 00:00:00 Completed [facility] Hep B, Adol or Pedi Dosage 2000-03-18 00:00:00 Completed [facility] HIB 4 Dose Schedule 2000-03-18 00:00:00 Completed [facility] DTAP 2000-03-18 00:00:00 Completed [facility] Hep B, Adol or Pedi Dosage 2000-03-18 00:00:00 Completed [facility] HIB 4 Dose Schedule 2000-03-18 00:00:00 Completed [facility] Polio (IPV/OPV) 2000-03-18 00:00:00 Completed [facility] DTAP 2000-03-18 00:00:00 Completed Hep B, Adol or Pedi Dosage 2000-03-18 00:00:00 Completed HIB 4 Dose Schedule 2000-03-18 00:00:00 Completed Polio (IPV/OPV) 2000-03-18 00:00:00 Completed DTAP 2000-03-18 00:00:00 Completed [facility] Hep B, Adol or Pedi Dosage 2000-03-18 00:00:00 Completed [facility] HIB 4 Dose Schedule 2000-03-18 00:00:00 Completed [facility] Polio (IPV/OPV) 2000-03-18 00:00:00 Completed [facility] DTAP 2000-03-18 00:00:00 Completed [facility] Hep B, Adol or Pedi Dosage 2000-03-18 00:00:00 Completed [facility] HIB 4 Dose Schedule 2000-03-18 00:00:00 Completed [facility] Polio (IPV/OPV) 2000-03-18 00:00:00 Completed [facility] Polio (IPV/OPV) 2000-03-18 00:00:00 Completed [facility] DTAP 2000-03-18 00:00:00 Completed [facility] Hep B, Adol or Pedi Dosage 2000-03-18 00:00:00 Completed [facility] HIB 4 Dose Schedule 2000-03-18 00:00:00 Completed [facility] Polio (IPV/OPV) 2000-03-18 00:00:00 Completed [facility] DTAP 2000-03-18 00:00:00 Completed [facility] Hep B, Adol or Pedi Dosage 2000-03-18 00:00:00 Completed [facility] HIB 4 Dose Schedule 2000-03-18 00:00:00 Completed [facility] Polio (IPV/OPV) 2000-03-18 00:00:00 Completed [facility] DTAP 2000-03-18 00:00:00 Completed [facility] Hep B, Adol or Pedi Dosage 2000-03-18 00:00:00 Completed [facility] HIB 4 Dose Schedule 2000-03-18 00:00:00 Completed [facility] Polio (IPV/OPV) 2000-03-18 00:00:00 Completed [facility] DTAP 2000-03-18 00:00:00 Completed [facility] Hep B, Adol or Pedi Dosage 2000-03-18 00:00:00 Completed [facility] HIB 4 Dose Schedule 2000-03-18 00:00:00 Completed [facility] Polio (IPV/OPV) 2000-03-18 00:00:00 Completed [facility] DTAP 2000-03-18 00:00:00 Completed [facility] Hep B, Adol or Pedi Dosage 2000-03-18 00:00:00 Completed [facility] HIB 4 Dose Schedule 2000-03-18 00:00:00 Completed [facility] Polio (IPV/OPV) 2000-03-18 00:00:00 Completed [facility] DTAP 2000-03-18 00:00:00 Completed [facility] DTAP 2000-03-18 00:00:00 Completed [facility] Hep B, Adol or Pedi Dosage 2000-03-18 00:00:00 Completed [facility] HIB 4 Dose Schedule 2000-03-18 00:00:00 Completed [facility] Polio (IPV/OPV) 2000-03-18 00:00:00 Completed [facility] DTAP 2000-03-18 00:00:00 Completed [facility] Hep B, Adol or Pedi Dosage 2000-03-18 00:00:00 Completed [facility] Hep B, Adol or Pedi Dosage 2000-03-18 00:00:00 Completed [facility] HIB 4 Dose Schedule 2000-03-18 00:00:00 Completed [facility] HIB 4 Dose Schedule 2000-03-18 00:00:00 Completed [facility] Polio (IPV/OPV) 2000-03-18 00:00:00 Completed [facility] DTAP 2000-03-18 00:00:00 Completed [facility] Hep B, Adol or Pedi Dosage 2000-03-18 00:00:00 Completed [facility] HIB 4 Dose Schedule 2000-03-18 00:00:00 Completed [facility] Polio (IPV/OPV) 2000-03-18 00:00:00 Completed [facility] DTAP 2000-03-18 00:00:00 Completed [facility] Hep B, Adol or Pedi Dosage 2000-03-18 00:00:00 Completed [facility] HIB 4 Dose Schedule 2000-03-18 00:00:00 Completed [facility] Polio (IPV/OPV) 2000-03-18 00:00:00 Completed [facility] Polio (IPV/OPV) 2000-03-18 00:00:00 Completed [facility] DTAP 1999 00:00:00 Completed [facility] HIB 4 Dose Schedule 1999 00:00:00 Completed [facility] Hep B, Adol or Pedi Dosage 1999 00:00:00 Completed [facility] Polio (IPV/OPV) 1999 00:00:00 Completed [facility] DTAP 1999 00:00:00 Completed [facility] DTAP 1999 00:00:00 Completed [facility] HIB 4 Dose Schedule 1999 00:00:00 Completed [facility] Hep B, Adol or Pedi Dosage 1999 00:00:00 Completed [facility] Polio (IPV/OPV) 1999 00:00:00 Completed [facility] HIB 4 Dose Schedule 1999 00:00:00 Completed [facility] DTAP 1999 00:00:00 Completed [facility] HIB 4 Dose Schedule 1999 00:00:00 Completed [facility] Hep B, Adol or Pedi Dosage 1999 00:00:00 Completed [facility] Hep B, Adol or Pedi Dosage 1999 00:00:00 Completed [facility] Polio (IPV/OPV) 1999 00:00:00 Completed [facility] DTAP 1999 00:00:00 Completed [facility] HIB 4 Dose Schedule 1999 00:00:00 Completed [facility] Hep B, Adol or Pedi Dosage 1999 00:00:00 Completed [facility] Polio (IPV/OPV) 1999 00:00:00 Completed [facility] DTAP 1999 00:00:00 Completed [facility] HIB 4 Dose Schedule 1999 00:00:00 Completed Hep B, Adol or Pedi Dosage 1999 00:00:00 Completed Polio (IPV/OPV) 1999 00:00:00 Completed DTAP 1999 00:00:00 Completed [facility] HIB 4 Dose Schedule 1999 00:00:00 Completed [facility] Hep B, Adol or Pedi Dosage 1999 00:00:00 Completed [facility] Polio (IPV/OPV) 1999 00:00:00 Completed [facility] DTAP 1999 00:00:00 Completed [facility] HIB 4 Dose Schedule 1999 00:00:00 Completed [facility] Hep B, Adol or Pedi Dosage 1999 00:00:00 Completed [facility] Polio (IPV/OPV) 1999 00:00:00 Completed [facility] Polio (IPV/OPV) 1999 00:00:00 Completed [facility] DTAP 1999 00:00:00 Completed [facility] HIB 4 Dose Schedule 1999 00:00:00 Completed [facility] Hep B, Adol or Pedi Dosage 1999 00:00:00 Completed [facility] Polio (IPV/OPV) 1999 00:00:00 Completed [facility] DTAP 1999 00:00:00 Completed [facility] HIB 4 Dose Schedule 1999 00:00:00 Completed [facility] Hep B, Adol or Pedi Dosage 1999 00:00:00 Completed [facility] Polio (IPV/OPV) 1999 00:00:00 Completed [facility] DTAP 1999 00:00:00 Completed [facility] HIB 4 Dose Schedule 1999 00:00:00 Completed [facility] Hep B, Adol or Pedi Dosage 1999 00:00:00 Completed [facility] Polio (IPV/OPV) 1999 00:00:00 Completed [facility] DTAP 1999 00:00:00 Completed [facility] HIB 4 Dose Schedule 1999 00:00:00 Completed [facility] Hep B, Adol or Pedi Dosage 1999 00:00:00 Completed [facility] Polio (IPV/OPV) 1999 00:00:00 Completed [facility] DTAP 1999 00:00:00 Completed [facility] HIB 4 Dose Schedule 1999 00:00:00 Completed [facility] Hep B, Adol or Pedi Dosage 1999 00:00:00 Completed [facility] DTAP 1999 00:00:00 Completed [facility] Polio (IPV/OPV) 1999 00:00:00 Completed [facility] DTAP 1999 00:00:00 Completed [facility] HIB 4 Dose Schedule 1999 00:00:00 Completed [facility] Hep B, Adol or Pedi Dosage 1999 00:00:00 Completed [facility] HIB 4 Dose Schedule 1999 00:00:00 Completed [facility] Polio (IPV/OPV) 1999 00:00:00 Completed [facility] DTAP 1999 00:00:00 Completed [facility] Hep B, Adol or Pedi Dosage 1999 00:00:00 Completed [facility] HIB 4 Dose Schedule 1999 00:00:00 Completed [facility] Hep B, Adol or Pedi Dosage 1999 00:00:00 Completed [facility] Polio (IPV/OPV) 1999 00:00:00 Completed [facility] DTAP 1999 00:00:00 Completed [facility] HIB 4 Dose Schedule 1999 00:00:00 Completed [facility] Hep B, Adol or Pedi Dosage 1999 00:00:00 Completed [facility] Polio (IPV/OPV) 1999 00:00:00 Completed [facility] DTAP 1999 00:00:00 Completed [facility] HIB 4 Dose Schedule 1999 00:00:00 Completed [facility] Hep B, Adol or Pedi Dosage 1999 00:00:00 Completed [facility] Polio (IPV/OPV) 1999 00:00:00 Completed [facility] Polio (IPV/OPV) 1999 00:00:00 Completed [facility] Hep B, Adol or Pedi Dosage 1999 00:00:00 Completed [facility] Hep B, Adol or Pedi Dosage 1999 00:00:00 Completed [facility] Hep B, Adol or Pedi Dosage 1999 00:00:00 Completed [facility] Hep B, Adol or Pedi Dosage 1999 00:00:00 Completed [facility] Hep B, Adol or Pedi Dosage 1999 00:00:00 Completed [facility] Hep B, Adol or Pedi Dosage 1999 00:00:00 Completed Hep B, Adol or Pedi Dosage 1999 00:00:00 Completed [facility] Hep B, Adol or Pedi Dosage 1999 00:00:00 Completed [facility] Hep B, Adol or Pedi Dosage 1999 00:00:00 Completed [facility] Hep B, Adol or Pedi Dosage 1999 00:00:00 Completed [facility] Hep B, Adol or Pedi Dosage 1999 00:00:00 Completed [facility] Hep B, Adol or Pedi Dosage 1999 00:00:00 Completed [facility] Hep B, Adol or Pedi Dosage 1999 00:00:00 Completed [facility] Hep B, Adol or Pedi Dosage 1999 00:00:00 Completed [facility] Hep B, Adol or Pedi Dosage 1999 00:00:00 Completed [facility] Hep B, Adol or Pedi Dosage 1999 00:00:00 Completed [facility] Hep B, Adol or Pedi Dosage 1999 00:00:00 Completed [facility] Hep B, Adol or Pedi Dosage 1999 00:00:00 Completed [facility] Meningococcal Polysaccharide (groups A, C, Y and W-135) conjugate vaccine (MCV4P) Unknown Completed [facility] DTAP Unknown Completed [facility] HIB 4 Dose Schedule Unknown Completed [facility] HEPATITIS A Unknown Completed [facility] Hep B, Adol or Pedi Dosage Unknown Completed [facility] HPV Unknown Completed [facility] Meningococcal Vaccine Unknown Completed [facility] MMR Unknown Completed [facility] Pneumococcal 13 Conjugate, PCV13 (Prevnar 13) Unknown Completed [facility] Polio (IPV/OPV) Unknown Completed [facility] TDAP Unknown Completed [facility] Varicella (varivax)(chicken pox) Unknown Completed [facility] Meningococcal Polysaccharide (groups A, C, Y and W-135) conjugate vaccine (MCV4P) Unknown Completed [facility] DTAP Unknown Completed [facility] HIB 4 Dose Schedule Unknown Completed [facility] HEPATITIS A Unknown Completed [facility] Hep B, Adol or Pedi Dosage Unknown Completed [facility] HPV Unknown Completed [facility] Meningococcal Vaccine Unknown Completed [facility] MMR Unknown Completed [facility] Pneumococcal 13 Conjugate, PCV13 (Prevnar 13) Unknown Completed [facility] Polio (IPV/OPV) Unknown Completed [facility] TDAP Unknown Completed [facility] Varicella (varivax)(chicken pox) Unknown Completed [facility] Meningococcal Polysaccharide (groups A, C, Y and W-135) conjugate vaccine (MCV4P) Unknown Completed [facility] DTAP Unknown Completed [facility] HIB 4 Dose Schedule Unknown Completed [facility] HEPATITIS A Unknown Completed [facility] Hep B, Adol or Pedi Dosage Unknown Completed [facility] HPV Unknown Completed [facility] Meningococcal Vacc[facility] Unknown Completed [facility] MMR Unknown Completed [facility] Pneumococcal 13 Conjugate, PCV13 (Prevnar 13) Unknown Completed [facility] Polio (IPV/OPV) Unknown Completed [facility] TDAP Unknown Completed [facility] Varicella (varivax)(chicken pox) Unknown Completed [facility] Meningococcal Polysaccharide (groups A, C, Y and W-135) conjugate vaccine (MCV4P) Unknown Completed [facility] DTAP Unknown Completed [facility] HIB 4 Dose Schedule Unknown Completed [facility] HEPATITIS A Unknown Completed [facility] Hep B, Adol or Pedi Dosage Unknown Completed [facility] HPV Unknown Completed [facility] Meningococcal Vacc[facility] Unknown Completed [facility] MMR Unknown Completed [facility] Pneumococcal 13 Conjugate, PCV13 (Prevnar 13) Unknown Completed [facility] Polio (IPV/OPV) Unknown Completed [facility] TDAP Unknown Completed [facility] Varicella (varivax)(chicken pox) Unknown Completed [facility] Meningococcal Polysaccharide (groups A, C, Y and W-135) conjugate vaccine (MCV4P) Unknown Completed [facility] DTAP Unknown Completed [facility] HIB 4 Dose Schedule Unknown Completed [facility] HEPATITIS A Unknown [facility] Hep B, Adol or Pedi Dosage Unknown Completed [facility] HPV Unknown Completed [facility] Meningococcal Vacc[facility] Unknown Completed [facility] MMR Unknown Completed [facility] Pneumococcal 13 Conjugate, PCV13 (Prevnar 13) Unknown Completed [facility] Polio (IPV/OPV) Unknown Completed [facility] TDAP Unknown Completed [facility] Varicella (varivax)(chicken pox) Unknown Completed [facility] Meningococcal Polysaccharide (groups A, C, Y and W-135) conjugate vaccine (MCV4P) Unknown Completed [facility] DTAP Unknown Completed [facility] HIB 4 Dose Schedule Unknown Completed [facility] HEPATITIS A Unknown Completed [facility] Hep B, Adol or Pedi Dosage Unknown Completed [facility] HPV Unknown Completed [facility] Meningococcal Vacc[facility] Unknown Completed [facility] MMR Unknown Completed [facility] Pneumococcal 13 Conjugate, PCV13 (Prevnar 13) Unknown Completed [facility] Polio (IPV/OPV) Unknown Completed [facility] TDAP Unknown Completed [facility] Varicella (varivax)(chicken pox) Unknown Completed [facility] HPV Unknown Completed [facility] Meningococcal Polysaccharide (groups A, C, Y and W-135) conjugate vaccine (MCV4P) Unknown Completed [facility] DTAP Unknown Completed [facility] HIB 4 Dose Schedule Unknown Completed [facility] HEPATITIS A Unknown Completed [facility] Hep B, Adol or Pedi Dosage Unknown Completed [facility] Meningococcal Vaccine Unknown Completed [facility] MMR Unknown Completed [facility] Pneumococcal 13 Conjugate, PCV13 (Prevnar 13) Unknown Completed [facility] Polio (IPV/OPV) Unknown Completed [facility] TDAP Unknown Completed [facility] Varicella (varivax)(chicken pox) Unknown Completed [facility] HPV Unknown Completed [facility] Meningococcal Polysaccharide (groups A, C, Y and W-135) conjugate vaccine (MCV4P) Unknown Completed [facility] DTAP Unknown Completed [facility] HIB 4 Dose Schedule Unknown Completed [facility] HEPATITIS A Unknown Completed [facility] Hep B, Adol or Pedi Dosage Unknown Completed [facility] Meningococcal Vaccine Unknown Completed [facility] MMR Unknown Completed [facility] Pneumococcal 13 Conjugate, PCV13 (Prevnar 13) Unknown Completed [facility] Polio (IPV/OPV) Unknown Completed [facility] TDAP Unknown Completed [facility] Varicella (varivax)(chicken pox) Unknown Completed [facility] HPV Unknown Completed [facility] Meningococcal Polysaccharide (groups A, C, Y and W-135) conjugate vaccine (MCV4P) Unknown Completed [facility] DTAP Unknown Completed [facility] HIB 4 Dose Schedule Unknown Completed [facility] HEPATITIS A Unknown Completed [facility] Hep B, Adol or Pedi Dosage Unknown Completed [facility] Meningococcal Vaccine Unknown Completed [facility] MMR Unknown Completed [facility] Pneumococcal 13 Conjugate, PCV13 (Prevnar 13) Unknown Completed [facility] Polio (IPV/OPV[facility] Unknown [facility] Com[facility] Varicella (varivax)(chicken pox) Unknown Completed [facility] HPV Unknown Completed [facility] Meningococcal Polysaccharide (groups A, C, Y and W-135) conjugate vaccine (MCV4P) Unknown Completed [facility] DTAP Unknown Completed [facility] HIB 4 Dose Schedule Unknown Completed [facility] HEPATITIS A Unknown Completed [facility] Hep B, Adol or Pedi Dosage Unknown Completed [facility] Meningococcal Vaccine Unknown Completed [facility] MMR Unknown Completed [facility] Pneumococcal 13 Conjugate, PCV13 (Prevnar 13) Unknown Completed [facility] Polio (IPV/OPV[facility] Unknown [facility] Completed [facility] Varicella (varivax)(chicken pox) Unknown Completed [facility] HPV Unknown Completed [facility] Meningococcal Polysaccharide (groups A, C, Y and W-135) conjugate vaccine (MCV4P) Unknown Completed [facility] DTAP Unknown Completed [facility] HIB 4 Dose Schedule Unknown Completed [facility] HEPATITIS A Unknown Completed [facility] Hep B, Adol or Pedi Dosage Unknown Completed [facility] Meningococcal Vaccine Unknown Completed [facility] MMR Unknown Completed [facility] Pneumococcal 13 Conjugate, PCV13 (Prevnar 13) Unknown Completed [facility] Polio (IPV/OPV) Unknown Completed [facility] TDAP Unknown Completed [facility] Varicella (varivax)(chicken pox) Unknown Completed [facility] HPV Unknown Completed [facility] Meningococcal Polysaccharide (groups A, C, Y and W-135) conjugate vaccine (MCV4P) Unknown Completed [facility] DTAP Unknown Completed [facility] HIB 4 Dose Schedule Unknown Completed [facility] HEPATITIS A Unknown Completed [facility] Hep B, Adol or Pedi Dosage Unknown Completed [facility] Meningococcal Vaccine Unknown Completed [facility] MMR Unknown Completed [facility] Pneumococcal 13 Conjugate, PCV13 (Prevnar 13) Unknown Completed [facility] Polio (IPV/OPV[facility] Unknown [facility] Completed [facility] Varicella (varivax)(chicken pox) Unknown Completed [facility] HPV Unknown Completed [facility] Meningococcal Polysaccharide (groups A, C, Y and W-135) conjugate vaccine (MCV4P) Unknown Completed [facility] DTAP Unknown Completed [facility] HIB 4 Dose Schedule Unknown Completed [facility] HEPATITIS A Unknown Completed [facility] Hep B, Adol or Pedi Dosage Unknown Completed [facility] Meningococcal Vaccine Unknown Completed [facility] MMR Unknown Completed [facility] Pneumococcal 13 Conjugate, PCV13 (Prevnar 13) Unknown Completed [facility] Polio (IPV/OPV) Unknown Completed [facility] TDAP Unknown Completed [facility] Varicella (varivax)(chicken pox) Unknown Completed [facility] HPV Unknown Completed [facility] Meningococcal Polysaccharide (groups A, C, Y and W-135) conjugate vaccine (MCV4P) Unknown Completed [facility] DTAP Unknown Completed [facility] HIB 4 Dose Schedule Unknown Completed [facility] HEPATITIS A Unknown [facility], Adol or Pedi Dosage Unknown Completed [facility] Meningococcal Vaccine Unknown Completed [facility] MMR Unknown Completed [facility] Pneumococcal 13 Conjugate, PCV13 (Prevnar 13) Unknown Completed [facility] Polio (IPV/OPV) Unknown Completed [facility] TDAP Unknown Completed [facility] Varicella (varivax)(chicken pox) Unknown Completed [facility] HPV Unknown Completed [facility] Meningococcal Polysaccharide (groups A, C, Y and W-135) conjugate vaccine (MCV4P) Unknown Completed [facility] DTAP Unknown Completed [facility] HIB 4 Dose Schedule Unknown Completed [facility] HEPATITIS A Unknown Completed [facility] Hep B, Adol or Pedi Dosage Unknown Completed [facility] Meningococcal Vaccine Unknown Completed [facility] MMR Unknown Completed [facility] Pneumococcal 13 Conjugate, PCV13 (Prevnar 13) Unknown Completed [facility] Polio (IPV/OPV[facility] Unknown [facility] Completed [facility] Varicella (varivax)(chicken pox) Unknown Completed [facility] HPV Unknown Completed [facility] Meningococcal Polysaccharide (groups A, C, Y and W-135) conjugate vaccine (MCV4P) Unknown Completed [facility] DTAP Unknown Completed [facility] HIB 4 Dose Schedule Unknown Completed [facility] HEPATITIS A Unknown [facility] Hep B, Adol or Pedi Dosage Unknown Completed [facility] Meningococcal Vaccine Unknown Completed [facility] MMR Unknown Completed [facility] Pneumococcal 13 Conjugate, PCV13 (Prevnar 13) Unknown Completed [facility] Polio (IPV/OPV[facility] Unknown Completed [facility] TDAP Unknown Completed [facility] Varicella (varivax)(chicken pox) Unknown Completed [facility] HPV Unknown Completed [facility] Meningococcal Polysaccharide (groups A, C, Y and W-135) conjugate vaccine (MCV4P) Unknown Completed [facility] DTAP Unknown Completed [facility] HIB 4 Dose Schedule Unknown Completed [facility] HEPATITIS A Unknown [facility] Hep B, Adol or Pedi Dosage Unknown Completed [facility] Meningococcal Vaccine Unknown Completed [facility] MMR Unknown Completed [facility] Pneumococcal 13 Conjugate, PCV13 (Prevnar 13) Unknown Completed [facility] Polio (IPV/OPV[facility] Unknown Completed [facility] TDAP Unknown Completed [facility] Varicella (varivax)(chicken pox) Unknown Completed [facility] HPV Unknown Completed [facility] Meningococcal Polysaccharide (groups A, C, Y and W-135) conjugate vaccine (MCV4P) Unknown Completed [facility] DTAP Unknown Completed [facility] HIB 4 Dose Schedule Unknown Completed [facility] HEPATITIS A Unknown Completed [facility] Hep B, Adol or Pedi Dosage Unknown Completed [facility] Meningococcal Vaccine Unknown Completed [facility] MMR Unknown Completed [facility] Pneumococcal 13 Conjugate, PCV13 (Prevnar 13) Unknown Completed [facility] Polio (IPV/OPV) Unknown [facility] Varicella (varivax)(chicken pox) Unknown Completed [facility] HPV Unknown Completed [facility] Meningococcal Polysaccharide (groups A, C, Y and W-135) conjugate vaccine (MCV4P) Unknown Completed [facility] DTAP Unknown Completed [facility] HIB 4 Dose Schedule Unknown Completed [facility] HEPATITIS A Unknown [facility] Hep B, Adol or Pedi Dosage Unknown Completed [facility] Meningococcal Vacc[facility] Unknown Completed [facility] MMR Unknown Completed [facility] Pneumococcal 13 Conjugate, PCV13 (Prevnar 13) Unknown Completed [facility] Polio (IPV/OPV) Unknown Completed [facility] TDAP Unknown Completed [facility] Varicella (varivax)(chicken pox) Unknown Completed [facility] HPV Unknown Completed [facility] Meningococcal Polysaccharide (groups A, C, Y and W-135) conjugate vaccine (MCV4P) Unknown Completed [facility] DTAP Unknown Completed [facility] HIB 4 Dose Schedule Unknown Completed [facility] HEPATITIS A Unknown [facility] Hep B, Adol or Pedi Dosage Unknown Completed [facility] Meningococcal Vacc[facility] Unknown Completed [facility] MMR Unknown Completed [facility] Pneumococcal 13 Conjugate, PCV13 (Prevnar 13) Unknown Completed [facility] Polio (IPV/OPV) Unknown Completed [facility] TDAP Unknown Completed [facility] Varicella (varivax)(chicken pox) Unknown Completed [facility] HPV Unknown Completed [facility] Meningococcal Polysaccharide (groups A, C, Y and W-135) conjugate vaccine (MCV4P) Unknown Completed [facility] DTAP Unknown Completed [facility] HIB 4 Dose Schedule Unknown Completed [facility] HEPATITIS A Unknown Completed [facility] Hep B, Adol or Pedi Dosage Unknown Completed [facility] Meningococcal Vaccine Unknown Completed [facility] MMR Unknown Completed [facility] Pneumococcal 13 Conjugate, PCV13 (Prevnar 13) Unknown Completed [facility] Polio (IPV/OPV) Unknown Completed [facility] TDAP Unknown Completed [facility] Varicella (varivax)(chicken pox) Unknown Completed [facility] HPV Unknown Completed [facility] Meningococcal Polysaccharide (groups A, C, Y and W-135) conjugate vaccine (MCV4P) Unknown Completed [facility] DTAP Unknown Completed [facility] HIB 4 Dose Schedule Unknown Completed [facility] HEPATITIS A Unknown Completed [facility] Hep B, Adol or Pedi Dosage Unknown Completed [facility] Meningococcal Vaccine Unknown Completed [facility] MMR Unknown Completed [facility] Pneumococcal 13 Conjugate, PCV13 (Prevnar 13) Unknown Completed [facility] Polio (IPV/OPV) Unknown Completed [facility] TDAP Unknown Completed [facility] Varicella (varivax)(chicken pox) Unknown Completed [facility] HPV Unknown Completed [facility] Meningococcal Polysaccharide (groups A, C, Y and W-135) conjugate vaccine (MCV4P) Unknown Completed [facility] DTAP Unknown Completed [facility] HIB 4 Dose Schedule Unknown Completed [facility] HEPATITIS A Unknown Completed [facility] Hep B, Adol or Pedi Dosage Unknown Completed [facility] Meningococcal Vaccine Unknown Completed [facility] MMR Unknown Completed [facility] Pneumococcal 13 Conjugate, PCV13 (Prevnar 13) Unknown Completed [facility] Polio (IPV/OPV) Unknown Completed [facility] TDAP Unknown Completed [facility] Varicella (varivax)(chicken pox) Unknown Completed [facility] HPV Unknown Completed [facility] Meningococcal Polysaccharide (groups A, C, Y and W-135) conjugate vaccine (MCV4P) Unknown Completed [facility] DTAP Unknown Completed [facility] HIB 4 Dose Schedule Unknown Completed [facility] HEPATITIS A Unknown Completed [facility] Hep B, Adol or Pedi Dosage Unknown Completed [facility] Meningococcal Vaccine Unknown Completed [facility] MMR Unknown Completed [facility] Pneumococcal 13 Conjugate, PCV13 (Prevnar 13) Unknown Completed [facility] Polio (IPV/OPV) Unknown Completed [facility] TDAP Unknown Completed [facility] Varicella (varivax)(chicken pox) Unknown Completed [facility] HPV Unknown Completed [facility] Meningococcal Polysaccharide (groups A, C, Y and W-135) conjugate vaccine (MCV4P) Unknown Completed [facility] DTAP Unknown Completed [facility] HIB 4 Dose Schedule Unknown Completed [facility] HEPATITIS A Unknown Completed [facility] Hep B, Adol or Pedi Dosage Unknown Completed [facility] Meningococcal Vaccine Unknown Completed [facility] MMR Unknown Completed [facility] Pneumococcal 13 Conjugate, PCV13 (Prevnar 13) Unknown Completed [facility] Polio (IPV/OPV) Unknown [facility] Completed [facility] Varicella (varivax)(chicken pox) Unknown Completed [facility] HPV Unknown Completed [facility] Meningococcal Polysaccharide (groups A, C, Y and W-135) conjugate vaccine (MCV4P) Unknown Completed [facility] DTAP Unknown Completed [facility] HIB 4 Dose Schedule Unknown Completed [facility] HEPATITIS A Unknown Completed [facility] Hep B, Adol or Pedi Dosage Unknown Completed [facility] Meningococcal Vaccine Unknown Completed [facility] MMR Unknown Completed [facility] Pneumococcal 13 Conjugate, PCV13 (Prevnar 13) Unknown Completed [facility] Polio (IPV/OPV) Unknown Completed [facility] TDAP Unknown Completed [facility] Varicella (varivax)(chicken pox) Unknown Completed [facility] HPV Unknown Completed [facility] Meningococcal Polysaccharide (groups A, C, Y and W-135) conjugate vaccine (MCV4P) Unknown Completed [facility] DTAP Unknown Completed [facility] HIB 4 Dose Schedule Unknown Completed [facility] HEPATITIS A Unknown Completed [facility] Hep B, Adol or Pedi Dosage Unknown Completed [facility] Meningococcal Vaccine Unknown Completed [facility] MMR Unknown Completed [facility] Pneumococcal 13 Conjugate, PCV13 (Prevnar 13) Unknown Completed [facility] Polio (IPV/OPV) Unknown Completed [facility] TDAP Unknown Completed [facility] Varicella (varivax)(chicken pox) Unknown Completed [facility] Meningococcal Polysaccharide (groups A, C, Y and W-135) conjugate vaccine (MCV4P) Unknown Completed [facility] Pneumococcal 13 Conjugate, PCV13 (Prevnar 13) Unknown Completed [facility] HPV Unknown Completed [facility] DTAP Unknown Completed [facility] HIB 4 Dose Schedule Unknown Completed [facility] HEPATITIS A Unknown Completed [facility] Hep B, Adol or Pedi Dosage Unknown Completed [facility] Meningococcal Vaccine Unknown Completed [facility] MMR Unknown Completed [facility] Polio (IPV/OPV) Unknown Completed [facility] TDAP Unknown Completed [facility] Varicella (varivax)(chicken pox) Unknown Completed [facility] HPV Unknown Completed [facility] Meningococcal Polysaccharide (groups A, C, Y and W-135) conjugate vaccine (MCV4P) Unknown Completed [facility] DTAP Unknown Completed [facility] HIB 4 Dose Schedule Unknown Completed [facility] HEPATITIS A Unknown Completed [facility] Hep B, Adol or Pedi Dosage Unknown Completed [facility] Meningococcal Vaccine Unknown Completed [facility] MMR Unknown Completed [facility] Pneumococcal 13 Conjugate, PCV13 (Prevnar 13) Unknown Completed [facility] Polio (IPV/OPV) Unknown Completed [facility] TDAP Unknown Completed [facility] Varicella (varivax)(chicken pox) Unknown Completed [facility] HPV Unknown Completed [facility] Meningococcal Polysaccharide (groups A, C, Y and W-135) conjugate vaccine (MCV4P) Unknown Completed [facility] DTAP Unknown Completed [facility] HIB 4 Dose Schedule Unknown Completed [facility] HEPATITIS A Unknown Completed [facility] Hep B, Adol or Pedi Dosage Unknown Completed [facility] Meningococcal Vaccine Unknown Completed [facility] MMR Unknown Completed [facility] Pneumococcal 13 Conjugate, PCV13 (Prevnar 13) Unknown Completed [facility] Polio (IPV/OPV) Unknown Completed [facility] TDAP Unknown Completed [facility] Varicella (varivax)(chicken pox) Unknown Completed [facility] HPV Unknown Completed [facility] Meningococcal Polysaccharide (groups A, C, Y and W-135) conjugate vaccine (MCV4P) Unknown Completed [facility] DTAP Unknown Completed [facility] HIB 4 Dose Schedule Unknown Completed [facility] HEPATITIS A Unknown Completed [facility] Hep B, Adol or Pedi Dosage Unknown Completed [facility] Meningococcal Vacc[facility] Unknown Completed [facility] MMR Unknown Completed [facility] Pneumococcal 13 Conjugate, PCV13 (Prevnar 13) Unknown Completed [facility] Polio (IPV/OPV) Unknown [facility] Completed [facility] Varicella (varivax)(chicken pox) Unknown Completed [facility] HPV Unknown Completed [facility] Meningococcal Polysaccharide (groups A, C, Y and W-135) conjugate vaccine (MCV4P) Unknown Completed [facility] DTAP Unknown Completed [facility] HIB 4 Dose Schedule Unknown Completed [facility] HEPATITIS A Unknown Completed [facility] Hep B, Adol or Pedi Dosage Unknown Completed [facility] Meningococcal Vaccine Unknown Completed [facility] MMR Unknown Completed [facility] Pneumococcal 13 Conjugate, PCV13 (Prevnar 13) Unknown Completed [facility] Polio (IPV/OPV) Unknown Completed [facility] TDAP Unknown Completed [facility] Varicella (varivax)(chicken pox) Unknown Completed [facility] Meningococcal Polysaccharide (groups A, C, Y and W-135) conjugate vaccine (MCV4P) Unknown Completed [facility] Pneumococcal 13 Conjugate, PCV13 (Prevnar 13) Unknown Completed [facility] HPV Unknown Completed [facility] DTAP Unknown Completed [facility] HIB 4 Dose Schedule Unknown Completed [facility] HEPATITIS A Unknown Completed [facility] Hep B, Adol or Pedi Dosage Unknown Completed [facility] Meningococcal Vaccine Unknown Completed [facility] MMR Unknown Completed [facility] Polio (IPV/OPV) Unknown Completed [facility] TDAP Unknown Completed [facility] Varicella (varivax)(chicken pox) Unknown Completed [facility] Meningococcal Polysaccharide (groups A, C, Y and W-135) conjugate vaccine (MCV4P) Unknown Completed [facility] Pneumococcal 13 Conjugate, PCV13 (Prevnar 13) Unknown Completed [facility] HPV Unknown Completed [facility] DTAP Unknown Completed [facility] HIB 4 Dose Schedule Unknown Completed [facility] HEPATITIS A Unknown Completed [facility] Hep B, Adol or Pedi Dosage Unknown Completed [facility] Meningococcal Vacc[facility] Unknown Completed [facility] MMR Unknown Completed [facility] Polio (IPV/OPV) Unknown Completed [facility] TDAP Unknown Completed [facility] Varicella (varivax)(chicken pox) Unknown Completed [facility] Meningococcal Polysaccharide (groups A, C, Y and W-135) conjugate vaccine (MCV4P) Unknown Completed [facility] DTAP Unknown Completed [facility] HIB 4 Dose Schedule Unknown Completed [facility] HEPATITIS A Unknown Completed [facility] Hep B, Adol or Pedi Dosage Unknown Completed [facility] HPV Unknown Completed [facility] Meningococcal Vacc[facility] Unknown Completed [facility] MMR Unknown Completed [facility] Pneumococcal 13 Conjugate, PCV13 (Prevnar 13) Unknown Completed [facility] Polio (IPV/OPV) Unknown Completed [facility] TDAP Unknown Completed [facility] Varicella (varivax)(chicken pox) Unknown Completed [facility] Vital Signs Vital Name Observation Time Observation Value Comments S ource Systolic blood pressure 2024-10-07 22:44:00 118 mm[Hg] [facility] Diastolic blood pressure 2024-10-07 22:44:00 82 mm[Hg] [facility] Heart rate 2024-10-07 22:44:00 78 /min [facility] Body temperature 2024-10-07 22:44:00 36.72 Mable [facility] Respiratory rate 2024-10-07 22:44:00 16 /min [facility] Body weight 2024-10-07 22:44:00 77.656 kg [facility] BMI 2024-10-07 22:44:00 26.81 kg/m2 [facility] Oxygen saturation in Arterial blood by Pulse oximetry 2024-10-07 22:44:00 98 /min [facility] Systolic blood pressure 2024-03-05 15:54:00 115 mm[Hg] [facility] Diastolic blood pressure 2024-03-05 15:54:00 79 mm[Hg] [facility] Heart rate 2024-03-05 15:54:00 93 /min Unive [facility] Respiratory rate 2024-03-05 15:54:00 18 /min [facility] Body height 2024-03-05 15:54:00 170.2 cm [facility] Body weight 2024-03-05 15:54:00 82.555 kg [facility] BMI 2024-03-05 15:54:00 28.51 kg/m2 [facility] Systolic blood pressure 2024-02-20 13:08:00 116 mm[Hg] [facility] Diastolic blood pressure 2024-02-20 13:08:00 73 mm[Hg] [facility] Heart rate 2024-02-20 13:08:00 50 /min Unive [facility] Body temperature 2024-02-20 13:08:00 36.61 Mable [facility] Respiratory rate 2024-02-20 13:08:00 16 /min [facility] Body height 2024-02-20 13:08:00 170.2 cm [facility] Body weight 2024-02-20 13:08:00 84.188 kg [facility] BMI 2024-02-20 13:08:00 29.07 kg/m2 [facility] Oxygen saturation in Arterial blood by Pulse oximetry 2024-02-20 13:08:00 96 /min [facility] Systolic blood pressure 2024-02-10 16:00:00 126 mm[Hg] [facility] Diastolic blood pressure 2024-02-10 16:00:00 84 mm[Hg] [facility] Heart rate 2024-02-10 16:00:00 82 /min Unive [facility] Oxygen saturation in Arterial blood by Pulse oximetry 2024-02-10 16:00:00 98 /min [facility] Respiratory rate 2024-02-10 15:55:00 12 /min [facility] Body temperature 2024-02-10 13:18:00 37.28 Mable [facility] Body height 2024-02-03 19:00:00 170.2 cm [facility] Body weight 2024-02-03 19:00:00 81.194 kg [facility] BMI 2024-02-03 19:00:00 28.04 kg/m2 [facility] Systolic blood pressure 2024-02-10 15:35:00 126 mm[Hg] [facility] Diastolic blood pressure 2024-02-10 15:35:00 86 mm[Hg] [facility] Heart rate 2024-02-10 15:35:00 82 /min Unive [facility] Respiratory rate 2024-02-10 15:35:00 19 /min [facility] Oxygen saturation in Arterial blood by Pulse oximetry 2024-02-10 15:35:00 100 /min [facility] Body temperature 2024-02-10 13:18:00 37.28 Mable [facility] Body height 2024-02-03 19:00:00 170.2 cm [facility] Body weight 2024-02-03 19:00:00 81.194 kg [facility] BMI 2024-02-03 19:00:00 28.04 kg/m2 [facility] Systolic blood pressure 2024-02-06 14:29:00 138 mm[Hg] [facility] Diastolic blood pressure 2024-02-06 14:29:00 84 mm[Hg] [facility] Heart rate 2024-02-06 14:29:00 99 /min [facility] height 2024-02-06 14:29:00 170.2 cm [facility] Body weight 2024-02-06 14:29:00 84.732 kg [facility] BMI 2024-02-06 14:29:00 29.26 kg/m2 [facility] Systolic blood pressure 2024-01-23 15:53:00 110 mm[Hg] [facility] Diastolic blood pressure 2024-01-23 15:53:00 75 mm[Hg] [facility] Heart rate 2024-01-23 15:53:00 109 /min [facility] 2024-01-23 15:53:00 18 /min [facility] Body height 2024-01-23 15:53:00 170.2 cm [facility] Body weight 2024-01-23 15:53:00 86.637 kg [facility] BMI 2024-01-23 15:53:00 29.91 kg/m2 [facility] Systolic blood pressure 2023-12-01 13:30:00 105 mm[Hg] [facility] Diastolic blood pressure 2023-12-01 13:30:00 71 mm[Hg] [facility] Heart rate 2023-12-01 13:30:00 74 /min Unive [facility] Body temperature 2023-12-01 13:30:00 36.39 Mable [facility] Respiratory rate 2023-12-01 13:30:00 18 /min [facility] Oxygen saturation in Arterial blood by Pulse oximetry 2023-12-01 13:30:00 99 /min [facility] Body height 2023-11-30 08:51:00 170.2 cm [facility] Body weight 2023-11-30 08:51:00 117.935 kg [facility] BMI 2023-11-30 08:51:00 40.72 kg/m2 [facility] Systolic blood pressure 2023-11-28 14:41:00 109 mm[Hg] [facility] Diastolic blood pressure 2023-11-28 14:41:00 71 mm[Hg] [facility] Heart rate 2023-11-28 14:41:00 82 /min Unive [facility] Respiratory rate 2023-11-28 14:41:00 18 /min [facility] Body height 2023-11-28 14:41:00 170.2 cm Univ [facility] Body weight 2023-11-28 14:41:00 97.977 kg [facility] BMI 2023-11-28 14:41:00 33.83 kg/m2 [facility] Systolic blood pressure 2023-11-19 22:43:00 115 mm[Hg] [facility] Diastolic blood pressure 2023-11-19 22:43:00 69 mm[Hg] [facility] Heart rate 2023-11-19 22:43:00 82 /min [facility] Respiratory rate 2023-11-19 22:43:00 18 /min [facility] Oxygen saturation in Arterial blood by Pulse oximetry 2023-11-19 22:43:00 98 /min [facility] Systolic blood pressure 2023-11-19 21:04:00 126 mm[Hg] [facility] Diastolic blood pressure 2023-11-19 21:04:00 80 mm[Hg] [facility] Heart rate 2023-11-19 21:04:00 91 /min [facility] Body temperature 2023-11-19 21:04:00 36.72 Mable [facility] Respiratory rate 2023-11-19 21:04:00 18 /min [facility] Body height 2023-11-19 21:04:00 170.2 cm [facility] Body weight 2023-11-19 21:04:00 97.796 kg [facility] BMI 2023-11-19 21:04:00 33.77 kg/m2 [facility] Systolic blood pressure 2023-11-11 16:16:00 117 mm[Hg] [facility] Diastolic blood pressure 2023-11-11 16:16:00 74 mm[Hg] [facility] Heart rate 2023-11-11 16:16:00 87 /min [facility] Body temperature 2023-11-11 16:16:00 36.94 Mable [facility] Respiratory rate 2023-11-11 16:16:00 18 /min [facility] Body height 2023-11-11 16:16:00 170.2 cm [facility] Body weight 2023-11-11 16:16:00 95.165 kg [facility] BMI 2023-11-11 16:16:00 32.86 kg/m2 [facility] Oxygen saturation in Arterial blood by Pulse oximetry 2023-11-11 16:16:00 99 /min [facility] Heart rate 2023-11-03 17:50:00 93 /min [facility] Oxygen saturation in Arterial blood by Pulse oximetry 2023-11-03 17:50:00 99 /min [facility] Systolic blood pressure 2023-11-03 17:30:00 116 mm[Hg] [facility] Diastolic blood pressure 2023-11-03 17:30:00 57 mm[Hg] [facility] Body temperature 2023-11-03 15:56:00 36.72 Mable [facility] Respiratory rate 2023-11-03 15:56:00 18 /min [facility] Body height 2023-11-03 15:56:00 170.2 cm [facility] Body weight 2023-11-03 15:56:00 97.07 kg [facility] BMI 2023-11-03 15:56:00 33.52 kg/m2 [facility] Systolic blood pressure 2023-10-30 19:10:00 110 mm[Hg] [facility] Diastolic blood pressure 2023-10-30 19:10:00 63 mm[Hg] [facility] Heart rate 2023-10-30 19:10:00 82 /min [facility] Body temperature 2023-10-30 19:10:00 37 Mable [facility] Respiratory rate 2023-10-30 19:10:00 18 /min [facility] Body height 2023-10-30 19:10:00 170.2 cm [facility] Body weight 2023-10-30 19:10:00 94.348 kg [facility] BMI 2023-10-30 19:10:00 32.58 kg/m2 [facility] Systolic blood pressure 2023-10-14 19:08:00 114 mm[Hg] [facility] Diastolic blood pressure 2023-10-14 19:08:00 72 mm[Hg] [facility] Heart rate 2023-10-14 19:08:00 79 /min [facility] Body temperature 2023-10-14 19:08:00 36.11 Mable [facility] Respiratory rate 2023-10-14 19:08:00 18 /min [facility] Body height 2023-10-14 19:08:00 170.2 cm [facility] Body weight 2023-10-14 19:08:00 92.897 kg [facility] BMI 2023-10-14 19:08:00 32.08 kg/m2 [facility] Oxygen saturation in Arterial blood by Pulse oximetry 2023-10-14 19:08:00 99 /min [facility] Systolic blood pressure 2023-09-30 17:25:00 113 mm[Hg] [facility] Diastolic blood pressure 2023-09-30 17:25:00 71 mm[Hg] [facility] Heart rate 2023-09-30 17:25:00 82 /min [facility] Body temperature 2023-09-30 17:25:00 36.72 Mable [facility] Body height 2023-09-30 17:25:00 170.2 cm [facility] Body weight 2023-09-30 17:25:00 90.992 kg [facility] BMI 2023-09-30 17:25:00 31.42 kg/m2 [facility] Systolic blood pressure 2023-09-16 13:26:00 111 mm[Hg] [facility] Diastolic blood pressure 2023-09-16 13:26:00 70 mm[Hg] [facility] Heart rate 2023-09-16 13:26:00 85 /min [facility] Body temperature 2023-09-16 13:26:00 36.33 Mable [facility] Respiratory rate 2023-09-16 13:26:00 17 /min [facility] Body height 2023-09-16 13:26:00 170.2 cm [facility] Body weight 2023-09-16 13:26:00 87.091 kg [facility] BMI 2023-09-16 13:26:00 30.07 kg/m2 [facility] Systolic blood pressure 2023-09-02 15:50:00 106 mm[Hg] [facility] Diastolic blood pressure 2023-09-02 15:50:00 72 mm[Hg] [facility] Heart rate 2023-09-02 15:50:00 86 /min [facility] Body temperature 2023-09-02 15:50:00 36.72 Mable [facility] Respiratory rate 2023-09-02 15:50:00 17 /min [facility] Body height 2023-09-02 15:50:00 170.2 cm [facility] 2023-09-02 15:50:00 86.728 kg [facility] BMI 2023-09-02 15:50:00 29.95 kg/m2 [facility] Systolic blood pressure 2023-08-05 16:19:00 105 mm[Hg] [facility] Diastolic blood pressure 2023-08-05 16:19:00 66 mm[Hg] [facility] Heart rate 2023-08-05 16:19:00 88 /min [facility] Respiratory rate 2023-08-05 16:19:00 18 /min [facility] Body height 2023-08-05 16:19:00 170.2 cm [facility] Body weight 2023-08-05 16:19:00 81.829 kg [facility] BMI 2023-08-05 16:19:00 28.25 kg/m2 [facility] Oxygen saturation in Arterial blood by Pulse oximetry 2023-08-05 16:19:00 99 /min [facility] Systolic blood pressure 2023-07-08 16:14:00 100 mm[Hg] [facility] Diastolic blood pressure 2023-07-08 16:14:00 69 mm[Hg] [facility] Heart rate 2023-07-08 16:14:00 82 /min [facility] Body temperature 2023-07-08 16:14:00 37.17 Mable [facility] Respiratory rate 2023-07-08 16:14:00 18 /min [facility] Body height 2023-07-08 16:14:00 170.2 cm [facility] 2023-07-08 16:14:00 77.021 kg [facility] BMI 2023-07-08 16:14:00 26.59 kg/m2 [facility] Oxygen saturation in Arterial blood by Pulse oximetry 2023-07-08 16:14:00 99 /min [facility] Systolic blood pressure 2023-06-09 21:02:00 107 mm[Hg] [facility] Diastolic blood pressure 2023-06-09 21:02:00 76 mm[Hg] [facility] Heart rate 2023-06-09 21:02:00 78 /min [facility] Body temperature 2023-06-09 21:02:00 36.83 Mable [facility] Respiratory rate 2023-06-09 21:02:00 16 /min [facility] Body height 2023-06-09 21:02:00 170.2 cm [facility] Body weight 2023-06-09 21:02:00 75.705 kg [facility] BMI 2023-06-09 21:02:00 26.14 kg/m2 [facility] Oxygen saturation in Arterial blood by Pulse oximetry 2023-06-09 21:02:00 97 /min [facility] Systolic blood pressure 2023-05-06 20:25:00 115 mm[Hg] [facility] Diastolic blood pressure 2023-05-06 20:25:00 70 mm[Hg] [facility] Heart rate 2023-05-06 20:25:00 77 /min [facility] Body temperature 2023-05-06 20:25:00 36.5 Mable [facility] Respiratory rate 2023-05-06 20:25:00 18 /min [facility] Body height 2023-05-06 20:25:00 170.2 cm [facility] Body weight 2023-05-06 20:25:00 74.299 kg [facility] BMI 2023-05-06 20:25:00 25.65 kg/m2 [facility] Oxygen saturation in Arterial blood by Pulse oximetry 2023-05-06 20:25:00 99 /min [facility] Systolic blood pressure 2023-04-12 17:03:00 122 mm[Hg] [facility] Diastolic blood pressure 2023-04-12 17:03:00 88 mm[Hg] [facility] Body height 2023-04-12 17:03:00 170.2 cm [facility] Body weight 2023-04-12 17:03:00 71.668 kg [facility] BMI 2023-04-12 17:03:00 24.75 kg/m2 [facility] Procedures Procedure Date / Time Performed Performing Clinician Source XR HAND 3+ VW RIGHT 2024-10-07 23:28:34 Ashtyn Lovell [facility] LAPAROSCOPIC SALPINGECTOMY 2024-02-10 14:21:00 Yordan Hernandez [facility] DSU PRE-OP 2024-02-06 05:01:00 Doctor Unass igned, [place] [facility] DISABILITY/FMLA 2023-12-25 06:01:00 Doctor Unass igned, [place] [facility] CBC WITH DIFF 2023-12-01 09:46:00 Adum, Odessa Goins [facility] CBC WITH DIFF 2023-11-30 08:32:00 Adum, Odessa Arredondo [facility] HEPATITIS B SURFACE ANTIGEN 2023-11-30 08:32:00 Adum, Odessa Arredondo [facility] HB ABO GROUPING 2023-11-30 08:32:00 Adum, Odessa [facility]redondo [facility] HIV 1/2 AG-AB WITH REFLEX 2023-11-30 08:32:00 Adum, Odessa Arredondo [facility] NOTICE OF PRIVACY PRACTICES 2023-11-30 06:30:14 Doctor Unassigned, [place] [facility] ASSIGNMENT OF BENEFITS 2023-11-30 06:28:14 Docto r Unassigned, [place] [facility] POCT URINALYSIS W/O SPECIFIC GRAVITY 2023-11-28 00:00:00 Yordan Hernandez [facility] US BIOPHYSICAL PROFILE 2023-11-19 23:40:00 Yordan Hernandez [facility] CONSENT/REFUSAL FOR DIAGNOSIS AND TREATMENT 2023-11-19 22:21:44 Doctor Unassigned, [place] [facility] ASSIGNMENT OF BENEFITS 2023-11-19 22:21:09 Docto r Unassigned, [place] [facility] POCT URINALYSIS W/O SPECIFIC GRAVITY 2023-11-19 21:09:00 Yordan Hernandez [facility] >14 WEEKS US LIMITED 2023-11-11 16:54:06 Adum, Odessa Arredondo [facility] DSU PRE-OP 2023-11-11 06:01:00 Doctor Unass igned, [place] [facility] POCT URINALYSIS W/O SPECIFIC GRAVITY 2023-11-11 00:00:00 Adum, Odessa Arredondo [facility] URINALYSIS 2023-11-03 16:17:00 Yordan Hernandez [facility] ADC CLC OR LCC ONLY - WET PREP 2023-11-03 16:17:00 Yordan Hernandez [facility] CONSENT/REFUSAL FOR DIAGNOSIS AND TREATMENT 2023-11-03 15:36:34 Doctor Unassigned, [place] [facility] ASSIGNMENT OF BENEFITS 2023-11-03 15:32:10 Ingrid r Unassigned, [place] [facility] POCT URINALYSIS W/O SPECIFIC GRAVITY 2023-10-30 00:00:00 Yordan Hernandez [facility] POCT URINALYSIS W/O SPECIFIC GRAVITY 2023-10-14 00:00:00 Adum, Odessa Arredondo [facility] POCT URINALYSIS W/O SPECIFIC GRAVITY 2023-09-30 00:00:00 AdumOdessa [facility] STERILIZATION CONSENT FORM 2023-09-16 05:01:00 Doctor Unassigned, [place] [facility] POCT URINALYSIS W/O SPECIFIC GRAVITY 2023-09-16 00:00:00 AdumOdessa [facility] POCT URINALYSIS W/O SPECIFIC GRAVITY 2023-09-02 00:00:00 Adum, Odessa Arredondo [facility] POCT URINALYSIS W/O SPECIFIC GRAVITY 2023-08-05 00:00:00 Yordan Hernandez [facility] SECOND AND THIRD TRIMESTER ULTRASOUND 2023-07-25 15:02:00 Nayan Terry [facility] POCT URINALYSIS W/O SPECIFIC GRAVITY 2023-07-08 00:00:00 Adum, Odessa Arredondo [facility] ASSIGNMENT OF BENEFITS 2023-06-09 16:56:14 Docto r Unassigned, [place] [facility] POCT URINALYSIS W/O SPECIFIC GRAVITY 2023-06-09 00:00:00 Nayan Terry [facility] CBC WITH DIFF 2023-05-28 17:39:00 Adum, Odessa Arredondo [facility] SCANNED LAB RESULTS 2023-05-28 05:01:00 Doctor Gonzales osborne, [place] [facility] US OB TRANSVAGINAL 2023-05-07 02:00:02 Adum, Odessa Arredondo [facility] URINE DRUG (IMMUNOASSAY) - COMPREHENSIVE DRUG SCREEN 2023-05-06 21:46:00 AdumOdessa [facility] ASSIGNMENT OF BENEFITS 2023-05-06 19:26:26 Docto r Unassigned, [place] [facility] POCT TEST 2023-05-06 00:00:00 Adum, Odessa Arredondo [facility] POCT URINALYSIS W/O SPECIFIC GRAVITY 2023-05-06 00:00:00 AdOdessa mendez [facility] CONSENT/REFUSAL FOR DIAGNOSIS AND TREATMENT 2023-04-12 16:54:47 Doctor Unassigned, [place] [facility] VACCINATIONS - CONSENTS, ELIGIBILITY, HISTORY 2020-03-23 05:01:00 Doctor Unassigned, [place] [facility] Encounters Start Date/Time End Date/Time Encounter Type Admission Type Attending [facility] Care Department Encounter ID Source 2023-11-03 12:54:04 Outpatient P RUST FARRAH [id number] [facility] 2024-10-26 00:00:00 2024-10-26 10:20:12 [facility] 1.2.840.114 350.1.13.10 4.2.7.2.686 [id number] 134 [id number] [facility] 2024-10-08 00:00:00 2024-10-08 10:31:20 Telephone Ashtyn Lovell [facility] 1.2.840.114 350.1.13.10 4.2.7.2.686 [id number] [facility] 2024-10-07 17:07:30 2024-10-07 23:59:00 Outpatient R ASHTYN LOVELL [facility] [id number] [facility] 2024-10-07 17:07:30 2024-10-07 23:59:00 Hospital Encounter [facility]yn Lovell [facility] 1.2.840.114 350.1.13.10 4.2.7.2.686 [id number] [facility] 2024-10-07 16:00:00 2024-10-07 17:17:30 Urgent Care Ashtyn Lovell Meliza, Attending [facility] 1.2.840.114 350.1.13.10 4.2.7.2.686 [id number] [facility] 2024-05-07 13:00:00 2024-05-07 13:00:00 Outpatient R YORDAN HERNANDEZ [facility] [id number] [facility] 2024-03-05 11:00:00 2024-03-05 11:05:15 Outpatient R YORDAN HERNANDEZ [facility] [id number] [facility] 2024-03-05 11:00:00 2024-03-05 11:05:15 Office Visit Yordan Hernandez [facility] 1.20.114 350.1.13.10 4.2.7.2.686 [id number] 134 [id number] [facility] 2024-02-20 08:00:00 2024-02-20 08:40:46 Outpatient R MARY [facility] [id number] [facility] 2024-02-20 08:00:00 2024-02-20 08:40:46 Office Visit Yordan Hernandez [facility] 1.0.114 350.1.13.10 4.2.7.2.686 [id number] [facility] 2024-02-10 08:01:00 2024-02-10 11:13:00 [facility] [id number] [facility] 2024-02-10 08:01:00 2024-02-10 11:13:00 Hospital Encounter [facility] 1.0.114 350.1.13.10 4.2.7.2.686 [id number] [facility] 2024-02-10 09:14:00 2024-02-10 10:38:00 Surgery [facility] 1.0.114 350.1.13.10 4.2.7.2.686 [id number] [facility] 2024-02-09 08:30:00 2024-02-09 08:45:00 [employer] Visit Pob, Adc Lab Main Mary [facility] PROFESS[facility] BUILD[facility] 1.2840.114 350.1.13.10 4.2.7.2.686 [id number] [facility] 2024-02-09 08:30:00 2024-02-09 08:30:00 Outpatient R HERNANDEZ, [facility] [id number] [facility] 2024-02-06 09:00:00 2024-02-06 09:45:22 Outpatient R YORDAN HERNANDEZ [facility] [id number] [facility] 2024-02-06 09:00:00 2024-02-06 09:45:22 Office Visit Yordan Hernandez [facility] BUILDING 1.2.840.114 350.1.13.10 4.2.7.2.686 [id number] 134 [id number] [facility] 2024-02-06 00:00:00 2024-02-06 00:00:00 Orders Only Doctor Unassigned, [place] [facility] 1.2.840.114 350.1.13.10 4.2.7.2.686 [id number] [facility] 2024-01-23 09:45:00 2024-01-23 10:08:56 Outpatient R YORDAN HERNANDEZ [facility] [id number] [facility] 2024-01-23 09:45:00 2024-01-23 10:08:56 Routine Visit Yordan Hernandez [facility] 1.2.840.114 350.1.13.10 4.2.7.2.686 [id number] [facility] 2024-01-16 12:15:00 2024-01-16 12:15:00 Outpatient R YORDAN HERNANDEZ [facility] [id number] [facility] 2023-12-31 00:00:00 2023-12-31 00:00:00 Telephone Yordan Hernandez [facility] 1.2.840.114 350.1.13.10 4.2.7.2.686 [id number] [facility] 2023-12-25 00:00:00 2023-12-25 00:00:00 Orders Only Doctor Unassigned, [place] [facility] 1.2840.114 350.1.13.10 4.2.7.2.686 [id number] [facility] 2023-12-02 00:00:00 2023-12-02 00:00:00 Telephone AdOdessa mendez [facility] 1.2840.114 350.1.13.10 4.2.7.2.686 [id number] [facility] 2023-12-02 00:00:00 2023-12-02 00:00:00 Case Management Yordan Hernandez [facility] 1.2840.114 350.1.13.10 4.2.7.2.686 [id number] [facility] 2023-11-30 00:41:00 2023-12-01 11:00:00 Inpatient X ADODESSA MENDEZ [facility] [id number] [facility] 2023-11-30 00:41:00 2023-12-01 11:00:00 Hospital Encounter Odessa Hays [facility] 1.2840.114 350.1.13.10 4.2.7.2.686 [id number] [facility] 2023-11-30 04:07:42 2023-11-30 04:07:42 Anesthesia Event Nat Kim [facility] 1.2840.114 350.1.13.10 4.2.7.2.686 [id number] [facility] 2023-11-30 00:00:00 2023-11-30 00:00:00 Orders Only Doctor Unassigned, [place] [facility] 1.2.840.114 350.1.13.10 4.2.7.2.686 [id number] [facility] 2023-11-28 08:45:00 2023-11-28 08:52:18 Outpatient R YORDAN HERNANDEZ [facility] [id number] [facility] 2023-11-28 08:45:00 2023-11-28 08:52:18 Routine Visit Yordan Hernandez [email or web address] 1..114 350.1.13.10 4.2.7.2.686 [id number] [facility] 2023-11-27 00:00:00 2023-11-27 00:00:00 Telephone oYrdan Hernandez [facility]ESS[facility]ILD[facility] 1..114 350.1.13.10 4.2.7.2.686 [id number] [facility] 2023-11-19 16:21:00 2023-11-19 18:22:00 Outpatient P YORDAN HERNANDEZ [facility] [id number] [facility] 2023-11-19 16:21:00 2023-11-19 18:22:00 Hospital Encounter Yordan Hernandez [facility] 1..114 350.1.13.10 4.2.7.2.686 [id number] [facility] 2023-11-19 14:45:00 2023-11-19 16:07:43 Outpatient R YORDAN HERNANDEZ [facility] [id number] [facility] 2023-11-19 14:45:00 2023-11-19 16:07:43 [facility] 1..114 350.1.13.10 4.2.7.2.686 [id number] [facility] 2023-11-13 00:00:00 2023-11-13 00:00:00 Patient Secure Msg Doctor Unassigned, [place] [facility] 1..114 350.1.13.10 4.2.7.2.686 [id number] [facility] 2023-11-11 09:45:00 2023-11-11 10:52:07 Outpatient R ADANDREA ODESSA [facility] [id number] [facility] 2023-11-11 09:45:00 2023-11-11 10:52:07 Routine Visit Adum, Odessa [facility] 1.2840.114 350.1.13.10 4.2.7.2.686 [id number] 134 [id number] [facility] 2023-11-11 00:00:00 2023-11-11 00:00:00 Orders Only Doctor Unassigned, [place] [facility] 1.2840.114 350.1.13.10 4.2.7.2.686 [id number] [facility] 2023-11-03 09:31:00 2023-11-03 12:50:00 Outpatient P YORDAN HERNANDEZ VIEN [facility] [id number] [facility] 2023-11-03 09:31:00 2023-11-03 12:50:00 Hospital Encounter Adum, Odessa Arredondo Yordan Hernandez [facility] 1.2840.114 350.1.13.10 4.2.7.2.686 [id number] [facility] 2023-11-03 00:00:00 2023-11-03 00:00:00 Telephone Adum, [facility] 1.2840.114 350.1.13.10 4.2.7.2.686 [id number] [facility] 2023-10-30 13:00:00 2023-10-30 13:57:55 Outpatient R ADANDREA ODESSA [facility] [id number] [facility] 2023-10-30 13:00:00 2023-10-30 13:57:55 Routine Visit Adum, Odessa Arredondo [facility] 1.2.840.114 350.1.13.10 4.2.7.2.686 [id number] [facility] 2023-10-27 10:22:18 2023-10-27 10:22:18 Outpatient [facility] [id number] Teodoro Rucker 2023-10-14 13:00:00 2023-10-14 13:16:49 Outpatient R ADUM, ODESSA [facility] [id number] [facility] 2023-10-14 13:00:00 2023-10-14 13:16:49 Routine Visit Adandrea, Odessa Arredondo [facility] [id number] 350.1.13.10 [id number] [id number] [facility] 2023-09-30 11:00:00 2023-09-30 11:48:46 Outpatient R ADUM, ODESSA [facility] [id number] [facility] 2023-09-30 11:00:00 2023-09-30 11:48:46 Routine Visit Adandrea, Odessa Arredondo [facility] [id number] 350.1.13.10 [id number] [id number] [facility] 2023-09-20 00:00:00 2023-09-20 00:00:00 Outpatient GC_GCBZW_Ka diyala_S [facility] [id number] [facility] 2023-09-16 08:15:00 2023-09-16 09:07:09 Outpatient R ADUM[facility] [facility] [id number] [facility] 2023-09-16 08:15:00 2023-09-16 09:07:09 Routine Visit Kym Roberts Adum, [place] Arredondo [facility] 1.2.840.114 350.1.13.10 4.2.7.2.686 [id number] 134 [id number] [facility] 2023-09-16 00:00:00 2023-09-16 00:00:00 Orders Only Doctor Unassigned, [place] [facility] 1.2.840.114 350.1.13.10 4.2.7.2.686 [id number] [facility] 2023-09-03 00:00:00 2023-09-03 00:00:00 Telephone Adum, [place] Arredondo [facility] 1.2.840.114 350.1.13.10 4.2.7.2.686 [id number] 134 [id number] [facility] 2023-09-03 00:00:00 2023-09-03 00:00:00 Patient Secure Msg Doctor Unassigned, [place] [facility] 1.2840.114 350.1.13.10 4.2.7.2.686 [id number] 134 [id number] [facility] 2023-09-02 11:00:00 2023-09-02 11:17:33 Outpatient R ADANDREA, ODESSA [facility] [id number] [facility] 2023-09-02 11:00:00 2023-09-02 11:17:33 Routine Visit Adum, [place] [facility] 1.2.840.114 350.1.13.10 4.2.7.2.686 [id number] 134 [id number] [facility] 2023-09-02 09:30:00 2023-09-02 09:45:00 Upholste[employer] Line Visit Pob, Adc Lab Main Adum, [place] Arredondo [facility] 1.2.840.114 350.1.13.10 4.2.7.2.686 [id number] [facility] 2023-08-13 00:00:00 2023-08-13 00:00:00 Patient Secure Msg Doctor Unassigned, [place] [facility] 1.2840.114 350.1.13.10 4.2.7.2.686 [id number] [facility] 2023-08-05 11:00:00 2023-08-05 11:36:06 Outpatient R ADANDREA, [facility] [id number] [facility] 2023-08-05 11:00:00 2023-08-05 11:36:06 [facility] 1..114 350.1.13.10 4.2.7.2.686 [id number] 134 [id number] [facility] 2023-07-26 00:00:00 2023-07-26 00:00:00 Case Management Nayan Terry [facility] 1..114 350.1.13.10 4.2.7.2.686 [id number] 134 [id number] [facility] 2023-07-25 09:00:00 2023-07-25 09:55:52 Outpatient P VALERIE HEREDIA SHANNON [facility] [id number] [facility] 2023-07-25 09:00:00 2023-07-25 09:55:52 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, Valerie Renner [employer] [facility] 1..114 350.1.13.10 4.2.7.2.686 [id number] [facility] 2023-07-08 11:00:00 2023-07-08 11:15:00 [facility] 1..114 350.1.13.10 4.2.7.2.686 [id number] 134 [id number] [facility] 2023-07-08 11:00:00 2023-07-08 11:00:00 Outpatient R ODESSA HAYS [facility] [id number] [facility] 2023-06-09 16:00:00 2023-06-09 16:28:22 Outpatient R NAYAN TERRYERICKNAYAN HUGHES [facility] [id number] [facility] 2023-06-09 16:00:00 2023-06-09 16:28:22 Routine Visit Nayan Terry [email or web address] 1.114 350.1.13.10 4.2.7.2.686 [id number] 134 [id number] [facility] 2023-06-09 13:15:00 2023-06-09 13:15:00 Outpatient R MARTI-ELLNE S, KYM MARTI-ELLEN S, KYM [facility] [id number] [facility] 2023-06-09 13:00:00 2023-06-09 13:15:00 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 [employer] Line Visit Pob, Adc Lab Main AdumOdessa [facility] 1.2840.114 350.1.13.10 4.2.7.2.686 [id number] [facility] 2023-05-28 13:15:00 2023-05-28 13:15:00 Outpatient R ADODESSA MENDEZ [facility] [id number] [facility] 2023-05-28 00:00:00 2023-05-28 00:00:00 Telephone AdOdessa mendez [facility] 1.2840.114 350.1.13.10 4.2.7.2.686 [id number] 134 [id number] [facility] 2023-05-28 00:00:00 2023-05-28 00:00:00 Orders Only Doctor Unassigned, [place] [facility] 1.20.114 350.1.13.10 4.2.7.2.686 [id number] [facility] 2023-05-23 00:00:00 2023-05-23 00:00:00 Telephone AdOdessa mendez [facility] 1.2840.114 350.1.13.10 4.2.7.2.686 [id number] 134 [id number] [facility] 2023-05-09 00:00:00 2023-05-09 00:00:00 Telephone AdOdessa mendez [facility] 1.2.840.114 350.1.13.10 4.2.7.2.686 [id number] 134 [id number] [facility] 2023-05-06 14:30:00 2023-05-06 16:22:09 Outpatient R DAI [facility] [id number] [facility] 2023-05-06 14:30:00 2023-05-06 16:22:09 Initial Visit AdOdessa mendez [facility] 1.2.840.114 350.1.13.10 4.2.7.2.686 [id number] 134 [id number] [facility] 2023-05-06 00:00:00 2023-05-06 00:00:00 Orders Only Doctor Unassigned, [place] [facility] 1.2840.114 350.1.13.10 4.2.7.2.686 [id number] [facility] 2023-04-12 12:07:00 2023-04-12 12:19:00 Emergency X RUST ERT [id number] [facility] 2023-04-12 12:07:00 2023-04-12 12:19:00 Emergency [facility] 1.2.840.114 350.1.13.10 4.2.7.2.686 [id number] [facility] 2023-01-15 14:00:00 2023-01-15 14:00:00 Outpatient R GERMAN ORR [facility] [id number] [facility] 2020-03-23 00:00:00 2020-03-23 00:00:00 Orders Only Doctor Unassigned, [place] [facility] 1.2.840.114 350.1.13.10 4.2.7.2.686 [id number] [facility] Results Test Description Test Time Test Comments Results Result Co mments Source [facility] Surface [id number] 19:49:49 * Test Item Value Reference Range Interpretation Comme nts HBsAg Semi-Quantitative (linda t code = 5195-3) 0.09 Negative [facility] 1/2 Ag-Ab with [id number] 10:37:04* Test Item Value Reference Range Interpretation Comme nts HIV Semi-quantitative (test code = 62682-0) 0.11 Negative RICH (test code = RICH) Non-reactive for HIV-1 antigen and HIV-1/HIV-2 antibodies. ?No laboratory evidence of HIV infection. ?Repeat in 2-4 weeks if acute HIV infection is suspected. [facility] with [id number] 09:55:05* Test Item Value Reference Range Interpretation Comme nts WBC (test code = 6690-2) 8.66 See_Comment [Automated Stylyta ge] The system which generated this result transmitted reference range: 4.30 - 11.10 10*3/?L. The reference range was not used to interpret this result as normal/abnormal. RBC (test code = 789-8) 4.10 See_Comment [Automated Stylyta ge] The system which generated this result [...] 34.1 g/dL 31.6-35.1 RDW-SD (test code = 93153-4) 41.1 fL 39.0-49.9 RDW-CV (test code = 788-0) 12.7 % 12.0-15.5 PLT (test code = 777-3) 183 See_Comment [Automated Stylyta ge] The system which generated this result transmitted reference range: 166 - 358 10*3/?L. The reference range was not used to interpret this result as normal/abnormal. MPV (test code = 79784-5) 9.9 fL 9.5-12.9 NRBC/100 WBC (test code = 1744581251) 0.0 See_Comment [Automated me ssage] The system which generated this result transmitted reference range: 0.0 - 10.0 /100 WBCs. The reference range was not used to interpret this result as normal/abnormal. NRBC x10^3 (test code = 3510312689) See_Comment [Automated messa ge] The system which generated this result transmitted reference range: 10*3/?L. The reference range was not used to interpret this result as normal/abnormal. GRAN MAT (NEUT) % (test code = 770-8) 71.6 % IMM GRAN % (test code = 7705845077) 2.30 % LYMPH % (test code = 736-9) 17.6 % MONO % (test code = 5905-5) 7.6 % EOS % (test code = 713-8) 0.7 % BASO % (test code = 706-2) 0.2 % GRAN MAT x10^3(ANC) (test code = 5460626040) 6.20 10*3/uL 1.88-7.09 IMM GRAN x10^3 (test code = 9669876722) 0.20 10*3/uL 0.00-0.06 H LYMPH x10^3 (test code = 731-0) 1.52 10*3/uL 1.32-3.29 MONO x10^3 (test code = 742-7) 0.66 10*3/uL 0.33-0.92 EOS x10^3 (test code = 711-2) 0.06 10*3/uL 0.03-0.39 BASO x10^3 (test code = 704-7) 0.01-0.07 Lab Interpretation (test code = 78893-8) Abnormal [facility] and Screen - ONCE [id number] 09:28:00 * Test Item Value Reference Range Interpretation Comme nts ABO & RH (test code = 20) O Positive IAT (test code = 1185) Negative [facility] Urinalysis w/o Specific [id number] 14:45:00* Test Item Value Reference Range Interpretation [...] = 3257) N/A Negative - Negati ve [facility] BIOPHYSICAL [id number] 00:43:02EXAM: US BIOPHYSICAL PROFILE DATE: 11/19/2023 HISTORY: Evaluate biophysical profile ORDERING PHYSICIAN: YORDAN HERNANDEZ COMPARISON: None available TECHNIQUE: Limited 2-D and Doppler transabdominalobstetric pelvicultrasound for biophysical profile FINDINGS:There is a single live IUP with heart rate of 161 bpm. Biophysical profilemeasures 07/01. AMAYA measures 18.2 cm. Presentation is cephalic.[facility] Urinalysis w/o Specific [place] 2023-11-19 21:09:00* Test Item Value Reference Range [...] internal controls Lab Interpretation (test code = 96683-9) Normal [facility] Urinalysis w/o Specific [id number] 16:18:00* Test Item Value Reference Range Interpretation [...] = 3257) n/a Negative - Negati ve [facility] URINALYSIS W/O SPECIFIC [id number] 19:34:00* Test Item Value Reference Range Interpretation [...] = 3257) n/a Negative - Negati ve [facility] URINALYSIS W/O SPECIFIC [id number] 19:04:00* Test Item Value Reference Range Interpretation [...] = 3257) n/a Negative - Negati ve [facility] URINALYSIS W/O SPECIFIC [id number] 17:23:00* Test Item Value Reference Range Interpretation [...] = 3257) Negative Negative - Negati ve [facility] URINALYSIS W/O SPECIFIC [id number] 13:19:00* Test Item Value Reference Range Interpretation [...] = 3257) n/a Negative - Negati ve [facility] URINALYSIS W/O SPECIFIC [id number] 15:48:00* Test Item Value Reference Range Interpretation [...] = 3257) n/a [facility] [id number] 16:17:00* Test Item Value Reference Range Interpretation [...] = 3257) n/a Negative - Negati ve [facility] URINALYSIS W/O SPECIFIC [id number] 16:11:00* Test Item Value Reference Range Interpretation [...] = 3257) negative Negative - Negati ve [facility] URINALYSIS W/O SPECIFIC [id number] 21:25:00* Test Item Value Reference Range Interpretation [...] = 3257) n/a Negative - Negati ve [facility] WITH [id number] 17:55:31* Test Item Value Reference Range Interpretation Comme nts WBC (test code = 6690-2) 6.47 See_Comment [Automated messa ge] The system which generated this result transmitted reference range: 4.30 - 11.10 10*3/?L. The reference range was not used to interpret this result as normal/abnormal. RBC (test code = 789-8) 4.22 See_Comment [Automated messa ge] The system which [...] 34.1 g/dL 31.6-35.1 RDW-SD (test code = 57614-5) 41.0 fL 39.0-49.9 RDW-CV (test code = 788-0) 12.3 % 12.0-15.5 PLT (test code = 777-3) 184 See_Comment [Automated messa ge] The system which generated this result transmitted reference range: 166 - 358 10*3/?L. The reference range was not used to interpret this result as normal/abnormal. MPV (test code = 14826-5) 8.8 fL 9.5-12.9 L NRBC/100 WBC (test code = 6754252822) 0.0 See_Comment [Automated [employer] ssage] The system which generated this result transmitted reference range: 0.0 - 10.0 /100 WBCs. The reference range was not used to interpret this result as normal/abnormal. NRBC x10^3 (test code = 5074233934) See_Comment [Automated Stylyta ge] The system which generated this result transmitted reference range: 10*3/?L. The reference range was not used to interpret this result as normal/abnormal. GRAN MAT (NEUT) % (test code = 770-8) 73.7 % IMM GRAN % (test code = 1547846344) 0.80 % LYMPH % (test code = 736-9) 16.8 % MONO % (test code = 5905-5) 7.6 % EOS % (test code = 713-8) 0.8 % BASO % (test code = 706-2) 0.3 % GRAN MAT x10^3(ANC) (test code = 6739431938) 4.77 10*3/uL 1.88-7.09 IMM GRAN x10^3 (test code = 7397944275) 0.05 10*3/uL 0.00-0.06 LYMPH x10^3 (test code = 731-0) 1.09 10*3/uL 1.32-3.29 L MONO x10^3 (test code = 742-7) 0.49 10*3/uL 0.33-0.92 EOS x10^3 (test code = 711-2) 0.05 10*3/uL 0.03-0.39 BASO x10^3 (test code = 704-7) 0.01-0.07 Lab Interpretation (test code = 80040-2) Abnormal [facility]IN[facility] W/O SPECIFIC [id number] 20:32:00* Test Item Value Reference Range Interpretation [...] = 3257) n/a Negative - Negati ve [facility]linePO[facility] [id number] 20:31:00* Test Item Value Reference Range Interpretation Comme nts POCT PREG (test code = 1605) Positive On board controls acceptable with C Line (test code = 3574) Yes POCT PREG LOT # (test code = 3575) POCT PREG TEST DATE ( test code = 3576) [facility] History and Physical Notes Date/Time Note Provider Source 2024-02-10 09:15:03 I have seen and examined patient. Denies interval changes. Denies unprotected intercourse. Patient Vitals for the past 24 hrs: BP Temp Temp src Pulse Resp SpO2 02/10/24 0818 111/74 37.3 ?C (99.1 ?F) TEMPORAL ART 78 18 100 % NAD RRR Breathing unlabored Soft, NTTP, no rash No edema A/P: Will proceed with laparoscopic bilateral salpingectomy. All questions answered. Yordan Hernandez MD 02/10/2024 9:16 AM Source Note - Yordan Hernandez MD - 02/06/2024 9:00 AM CDT Chief Complaint Patient presents with Post-Op HPI: Niraj Boles is a 23 year old female here for pre-op removal salpingectomy. Denies unprotected intercourse. No concerns today. Past Medical History: Diagnosis Date Anemia ongoing, not currently taking medications. Anxiety ongoing, currently taking medication. Depression resolved at this time. -induced hypertension in third trimester 06/18/2018 resolved STD (sexually transmitted disease) chlamydia/treated Vaginal yeast infection 12/25/2018 Past Surgical History: Procedure Laterality Date TONSILLECTOMY OB History Para Term AB Living 2 2 2 0 0 2 SAB IAB Ectopic Multiple Live Births 0 0 0 0 2 # Outcome Date GA Lbr Jonah/2nd Weight Sex Delivery Anes PTL Lv 2 Term 11/30/23 38w5d 7 lb 11.5 oz (3.5 kg) M NORMAL SPONT None N CHENTE 1 Term 06/17/18 39w6d 7 lb 15 oz (3.6 kg) F VAGINAL EPI CHENTE No Known Allergies Patient's Medications START taking these medications No medications on file CONTINUE taking these medications which have NOT CHANGED ESCITALOPRAM OXALATE 20 MG TABLET Take 1 tablet by mouth in the morning. FERROUS SULFATE 325 MG (65 MG IRON) TABLET Take 1 tablet by mouth in the morning and 1 tablet in the evening. MULTIVIT-MINERALS/FOLIC ACID (MULTIVITAMIN GUMMIES ORAL) Take 1 Dose by mouth in the morning. VITAMIN W/FA TABLET Take 1 tablet by mouth in the morning. START taking Modified Medications as Prescribed No medications on file STOP taking these medications DOCUSATE 100 MG CAPSULE Take 2 capsules by mouth once daily as needed for Constipation. IBUPROFEN 600 MG TABLET Take 1 tablet by mouth every 6 (six) hours as needed (Pain). Take with food or milk. Family History Problem Relation Age of Onset Heart Mother Heart Brother No Significant Medical Problems Father No Significant Medical Problems Sister No Significant Medical Problems Maternal Aunt No Significant Medical Problems Maternal Uncle No Significant Medical Problems Paternal Aunt No Significant Medical Problems Paternal Uncle No Significant Medical Problems Maternal Grandmother No Significant Medical Problems Maternal Grandfather No Significant Medical Problems Paternal Grandmother No Significant Medical Problems Paternal Grandfather Arthritis NoFHx Asthma NoFHx defects NoFHx Breast Cancer NoFHx Colon Cancer NoFHx Ovarian Cancer NoFHx Uterine Cancer NoFHx Cancer NoFHx Depression NoFHx Diabetes NoFHx Genetic NoFHx High cholesterol NoFHx Hypertension NoFHx Mental retardation NoFHx Neurological NoFHx Osteoporosis NoFHx Psychiatry NoFHx Social History Socioeconomic History Marital status: Single Tobacco Use Smoking status: Never Smokeless tobacco: Never Substance and Sexual Activity Alcohol use: Yes Comment: occasional Drug use: No Sexual activity: Yes Partners: Male control/protection: None Comment: last sexual intercourse 12/22/2018 Social History Narrative No domestic abuse or violence. No cats. 1 dog Restoration: None Patient lives with boyfriend and child. Review of Systems Constitutional: Negative for chills, fatigue and fever. HENT: Negative for congestion, rhinorrhea, sneezing and sore throat. Respiratory: Negative for cough, chest tightness, shortness of breath and wheezing. Cardiovascular: Negative for chest pain and palpitations. Gastrointestinal: Negative for abdominal distention, abdominal pain, anal bleeding, blood in stool, constipation, diarrhea, nausea and vomiting. Genitourinary: Negative for dysuria, urgency, frequency, vaginal bleeding and vaginal discharge. Musculoskeletal: Negative for gait problem. Skin: Negative for rash. Neurological: Negative for syncope, light-headedness and headaches. Psychiatric/Behavioral: Negative for dysphoric mood, self-injury and suicidal ideas. Hematological: Does not bruise/bleed easily. @IPVITALS@ Physical Exam Vitals reviewed. Constitutional: She is oriented to person, place, and time. Her body habitus is overweight. Cardiovascular: Regular rate and rhythm. Pulmonary/Chest: Breath sounds clear to auscultation. Normal inspiratory effort. Abdominal: Abdomen is soft. No tenderness present. No hernia palpated or inspected. Neuro/Psychiatric: She has a normal mood and affect. She is oriented to person, place, and time. A/P: Preoperative evaluation for tubal ligation (primary encounter diagnosis) - Tubal consent signed on 09/16/2023 "I counseled the patient regarding risks, benefits and [...] expressed her desire to proceed with bilateral salpingectomy." -Tentatively scheduled for laparoscopic bilateral salpingectomy on 02/10/2024 - RTC in 2 wks for post-op visit Yordan Hernandez MD [facility] 2023-11-30 02:48:30 TRIAGE HISTORY & PHYSICAL IDENTIFYING DATA Niraj Boles is 23 year old, /White, 38w5d, female with CECILIA 12/09/2023, by Last Menstrual Period. : 2000 Primary Care Physician: Geronimo Lozano CHIEF COMPLAINT Contractions HISTORY OF PRESENT ILLNESS Niraj Boles is a 23 year old female, +FM. No VB, LOF, or CTX. No pre-eclampsia sx or other complaints. CARE: OB: Dr Hernandez See OB summary details for PNC details PAST OBSTETRIC HISTORY OB History Para Term AB Living 2 1 1 0 0 1 SAB IAB Ectopic Multiple Live Births 0 0 0 0 1 # Outcome Date GA Lbr Jonah/2nd Weight Sex Delivery Anes PTL Lv 2 Current 1 Term 06/17/18 39w6d 3600 g F VAGINAL EPI CHENTE PAST MEDICAL HISTORY Problem list: Patient Active Problem List Diagnosis Date Noted Uterine contractions 11/30/2023 38 weeks gestation of 11/30/2023 Mental disorder affecting in third trimester 11/30/2023 High-risk in third trimester 11/28/2023 ANGELLA (generalized anxiety disorder) 07/09/2022 Moderate episode of recurrent major depressive disorder 07/09/2022 Depression, unspecified depression type 06/11/2017 Anxiety 06/11/2017 Operations: Past Surgical History: Procedure Laterality Date TONSILLECTOMY Past Medical History: Diagnosis Date Anemia ongoing, not currently taking medications. Anxiety ongoing, currently taking medication. Depression resolved at this time. -induced hypertension in third trimester 06/18/2018 resolved STD (sexually transmitted disease) chlamydia/treated Vaginal yeast infection 12/25/2018 CURRENT HEALTH STATUS Medications: Current Facility-Administered Medications Medication Dose Route Frequency Last Rate Last Admin carboprost (HEMABATE) injection 250 mcg 250 mcg Intramuscular Q2HPRN D5W-LR IV infusion 1,000 mL 1,000 mL IV Infusion TITRATE 125 mL/hr at 11/30/23 0242 1,000 mL at 11/30/23 0242 FENTanyl PF (SUBLIMAZE (PF)) injection 100 mcg 100 mcg Slow IV Push Q1HPRN lactated ringers IV infusion 500 mL 500 mL IV Infusion PRN - SEE INSTRUCTIONS lidocaine 1% (PF) (XYLOCAINE) injection 0.3 mL 0.3 mL Infiltration PRN - SEE INSTRUCTIONS lidocaine 1% (XYLOCAINE) 10 mg/mL (1 %) injection 50 mL 50 mL Infiltration PRN - SEE INSTRUCTIONS methylergonovine (METHERGINE) injection 0.2 mg 0.2 mg Intramuscular Q4HPRN miSOPROStoL (CYTOTEC) tablet 200 mcg 200 mcg Rectal PRN ondansetron (ZOFRAN (PF)) injection 4 mg 4 mg Slow IV Push Q6HPRN oxytocin (PITOCIN) 30 units in NS 500 mL IV infusion 600 mL/hr IV Infusion PRN oxytocin (PITOCIN) 30 units in NS 500 mL IV infusion 2-40 jenae-units/min IV Infusion TITRATE sodium citrate-citric acid (BICITRA) 500-334 mg/5 mL solution 30 mL 30 mL Oral PRE-PROCEDURE ONCE tranexamic acid (CYKLOKAPRON) 1,000 mg in NaCl 0.9% (NS) 250 mL piggyback 1,000 mg IV Piggyback PRN Allergies and drug reactions: Patient has no known allergies. HOME MEDICATIONS Medications Prior to Admission Medication Sig Dispense Refill Last Dose [DISCONTINUED] metroNIDAZOLE (FLAGYL) 500 mg tablet Take 1 tablet by mouth every 12 (twelve) hours. 13 tablet 0 Not Taking hydrOXYzine 25 mg tablet 1 tablet every 8 (eight) hours as needed for Anxiety. Taking [DISCONTINUED] BABY ASPIRIN ORAL Take by mouth. Not Taking escitalopram oxalate 20 mg tablet Take 1 tablet by mouth in the morning. Taking vit/iron fum/folic ac ( 1 + 1 ORAL) Take 1 TAB-CAP/M2 by mouth. Not Taking [DISCONTINUED] proMETHazine 25 mg tablet Take 1 tablet by mouth every 4 (four) hours as needed for Nausea and Vomiting (N/V). 30 tablet 1 Not Taking SOCIAL HISTORY Tobacco History: Social History Tobacco Use Smoking Status Never Smokeless Tobacco Never Drug History: Social History Substance and Sexual Activity Drug Use No Alcohol History: Social History Substance and Sexual Activity Alcohol Use Yes Comment: occasional FAMILY HISTORY Family History Problem Relation Age of Onset Heart Mother Heart Brother No Significant Medical Problems Father No Significant Medical Problems Sister No Significant Medical Problems Maternal Aunt No Significant Medical Problems Maternal Uncle No Significant Medical Problems Paternal Aunt No Significant Medical Problems Paternal Uncle No Significant Medical Problems Maternal Grandmother No Significant Medical Problems Maternal Grandfather No Significant Medical Problems Paternal Grandmother No Significant Medical Problems Paternal Grandfather Arthritis NoFHx Asthma NoFHx defects NoFHx Breast Cancer NoFHx Colon Cancer NoFHx Ovarian Cancer NoFHx Uterine Cancer NoFHx Cancer NoFHx Depression NoFHx Diabetes NoFHx Genetic NoFHx High cholesterol NoFHx Hypertension NoFHx Mental retardation NoFHx Neurological NoFHx Osteoporosis NoFHx Psychiatry NoFHx REVIEW OF SYSTEMS General: negative Constitutional: negative Eyes: negative ENT/Mouth: negative Cardiovascular: negative Respiratory: negative Gastrointestinal:negative Genitourinary: negative Musculoskeletal: negative Skin/breast: negative Neurological: negative Psychiatric: negative Endocrine: negative Hemat/Lymph: negative Allergic/Immuno:none VITAL SIGNS BP: (110-120)/(75-94) Temp: [36.5 ?C (97.7 ?F)] Temp source: Oral (11/30 003) Pulse: [78-83] Resp: [20] SpO2: [98 %-100 %] Height: [170.2 cm (5' 7")] Weight: [117.9 kg (260 lb)] BMI (calculated): [0-40.72] PHYSICAL EXAMINATIONS Gen: alert and oriented, well appearing, no distress CV: RRR Resp: normal work of breathing Abd: gravid, soft, NTTP. Cephalic. EFW less than 4500g Ext: no calf tenderness or edema - SVE: Dilation: 5 / Effacement (%): 70 % / Station: -1, AROM - clear REVIEW OF LABORATORY, PATHOLOGY, AND RADIOLOGY DATA Lab results: Type & Screen HIV Hep B Syphilis Chlamydia ABO & RH Date Value Ref Range Status 09/02/2023 O Positive Final HIV Ag-Ab Multiplex Date Value Ref Range Status 12/25/2018 Non-reactive Non-reactive Final No components found for: "HBSHBSAG" No results found for: "SYPIGG" C. trachomatis Nucleic Acid Date Value Ref Range Status 11/03/2023 Negative Negative Final IAT Date Value Ref Range Status 09/02/2023 Negative Final Varicella Rubella Glucose Group B Strep CBC VZV IgG antibody Date Value Ref Range Status 05/28/2023 Positive Negative Final Rubella screen IgG Date Value Ref Range Status 05/28/2023 Negative Negative Final GLUC 1 HR Date Value Ref Range Status 09/02/2023 88 (L) 120 - 170 mg/dL Final No results found for: "CGBS" HGB Date Value Ref Range Status 09/02/2023 12.1 11.6 - 15.0 g/dL Final HCT Date Value Ref Range Status 09/02/2023 35.6 (L) 35.7 - 45.2 % Final PLT Date Value Ref Range Status 09/02/2023 180 166 - 358 10*3/?L Final Placenta Accreta Screening Screening outcome: A positive screening outcome indicates a history of prior delivery or prior uterine surgery, AND the presence of either a placenta low lying/previa or ultrasound suspicion of PASD in the current . Negative screening. Active Hospital Problems Diagnosis Date Noted Uterine contractions 11/30/2023 38 weeks gestation of 11/30/2023 Mental disorder affecting in third trimester 11/30/2023 Resolved Hospital Problems No resolved problems to display. Present on Admission: Uterine contractions 38 weeks gestation of Mental disorder affecting in third trimester ASSESSMENT AND PLAN Niraj Boles is a 23 year old at 38w5d who presents in active labor Labor - CAT 2 strip with intermittent variable decels down to 90's - GBS negative - AROM- clear fluid Anticipate vaginal delivery Odessa Hays MD [facility] Procedure Notes Date/Time Note Provider Source 2024-02-10 10:31:51 Procedure(s): LAPAROSCOPIC SALPINGECTOMY Pre-Procedure Diagnose(s): Encounter for tubal ligation Post-Procedure Diagnose(s): Encounter for tubal ligation; Status post bilateral salpingectomy LAPAROSCOPIC TUBAL SALPINGECTOMY Date of Service: 02/10/2024 Faculty Surgeon: Yordan Hernandez Anesthesia Type: General IV Fluids: 600 cc Lactated Ringers Colloid Fluids: None Specimens Sent to Pathology: bilateral fallopian tubes Urine Output: 400 cc of clear urine Complications: none Estimated Blood Loss: < 10 mL Patient Status: Patient in stable condition and taken to recovery room Narrative: Niraj Boles is a 23 year old female desires permanent sterilization with laparoscopic bilateral salpingectomy. Description of Findings: Normal liver edge, normal uterus, fallopian tubes and ovaries. Bowel adhered to the right mid side wall of the abdomen. The trocar sites were inspected and no injury or bleeding identified. Summary of Procedure: After informed written consent was given by patient [...] and taken to the PAC-U in stable condition. Yordan Hernandez MD 02/10/2024 10:28 AM [facility]
[2024-11-02 21:35] LABS: SARS-CoV-2 Antigen CONTROL BLUE LINE VIS/BG OK; SARS-CoV-2 Antigen Rapid Res Negative (Negative)
--- NOTE | 2024-11-02 21:54 | ER ---
Nurse's Notes [facility] Name: Lanie Wood Age: 24 yrs Sex: Female : 2000 Arrival Date: 11/02/2024 Time: 19:46 Bed 22 Private MD: Diagnosis: Influenza due to identified novel influenza A virus Presentation: 11/02 20:57 Chief complaint: Patient states: FEVER, COUGH SORE THROAT ONSET FRIDAY. Coronavirus cm10 screen: Client denies travel out of the [place] in the last 14 days. Ebola Screen: Patient denies travel to an Ebola-affected area in the 21 days before illness onset. No symptoms or risks identified at this time. Initial Sepsis Screen: Does the patient meet any 2 criteria? HR > 90 bpm. Does the patient have a suspected source of infection? No. Patient's initial sepsis screen is negative. Risk Assessment: Do you want to hurt yourself or someone else? Patient reports no desire to harm self or others. Onset of symptoms was November 02, 2024. 20:57 Method Of Arrival: Ambulatory cm10 20:57 Acuity: KATIE 4 cm10 Historical: - Allergies: 20:58 No Known Allergies; cm10 - PMHx: 20:58 depressive disorder; cm10 - PSHx: 20:58 Ligation of fallopian tube; Tonsillectomy; cm10 - Immunization history:: Adult Immunizations up to date. - Infectious Disease History:: Denies. - Social history:: Smoking status: unknown. Screenin:50 [facility] ED Fall Risk Assessment (Adult) History of falling in the last 3 months, jb4 including since admission No falls in past 3 months (0 pts) Confusion or Disorientation No (0 pts) Intoxicated or Sedated No (0 pts) Impaired Gait No (0 pts) Mobility Assist Device Used No (0 pt) Altered Elimination No (0 pt) Score/Fall Risk Level 0 - 2 = Low Risk Oriented to surroundings, Maintained a safe environment. Abuse screen: Denies threats or abuse. Nutritional screening: No deficits noted. Tuberculosis screening: No symptoms or risk factors identified. Assessment: 21:50 General: Appears in no apparent distress. comfortable, Behavior is calm, cooperative, jb4 appropriate for age. Pain: Denies pain. Neuro: Level of Consciousness is awake, alert, obeys commands, Oriented to person, place, time, situation. Cardiovascular: Patient's skin is warm and dry. Respiratory: Airway is patent Respiratory effort is even, unlabored, Respiratory pattern is regular, symmetrical. Derm: Skin is intact, Skin is pink, warm \T\ dry. Musculoskeletal: Circulation, motion, and sensation intact. Range of motion: intact in all extremities. Vital Signs: 20:57 BP 109 / 73; Pulse 117; Resp 19; Temp 98(TE); Pulse Ox 98% on R/A; Weight 76.2 kg; cm10 Height 5 ft. 7 in. ; 20:57 Body Mass Index 26.31 (76.20 kg, 170.18 cm) cm10 ED Course: 19:51 Patient arrived in ED. sj2 20:03 Lurdes Sebastian [facility] sb4 20:03 Sky Alexander MD is Attending Physician. sb4 20:58 Triage completed. cm10 20:58 Arm band placed on left wrist. cm10 21:03 Flu Sent. cm10 21:03 SARS RAPID Sent. cm10 21:03 Strep Sent. cm10 21:03 COVID swab sent to lab. Flu and/or RSV swab sent to lab. Strep swab sent to lab. cm10 22:48 Patient has correct armband on for positive identification. Bed in low position. Call jb4 light in reach. Side rails up X 1. Provided Education on: discharge instructions given by NILA Castro. 22:48 No provider procedures requiring assistance completed. Patient did not have IV access jb4 during this emergency room visit. Administered Medications: No medications were administered Medication: 21:50 VIS not applicable for this client. jb4 Outcome: 21:53 Discharge ordered by . sb4 22:48 Discharged to home ambulatory, jb4 22:48 Condition: stable 22:48 Discharge instructions given to patient, Instructed on discharge instructions, follow up and referral plans. Demonstrated understanding of instructions, follow-up care, 22:48 Patient left the ED. jb4 Signatures: Cory Chiang RN RN jb4 Lurdes Sebastian PA-C PA-C sb4 Martinez, Clarissa, RN RN cm10 Qing Herman sj2
--- NOTE | 2024-11-02 21:54 | EDPHYS ---
Physician Documentation [facility] Name: Lanie Wood Age: 24 yrs Sex: Female : 2000 Arrival Date: 11/02/2024 Time: 19:46 Bed 22 Private MD: ED Physician Sky Alexander HPI: 11/02 22:29 This 24 yrs old Female presents to ER via Ambulatory with complaints of Fever, sb4 Cold Symptoms. 22:29 patient reports fever, cough, and congestion x 5 days. her kids are sick as well. sb4 denies any chest pain or shortness of breath. denies any GI symptoms. Historical: - Allergies: 20:58 No Known Allergies; cm10 - PMHx: 20:58 depressive disorder; cm10 - PSHx: 20:58 Ligation of fallopian tube; Tonsillectomy; cm10 - Immunization history:: Adult Immunizations up to date. - Infectious Disease History:: Denies. - Social history:: Smoking status: unknown. ROS: 22:30 Abdomen/GI: Negative for abdominal pain, nausea, vomiting, diarrhea, and constipation, sb4 22:30 Constitutional: Positive for fever, 22:30 ENT: Positive for sore throat, 22:30 Respiratory: Positive for cough, 22:30 All other systems are negative, Exam: 22:30 Constitutional: This is a well developed, well nourished patient who is awake, alert, sb4 and in no acute distress. Head/Face: Normocephalic, atraumatic. Eyes: Extra-ocular motions intact. Periorbital areas with no swelling, redness, or edema. ENT: Mucous membranes moist. Respiratory: No increased work of breathing, no retractions or nasal flaring. Abdomen/GI: Soft, non-tender, no distension. Skin: Warm, dry with normal turgor. Normal color with no rashes, no lesions, and no evidence of cellulitis. 22:30 Cardiovascular: Rate: tachycardic, Rhythm: regular, Vital Signs: 20:57 BP 109 / 73; Pulse 117; Resp 19; Temp 98(TE); Pulse Ox 98% on R/A; Weight 76.2 kg; cm10 Height 5 ft. 7 in. ; 20:57 Body Mass Index 26.31 (76.20 kg, 170.18 cm) cm10 MDM: 20:57 Medical Screening Exam initiated sb4 22:58 Data reviewed: vital signs, nurses notes, lab test result(s), and as a result, I will sb4 discharge patient. Counseling: I had a detailed discussion with the patient and/or guardian regarding the historical points, exam findings, and any diagnostic results supporting the discharge/admit diagnosis, lab results, to return to the emergency department if symptoms worsen or persist or if there are any questions or concerns that arise at home. 11/02 20:47 Order name: Strep; Complete Time: 21:36 sb4 11/02 20:47 Order name: SARS RAPID; Complete Time: 21:35 sb4 11/02 20:47 Order name: Flu; Complete Time: 21:36 sb4 11/02 21:38 Order name: Throat Culture EDMS Administered Medications: No medications were administered Disposition Summary: 11/02/24 21:53 Discharge Ordered Notes: Location: Home sb4 Problem: new sb4 Symptoms: have improved sb4 Condition: Stable sb4 Diagnosis - Influenza due to identified novel influenza A virus sb4 Followup: sb4 - With: Emergency Department - When: As needed - Reason: Trouble breathing, Worsening of condition Discharge Instructions: - Discharge Summary Sheet sb4 - Influenza, Adult, [id number]-pa-Opil sb4 Forms: - Patient Portal Instructions sb4 - Leadership Thank You Letter sb4 Signatures: Dispatcher [employer] Lurdes Lincoln PA-C PA-C sb4 Yi Barrientos, RN RN cm10 Corrections: (The following items were deleted from the chart) 20:47 20:47 Group A Streptococcus Rapid Sc+BA.LAB.BRZ ordered. EDOK EDOK 20:47 20:47 SARS-COV-2 Antigen Rapid+I.LAB.BRZ ordered. [facility] EDMS 20:47 20:47 Influenza Screen (A \T\ B)+BA.LAB.BRZ ordered. [facility] EDMS 22:30 22:29 fever, cough, congestion, fussiness x 5 days. mom has been giving tylenol and sb4 motrin regularly. several positive sick contacts. no diarrhea. no sob. sb4
[2024-11-02 22:56] VITALS: BP 109/73; TEMP 98; O2SAT 98
== END 2024-11-02 22:48 | disposition home or self-care (01) ==
LOC: ER 19:46
DX: J10.1 Influenza due to other identified influenza virus with other respiratory manifestations (principal); Z11.52 Encounter for screening for COVID-19
CPT/HCPCS: 36415; 87070; 87081; 87804; 87811; 99283